=== PATIENT | male | born 1950 | race Caucasian/White ===

== ENCOUNTER 2023-12-21 06:01 | Emergency (ER) | payer MEDICARE, BC, SELFPAY ==
[2023-12-21 06:10] VITALS: BP 168/86; PULSE 87; RESP 18; TEMP 36.7; O2SAT 99; BMI 33.0
--- NOTE | 2023-12-21 07:16 | ED_ITS ---
HPI - General Adult General Chief complaint: Unspecified Complaint, Adult Stated complaint: Not able to sleep for 3 days Time Seen by Provider: 12/21/23 07:12 Source: patient Mode of arrival: ambulatory Limitations: no limitations History of Present Illness HPI narrative: 73-year-old male presents the emergency department for evaluation of insomnia for the past 3 nights. He has not tried contacting his primary care provider. He tells me that his current primary care provider is through [facility] but is retiring and has advised patient to set up a new primary care provider. Patient states that he has a new 1 set up through [facility] a here in [place] and will began seeing them soon. He states that he had previously been on Seroquel for insomnia and it was not effective for him. He also reports that he had previously been on a higher dose of trazodone and is not sure why he is currently taking 100 mg. I do not have access to those records. He says that he has been taking this for about the past 6 weeks and it was originally helping but now is not as helpful. I reviewed the records also shows that he is on several stimulating medications including bupropion and twice daily methylphenidate. He is currently taking the methylphenidate at 7:00 a.m. and 1:00 p.m., has not tried eliminating the afternoon dose of his methylphenidate. He denies a history of bipolar disorder, psychosis. He does have chronic pain but states that there have been no changes to his medication regimen. He notes no suicidal thoughts. He is under lots of increased stress due to his having cancer and from how he describes it, not doing very well. He is tearful at this. Past medical history notable for hypertension, coronary artery disease, chronic insomnia, chronic pain. Medications are reportedly accurate as listed. No known drug allergies. ROS notable for the insomnia as stated above, otherwise denies times 12 systems for acute changes. Chronic issues are stable per him. Related Data Home Medications ?Medication ?Instructions ?Recorded ?Confirmed amlodipine 10 mg-benazepril 40 mg 1 cap PO DAILY 12/21/23 12/21/23 capsule atorvastatin 40 mg tablet 40 mg PO DAILY 12/21/23 12/21/23 bupropion HCl 300 mg 24 hr tablet, 300 mg PO DAILY 12/21/23 12/21/23 extended release celecoxib 200 mg capsule 200 mg PO DAILY 12/21/23 12/21/23 methylphenidate HCl 20 mg tablet 20 mg PO BID 12/21/23 12/21/23 metoprolol succinate 200 mg 200 mg PO DAILY 12/21/23 12/21/23 tablet,extended release 24 hr metoprolol succinate 25 mg 25 mg PO DAILY 12/21/23 12/21/23 tablet,extended release 24 hr oxycodone 10 mg tablet 10 mg PO 3XD PRN 12/21/23 12/21/23 pantoprazole 40 mg tablet,delayed 40 mg PO DAILY 12/21/23 12/21/23 release pregabalin 100 mg capsule 100 mg PO BID 12/21/23 12/21/23 tamsulosin 0.4 mg capsule 0.4 mg PO DAILY 12/21/23 12/21/23 trazodone 100 mg tablet 100 mg PO QPM 12/21/23 12/21/23 valacyclovir 500 mg tablet 500 mg PO DAILY 12/21/23 12/21/23 Previous Rx's ?Medication ?Instructions ?Recorded trazodone 100 mg tablet 200 mg (2 x 100 mg) PO QHS #60 tabs 12/21/23 Allergies Allergy/AdvReac Type Severity Reaction Status Date / Time No Known Drug Allergies Allergy Verified 12/21/23 06:10 [facility] Social History Smoking Status: Never smoker Second hand tobacco smoke exposure: No How often do you have a drink containing alcohol: never AUDIT-C Alcohol total score: 0 Non-prescribed substance use: denies use Exam Const: Vital Signs, click to edit/add: Vital Signs - 24 hr 12/21/23 06:10 Temperature 98.0 F Pulse Rate [Right Pulse Oximeter] 87 Respiratory Rate 18 Blood Pressure [Le ft Forearm] 168/86 H Pulse Oximetry 99 Oxygen Delivery Me thod Room Air Documenting provider has reviewed patient's vital signs: yes Common normals: no apparent distress General appearance: cooperative and well kempt Other: Tearful but alert, good historian. HENMT: Common normals: normocephalic and oropharynx normal Head and scalp: normocephalic Eye: General eye: normal appearance of both eyes Resp: Common normals: normal respiratory effort, no use of accessory muscles and clear to auscultation bilaterally Effort & inspection: able to speak in complete sentences Auscultation: clear to auscultation bilaterally Cardio: Common normals: regular rate and regular rhythm Rate: regular rate Rhythm: regular rhythm Other: 2/6 systolic murmur. Psych: Common normals: thought process normal and speech normal Appearance: well kempt Attitude: engaged Speech: normal speech Mood and affect: sad and tearful Thought process: normal thought process Thought content: normal thought content Memory/cognition: memory grossly intact Insight: insight good Judgement: judgment good Skin: Common normals: no rashes or lesions noted General skin exam: no rashes or lesions noted Course Course ED Course: 73-year-old male with acute on chronic insomnia with situational depression due to his 's cancer. Counseled patient that in the ED, insomnia long-term management really is not in his best interest but I do think making a couple of small changes since he is between providers could be helpful for him. 1st, he will stop taking his afternoon dose of methylphenidate. He may continue the morning dose for now but may consider eliminating this also if he is still having insomnia. He will begin taking melatonin 10 mg at bedtime and he will also increase his trazodone from 100 mg at bedtime to 200 mg at bedtime and a new prescription for this has been sent to the pharmacy. He will make a follow- up appointment in 1 week for his primary care provider to see how this is going and discuss alternatives if this is not successful. Alarm symptoms reviewed that would warrant ED presentation and he verbalizes understanding and agreement. Vital Signs Vital signs: Initial Vital Signs Temperature 98.0 F 12/21/23 06:10 Temperature Source Temporal Artery Scan 12/21/23 06:10 Pulse Rate 87 12/21/23 06:10 Respiratory Rate 18 12/21/23 06:10 Blood Pressure 168/86 H 12/21/23 06:10 Blood Pressure Mean 113 H 12/21/23 06:10 Blood Pressure Position Sitting 12/21/23 06:10 Pulse Oximetry 99 12/21/23 06:10 Oxygen Delivery Method Room Air 12/21/23 06:10 Vital Signs Temperature 98.0 F 12/21/23 06:10 Pulse Rate 87 12/21/23 06:10 Respiratory Rate 18 12/21/23 06:10 Blood Pressure 168/86 H 12/21/23 06:10 Pulse Oximetry 99 12/21/23 06:10 Oxygen Delivery Method Room Air 12/21/23 06:10 Temperature 98.0 F 12/21/23 06:10 Pulse Rate 87 12/21/23 06:10 Respiratory Rate 18 12/21/23 06:10 Blood Pressure 168/86 H 12/21/23 06:10 Pulse Oximetry 99 12/21/23 06:10 Oxygen Delivery Method Room Air 12/21/23 06:10 Discharge Plan Discharge Clinical Impression: Chronic insomnia Patient Disposition: Home, Self-Care Condition: Stable Instructions: Insomnia (ED) Additional Instructions: As we discussed, I am truly sorry to hear about your . Please know that no amount of medications are going to fully mask that level of grief and worry over her. I do think that there is some room to at least temporarily adjust your medica tions. Please call your primary care doctor and make a follow-up for next week so we can make sure that this is working. First, you may continue taking your morning dose of methylphenidate, but I would like for you to stop taking the afternoon dose. Second, you will increase your trazodone to 200 mg at bedtime. I will send a new prescription to your pharmacy for this dose. Third, with your trazodone, you will also take 10 mg of melatonin to help you sleep. If these are not effective, there are many other options your primary doctor may consider but this is an excellent place to start. Activity Level: Activity as Tolerated Discharge Diet: Regular Prescriptions: New trazodone 100 mg tablet 200 mg PO QHS Qty: 60 0RF No Action celecoxib 200 mg capsule 200 mg PO DAILY atorvastatin 40 mg tablet 40 mg PO DAILY methylphenidate HCl 20 mg tablet 20 mg PO BID metoprolol succinate 200 mg tablet extended release 24 hr 200 mg PO DAILY tamsulosin 0.4 mg capsule 0.4 mg PO DAILY pantoprazole 40 mg tablet,delayed release (DR/EC) 40 mg PO DAILY metoprolol succinate 25 mg tablet extended release 24 hr 25 mg PO DAILY bupropion HCl 300 mg tablet extended release 24 hr 300 mg PO DAILY pregabalin 100 mg capsule 100 mg PO BID amlodipine-benazepril 10-40 mg capsule 1 cap PO DAILY oxycodone 10 mg tablet 10 mg PO 3XD PRN valacyclovir 500 mg tablet 500 mg PO DAILY trazodone 100 mg tablet 100 mg PO QPM Follow Up/Referrals: Provider,Not a Local [Primary Care Provider] - Stand Alone Forms: [employer] Info Instructions
--- OUTSIDE RECORDS SUMMARY | 2023-12-21 07:43 | XMS_ITS | Clinical Summary ---
Author Organization [facility] Address [address] [place] [id number] Care Team Providers Care Patient Support Partner Name Role Phone Unavailable Primary Care Provider Unavailabl e Source Comments Patient records contain information from all sites at [facility]. For routine questions regarding patient records, call [phone] during business hours, M-F 8:00 AM - 5:00 PM Central Time. Record requests for emergency care only can be directed to [phone] at any time.[facility] Allergies No known active allergies Medications Medication Sig Dispensed Refills Start Date End Date Status amLODIPine-benazepril (LOTREL 5-20) 5-20 mg per capsule Take 1 capsule by mouth daily. 11/05/[address] Active [address] tablet Take 1 tablet by mouth daily. 10/03/2020 Active atorvastatin (LIPITOR) 40 mg tablet Take 1 tablet by mouth at bedtime. 04/18/2021 Active buPROPion (WELLBUTRIN SR) 150 mg 12 hr tablet Take 1 tablet by mouth 2 (two) times a day. 11/05/2011 Active celecoxib (CeleBREX) 200 mg capsule Take 1 capsule by mouth daily. 04/19/2021 Active cholecalciferol, vitamin D3, 25 mcg (1,000 Unit) tablet Take 1 tablet by mouth daily. 07/10/2021 Active desvenlafaxine (PRISTIQ) 100 mg 24 hr tablet Take 1 tablet by mouth daily. 07/10/2021 Active ergocalciferol (DRISDOL) 50,000 Unit capsule Take 50,000 Units by mouth. Active gabapentin (NEURONTIN) 400 mg capsule Take 3 capsules by mouth at bedtime. 05/18/2013 Active metFORMIN (GLUCOPHAGE) 1,000 mg tablet Take 1,000 mg by mouth. Active methylphenidate HCl (METADATE ER) 20 mg ER tablet Take 1 tablet by mouth 2 (two) times a day. 06/18/2021 Active metoprolol succinate (TOPROL-XL) 200 mg 24 hr tablet Take 200 mg by mouth. 05/21/2021 Active oxyCODONE (ROXICODONE) 10 mg IR tablet Take 10 mg by mouth every 8 (eight) hours. 08/13/2021 Active pantoprazole (PROTONIX) 40 mg EC tablet TAKE 1 TABLET BY MOUTH DAILY, 30 TO 60 MINUTES BEFORE A MEAL. 05/21/2021 Active pregabalin (LYRICA) 100 mg capsule Take 100 mg by mouth. 06/26/2021 Active pregabalin (LYRICA) 150 mg capsule Take 150 mg by mouth. 06/26/2021 Active QUEtiapine (SEROquel) 25 mg tablet Take 25 mg by mouth. 05/21/2021 Active sennosides-docusate sodium (SENOKOT-S) 8.6-50 mg per tablet Take 1-4 tablets by mouth. 03/11/2013 Active simvastatin (ZOCOR) 40 mg tablet Take 1 tablet by mouth at bedtime. 04/11/2011 Active tamsulosin (FLOMAX) 0.4 mg 24 hr capsule Take 0.4 mg by mouth. 04/18/2021 Active valACYclovir (VALTREX) 500 mg tablet Take 500 mg by mouth. 10/29/2011 Active venlafaxine XR (EFFEXOR-XR) 75 mg 24 hr capsule Take 225 mg by mouth. Active Active Problems No known active problems Social History Tobacco Use Types Packs/Day Years Used Date Smoking Tobacco: Every Day Smokeless Tobacco: Never Alcohol Use Standard Drinks/Week Comments Not Currently 0 (1 standard drink = 0.6 oz pur e alcohol) Nutrition Answer Date Recorded Nutrition: EVOO Fat Source Unknown 07/02 Nutrition: Servings of Fruits/Vegetables per Day Not on file 07/02/2021 Dental Answer Date Recorded Dental: Regular Dentist Unknown 07/02/20 Sex and Gender Information Value Date Recorded Sex Assigned at Not on file Gender Identity Not on file Sexual Orientation Not on file Last Filed Vital Signs Vital Sign Reading Time Taken Comments Blood Pressure 102/72 01/05/2022 2:30 PM CDT Pulse 60 01/05/2022 2:45 PM CDT Temperature 36.8 ??C (98.2 ??F) 01/05/2022 2:45 PM CD T Respiratory Rate 18 01/05/2022 2:45 PM CDT Oxygen Saturation 90% 01/05/2022 2:45 PM CDT Inhaled Oxygen Concentration - - Weight 107 kg (235 lb 0.2 oz) 01/05/2022 1:39 PM CDT Height - - Body Mass Index - - Plan of Treatment Health Maintenance Due Date Last Done Comments Abdominal Aortic Aneurysm (A AA) Screen 1952 CT Colonography 1952 Cologuard 1950 Colonoscopy 1950 Colorectal Cancer Screening 1952 FIT 1952 Hepatitis C Screening 1952 Tobacco Cessation counseling 1952 Creatinine Level (Kidney Fun ction Test) 12/05/2022 12/05/2021, 04/19/2021, 11/27/2020, Additional history exists Potassium Level 12/05/2022 12/05/2021, 10/0 01/2021, 11/27/2020, Additional history exists Sodium Level 12/05/2022 12/05/2021, 10/0 01/2021, 11/27/2020, Additional history exists Depression Screening (Annual PHQ-2) 07/14/2023 Fall Risk Screen (Annual) 07/14/2023 COVID-19 Vaccine (2022-2 4 season) 2023 04/25/2023, 06/29/2022, 10/29/2021, Additional history exists Fasting Glucose for Diabetes Screening 12/05/2024 12/05/2021, 04/19/2021, 11/27/2020, Additional history exists DTaP,Tdap,and Td Vaccines (6 - Td or Tdap) 05/05/2028 05/05/2018, 05/05/2018, 05/24/2014, Additional history exists Zoster Vaccines Completed 07/24/2018, 04/14, 05/24/2014 Pneumococcal vaccine (65+ years) Completed 10/05/2019, 08/18/2015, 07/19/2014, Additional history exists Influenza Vaccine Completed 04/25/2023, , 04/19/2021, Additional history exists Procedures Procedure Name Priority Date/Time Associated Diagnosis Comments EXTI COMPREHENSIVE METABOLIC PANEL, S/P Routine 12/05/2021 11:54 AM CDT from Last 3 Months or Most Recently Relevant to Health Maintenance
--- OUTSIDE RECORDS SUMMARY | 2023-12-21 07:43 | XMS_ITS ---
Author Organization [facility] Address [address] [place] [address] Care Team Providers Care Arresting Gear Operator Name Role Phone Unavailable Unavailable Unavailable Surgery Details Not on file Complications Check Surgery Details section. Procedure Estimated Blood Loss Check Surgery Details section. Procedure Findings Check Surgery Details section. Procedure Specimens Taken Check Surgery Details section.
--- OUTSIDE RECORDS SUMMARY | 2023-12-21 07:43 | XMS_ITS | Clinical Summary ---
Author Organization [facility] Address [address] [place] [address] Care Team Providers Care Molded Goods Controls Operator Name Role Phone Vinny Covarrubias MD Primary Care Provider [phone] Vinny Covarrubias MD Unavailable [phone] Sancho Brown MD Unavailable Vinny Covarrubias MD Unavailable [phone] Alba Desai [employer] Unavailable [phone] Lizbet Guzmán MD Unavailable [phone] Soledad Mccabe MD Unavailable Unav ailable Vinny Covarrubias MD Unavailable [phone] Aida Hahn DPM, Podiatry /Foot and Ankle Surgery Unavailable Gisselle Doyle [facility] Unavailable Allergies Active Allergy Reactions Criticality Noted Date Comments Dilaudid Cough Visual Disturbance 11/07/2011 hulludinations Triptans Other (See Comments) 03/29/2014 Chest pain Medications Medication Sig Dispensed Refills Start Date End Date Status Multiple Vitamins-Minerals (MENS 50+ MULTI VITAMIN/MIN PO) Take 1 tablet by mouth daily Active order for DMEIndications:Diab etic polyneuropathy associated with type 2 diabetes mellitus (H) Equipment being ordered: custom shoes with inserts 2 each 03/12/2018 Active Carboxymethylcellul -Glycerin (CLEAR EYES FOR DRY EYES OP) Apply 1 drop to eye daily as needed Active diclofenac (VOLTAREN) 1 % topical gelIndications:Prim erinn osteoarthritis, unspecified site Place 4 g onto the skin 4 times daily 300 Tube 3 10/25/2019 Active medical cannabis (Patient's own supply) See Admin Instructions (The purpose of this order is to document that the patient reports taking medical cannabis. This is not a prescription, and is not used to certify that the patient has a qualifying medical condition.) Active D-1000 EXTRA STRENGTH 25 MCG (1000 UT) TABSIndications:Mariangel dhaliwal general medical examination at a health care facility TAKE ONE TABLET BY MOUTH ONCE DAILY 90 tablet 07/10/2021 Active aspirin (ASPIRIN LOW DOSE) 81 MG EC tabletIndications:H istory of diabetes mellitus, type II Take 1 tablet (81 mg) by mouth daily 100 tablet 2 01/15/2022 Active senna (SENOKOT) 8.6 MG tabletIndications:C hronic pain syndrome Take 2 tablets by mouth daily 100 tablet 11 10/22/2022 Active metoprolol succinate ER (TOPROL XL) 200 MG 24 hr tabletIndications:T remor TAKE ONE TABLET BY MOUTH ONCE DAILY (TAKE WITH A 25 MG ER TABLET TO EQUAL 225 MG DAILY DOSE) 90 tablet 3 02/03/2023 Active metoprolol succinate ER (TOPROL XL) 25 MG 24 hr tabletIndications:T remor,Coronary artery disease involving [place] coronary artery of [place] heart without angina pectoris TAKE ONE TABLET BY MOUTH DAILY AT BEDTIME (TAKE WITH A 200 MG ER TABLET TO EQUAL 225 MG DAILY DOSE) 90 tablet 3 02/03/2023 Active pantoprazole (PROTONIX) 40 MG EC tabletIndications:G astroesophageal reflux disease without esophagitis TAKE ONE TABLET BY MOUTH ONCE DAILY-TAKE 30 TO 60 MINUTES BEFORE A MEAL 90 tablet 3 02/03/2023 Active tamsulosin (FLOMAX) 0.4 MG capsuleIndications: Nocturia Take 1 capsule (0.4 mg) by mouth daily 90 capsule 3 06/04/2023 Active pregabalin (LYRICA) 100 MG capsuleIndications: Diabetic polyneuropathy associated with type 2 diabetes mellitus (H),Chronic pain syndrome,Lumbar radiculopathy,Cervi calgia Take 1 capsule (100 mg) by mouth 2 times daily 180 capsule 1 06/04/2023 Active buPROPion (WELLBUTRIN XL) 300 MG 24 hr tabletIndications:D iabetic polyneuropathy associated with type 2 diabetes mellitus (H) Take 1 tablet (300 mg) by mouth every morning 90 tablet 1 06/04/2023 Active amLODIPine-benazepr il (LOTREL) 10-40 MG capsuleIndications: Essential hypertension TAKE ONE CAPSULE BY MOUTH ONCE DAILY 90 capsule 1 06/04/2023 Active hydrocortisone (WESTCORT) 0.2 % external creamIndications:De rmatitis Apply topically 2 times daily 60 g 1 06/04/2023 Active clobetasol (TEMOVATE) 0.05 % external solutionIndications :Seborrheic dermatitis Apply topically 2 times daily as needed (itching) 50 mL 1 08/19/2023 Active ketoconazole (NIZORAL) 2 % external shampooIndications: Seborrheic dermatitis Apply topically once a week 120 mL 3 08/19/2023 Active celecoxib (CELEBREX) 200 MG capsuleIndications: Chronic pain syndrome Take 1 capsule (200 mg) by mouth daily 90 capsule 1 08/19/2023 Active valACYclovir (VALTREX) 500 MG tabletIndications:H SV (herpes simplex virus) infection Take 1 tablet (500 mg) by mouth daily 90 tablet 3 08/19/2023 Active traZODone (DESYREL) 100 MG tabletIndications:O SA (obstructive sleep apnea),Insomnia due to medical condition Take 1 tablet (100 mg) by mouth at bedtime 90 tablet 2 10/10/2023 Active methylphenidate (RITALIN) 20 MG tabletIndications:O SA (obstructive sleep apnea),Chronic fatigue Take 1 tablet (20 mg) by mouth 2 times daily 60 tablet 10/14/2023 Active atorvastatin (LIPITOR) 40 MG tabletIndications:H yperlipidemia LDL goal <100 TAKE ONE TABLET BY MOUTH EVERY DAY 90 tablet 11/11/2023 Active methylphenidate (RITALIN) 20 MG tabletIndications:O SA (obstructive sleep apnea),Chronic fatigue Take 1 tablet (20 mg) by mouth 2 times daily for 30 days 60 tablet 12/12/2023 Active methylphenidate (RITALIN) 20 MG tabletIndications:O SA (obstructive sleep apnea),Chronic fatigue Take 1 tablet (20 mg) by mouth 2 times daily for 30 days 60 tablet 01/12/2024 4 Active oxyCODONE IR (ROXICODONE) 10 MG tabletIndications:C hronic pain syndrome Take 1 tablet (10 mg) by mouth every 8 hours as needed for severe pain 90 tablet 11/18/2023 Active methylphenidate (RITALIN) 20 MG tabletIndications:C hronic fatigue,LISA (obstructive sleep apnea) TAKE ONE TABLET BY MOUTH TWICE A DAY . 60 tablet 12/09/2023 Active methylphenidate (RITALIN) 20 MG tabletIndications:O SA (obstructive sleep apnea),Chronic fatigue Take 1 tablet (20 mg) by mouth 2 times daily for 30 days 60 tablet 11/11/2023 4 Active Problems Problem Noted Date Diagnosed Date Financial difficulties 08/19/2023 Last Assessment & Plan: has at least 4 bank accounts, some are now overdrawn Stress due to spouse with dementia 08/19/2023 Last Assessment & Plan: Spouse may have Pick's disease, is falling frequently. No communication between spouses. Discussed. He is afraid to leave the house or her presence, fearing her lying on the floor for prolonged periods, which has happened. referral for his well being, Care coordination for resources. Recommend he get permission to access medical and financial records/accounts. He reports sister in law, 's dtr oppose this, see nothing wrong with spouse Need for vaccination against respiratory syncyti al virus 08/19/2023 Last Assessment & Plan: Recommended at pharmacy Pruritus, unspecified 08/19/2023 Right foot pain 08/15/2022 Nail dystrophy 08/09/2022 Last Assessment & Plan: He wonders if some of his toenails could be removed for ease of care. We shall refer to podiatry. He is higher risk. Lumbar radiculopathy 12/05/2021 Last Assessment & Plan: A component of his neuropathic symptoms Special screening for malignant neoplasm of pros cason 12/05/2021 Last Assessment & Plan: Medicare requires this dx Panlobular emphysema 02/13/2021 Last Assessment & Plan: Asymptomatic. Tobacco continues Nocturnal enuresis 11/14/2020 Last Assessment & Plan: Multiple urologic issues. He uses depends at night HSV (herpes simplex virus) infection 10/18/2020 Last Assessment & Plan: refill Diabetic polyneuropathy asso ciated with type 2 diabetes mellitus 07/18/2020 Last Assessment & Plan: Pain management has suggested switch to bupenorphine Seborrheic dermatitis 07/18/2020 Last Assessment & Plan: Head face eyebrows, pruritic. Typical with xerotic face. Poor response to low dose hydrocortisone. Broaden data base Antifungals, variable steroids for skin location, recommend cessation of vasoline, silicone based emollients to face Foreign body in right foot 07/18/2020 Last Assessment & Plan: He thinks this was a dog bone that he stepped on. has been unsuccessful. A piece of wire and a small dark triangular-shaped foreign body removed. Wound care discussed Alcohol dependence in remission 04/18/2020 Last Assessment & Plan: He remains sober Urinary incontinence, unspecified type 0 Last Assessment & Plan: Depends at night. Multiple urologic diagnoses contribute Weight gain 04/18/2020 Last Assessment & Plan: He reports 30 pound weight gain since the onset of the pandemic. Discussed diet. Broaden database Nocturia 10/25/2019 Last Assessment & Plan: 4-5 times a night. He sees urology in a few weeks Obesity (BMI 35.0-39.9) with comorbidity 019 Last Assessment & Plan: He never filled ozempic Primary osteoarthritis, unspecified site 019 Last Assessment & Plan: Diffuse. He was referred to pain management just before the pandemic. Hx of urethral stricture 03/16/2019 Last Assessment & Plan: He is seeing urology in the near future Bladder neck stricture 02/08/2019 Last Assessment & Plan: He is asymptomatic. 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 If persistent, CKD Low TSH level 10/01/2018 Last Assessment & Plan: Assess Prediabetes 04/09/2018 Overview: Diabetes remotely Last Assessment & Plan: Periodic A1c Personal history of tobacco use 03/12/2018 Last Assessment & Plan: He is not interested in cessation Borderline personality disorder 09/09/2017 Last Assessment & Plan: Psych dx, remote. Regular visits Presbycusis of both ears 02/17/2017 Tremor 01/10/2017 Last Assessment & Plan: Absent, continue beta-blockade Stasis dermatitis of both legs 01/10/2017 History of diabetes mellitus, type II 12/12/2016 Last Assessment & Plan: Periodic assessment Incomplete tear of left rotator cuff 07/03/2016 Tubular adenoma 06/21/2016 JOSE DE JESUS (generalized anxiety disorder) 04/03/2016 Last Assessment & Plan: Stable. He reports his spouse is deteriorating adding stress to his life Essential hypertension 12/07/2015 Last Assessment & Plan: Controlled. Continue. Check twice yearly Major depressive disorder, recurrent episode, mo derate 10/13/2015 Last Assessment & Plan: Major complaint is anxiety, insomnia, helplessness. He is not suicidal. Psychiatry refer to optimize meds with known genomic metabolism, counselor for support during difficult time Tinea cruris 07/21/2015 Last Assessment & Plan: Recurrent, genital itching, many years. Tends to be problematic every 2 weeks. Will prescribe Nizoral to use weekly recommend antifungal foot powders. Perineal care discussed. Polyneuropathy 04/28/2015 Last Assessment & Plan: Continue pregabalin Controlled substance agreement signed 03/02/2015 Overview: Patient is followed by Vinny Covarrubias MD for ongoing prescription of pain medication. All refills should only be approved by this provider, or covering partner. Medication(s): [place]. Maximum quantity per month: 180 Clinic visit frequency required: Q 3 months Controlled substance agreement: Encounter-Level CSA - 03/12/2018: Controlled Substance Agreement - Scan on 03/19/2018 1:56 PM: CONTROLLED SUBSTANCE AGREEMENT (below) Encounter-Level CSA - 06/21/2014: Controlled Substance Agreement - Scan on 06/23/2014 8:37 AM: [facility] Controlled Medication Agreement 06-21-14 (below) Patient-Level CSA: There are no patient-level csa. Pain Clinic evaluation in the past: DIRE Total Score(s): No flowsheet data found. Last [facility] website verification: [email or web address] Last Assessment & Plan: Anew today Onychomycosis 02/09/2015 Last Assessment & Plan: Status post 2 courses of antifungal, therefore failure. Nails are thick and hard. Cancer in his current residence may be difficult, but we shall attempt to refer him for chiropody Chronic pain 07/19/2014 Overview: Patient is followed by VINNY COVARRUBIAS for ongoing prescription of pain medication. All refills should be approved by this provider, or covering partner. Medication(s): [place] Maximum quantity per month: 180 Clinic visit frequency required: Q 3 months Controlled substance agreement on file: 03.12.18 Pain Clinic evaluation in the past: Yes Date/Location: 2013 DIRE Total Score(s): No flowsheet data found. Last [facility] website verification: 08/18/19 [email or web address] Last Assessment & Plan: He was scheduled for a spinal cord stimulator trial, but had to cancel due to 's condition Cervicalgia 07/19/2014 Last Assessment & Plan: Stable Insomnia 07/19/2014 Last Assessment & Plan: Patient reports decreased energy lately. Patient wakes at night to urinate. Otherwise sleeps through the night. Will increase desvenlafaxine and decrease quetiapine. Upcoming sleep consult. Headache 07/19/2014 Overview: Problem list name updated by automated process. Provider to review Intertrigo 05/24/2014 LISA (obstructive sleep apnea) 05/17/2014 Overview: Cannot tolerate CPAP Patient is followed by VINNY COVARRUBIAS for ongoing prescription of stimulants. All refills should be approved by this provider, or covering partner. Medication(s): Methylphenidate. Maximum quantity per month: 60 Clinic visit frequency required: Q 3 months Controlled substance agreement on file: Yes Date(s): 03/12/18 Neuropsych evaluation for ADD completed: No . Takes for LISA Last [facility] website verification: done on 04/30/18 [email or web address] Last Assessment & Plan: He complains of insomnia. No CPAP, Inspire candidate, although study is remote. Numerous sedating agent already. He declines sleep referral. Fatigue 03/29/2014 Last Assessment & Plan: Patient reports decreased energy lately. Will increase desvenlafaxine and decrease quetiapine. Upcoming sleep consult. PVD (peripheral vascular disease) (H24) 09/22/19 14 Last Assessment & Plan: asymptomatic Ataxia 08/13/2013 [facility] 05/14/2013 Overview: Status: unable to contact Rubbing Bed Operator: Mery Solorio RN [phone] (no active care coordination) See Letters for H Care Plan Hyperlipidemia LDL goal <100 05/13/2010 Last Assessment & Plan: Statin therapy. Continue GERD (gastroesophageal reflux disease) 0 Last Assessment & Plan: Asymptomatic with current regimen. Continue Cardiovascular disease 06/26/2005 Overview: Acute inferior wall infarction in 1997. Failed attempt for urgent angioplasty complicated by vessel dissection requiring urgent single vessel bypass surgery. AAA, repaired Last Assessment & Plan: Asymptomatic. Continue S/P AAA (abdominal aortic aneurysm) repair Prostate cancer Overview: Prostatectomy 2017 Last Assessment & Plan: He has not seen Urology recently. Yearly PSA indefinitely Resolved Problems Problem Noted Date Diagnosed Date Resolved Date Arthritis of left ankle 02/04/2023 02/0 12/2023 Last Assessment & Plan: Pain in left ankle. 1+ effusion without warmth. Stable ligamentous testing. Broaden database. Likely affected by his neuropathy Hypoxia 12/18/2020 04/19/2021 Last Assessment & Plan: He cannot use his home O2, tangling up in his hoses. He is not using it, and is not hypoxic at this time. Discontinue home O2 Gross hematuria 03/16/2019 04/18/2020 Last Assessment & Plan: Bladder stone At risk for delay of recovery after surgery 12/23/2018 08/19/2023 History of prostate cancer 07/24/2018 0 12/05/2021 Last Assessment & Plan: Enuresis monthly. Occasional daytime incontinence Elevated prostate specific antigen (PSA) 09/12/2017 05/05/2018 Skin ulcer, limited to breakdown of skin 02/17/2017 04/18/2020 Benign prostatic hyperplasia with urinary frequency 01/10/2017 05/05/2018 Benign prostatic hyperplasia with lower urinary tract symptoms, unspecified morphology 11/12/2016 05/05/2018 Type 2 diabetes mellitus wit h diabetic polyneuropathy, without long-term current use of insulin 09/17/2016 12/12/2016 Type 2 diabetes mellitus wit h diabetic polyneuropathy 03/26/2016 09/17/2016 DM type 2 causing complication 04/24/2015 03/26/2016 Pain in joint involving ankle and foot 10/13/2014 11/11/2014 Low back pain 10/11/2014 11/11/2014 Overview: Diagnosis updated by automated process. Provider to review and confirm. Neuropathy 05/24/2014 04/29/2019 Last Assessment & Plan: Persistent Obesity 03/29/2014 07/13/2019 Allergic rhinitis due to ani mal hair and dander 01/18/2014 10/09/2018 Overview: Problem list name updated by automated process. Provider to review Shoulder pain 12/20/2013 04/15/2014 HTN, goal below 140/90 09/21/201312/06 [facility] 12/23/2011 05/14/2013 Overview: EMERGENCY CARE PLAN Presenting Problem Signs and Symptoms Treatment Plan Questions or concerns during clinic hours I will call the clinic directly Questions or concerns outside clinic hours I will call the 24 hour nurse line at [phone] Patient needs to schedule an appointment I will call the 24 hour scheduling team at [phone] or clinic directly Same day treatment I will call the clinic first, nurse line if after hours, urgent care and express care if needed DX V65.8 REPLACED WITH [id number] HEALTH USP (10/19/2012) Moderate major depression 07/01/2011 Anemia 03/13/2011 03/16/2019 Advanced directives, counseling/discussion 12/17/2010 04/23/2018 Overview: Advance Directive Problem List Overview: Name Relationship Phone Primary Health Care Agent Alternative Health Care Agent Discussed advance care planning with patient; information given to patient to review. 12/17/2010 Insomnia 03/08/2005 04/30/2018 Overview: Problem list name updated by automated process. Provider to review Generalized osteoarthrosis, unspecified site 07/13/2019 Coronary artery disease 12/2023 Last Assessment & Plan: Asymptomatic. Continue current regimen Encounters Date Type Department Care Team Description 12/09/[address] [phone] Vinny Covarrubias MD Medication Refill 11/18/[address] [phone] Vinny Covarrubias MD Medication Refill 11/11/[address] [phone] Vinny Covarrubias MD Medication Refill 11/11/[address] [phone] Aj Chavez PA-C Medication Refill 10/23/2023 My[facility] Medical Advice [address] [phone] Dedra May CMA 10/23/[address] [phone] Vinny Covarrubias MD 10/17/2023 MyC Medical Advice [facility] [id number] [place] [phone] June Quintana RN 10/16/[address] [phone] Aj Chavez, SWAPNA Medication Refill 10/14/2023 MyC Medical Advice [address] [phone] Vinny Covarrubias MD 10/14/2023 Orders Only [address] [phone] Vinny Covarrubias MD Chronic fatigue (Primary Dx); LISA (obstructive sleep apnea) 10/10/[address] [phone] Vinny Covarrubias MD Medication Request (Trazodone & Methylphenidate ) from Last 3 Months Immunizations Name Administration Dates Next Due COVID-19 12+ () (MODERNA) 04/25/2023 COVID-19 Bivalent 12+ (Pfizer) 06/29/2022 COVID-19 MONOVALENT 12+ (Pfizer) 022,04/13/2021,10/12/2020,2020 DTAP-IPV, <7Y (QUADRACEL/KINRIX) 05/24/2014 DTaP, Unspecified 05/05/2018,06/22/2008 Flu, Unspecified 05/24/2014 Influenza (H1N1) 07/12/2009 Influenza (High Dose) 3 patricia nt vaccine 03/24/2019,04/07/2018 Influenza (IIV3) PF 07/25/2012, 1,03/16/2011,2009,07/12/2009,05/13/2008,05/16/2006,1 08/27/2004,05/27/2002,05/14/2001, 001 Influenza Vaccine 65+ (FLUAD) 04/25/2023, 022 Influenza Vaccine 65+ (Fluzone HD) 04/19/2021, Influenza Vaccine >6 months,quad, PF 04/11/2017, 03/26/2016,04/28/2015 Influenza Vaccine, 6+MO IM (QUADRIVALENT W/PRESERVATIVES) 05/24/2014 Influenza, seasonal, injectable, PF 03/16/2011,0 04/04/2010,07/12/2009 Pneumo Conj 13-V (2010&after) 08/18/2015 Pneumococcal 23 valent 10/05/2019,07/19/2014,09/2009 TD,PF 7+ (Tenivac) 03/22/2003 TDAP Vaccine (Adacel) 05/05/2018,06/22/2008 Zoster recombinant adjuvante d (SHINGRIX) 07/24/2018,05/05/2018 Zoster vaccine, live 05/24/2014 Family History Medical History Relation Comments Hypertension Brother 1 Neurologic Disorder Brother 1 Parkinsons Parkinsonism Brother 1 Hypertension Brother 2 Arthritis Brother 3 Coronary Artery Disease Father Diabetes Father Hypertension Father Musculoskeletal Disorder Father Muscula r Dystrophy Prostate Cancer Father C.A.D. Maternal Grandfather Coronary Artery Disease Maternal Grandfather Hypertension Maternal Grandfather Cerebrovascular Disease Mother Unknown/Adopted Mother Brain Aneurysm C.A.D. Paternal Grandfather Prostate Cancer Paternal Grandfather Coronary Artery Disease Sister 1 Hypertension Sister 1 Schizophrenia No family hx of Relation Status Comments Brother 1 Brother 2 Alive Brother 3 Daughter Alive Father Maternal Grandfather Mother (Age 35) Brain Aneurysm Paternal Grandfather Sister 1 Alive Sister 2 Alive Son 1 Alive Son 2 Alive Social History Tobacco Use Types Packs/Day Years Used Date Smoking Tobacco: Light Smoker Cigarettes 0.5 30 Smokeless Tobacco: Former Quit: 02/22/2013 Tobacco Cessation:Ready to Q uit: Yes; Counseling Given: Yes Comments:3 cigeretts a day Alcohol Use Standard Drinks/Week Comments No 0 (1 standard drink = 0.6 oz pure alcohol) 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 Social Connection and Isolation Panel [NHANES] A nswer Date Recorded In a typical week, how many times do you talk on the phone with family, friends, or neighbors? Once a week 12/03/2021 How often do you get together with friends or re latives? Once a week 12/03/2021 How often do you attend latter day or evangelical serv ices? Never 12/03/2021 Do you belong to any clubs o r organizations such as latter day groups, unions, fraternal or athletic groups, or school groups? No 12/03/2021 Attends Club or Organization Meetings Not on tomer e 12/03/2021 Are you , , di vorced, , never , or living with a partner? 12/03/2021 AUDIT-C Answer Date Recorded Q1: How often do you have a drink containing alcohol? Never 12/03/2021 Q2: How many drinks containi ng alcohol do you have on a typical day when you are drinking? Patient does not drink Q3: How often do you have si x or more drinks on one occasion? Never 12/03/2021 PHQ-2 Answer Date Recorded PHQ-2 Score 6 08/19/2023 [facility] - Occupational Stress Questionnaire Answer Date Recorded Do you feel stress - tense, restless, nervous, or anxious, or unable to sleep at night because your mind is troubled all the time - these days? Rather much 12/03/2021 Exercise Vital Sign Answer Date Recorde d On average, how many days pe r week do you engage in moderate to strenuous exercise (like a brisk walk)? 0 days 12/03/2021 On average, how many minutes do you engage in exercise at this level? 0 min 12/03/2021 Adolescent Education Answer Date Record ed Getting School Help Needed Not on file 04/08 Food Insecurity Answer Date Recorded Within the past 12 months, d id you worry that your food would run out before you got money to buy more? No 06/04/2023 Within the past 12 months, d id the food you bought just not last and you didn? t have money to get more? No 06/04/2023 Housing Stability Answer Date Recorded Do you have housing? Yes 06/04/2023 Are you worried about losing your housing? No 06/04/2023 Financial Resource Strain Answer Date R ecorded Within the past 12 months, h ave you or your family members you live with been unable to get utilities (heat, electricity) when it was really needed? No 06/04/2023 Transportation Needs Answer Date Record ed Within the past 12 months, h as lack of transportation kept you from medical appointments, getting your medicines, non-medical meetings or appointments, work, or from getting things that you need? No 06/04/2023 Interpersonal Safety Answer Date Record ed Do you feel physically and e motionally safe where you currently live? Yes 06/04/2023 Within the past 12 months, h ave you been hit, slapped, kicked or otherwise physically hurt by someone? No 06/04/2023 Within the past 12 months, h ave you been humiliated or emotionally abused in other ways by your partner or ex-partner? No 06/04/2023 Education Answer Date Recorded What is the highest level of school you have completed or the highest degree you have received? 12th grade 07/13/2019 Sex and Gender Information Value Date Recorded Sex Assigned at Male 11/12/2020 5:06 PM CDT Gender Identity Male 11/12/2020 5:06 PM CDT Sexual Orientation Not on file Last Filed Vital Signs Vital Sign Reading Time Taken Comments Blood Pressure 131/78 08/19/2023 8:25 AM SHOE REPAIR COBBLER Pulse 61 08/19/2023 8:25 AM SHOE REPAIR COBBLER Temperature 36.3 ??C (97.4 ??F) 08/19/2023 8:25 AM CS T Respiratory Rate 16 08/19/2023 8:25 AM SHOE REPAIR COBBLER Oxygen Saturation 93% 08/19/2023 8:25 AM SHOE REPAIR COBBLER Inhaled Oxygen Concentration - - Weight 110.2 kg (243 lb) 08/19/2023 8:25 AM SHOE REPAIR COBBLER Height 175.3 cm (5' 9) 08/19/2023 8:25 AM SHOE REPAIR COBBLER Body Mass Index 35.88 08/19/2023 8:25 AM SHOE REPAIR COBBLER Plan of Treatment Health Maintenance Due Date Last Done Comments CT COLONOGRAPHY 1950 FIT 1950 FLEX SIG 1950 sDNA (Cologuard) 1950 RSV VACCINE ( & 60+) (1 - 1-dose 60+ series) 2012 IPV IMMUNIZATION (2 of 3 - Adult catch-up series) 06/21/2014 05/24/2014 MEDICARE ANNUAL WELLNESS VISIT 12/05/2022 12/05/2021, 04/19/2021, 04/18/2020, Additional history exists EYE EXAM 05/14/2023 05/14/2022, 07/14, 07/31/2021, Additional history exists LIPID 08/08/2023 08/08/2022, 10/0 01/2021, 04/20/2020, Additional history exists COVID-19 Vaccine (2022- season) 2023 04/25/2023, 06/29/2022, 10/29/2021, Additional history exists A1C 12/03/2023 06/04/2023, 01/12, 08/08/2022, Additional history exists CMP 12/03/2023 06/04/2023, 01/12, 08/08/2022, Additional history exists DIABETIC FOOT EXAM 02/04/2024 02/03/2023, 0 10/18/2020, 04/18/2020, Additional history exists FALL RISK ASSESSMENT 02/04/2024 02/03/2023, 12/05/2021, 04/19/2021, Additional history exists MICROALBUMIN 02/04/2024 02/03/2023, 11/12, 07/18/2020, Additional history exists NICOTINE/TOBACCO CESSATION COUNSELING Q 1 YR 02/04/2024 02/03/2023, 03/07/2022, 07/13/2019, Additional history exists URINE DRUG SCREEN 02/04/2024 02/03/2023, , 11/27/2020, Additional history exists PHQ-9 02/17/2024 08/19/2023, 05/15, 02/04/2023, Additional history exists CBC 06/04/2024 06/04/2023, 01/12, 12/05/2021, Additional history exists ANNUAL REVIEW OF HM ORDERS 08/19/202408/19, 08/08/2022, 10/11/2021, Additional history exists PSA 08/19/2024 08/19/2023, 11/12, 10/11/2020, Additional history exists COLONOSCOPY 06/07/2025 06/07/2020, 05/15, 11/19/2016, Additional history exists COLORECTAL CANCER SCREENING 06/07/2025 ADVANCE CARE PLANNING 12/05/2026 12/05/2021 , 05/03/2021, 04/18/2020, Additional history exists DTAP/TDAP/TD IMMUNIZATION (6 - Td or Tdap) 05/05/2028 05/05/2018, 05/05/2018, 05/24/2014, Additional history exists HEPATITIS C SCREENING Completed 12/07/2015 SPIROMETRY Completed 07/29/2017 ZOSTER IMMUNIZATION Completed 07/24/2018, 05/05/2018, 05/24/2014 AORTIC ANEURYSM SCREENING (SYSTEM ASSIGNED) Completed 03/22/2019, 03/22/2019, 02/03/2018, Additional history exists Pneumococcal Vaccine: 65+ Years Completed 10/05/2019, 08/18/2015, 07/19/2014, Additional history exists COPD ACTION PLAN Completed 04/19/2021 INFLUENZA VACCINE Completed 04/25/2023, , 04/19/2021, Additional history exists ALT Discontinued 06/04/2023, 01/12, 08/08/2022, Additional history exists BMP Discontinued 06/04/2023, 01/12, 08/27/2022, Additional history exists HPV IMMUNIZATION Aged Out No longer e ligible based on patient's age to complete this topic LUNG CANCER SCREENING Discontinued MENINGITIS IMMUNIZATION Aged Out No l onger eligible based on patient's age to complete this topic RSV MONOCLONAL ANTIBODY Aged Out No l onger eligible based on patient's age to complete this topic Procedures Procedure Name Priority Date/Time Associated Diagnosis Comments PROSTATE SPECIFIC ANTIGEN SCREEN Add-On 08/19/2023 9:19 AM SHOE REPAIR COBBLER Prostate cancer (H) Special screening for malignant neoplasm of prostate CBC WITH PLATELETS Routine 06/04/2023 9: 55 AM SHOE REPAIR COBBLER Diabetic polyneuropathy associated with type 2 diabetes mellitus (H) Essential hypertension COMPREHENSIVE METABOLIC PANEL Routine 06/04/2023 9:55 AM SHOE REPAIR COBBLER Diabetic polyneuropathy associated with type 2 diabetes mellitus (H) Essential hypertension HEMOGLOBIN A1C Routine 06/04/2023 9:55 AM SHOE REPAIR COBBLER Diabetic polyneuropathy associated with type 2 diabetes mellitus (H) DRUG CONFIRMATION PANEL URINE WITH CREAT Routine 02/03/2023 4:00 PM CDT Chronic pain syndrome ALBUMIN RANDOM URINE QUANTITATIVE Routine 02/03/2023 4:00 PM CDT Diabetic polyneuropathy associated with type 2 diabetes mellitus (H) LIPID REFLEX TO DIRECT LDL PANEL Routine 08/08/2022 4:25 PM SHOE REPAIR COBBLER Coronary artery disease involving [place] heart without angina pectoris, unspecified vessel or lesion type EYE EXAM - HIM SCAN Routine 05/14/2022 COLONOSCOPY Routine 06/07/2020 10:38 [address] ABDOMEN PELVIS W/O CONTRAST Routine 03/22/2019 10:14 AM CDT Bladder stone HC SPIROMETRY, BREATH CAPACITY Routine 07/29/2017 Cough Tobacco abuse HEPATITIS C ANTIBODY Routine 12/07/2015 10:40 AM CDT Need for hepatitis C screening test C FOOT EXAM Routine 06/23/2015 10:41 AM SHOE REPAIR COBBLER Diabetic polyneuropathy associated with type 2 diabetes mellitus (H) from Last 3 Months or Most Recently Relevant to Health Maintenance Results * PSA, screen (08/19/2023 9:19 AM SHOE REPAIR COBBLER) Prostate Specific Antigen Screen 0.10 0.00 - 6.50 ng/mL 08/19/2023 11:16 PM SHOE REPAIR COBBLER [facility] Blood STRUCTURE OF LEFT UPPER LIMB / Unknown Venipuncture / Unknown 08/19/2023 9:19 AM SHOE REPAIR COBBLER 08/19/2023 9:22 AM SHOE REPAIR COBBLER Narrative [facility] - 08/19/2023 11:16 PM SHOE REPAIR COBBLER This result is obtained using the [employer] Ele[employer] total PSA method on the kassandra e801 immunoassay analyzer. Results obtained with different assay methods or kits cannot be used interchangeably. Vinny Covarrubias MD LAB - BLOOD ORDERABL ES [facility] [address] [facility], [address] [place] [address], [facility] [phone] * (ABNORMAL) Hemoglobin A1c (06/04/2023 9:55 AM SHOE REPAIR COBBLER) Hemoglobin A1C 6.3(H) 0.0 - 5.6 % 06/04/2023 10:08 AM SHOE REPAIR COBBLER [facility] Comment: Normal <5.7% Prediabetes 5.7-6.4% ?? Diabetes 6.5% or higher Note: Adopted from ADA consensus guidelines. Blood BLOOD SPECIMEN / Unknown Venipuncture / Unknown 06/04/2023 9:55 AM SHOE REPAIR COBBLER 06/04/2023 10:01 AM SHOE REPAIR COBBLER Aj Chavez PA-C LAB - BLOOD ORDERABL ES Performing Organization Address City/[facility]/ZIP Co de Phone Number [facility] [address] [place] [address] (no room number, 1st floor of clinic) [place] [address], [place] [phone] * (ABNORMAL) Comprehensive metabolic panel (BMP + Alb, Alk Phos, ALT, AST, Total. Bili, TP) (06/04/2023 9:55 AM SHOE REPAIR COBBLER) Sodium 141 135 - 145 mmol/L 06/04/2023 8:50 PM SHOE REPAIR COBBLER [facility] Comment:Reference intervals for this test were updated on 04/08/2023 to more accurately reflect our healthy population. There may be differences in the flagging of prior results with similar values performed with this method. Interpretation of those prior results can be made in the context of the updated reference intervals. Potassium 4.5 3.4 - 5.3 mmol/L 06/04/2023 8:50 PM SHOE REPAIR COBBLER [facility] Carbon Dioxide (CO2) 30(H) 22 - 29 mmol/L 06/04/2023 8:50 PM SHOE REPAIR COBBLER [facility] Anion Gap 8 7 - 15 mmol/L 06/04/2023 8:50 PM SHOE REPAIR COBBLER [facility] Urea Nitrogen 22.5 8.0 - 23.0 mg/dL 06/04/2023 8:50 PM SHOE REPAIR COBBLER [facility] Creatinine 0.94 0.67 - 1.17 mg/dL 06/04/2023 8:50 PM SHOE REPAIR COBBLER [facility] GFR Estimate 87 >60 mL/min/1. 73m2 06/04/2023 8:50 PM SHOE REPAIR COBBLER [facility] Calcium 9.2 8.8 - 10.2 mg/dL 06/04/2023 8:50 PM SHOE REPAIR COBBLER [facility] Chloride 103 98 - 107 mmol/L 06/04/2023 8:50 PM SHOE REPAIR COBBLER [facility] Glucose 129(H) 70 - 99 mg/dL 06/04/2023 8:50 PM SHOE REPAIR COBBLER [facility] Alkaline Phosphatase 90 40 - 150 U/L 06/04/2023 8:50 PM SHOE REPAIR COBBLER [facility] Comment:Reference intervals for this test were updated on 05/27/2023 to more accurately reflect our healthy population. There may be differences in the flagging of prior results with similar values performed with this method. Interpretation of those prior results can be made in the context of the updated reference intervals. AST 21 0 - 45 U/L 06/04/2023 8:50 PM SHOE REPAIR COBBLER [facility] Comment:Reference intervals for this test were updated on 12/23/2022 to more accurately reflect our healthy population. There may be differences in the flagging of prior results with similar values performed with this method. Interpretation of those prior results can be made in the context of the updated reference intervals. ALT 32 0 - 70 U/L 06/04/2023 8:50 PM SHOE REPAIR COBBLER [facility] Comment:Reference intervals for this test were updated on 12/23/2022 to more accurately reflect our healthy population. There may be differences in the flagging of prior results with similar values performed with this method. Interpretation of those prior results can be made in the context of the updated reference intervals. Protein Total 6.8 6.4 - 8.3 g/dL 06/04/2023 8:50 PM SHOE REPAIR COBBLER [facility] Albumin 4.3 3.5 - 5.2 g/dL 06/04/2023 8:50 PM SHOE REPAIR COBBLER [facility] Bilirubin Total 0.3 <=1.2 mg/dL 06/04/2023 8:50 PM SHOE REPAIR COBBLER [facility] Blood BLOOD SPECIMEN / Unknown Venipuncture / Unknown 06/04/2023 9:55 AM SHOE REPAIR COBBLER 06/04/2023 10:01 AM SHOE REPAIR COBBLER Aj Chavez PA-C LAB - BLOOD ORDERABL ES [facility] [address] [facility], [address] [place] [address], [facility] [phone] * (ABNORMAL) CBC with platelets (06/04/2023 9:55 AM SHOE REPAIR COBBLER) WBC Count 5.6 4.0 - 11.0 10e3/uL 06/04/2023 10:12 AM SHOE REPAIR COBBLER [facility] RBC Count 4.27(L) 4.40 - 5.90 10e6/uL 06/04/2023 10:12 AM SHOE REPAIR COBBLER [facility] Hemoglobin 14.0 13.3 - 17.7 g/dL 06/04/2023 10:12 AM SHOE REPAIR COBBLER [facility] Hematocrit 41.3 40.0 - 53.0 % 06/04/2023 10:12 AM SHOE REPAIR COBBLER [facility] MCV 97 78 - 100 fL 06/04/2023 10:12 AM SHOE REPAIR COBBLER [facility] MCH 32.8 26.5 - 33.0 pg 06/04/2023 10:12 AM SHOE REPAIR COBBLER [facility] MCHC 33.9 31.5 - 36.5 g/dL 06/04/2023 10:12 AM SHOE REPAIR COBBLER [facility] RDW 13.2 10.0 - 15.0 % 06/04/2023 10:12 AM SHOE REPAIR COBBLER [facility] Platelet Count 151 150 - 450 10e3/uL 06/04/2023 10:12 AM SHOE REPAIR COBBLER [facility] Blood BLOOD SPECIMEN / Unknown Venipuncture / Unknown 06/04/2023 9:55 AM SHOE REPAIR COBBLER 06/04/2023 10:01 AM SHOE REPAIR COBBLER Aj Chavez PA-C LAB - BLOOD ORDERABL ES [facility] [address] [facility] (no room number, 1st floor of clinic) [place] [address], [facility] [phone] * Albumin Random Urine Quantitative with Creat Ratio (02/03/2023 4:00 PM CDT) Creatinine Urine mg/dL 120.0 mg/dL 02/04/2023 6:03 PM CDT [facility] Comment:The reference ranges have not been established in urine creatinine. The results should be integrated into the clinical context for interpretation. Albumin Urine mg/L <12.0 mg/L 2022 6:03 PM CDT [facility] Comment:The reference ranges have not been established in urine albumin. The results should be integrated into the clinical context for interpretation. Albumin Urine mg/g Cr 02/04/2023 6:03 PM CDT [facility] Comment: Unable to calculate, urine albumin and/or urine creatinine is outside detectable limits. Microalbuminuria is defined as an albumin:creatinine ratio of 17 to 299 for males and 25 to 299 for females. A ratio of albumin:creatinine of 300 or higher is indicative of overt proteinuria. Due to biologic variability, positive results should be confirmed by a second, first-morning random or 24-hour timed urine specimen. If there is discrepancy, a third specimen is recommended. When 2 out of 3 results are in the microalbuminuria range, this is evidence for incipient nephropathy and warrants increased efforts at glucose control, blood pressure control, and institution of therapy with an [id number] (HOSSEIN) inhibitor (if the patient can tolerate it). ?? Urine URINE SPECIMEN / Unknown Non-blood Collection / Unknown 02/03/2023 4:00 PM CDT 02/03/2023 4:00 PM CDT Vinny Covarrubias MD LAB - URINE ORDERABL ES [facility] [address] [facility] [address] [facility], [address] [place] [address], [place] [phone] * (ABNORMAL) Lipid panel reflex to direct LDL Non-fasting (08/08/2022 4:25 PM SHOE REPAIR COBBLER) Cholesterol 165 <200 mg/dL 08/09/2022 3:50 PM SHOE REPAIR COBBLER [facility] Triglycerides 214(H) <150 mg/dL 08/09/2022 3:50 PM SHOE REPAIR COBBLER [facility] Direct Measure HDL 34(L) >=40 mg/dL 08/09/2022 3:50 PM SHOE REPAIR COBBLER [facility] LDL Cholesterol Calculated 88 <=100 mg/dL 08/09/2022 3:50 PM SHOE REPAIR COBBLER [facility] Non HDL Cholesterol 131(H) <130 mg/dL 08/09/2022 3:50 PM SHOE REPAIR COBBLER [facility] Blood BLOOD SPECIMEN / Unknown Venipuncture / Unknown 08/08/2022 4:25 PM SHOE REPAIR COBBLER 08/08/2022 4:25 PM SHOE REPAIR COBBLER Narrative [facility] - 08/09/2022 3:50 PM SHOE REPAIR COBBLER Cholesterol Desirable: ??<200 mg/dL Triglycerides Normal: ??Less than 150 mg/dL Borderline High: ??150-199 mg/dL High: ??200-499 mg/dL Very High: ??Greater than or equal to 500 mg/dL Direct Measure HDL Female: ??Greater than or equal to 50 mg/dL Male: ??Greater than or equal to 40 mg/dL LDL Cholesterol Desirable: ??<100mg/dL Above Desirable: ??100-129 mg/dL Borderline High: ??130-159 mg/dL High: ??160-189 mg/dL Very High: ??>= 190 mg/dL Non HDL Cholesterol Desirable: ??130 mg/dL Above Desirable: ??130-159 mg/dL Borderline High: ??160-189 mg/dL High: ??190-219 mg/dL Very High: ??Greater than or equal to 220 mg/dL Vinny Covarrubias MD LAB - BLOOD ORDERABL ES [facility] [address] [facility] [address] [facility], [address] [address], [facility] [phone] * Eye Exam - HIM Scan (05/14/2022) RETINOPATHY UNKNOWN Narrative Yojana Shields - 05/14/2022 See encounter dated 02/03/23 Patient Reported OTHER * COLONOSCOPY (06/07/2020 10:38 AM SHOE REPAIR COBBLER) COLONOSCOPY [facility] Patient Name: Nico Vazquez ? Procedure Date: 06/07/2020 10:38 AM ? Date of : 1950 ?Admit Type: Outpatient Age: 69 ? Gender: Male Attending MD: Chuck Noonan MD ?? Total Sedation Time: 15_minutes continuous bedside 1:1 Instrument Name: 215- Pediatric Colonoscope Procedure: ?Colonoscopy Indications: ?High risk colon cancer surveillance: Personal ?history of colonic polyps Providers: ?Chuck Noonan MD (Doctor) Referring MD: ? Vinny Covarrubias MD (Referring MD) Medicines: ?Midazolam 1 mg IV, Fentanyl 50 micrograms IV Complications: ?No immediate complications. Procedure: ?Pre-Anesthesia Assessment: ?- Prior to the procedure, a History and Physical ?was performed, and patient medications and ?allergies were reviewed. The patient is competent. ?The risks and benefits of the procedure and the ?sedation options and risks were discussed with the ?patient. All questions were answered and informed ?consent was obtained. Patient identification and ?proposed procedure were verified by the physician ?in the procedure room. Mental Status Examination: ?alert and oriented. Airway Examination: normal ?oropharyngeal airway and neck mobility. Respiratory ?Examination: clear to auscultation. CV Examination: ?normal. Prophylactic Antibiotics: The patient does ?not require prophylactic antibiotics. Prior ?Anticoagulants: The patient has taken no previous ?anticoagulant or antiplatelet agents. ASA Grade ?Assessment: II - A patient with mild systemic ?disease. After reviewing the risks and benefits, ?the patient was deemed in satisfactory condition to ?undergo the procedure. The anesthesia plan was to ?use moderate sedation / analgesia (conscious ?sedation). Immediately prior to administration of ?medications, the patient was re-assessed for ?adequacy to receive sedatives. The heart rate, ?respiratory rate, oxygen saturations, blood ?pressure, adequacy of pulmonary ventilation, and ?response to care were monitored throughout the ?procedure. The physical status of the patient was ?re-assessed after the procedure. ?After obtaining informed consent, the colonoscope ?was passed under direct vision. Throughout the ?procedure, the patient's blood pressure, pulse, and ?oxygen saturations were monitored continuously. The ?Olympus Pediatric Colonoscope, Model # [id number]-H190DL, ?[place] # 215, SN # [id number] was introduced through ?the anus and advanced to the cecum, identified by ?appendiceal orifice and ileocecal valve. The ?colonoscopy was performed without difficulty. The ?patient tolerated the procedure well. The quality ?of the bowel preparation was good. ? Findings: ? The perianal and digital rectal examinations were normal. ? A 3 mm polyp was found in the mid transverse colon. The polyp was ? hyperplastic. Biopsies were taken with a cold forceps for histology. ? Verification of patient identification for the specimen was done. ? Estimated blood loss was minimal. ? A few small-mouthed diverticula were found in the sigmoid colon and ? descending colon. ? The exam was otherwise without abnormality on direct and retroflexion ? views. ? Impression: ? - One 3 mm polyp in the mid transverse colon. ?Biopsied. ?- Diverticulosis in the sigmoid colon and in the ?descending colon. ?- The examination was otherwise normal on direct ?and retroflexion views. Recommendation: ? - Await pathology results. ?- Repeat colonoscopy in 5 years for surveillance. ? Procedure Code(s): ? --- Professional --- ? 24920, Colonoscopy, flexible; with biopsy, single or multiple Diagnosis Code(s): ? --- Professional --- ? K63.5, Polyp of colon CPT copyright 2019 [employer]. All rights reserved. The codes documented in this report are preliminary and upon diversified crops supervisor review may be revised to meet current compliance requirements. Electronically signed by Chuck Noonan MD __ Chuck Noonan MD 06/07/2020 11:34:11 AM I was physically present for the entire viewing portion of the exam. Chuck Noonan MD Number of Addenda: 0 Note Initiated On: 06/07/2020 10:38 AM MRN: [id number] Procedure Date: ? 06/07/2020 10:38:40 AM Scope Withdrawal Time: 0 hours 7 minutes 14 seconds Total Procedure Duration: 0 hours 14 minutes 41 seconds Estimated Blood Loss: ? Scope In: 11:13:12 AM Scope Out: 11:27:53 AM RADIOLOGY RESULTS 06/07/2020 10:3 8 AM SHOE REPAIR COBBLER Vinny Covarrubias MD PROCEDURES RADIOLOGY RESULTS * CT Abdomen Pelvis w/o Contrast (03/22/2019 10:14 AM CDT) Anatomical Region Laterality Modality Abdomen/Pelvis, SUBRAD CT [place] DY, UMP CT ABDOMEN PELVIS, RAD CT Computed Tomography Impressions 03/22/2019 11:08 AM CDT IMPRESSION: 1. No evidence of nephrolithiasis or hydronephrosis. 2. Postoperative changes of prostatectomy. 3. New well-circumscribed ovoid mass along the left pelvic sidewall which demonstrates fluid attenuation. Differential diagnosis includes postoperative lymphocele, seroma, abscess, or cystic lymph node. Infection cannot be excluded; however, no surrounding inflammatory change is present. Pelvic MRI could be performed if indicated. 4. No change of right adrenal mass, probably adrenal adenoma. 5. No change of aortobiiliac stent graft. DHRUV JAIMES MD Narrative 03/22/2019 11:[address] ABDOMEN AND PELVIS WITHOUT CONTRAST ?? 03/22/2019 10:14 AM HISTORY: Kidney stones. Bladder stone. TECHNIQUE: ?? No IV contrast material. Radiation dose for this scan was reduced using automated exposure control, adjustment of the mA and/or kV according to patient size, or iterative reconstruction technique. COMPARISON: CT abdomen and pelvis 01/28/2018, CT abdomen and pelvis 10/08/2016. FINDINGS: ??Multiple renal vascular calcifications are present. No evidence of hydronephrosis. Prostate gland is surgically absent. Bladder is decompressed with Finney catheter in place. Multiple hypoattenuating and hyperattenuating renal lesions are present which are incompletely evaluated, not definitely changed. Lung bases are clear. The unenhanced appearance of the liver, gallbladder, spleen, and left adrenal are unremarkable. Small right adrenal mass is unchanged, again measuring approximately 1.4 cm in oblique transverse dimension. Abdominal aorta is unchanged with aortobiiliac stent graft. The aortic sac measures approximately 2.8 x 3.0 cm (AP x TR), unchanged. A new 3.8 x 3.6 x 4.6 cm (AP x TR x SI) mass is present along the left pelvic sidewall. This demonstrates peripheral hyperattenuation and central hypoattenuation. Fat-containing left inguinal hernia is present. Bone windows demonstrate scoliosis and severe degenerative change and changes of lumbosacral decompression/fusion. No destructive or aggressive osseous lesions are identified. Procedure Note Dhruv Jaimes MD - 03/22/2019 CT ABDOMEN AND PELVIS WITHOUT CONTRAST 03/22/2019 10:14 AM HISTORY: Kidney stones. Bladder stone. TECHNIQUE: No IV contrast material. Radiation dose for this scan was reduced using automated exposure control, adjustment of the mA and/or kV according to patient size, or iterative reconstruction technique. COMPARISON: CT abdomen and pelvis 01/28/2018, CT abdomen and pelvis 10/08/2016. FINDINGS: Multiple renal vascular calcifications are present. No evidence of hydronephrosis. Prostate gland is surgically absent. Bladder is decompressed with Finney catheter in place. Multiple hypoattenuating and hyperattenuating renal lesions are present which are incompletely evaluated, not definitely changed. Lung bases are clear. The unenhanced appearance of the liver, gallbladder, spleen, and left adrenal are unremarkable. Small right adrenal mass is unchanged, again measuring approximately 1.4 cm in oblique transverse dimension. Abdominal aorta is unchanged with aortobiiliac stent graft. The aortic sac measures approximately 2.8 x 3.0 cm (AP x TR), unchanged. A new 3.8 x 3.6 x 4.6 cm (AP x TR x SI) mass is present along the left pelvic sidewall. This demonstrates peripheral hyperattenuation and central hypoattenuation. Fat-containing left inguinal hernia is present. Bone windows demonstrate scoliosis and severe degenerative change and changes of lumbosacral decompression/fusion. No destructive or aggressive osseous lesions are identified. IMPRESSION: 1. No evidence of nephrolithiasis or hydronephrosis. 2. Postoperative changes of prostatectomy. 3. New well-circumscribed ovoid mass along the left pelvic sidewall which demonstrates fluid attenuation. Differential diagnosis includes postoperative lymphocele, seroma, abscess, or cystic lymph node. Infection cannot be excluded; however, no surrounding inflammatory change is present. Pelvic MRI could be performed if indicated. 4. No change of right adrenal mass, probably adrenal adenoma. 5. No change of aortobiiliac stent graft. DHRUV JAIMES MD Sancho Brown MD IMG CT ORDERABL ES * Spirometry, Breathing Capacity: Normal Order, Clinic Performed (07/29/2017) Pathologist [facility] FEV-1 FVC FEV1/FVC FEF 25/75 Vinny Covarrubias MD PROCEDURES * Hepatitis C antibody (12/07/2015 10:40 AM CDT) Pathologist [facility] Hepatitis C Antibody Nonreactive Assay performance characteristics have not been established for newborns, infants, and children NR [facility] Blood specimen (specimen) 12/07/2015 10:40 AM CDT 12/07/2015 10:41 AM CDT Vinny Covarrubias MD LAB - BLOOD ORDERABL ES [facility] [address] [place] [address] from Last 3 Months or Most Recently Relevant to Health Maintenance Advance Directives For more information, please contact: [phone] * Full Code (Latest Code Status on File) Date Activated Date Inactivated Comments 12/23/2018 5:33 PM 12/24/2018 11:53 AM Question Answer Comments Code status determined by: Unable to dis cuss and no AD/POLST on file; continue PREVIOUSLY ORDERED code status * Full Code Date Activated Date Inactivated Comments 04/22/2018 7:46 PM 04/24/2018 6:50 PM Question Answer Comments Code status determined by: Unable to dis cuss and no AD/POLST on file; continue PREVIOUSLY ORDERED code status * Full Code Date Activated Date Inactivated Comments 12/20/2011 3:38 PM 04/22/2018 7:46 PM * Full Code Date Activated Date Inactivated Comments 12/17/2011 12:35 PM 12/20/2011 3:38 PM Care Teams Molded Goods Controls Operator Relationship Specialty Start [place] [address] [place] [address] PCP - General Family Practice 08/04/13 [place] [address] [place] [address] MD Family Practice 07/24/15 Sancho Brown MD [address] [facility] [address] [place] [address] Urology 02/26/18 [place] [address] [place], [place] [id number] Assigned PCP 08/08/13 Alba Desai NP [address] [address] Nurse Practitioner Nurse Practitioner Psych/Mental Health 11/12/18 Lizbet Guzmán MD [facility] [address] [place], [place] [id number] Referring Physician 06/23/19 Soledad Mccabe MD [facility] [address] [facility] [address] [place] [address] Otolaryngology 06/23/19 [place] [address] [place], [place] [id number] Assigned Pain Medication Provider 07/22/22 Aida Hahn DPM, Podiatry/Foot and Ankle Surgery [address] [place] [address] Assigned Musculoskeletal Provider 11/02/22 Gisselle Doyle, TINY, [facility] [address] [place] [address] Assigned Behavioral Health Provider 11/04/23
--- OUTSIDE RECORDS SUMMARY | 2023-12-21 07:43 | XMS_ITS | Referral Summary ---
Author Organization [facility] Address [address] [place] [address] Care Team Providers Care Electrician Deck Name Role Phone Unavailable Primary Care Provider Unavailabl e Source Comments Patient records contain information from all sites at [facility]. For routine questions regarding patient records, call [phone] during business hours, M-F 8:00 AM - 5:00 PM Central Time. Record requests for emergency care only can be directed to [phone] at any time.[facility] Allergies No known active allergies Medications Medication [...] Mass Index - - Plan of Treatment Not on file Procedures Procedure Name Priority Date/Time Associated Diagnosis Comments EXTI COMPREHENSIVE METABOLIC PANEL, S/P Routine 12/05/2021 11:54 AM CDT from Last 3 Months or Most Recently Relevant to Health Maintenance
--- OUTSIDE RECORDS SUMMARY | 2023-12-21 07:44 | XMS_ITS | Referral Summary ---
Author Organization [facility] Address [address] [facility] [address] Care Team Providers Care Cat Swamper Name Role Phone Vinny Covarrubias MD Primary Care Provider [phone] Vinny Covarrubias MD Unavailable [phone] Sancho Brown MD Unavailable [phone] Vinny Covarrubias MD Unavailable [phone] Alba Desai BRICKLAYER Unavailable Lizbet Guzmán MD Unavailable [phone] Soledad Mccabe MD Unavailable Unav ailable Vinny Covarrubias MD Unavailable Aida Hahn DPM, Podiatry /Foot and Ankle Surgery [facility] En[facility]ters Date Type Department Care Team Description 12/09/[address] [address] Vinny Covarrubias MD Medication Refill 11/18/[address] [address] Vinny Covarrubias MD Medication Refill 11/11/[address] [address] Vinny Covarrubias MD Medication Refill 11/11/[address] [address] Aj Chavez PA-C Medication Refill 10/23/2023 [facility] Medical Advice [address] [address] Dedra May CMA 10/23/[address] [address] Vinny Covarrubias MD 10/17/2023 [facility] Medical Advice [address] [address] June Quintana RN 10/16/[address] [address] Aj Chavez PA-C Medication Refill 10/14/2023 [facility] Medical Advice [address] [address] Vinny Covarrubias MD 10/14/2023 Orders Only [address] [address] Vinny Covarrubias MD Chronic fatigue (Primary Dx); LISA (obstructive sleep apnea) 10/10/[address] [address] Vinny Covarrubias MD Medication Request (Trazodone & Methylphenidate ) from Last 3 Months Allergies Active Allergy Reactions Criticality Noted Date [...] 24 hr tabletIndications:T remor,Coronary artery disease involving houlton coronary artery of houlton heart without angina pectoris TAKE ONE TABLET [...] daily for 30 days 60 tablet 12/12/2023 4 Active methylphenidate (RITALIN) 20 MG tabletIndications:O SA [...] few weeks Obesity (BMI 35.0-39.9) with comorbidity Last Assessment & Plan: He never filled ozempic Primary osteoarthritis, unspecified site Last Assessment & Plan: Diffuse. He was [...] by this provider, or covering partner. Medication(s): [place]. Maximum quantity per month: 180 Clinic visit frequency required: Q 3 months Controlled substance agreement: Encounter-Level CSA - 03/12/2018: Controlled Substance Agreement - Scan on 03/19/2018 1:56 PM: CONTROLLED SUBSTANCE AGREEMENT (below) Encounter-Level CSA - 06/21/2014: Controlled Substance Agreement - Scan on 06/23/2014 8:37 AM: [facility] Controlled Medication Agreement 14 (below) Patient-Level CSA: There are no patient-level csa. Pain Clinic evaluation in the past: DIRE Total Score(s): No flowsheet data found. Last [facility] website verification: [email or web address] Last Assessment & Plan: Anew today Onychomycosis [...] by this provider, or covering partner. Medication(s): [place] 10/325 Maximum quantity per month: 180 Clinic visit frequency required: Q 3 months Controlled substance agreement on file: 8.30.18 Pain Clinic evaluation in the past: Yes Date/Location: 2013 DIRE Total Score(s): No flowsheet data found. Last [facility] website verification: 08/18/19 [email or web address] Last Assessment & Plan: He was scheduled [...] completed: No . Takes for LISA Last [facility] website verification: done on 04/30/18 [email or web address] Last Assessment & Plan: He complains of insomnia. No CPAP, Inspire candidate, although study is remote. Numerous sedating agent already. He declines sleep referral. Fatigue 03/29/2014 Last Assessment & Plan: Patient reports decreased energy lately. Will increase desvenlafaxine and decrease quetiapine. Upcoming sleep consult. PVD (peripheral vascular disease) (H24) 09/22/19 14 Last Assessment & Plan: asymptomatic Ataxia 08/13/2013 [facility] 05/14/2013 Overview: Status: unable to contact Mud Plant Operator: Mery Solorio RN [phone] (no active care coordination) See Letters for [facility] Care Plan Hyperlipidemia LDL goal <100 05/13/2010 [...] 04/15/2014 HTN, goal below 140/90 09/21/201312/06 [facility] 12/23/2011 05/14/2013 Overview: EMERGENCY CARE PLAN Presenting Problem Signs and Symptoms Treatment Plan Questions or concerns during clinic hours I will call the clinic directly Questions or concerns outside clinic hours I will call the 24 hour nurse line at [phone] Patient needs to schedule an appointment I will call the 24 hour scheduling team at [phone] or clinic directly Same day treatment I will call the clinic first, nurse line if after hours, urgent care and express care if needed DX V65.8 [place]ACED WITH [phone] [facility] JAIL (10/19/2012) Moderate major depression 07/01/2011 Anemia 03/13/2011 03/16/2019 Advanced directives, counseling/discussion 12/17/2010 04/23/2018 Overview: Advance Directive Problem List Overview: Name Relationship Phone Primary Health Care Agent Alternative Health Care Agent Discussed advance care planning with patient; information given to patient to review. 12/17/2010 Insomnia 03/08/2005 04/30/2018 Overview: Problem list name updated by automated process. Provider to review Generalized osteoarthrosis, unspecified site 4 07/13/2019 Coronary artery disease 12/2023 Last Assessment & Plan: Asymptomatic. Continue current regimen Immunizations Name Administration Dates Next Due COVID-19 [...] d (SHINGRIX) 07/24/2018,05/05/2018 Zoster vaccine, live 05/24/2014 Social History Tobacco Use Types Packs/Day Years [...] week 12/03/2021 How often do you attend restoration or mosque serv ices? Never 12/03/2021 Do you belong to any clubs o r organizations such as restoration groups, unions, fraternal or athletic groups, or [...] Answer Date Recorded PHQ-2 Score 6 [facility] - Occupational Stress Questionnaire Answer Date Recorded [...] Comments Blood Pressure 131/78 08/19/2023 8:25 AM SENIOR INSIGHT MANAGER Pulse 61 08/19/2023 8:25 AM SENIOR INSIGHT MANAGER Temperature 36.3 ??C (97.4 ??F) 08/19/2023 8:25 AM CS T Respiratory Rate 16 08/19/2023 8:25 AM SENIOR INSIGHT MANAGER Oxygen Saturation 93% 08/19/2023 8:25 AM SENIOR INSIGHT MANAGER Inhaled Oxygen Concentration - - Weight 110.2 kg (243 lb) 08/19/2023 8:25 AM SENIOR INSIGHT MANAGER Height 175.3 cm (5' 9) 08/19/2023 8:25 AM SENIOR INSIGHT MANAGER Body Mass Index 35.88 08/19/2023 8:25 AM SENIOR INSIGHT MANAGER Plan of Treatment Not on file Procedures Procedure Name Priority Date/Time Associated Diagnosis Comments PROSTATE SPECIFIC ANTIGEN SCREEN Add-On 08/19/2023 9:19 AM SENIOR INSIGHT MANAGER Prostate cancer (H) Special screening for malignant neoplasm of prostate CBC WITH PLATELETS Routine 06/04/2023 9: 55 AM SENIOR INSIGHT MANAGER Diabetic polyneuropathy associated with type 2 diabetes mellitus (H) Essential hypertension COMPREHENSIVE METABOLIC PANEL Routine 06/04/2023 9:55 AM SENIOR INSIGHT MANAGER Diabetic polyneuropathy associated with type 2 diabetes mellitus (H) Essential hypertension HEMOGLOBIN A1C Routine 06/04/2023 9:55 AM SENIOR INSIGHT MANAGER Diabetic polyneuropathy associated with type 2 diabetes mellitus (H) DRUG CONFIRMATION PANEL URINE WITH CREAT Routine 02/03/2023 4:00 PM CDT Chronic pain syndrome ALBUMIN RANDOM URINE QUANTITATIVE Routine 02/03/2023 4:00 PM CDT Diabetic polyneuropathy associated with type 2 diabetes mellitus (H) LIPID REFLEX TO DIRECT LDL PANEL Routine 08/08/2022 4:25 PM SENIOR INSIGHT MANAGER Coronary artery disease involving houlton heart without angina pectoris, unspecified vessel or lesion type EYE EXAM - HIM SCAN Routine 05/14/2022 COLONOSCOPY Routine 06/07/2020 10:[address] ABDOMEN PELVIS W/O CONTRAST Routine 03/22/2019 10:14 AM CDT Bladder stone HC SPIROMETRY, BREATH CAPACITY Routine 07/29/2017 Cough Tobacco abuse HEPATITIS C ANTIBODY Routine 12/07/2015 10:40 AM CDT Need for hepatitis C screening test C FOOT EXAM Routine 06/23/2015 10:41 AM SENIOR INSIGHT MANAGER Diabetic polyneuropathy associated with type 2 diabetes mellitus (H) from Last 3 Months or Most Recently Relevant to Health Maintenance Results * PSA, screen (08/19/2023 9:19 AM SENIOR INSIGHT MANAGER) Prostate Specific Antigen Screen 0.10 0.00 - 6.50 ng/mL 08/19/2023 11:16 PM SENIOR INSIGHT MANAGER [facility] Blood STRUCTURE OF LEFT UPPER LIMB / Unknown Venipuncture / Unknown 08/19/2023 9:19 AM SENIOR INSIGHT MANAGER 08/19/2023 9:22 AM SENIOR INSIGHT MANAGER Narrative [facility] - 08/19/2023 11:16 PM SENIOR INSIGHT MANAGER This result is obtained using the Yung Elecsys total PSA method on the kassandra [id number] immunoassay analyzer. Results obtained with different assay methods or kits cannot be used interchangeably. Vinny Covarrubias MD LAB - BLOOD ORDERABL ES [facility] Core Lab [address] [facility], [address] [place] [address] [phone] * (ABNORMAL) Hemoglobin A1c (06/04/2023 9:55 AM SENIOR INSIGHT MANAGER) Hemoglobin A1C 6.3(H) 0.0 - 5.6 % 06/04/2023 10:08 AM SENIOR INSIGHT MANAGER [facility] Comment: Normal <5.7% Prediabetes 5.7-6.4% ?? Diabetes 6.5% or higher Note: Adopted from ADA consensus guidelines. Blood BLOOD SPECIMEN / Unknown Venipuncture / Unknown 06/04/2023 9:55 AM SENIOR INSIGHT MANAGER 06/04/2023 10:01 AM SENIOR INSIGHT MANAGER Aj Chavez PA-C LAB - BLOOD ORDERABL ES [facility] [address] [facility] (no room number, 1st floor of clinic) [place] [address], [facility] [phone] * (ABNORMAL) Comprehensive metabolic panel (BMP + Alb, Alk Phos, ALT, AST, Total. Bili, TP) (06/04/2023 9:55 AM SENIOR INSIGHT MANAGER) Sodium 141 135 - 145 mmol/L 06/04/2023 8:50 PM SENIOR INSIGHT MANAGER [facility] Comment:Reference intervals for this test were updated on 04/08/2023 to more accurately reflect our healthy population. There may be differences in the flagging of prior results with similar values performed with this method. Interpretation of those prior results can be made in the context of the updated reference intervals. Potassium 4.5 3.4 - 5.3 mmol/L 06/04/2023 8:50 PM SENIOR INSIGHT MANAGER [facility] Carbon Dioxide (CO2) 30(H) 22 - 29 mmol/L 06/04/2023 8:50 PM SENIOR INSIGHT MANAGER [facility] Anion Gap 8 7 - 15 mmol/L 06/04/2023 8:50 PM SENIOR INSIGHT MANAGER [facility] Urea Nitrogen 22.5 8.0 - 23.0 mg/dL 06/04/2023 8:50 PM SENIOR INSIGHT MANAGER [facility] Creatinine 0.94 0.67 - 1.17 mg/dL 06/04/2023 8:50 PM SENIOR INSIGHT MANAGER [facility] GFR Estimate 87 >60 mL/min/1. 73m2 06/04/2023 8:50 PM SENIOR INSIGHT MANAGER [facility] Calcium 9.2 8.8 - 10.2 mg/dL 06/04/2023 8:50 PM SENIOR INSIGHT MANAGER [facility] Chloride 103 98 - 107 mmol/L 06/04/2023 8:50 PM SENIOR INSIGHT MANAGER [facility] Glucose 129(H) 70 - 99 mg/dL 06/04/2023 8:50 PM SENIOR INSIGHT MANAGER [facility] Alkaline Phosphatase 90 40 - 150 U/L 06/04/2023 8:50 PM SENIOR INSIGHT MANAGER [facility] Comment:Reference intervals for this test were updated on 05/27/2023 to more accurately reflect our healthy population. There may be differences in the flagging of prior results with similar values performed with this method. Interpretation of those prior results can be made in the context of the updated reference intervals. AST 21 0 - 45 U/L 06/04/2023 8:50 PM SENIOR INSIGHT MANAGER [facility] Comment:Reference intervals for this test were updated on 12/23/2022 to more accurately reflect our healthy population. There may be differences in the flagging of prior results with similar values performed with this method. Interpretation of those prior results can be made in the context of the updated reference intervals. ALT 32 0 - 70 U/L 06/04/2023 8:50 PM SENIOR INSIGHT MANAGER [facility] Comment:Reference intervals for this test were updated on 12/23/2022 to more accurately reflect our healthy population. There may be differences in the flagging of prior results with similar values performed with this method. Interpretation of those prior results can be made in the context of the updated reference intervals. Protein Total 6.8 6.4 - 8.3 g/dL 06/04/2023 8:50 PM SENIOR INSIGHT MANAGER [facility] Albumin 4.3 3.5 - 5.2 g/dL 06/04/2023 8:50 PM SENIOR INSIGHT MANAGER [facility] Bilirubin Total 0.3 <=1.2 mg/dL 06/04/2023 8:50 PM SENIOR INSIGHT MANAGER [facility] Blood BLOOD SPECIMEN / Unknown Venipuncture / Unknown 06/04/2023 9:55 AM SENIOR INSIGHT MANAGER 06/04/2023 10:01 AM SENIOR INSIGHT MANAGER Aj Chavez PA-C LAB - BLOOD ORDERABL ES [facility] [place] [facility] [address] [facility], [address] [place] [address], [facility] [phone] * (ABNORMAL) CBC with platelets (06/04/2023 9:55 AM SENIOR INSIGHT MANAGER) WBC Count 5.6 4.0 - 11.0 10e3/uL 06/04/2023 10:12 AM SENIOR INSIGHT MANAGER [facility] RBC Count 4.27(L) 4.40 - 5.90 10e6/uL 06/04/2023 10:12 AM SENIOR INSIGHT MANAGER [facility] Hemoglobin 14.0 13.3 - 17.7 g/dL 06/04/2023 10:12 AM SENIOR INSIGHT MANAGER [facility] Hematocrit 41.3 40.0 - 53.0 % 06/04/2023 10:12 AM SENIOR INSIGHT MANAGER [facility] MCV 97 78 - 100 fL 06/04/2023 10:12 AM SENIOR INSIGHT MANAGER [facility] MCH 32.8 26.5 - 33.0 pg 06/04/2023 10:12 AM SENIOR INSIGHT MANAGER [facility] MCHC 33.9 31.5 - 36.5 g/dL 06/04/2023 10:12 AM SENIOR INSIGHT MANAGER [facility] RDW 13.2 10.0 - 15.0 % 06/04/2023 10:12 AM SENIOR INSIGHT MANAGER [facility] Platelet Count 151 150 - 450 10e3/uL 06/04/2023 10:12 AM SENIOR INSIGHT MANAGER [facility] Blood BLOOD SPECIMEN / Unknown Venipuncture / Unknown 06/04/2023 9:55 AM SENIOR INSIGHT MANAGER 06/04/2023 10:01 AM SENIOR INSIGHT MANAGER Aj Chavez PA-C LAB - BLOOD ORDERABL ES [facility] [address] [place] [address] (no room number, 1st floor of clinic) [place] [address], [place] [phone] * Albumin Random Urine Quantitative with Creat [...] control, and institution of therapy with an [id number]-dvqvlo (HOSSEIN) inhibitor (if the patient can tolerate it). ?? Urine URINE SPECIMEN / Unknown Non-blood Collection / Unknown 02/03/2023 4:00 PM CDT 02/03/2023 4:00 PM CDT Vinny Covarrubias MD LAB - URINE ORDERABL ES [facility] Core Lab [address] [facility], [address] [place] [address], [facility] [phone] * (ABNORMAL) Lipid panel reflex to direct LDL Non-fasting (08/08/2022 4:25 PM SENIOR INSIGHT MANAGER) Pathologist [facility] Cholesterol 165 <200 mg/dL 08/09/2022 3:50 PM SENIOR INSIGHT MANAGER [facility] Triglycerides 214(H) <150 mg/dL 08/09/2022 3:50 PM SENIOR INSIGHT MANAGER [facility] Direct Measure HDL 34(L) >=40 mg/dL 08/09/2022 3:50 PM SENIOR INSIGHT MANAGER [facility] LDL Cholesterol Calculated 88 <=100 mg/dL 08/09/2022 3:50 PM SENIOR INSIGHT MANAGER [facility] Non HDL Cholesterol 131(H) <130 mg/dL 08/09/2022 3:50 PM SENIOR INSIGHT MANAGER [facility] Blood BLOOD SPECIMEN / Unknown Venipuncture / Unknown 08/08/2022 4:25 PM SENIOR INSIGHT MANAGER 08/08/2022 4:25 PM SENIOR INSIGHT MANAGER Narrative [facility] - 08/09/2022 3:50 PM SENIOR INSIGHT MANAGER Cholesterol Desirable: ??<200 mg/dL Triglycerides Normal: ??Less [...] LAB - BLOOD ORDERABL ES [facility] Core Lab [address] [facility], [address] [address], [facility] [phone] * Eye Exam - HIM Scan (05/14/2022) RETINOPATHY UNKNOWN Narrative Yojana Shields - 05/14/2022 See encounter dated 02/03/23 Patient Reported OTHER * COLONOSCOPY (06/07/2020 10:38 AM SENIOR INSIGHT MANAGER) COLONOSCOPY [facility] Patient Name: Nico Vazquez ? Procedure Date: [...] # [id number], ?[place]ora # [id number], SN # [id number] was introduced through ?the anus and advanced [...] Procedure Code(s): ? --- Professional --- ? 14136, Colonoscopy, flexible; with biopsy, single or multiple Diagnosis Code(s): ? --- Professional --- ? K63.5, Polyp of colon CPT copyright 2019 [employer]. All rights reserved. The codes documented in this report are preliminary and upon forest aide review may be revised to meet current compliance requirements. Electronically signed by Chuck Noonan MD __ Chuck Noonan MD 06/07/2020 11:34:11 AM I was physically present for the entire viewing portion of the exam. Chuck Noonan MD Number of Addenda: 0 Note Initiated On: 06/07/2020 10:38 AM MRN: ?[id number] Procedure Date: ? 06/07/2020 10:38:40 AM Scope Withdrawal Time: 0 hours 7 minutes 14 seconds Total Procedure Duration: 0 hours 14 minutes 41 seconds Estimated Blood Loss: ? Scope In: 11:13:12 AM Scope Out: 11:27:53 AM RADIOLOGY RESULTS 06/07/2020 10:3 8 AM SENIOR INSIGHT MANAGER Vinny Covarrubias MD PROCEDURES RADIOLOGY RESULTS * [...] Breathing Capacity: Normal Order, Clinic Performed (07/29/2017) FEV-1 FVC FEV1/FVC FEF 25/75 Vinny Covarrubias MD PROCEDURES * Hepatitis C antibody (12/07/2015 10:40 AM CDT) Hepatitis C Antibody Nonreactive Assay performance characteristics have not been established for newborns, infants, and children [facility] Blood specimen (specimen) 12/07/2015 10:40 AM CDT 12/07/2015 10:41 AM CDT Vinny Covarrubias MD LAB - BLOOD ORDERABL ES [facility] [address] [place] [address] from Last 3 Months or Most Recently Relevant to Health Maintenance Advance Directives For more information, please contact: [phone] * Full Code (Latest Code Status on [...] 12:35 PM 12/20/2011 3:38 PM Care Teams Cat Swamper Relationship Specialty Start [place] [address] [place] [address] PCP - General Family Practice 08/04/13 [place] [address] [place] [address] MD Family Practice 07/24/15 Sancho Brown MD [address] [facility] [address] [place] [address] Urology 02/26/18 [place] [address] [place] [address] Assigned PCP 08/08/13 Alba Desai NP [address] [address] Nurse Practitioner Nurse Practitioner Psych/Mental Health 11/12/18 Lizbet Guzmán MD [facility] [address] [place], [place] [id number] Referring Physician 06/23/19 Soledad Mccabe MD [facility] [address] [place] [address] Otolaryngology 06/23/19 [place] [address] [place], [place] [id number] Assigned Pain Medication Provider 07/22/22 Aida Hahn DPM, Podiatry/Foot and Ankle Surgery [address] [address] Assigned Musculoskeletal Provider 11/02/22 Gisselle Doyle, TINY, [facility] [address] [place] [address] Assigned Behavioral Health Provider 11/04/23
--- OUTSIDE RECORDS SUMMARY | 2023-12-21 07:44 | XMS_ITS | Encounter Summary ---
Author Organization [place] Address [facility] [place] [address] Care Team Providers Care Lithographic Photographer Apprentice Name Role Phone Oscar Westbrook MD Primary Care Provider Oscar Westbrook MD Unavailable [phone] Sancho Brown MD Unavailable Oscar Westbrook MD Unavailable Alba Desai LOCOMOTIVE SWITCH OPERATOR Unavailable [phone] Lizbet Guzmán MD Unavailable [phone] Soledad Mccabe MD Unavailable Unav ailable Oscar Westbrook MD Unavailable [phone] Aida Hahn DPM, Podiatry /Foot and Ankle Surgery Unavailable June Quintana RN Unavailable Unavailable Reason for Visit * Reason Comments Medication Refill Encounter Details Date Type Department Care Team (Late st Contact Info) Description 10/16/2023 Refill [facility] [id number] [place] [address] Aj Chavez PA-C [id number] [place] [address] Medication Refill Social History Tobacco Use Types Packs/Day Years Used Date Smoking Tobacco: Light Smoker Cigarettes 0.5 30 Smokeless Tobacco: Former Quit: 02/22/2013 Comments:3 cigeretts a day Alcohol Use Standard [...] week 12/03/2021 How often do you attend zoroastrian or baptism serv ices? Never 12/03/2021 Do you belong to any clubs o r organizations such as zoroastrian groups, unions, fraternal or athletic groups, or [...] Answer Date Recorded PHQ-2 Score 6 08/19/2023 [facility] - Occupational Stress Questionnaire Answer Date [...] PM CDT Sexual Orientation Not on file documented as of this encounter Plan of Treatment Not on file documented as of this encounter Visit Diagnoses Diagnosis Chronic pain syndrome documented in this encounter Additional Health Concerns Assessment Noted Time PHQ-9 Depression Total Score: 21 024 8:07 AM 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 MACHINE 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 documented as of this encounter Care Teams Lithographic Photographer Apprentice Relationship Specialty [place] [address] [place] [address] PCP - General Family Practice 08/04/13 [place] [address] [place] [address] Family Practice 07/24/15 Sancho Brown MD [address] [facility] [address] [place] [address] Urology 02/26/18 [place] [address] [place] [address] Assigned PCP 08/08/13 Alba Desai NP [facility] [address] [place], [place] [address] Nurse Practitioner Nurse Practitioner Psych/Mental Health 11/12/18 Lizbet Guzmán MD [facility] [address] [facility] [address] [place] [address] Referring Physician 06/23/19 Soledad Mccabe MD [facility] [address] [facility] [address] [place] [address] Otolaryngology 06/23/19 [place] [address] [place] [address] Assigned Pain Medication Provider 07/22/22 Aida Hahn DPM, Podiatry/Foot and Ankle Surgery [address] [facility] [address] [place] [address] Assigned Musculoskeletal Provider 11/02/22 June Quintana, RN Personal Advocate & Liaison (PAL) Family Medicine 10/13/23 11/09/23 documented as of this encounter
--- OUTSIDE RECORDS SUMMARY | 2023-12-21 07:44 | XMS_ITS ---
Author Organization [place] Address [address] [facility] [place] [address] Care Team Providers Care Wardrobe Coordinator Name Role Phone Oscar Covarrubias MD Primary Care Provider [phone] Oscar Covarrubias MD Unavailable [phone] Sancho Brown MD Unavailable Oscar Covarrubias MD Unavailable [phone] Alba Desai ANODISER Unavailable [phone] Lizbet Guzmán MD Unavailable [phone] Soledad Mccabe MD Unavailable Unav ailable Oscar Covarrubias MD Unavailable [phone] Aida Hahn DPM, Podiatry /Foot and Ankle Surgery Unavailable Gisselle Doyle [facility] Unavailable [phone] Active Problems Problem Noted Date Diagnosed Date [...] the onset of the pandemic. Discussed diet. [employer] database Nocturia 10/25/2019 Last Assessment & Plan: [...] signed 03/02/2015 Overview: Patient is followed by Oscar Covarrubias MD for ongoing prescription of pain medication. All refills should only be approved by this provider, or covering partner. Medication(s): Babb. Maximum quantity per month: 180 Clinic visit frequency required: Q 3 months Controlled substance agreement: Encounter-Level CSA - 03/12/2018: Controlled Substance Agreement - Scan on 03/19/2018 1:56 PM: CONTROLLED SUBSTANCE AGREEMENT (below) Encounter-Level CSA - 06/21/2014: Controlled Substance Agreement - Scan on 06/23/2014 8:37 AM: Clinics Controlled Medication Agreement 06-21-14 (below) Patient-Level CSA: There are no patient-level csa. Pain Clinic evaluation in the past: DIRE Total Score(s): No flowsheet data found. Last [facility] website verification: [email or web address] Last Assessment & Plan: Anew today Onychomycosis 02/09/2015 Last Assessment & Plan: Status post 2 courses of antifungal, therefore failure. Nails are thick and hard. Cancer in his current residence may be difficult, but we shall attempt to refer him for chiropody Chronic pain 07/19/2014 Overview: Patient is followed by OSCAR COVARRUBIAS for ongoing prescription of pain medication. All refills should be approved by this provider, or covering partner. Medication(s): Babb 10/325 Maximum quantity per month: 180 Clinic visit frequency required: Q 3 months Controlled substance agreement on file: 8.30.18 Pain Clinic evaluation in the past: Yes Date/Location: 2013 DIRE Total Score(s): No flowsheet data found. Last [facility] website verification: 08/18/19 [email or web address] Last Assessment & Plan: He was scheduled [...] Cannot tolerate CPAP Patient is followed by OSCAR COVARRBUIAS for ongoing prescription of stimulants. All refills should be approved by this provider, or covering partner. Medication(s): Methylphenidate. Maximum quantity per month: 60 Clinic visit frequency required: Q 3 months Controlled substance agreement on file: Yes Date(s): 03/12/18 Neuropsych evaluation for ADD completed: No . Takes for LISA Last [facility] website verification: done on 04/30/18 [email or web address] Last Assessment & Plan: He complains of insomnia. No CPAP, Inspire candidate, although study is remote. Numerous sedating agent already. He declines sleep referral. Fatigue 03/29/2014 Last Assessment & Plan: Patient reports decreased energy lately. Will increase desvenlafaxine and decrease quetiapine. Upcoming sleep consult. PVD (peripheral vascular disease) (H24) 09/22/19 14 Last Assessment & Plan: asymptomatic Ataxia 08/13/2013 Health Group Home 05/14/2013 Overview: Status: unable to contact Director Information: Mery Solorio RN [phone] (no active care coordination) See Letters for [facility] Care Plan Hyperlipidemia LDL goal <100 05/13/2010 [...] aortic aneurysm) repair Prostate cancer Overview: Prostatectomy 2018 Last Assessment & Plan: He has not seen Urology recently. Yearly PSA indefinitely Current Oncology Plans No current plan information found. Past Plans No past plan information found. Radiation Treatments * No radiation treatments are documented for this patient in mokono. Treatments may have been administered in another system. Treatment Summaries Prostate cancer (H)* Cancer Treatment Plan and Summary - Prostate [facility] General Information Patient Name Nico Wilder Patient 1950 Patient phone [phone] (home) [phone] (work) Email [email or web address] Primary Care Provider Oscar Covarrubias Surgeon Sancho Brown Radiation Oncologist Medical Oncologist Other Providers Cancer Diagnosis Information Diagnosis Prostate cancer (H) Diagnosis Date 01/15/2018 Staging Information [id number] Familial Cancer Risk Assessment Genetic Counseling Not Indicated Treatment Summary Surgery prostatectomy: open and lymph node dissection Surgery Date: 04/22/2018 Pathology acinar adenocarcinoma and Deuce Score: 4 + 3 Radiation No Systemic No Ongoing Treatment No *The above summary reflects your cancer treatment as documented in our chart at the time you received this summary. If you had additional treatment at another care center we would advise you to obtain this information from that care center. Follow-up Care Plan Persistent symptoms or side effects at completion of treatment These symptoms may include, but not limited to: fatigue, numbness/tingling, psychosocial, pain, memory/concentration issues, urinary incontinence and erectile dysfunction. Additional provider notes, if applicable Your follow up care plan is designed to inform you and your primary care provider the recommended and suggested follow up, cancer screening and routine health maintenance that is needed to maintain optimal health. Possible late and/or termite helper effects that someone with this type of cancer and treatment may experience: bone effects heart effects fertility effects memory and concentration pain lymphedema nervous system changes If you would like to discuss specific late and/or care home effects related to your treatment, please use the following website to make an appointment in the Cancer Survivor Program: [email or web address] OR call These symptoms should be brought to the attention of your provider: 1. Anything that represents a brand new symptom; 2. Anything that represents a persistent symptom; 3. Anything that you are worried about that might be related to your cancer coming back. Coordinating Provider When/How Often Primary Care Provider Please continue to see your primary care provider for all general health carerecommended for a patient your age, including cancer screening tests. Any symptoms should be brought to the attention of your provider. Medical Oncologist and/or Surgeon Every 6 months for 5 years, then yearly Radiation Oncologist As directed Surgeon As directed Other See eye doctor and dentist routinely Cancer Surveillance or Other Recommended Related Tests Test What/When/How Often PSA Every 3 months for 1 year, then every 6 months for years 2-5, then yearly Cancer survivors may experience issues with the areas listed below. If you have any concerns in these or other areas, please speak with your providers or nurses to find out how you can get help with them. Anxiety or depression Emotional and mental health Fatigue Fertility Financial advice or assistance Insurance Lymphedema Memory or concentration loss Parenting Physical functioning School or work Sexual functioning Stopping smoking Weight changes Other A number of lifestyle/behaviors can affect your ongoing health, including the risk for the cancer coming back or developing another cancer. Discuss these recommendations with your provider or nurse: Alcohol use Diet Physical activity Sun screen use Tobacco use/cessation Weight management (loss/gain) Resources you may be interested in: [place] [employer] Society www.cancer.org [place] Society of Clinical Oncology www.asco.org/practice-guidelines/resources-patients National Cancer Blair www.cancer.gov Liv[employer] www.livestrong.org [facility] www.Parent Media Groupth.org/care/overarching-care/xnlksy-kpcr-vxpoc/support-services www.cancer.net [place] [employer] for Cancer Research www.aicr.org This Survivorship Care Plan is a cancer treatment summary and follow up plan and is provided to youto keep with your health care records and to share with your primary care provider or any of your other providers. Resolved Problems Problem Noted Date Diagnosed Date [...] 04/15/2014 HTN, goal below 140/90 09/21/201312/06 Health Group Home 12/23/2011 05/14/2013 Overview: EMERGENCY CARE PLAN Presenting Problem Signs and Symptoms Treatment Plan Questions or concerns during clinic hours I will call the clinic directly Questions or concerns outside clinic hours I will call the 24 hour nurse line at [phone] Patient needs to schedule an appointment I will call the 24 hour scheduling team at [phone] or clinic directly Same day treatment I will call the clinic first, nurse line if after hours, urgent care and express care if needed DX V65.8 REPL[address]ED [place] [id number] [facility] (10/19/2012) Moderate major depression 07/01/2011 Anemia 03/13/2011 [...]
--- OUTSIDE RECORDS SUMMARY | 2023-12-21 07:44 | XMS_ITS | Encounter Summary ---
Author Organization [place] Address [facility]0 [facility] [place] [address] Care Team Providers Care Beverage Distiller Name Role Phone Oscar Westbrook MD Primary Care Provider [phone] Oscar Westbrook MD Unavailable [phone] Sancho Brown MD Unavailable Oscar Westbrook MD Unavailable [phone] Alba Desai RETAIL SALES REPRESENTATIVE Unavailable [phone] Lizbet Guzmán MD Unavailable [phone] Soledad Mccabe MD Unavailable Unav ailable Oscar Westbrook MD Unavailable [phone] Aida Hahn DPM, Podiatry /Foot and Ankle Surgery Unavailable June Quintana RN Unavailable Unavailable Gisselle DoyleSW, [facility] Unavailable Encounter Details Date Type Department Care Team (Late st Contact Info) Description 10/17/2023 [facility] [address] [address] June Quintana, RN Social History Tobacco Use Types Packs/Day Years [...] week 12/03/2021 How often do you attend sabianism or nondenominational serv ices? Never 12/03/2021 Do you belong to any clubs o r organizations such as sabianism groups, unions, fraternal or athletic groups, or [...] Answer Date Recorded PHQ-2 Score 6 08/19/2023 [facility] - Occupational Stress Questionnaire Answer [...] documented as of this encounter Visit Diagnoses Not on filedocumented in this encounter Additional Health Concerns Assessment Noted Time PHQ-9 Depression Total Score: 21 024 8:07 AM UNIVERSITY TEACHER documented as of this encounter Care Teams Beverage Distiller Relationship Specialty [place] [address] [place] [address] PCP - General Family Practice 08/04/13 [place] [address] [place] [address] Family Practice 07/24/15 Sancho Brown MD [address] [facility] [address] [place] [address] Urology 02/26/18 [place] [address] [place], [place] [id number] Assigned PCP 08/08/13 Alba Desai NP [facility] [address] [place], [place] [address] Nurse Practitioner Nurse Practitioner Psych/Mental Health 11/12/18 Lizbet Guzmán MD [facility] [address] [facility] [address] [place], [place] [id number] Referring Physician 06/23/19 Soledad Mccabe MD [facility] [address] [facility] [address] [place] [address] Otolaryngology 06/23/19 [place] [address] [place] [address] Assigned Pain Medication Provider 07/22/22 Aida Hahn DPM, Podiatry/Foot and Ankle Surgery [address] [facility] [address] [place] [address] Assigned Musculoskeletal Provider 11/02/22 June Quintana, RN Personal Advocate & Liaison (PAL) Family Medicine 10/13/23 11/09/23 Gisselle Doyle, DIALYSIS EQUIPMENT TECHNICIAN, [facility] [address] [place] [address] Assigned Behavioral Health Provider 11/04/23 documented as of this encounter
--- OUTSIDE RECORDS SUMMARY | 2023-12-21 07:44 | XMS_ITS | Encounter Summary ---
Author Organization [place] Address [facility] [address] Care Team Providers Care Bench Worker Apprentice Name Role Phone Oscar Westbrook MD Primary Care Provider [phone] Oscar Westbrook MD Unavailable [phone] Sancho Brown MD Unavailable Oscar Westbrook MD Unavailable [phone] Alba Desai OPERATOR RECEPTIONIST Unavailable [phone] Lizbet Guzmán MD Unavailable [phone] Soledad Mccabe MD Unavailable Unav ailable Oscar Westbrook MD Unavailable [phone] Aida Hahn DPM, Podiatry /Foot and Ankle Surgery Unavailable June Quintana RN Unavailable Unavailable Gisselle DoyleSW, [facility] Unavailable Encounter Details Date Type Department Care Team (Late st Contact Info) Description 10/23/2023 [facility] Medical Advice [address] [address] Dedra May, MONITOR TECHNICIAN Social History Tobacco Use Types Packs/Day Years [...] week 12/03/2021 How often do you attend amish or caodaism serv ices? Never 12/03/2021 Do you belong to any clubs o r organizations such as amish groups, unions, fraternal or athletic groups, or [...] Answer Date Recorded PHQ-2 Score 6 08/19/2023 [facility] ional Health - [...] Depression Total Score: 21 024 8:07 AM SLATE PICKER documented as of this encounter Care Teams Bench Worker Apprentice Relationship Specialty [place] [address] [place] [address] PCP - General Family Practice 08/04/13 [place] [address] [place] [address] Family Practice 07/24/15 Sancho Brown MD [address] [facility] [address] [facility] [address] [place] [address] Urology 02/26/18 [place] [address] [place], [place] [id number] Assigned PCP 08/08/13 Alba Desai NP [facility] [address] [place], [place] [address] Nurse Practitioner Nurse Practitioner Psych/Mental Health 11/12/18 Lizbet Guzmán MD [facility] [address] [place], [place] [id number] Referring Physician 06/23/19 Soledad Mccabe MD [facility] [address] [place] [address] Otolaryngology 06/23/19 [place] [address] [place] [address] Assigned Pain Medication Provider 07/22/22 Aida Hahn DPM, Podiatry/Foot and Ankle Surgery [address] [facility] [address] [place] [address] Assigned Musculoskeletal Provider 11/02/22 June Quintana, RN Personal Advocate & Liaison (PAL) Family Medicine 10/13/23 11/09/23 Gisselle Doyle, GARMENT SORTER, [facility] [address] [place] [address] Assigned Behavioral Health Provider 11/04/23 documented as of this encounter
--- OUTSIDE RECORDS SUMMARY | 2023-12-21 07:44 | XMS_ITS | Encounter Summary ---
Author Organization [place] Address [facility] [place] [address] Care Team Providers Care Campus Administrative Assistant Name Role Phone Oscar Westbrook MD Primary Care Provider Oscar Westbrook MD Unavailable [phone] Sancho Brown MD Unavailable Oscar Westbrook MD Unavailable [phone] Alba Desai PALLIATIVE NURSE Unavailable [phone] Lizbet Guzmán MD Unavailable [phone] Soledad Mccabe MD Unavailable Unav ailable Oscar Westbrook MD Unavailable [phone] Aida Hahn DPM, Podiatry /Foot and Ankle Surgery Unavailable June Quintana RN Unavailable Unavailable Encounter Details Date Type Department Care Team (Late st Contact Info) Description 10/23/2023 Telephone [facility] [address] [place] [address] [place] [address] [place] [address] Social History Tobacco Use Types Packs/Day Years [...] week 12/03/2021 How often do you attend scientology or baptist serv ices? Never 12/03/2021 Do you belong to any clubs o r organizations such as scientology groups, unions, fraternal or athletic groups, or [...] Answer Date Recorded PHQ-2 Score 6 08/19/2023 [facility] - Occupational Stress Questionnaire Answer Date [...] on file documented as of this encounter Miscellaneous Notes * Telephone Encounter - Dedra May CMA - 10/23/2023 9:59 AM CDT Patient Quality Outreach Patient is due for the following: IVD - tobacco use Next Steps: Tobacco cessation Type of outreach: Sent Talent[employer] message. Questions for provider review: None Dedra May CMA documented in this encounter Plan of Treatment Not on file documented as of this encounter Visit Diagnoses Not on filedocumented in this encounter Additional Health Concerns Assessment Noted Time PHQ-9 Depression Total Score: 21 024 8:07 AM EXECUTIVE TEAM LEADER documented as of this encounter Care Teams Campus Administrative Assistant Relationship Specialty [place] [address] [place] [address] PCP - General Family Practice 08/04/13 [place] [address] [place] [address] Family Practice 07/24/15 Sancho Brown MD [address] [facility] [address] [place] [address] Urology 02/26/18 [place] [address] [place] [address] Assigned PCP 08/08/13 Alba Desai NP [facility] [address] [place] [address] Nurse Practitioner Nurse Practitioner Psych/Mental Health 11/12/18 Lizbet Guzmán MD [facility] [address] [place] [address] Referring Physician 06/23/19 Soledad Mccabe MD [facility] [address] [place] [address] Otolaryngology 06/23/19 [place] [address] [place] [address] Assigned Pain Medication Provider 07/22/22 Aida Hahn DPM, Podiatry/Foot and Ankle Surgery [address] [place] [address] Assigned Musculoskeletal Provider 11/02/22 LilianJune RN Personal Advocate & Liaison (PAL) Family Medicine 10/13/23 11/09/23 documented as of this encounter
--- OUTSIDE RECORDS SUMMARY | 2023-12-21 07:44 | XMS_ITS | Encounter Summary ---
Author Organization [place] Address [facility] [place] [address] Care Team Providers Care Director Of Instrumental Music Name Role Phone Oscar Westbrook MD Primary Care Provider Oscar Westbrook MD Unavailable [phone] Sancho Brown MD Unavailable Oscar Westbrook MD Unavailable [phone] Alba Desai CONTENT STRATEGIST Unavailable [phone] Lizbet Guzmán MD Unavailable [phone] Soledad Mccabe MD Unavailable Unav ailable Oscar Westbrook MD Unavailable [phone] Aida Hahn DPM, Podiatry /Foot and Ankle Surgery Unavailable Hellen Limon Unavailable Unavailable Reason for Visit * Reason Onset Date Comments Refill Request 09/15/2023 Encounter Details Date Type Department Care Team (Late st Contact Info) Description 09/15/2023 [facility] [id number] [place] [address] [phone] [place] [id number] [place] [address] Refill Request Social History Tobacco Use Types Packs/Day Years [...] week 12/03/2021 How often do you attend yazidi or congregational serv ices? Never 12/03/2021 Do you belong to any clubs o r organizations such as yazidi groups, unions, fraternal or athletic groups, or [...] Answer Date Recorded PHQ-2 Score 6 08/19/2023 [facility] - Occupational Stress Questionnaire Answer Date Recorded [...] encounter Miscellaneous Notes * Telephone Encounter - Aj Chavez PA-C - 09/15/2023 2:25 PM CST ENGINEERING DESIGN SUPERVISOR reviewed. Last refill not picked up. Reordered which should cancel that fill at pharmacy. Aj Chavez PA-C on 09/15/2023 at 2:25 PM (covering for Dr. Westbrook) CLABLE MATERIALS COLLECTOR * Telephone Encounter - Myesha Castro - 09/15/2023 1:30 PM CST Pt request refills be filled at [facility] for this and all future refills. CLABLE MATERIALS COLLECTOR documented in this encounter Plan of Treatment Not on file documented as of this encounter Visit Diagnoses Diagnosis LISA (obstructive sleep apnea) Obstructive sleep apnea (adult) (pediatric) documented in this encounter Additional Health Concerns Assessment Noted Time PHQ-9 Depression Total Score: 21 024 8:07 AM RECYCLABLE MATERIALS COLLECTOR documented as of this encounter Care Teams Director Of Instrumental Music Relationship Specialty [place] [address] [place] [address] PCP - General Family Practice 08/04/13 [place] [address] [place] [address] MD Family Practice 07/24/15 Sancho Brown MD [address] [facility] [address] [place], [place] [address] Urology 02/26/18 [place] [address] [place] [address] Assigned PCP 08/08/13 Alba Desai NP [facility] [address] [place] [address] Nurse Practitioner Nurse Practitioner Psych/Mental Health 11/12/18 Lizbet Guzmán MD [facility] [address] [place] [address] Referring Physician 06/23/19 Soledad Mccabe MD [facility] [address] [facility] [address] [place] [address] Otolaryngology 06/23/19 [place] [address] [place] [address] Assigned Pain Medication Provider 07/22/22 Aida Hahn DPM, Podiatry/Foot and Ankle Surgery [address] [place] [address] Assigned Musculoskeletal Provider 11/02/22 Hellen Limon Personal Advocate & Liaison (PAL) Family Medicine 08/20/23 10/12/23 documented as of this encounter
--- OUTSIDE RECORDS SUMMARY | 2023-12-21 07:44 | XMS_ITS | Encounter Summary ---
Author Organization [place] Address [facility] [place] [address] Care Team Providers Care Master Ship Name Role Phone Oscar Westbrook MD Primary Care Provider [phone] Oscar Westbrook MD Unavailable Sancho Brown MD Unavailable [phone] Oscar Westbrook MD Unavailable [phone] Alba Desai BMX RIDER Unavailable [phone] Lizbet Guzmán MD Unavailable [phone] Soledad Mccabe MD Unavailable Unav ailable Oscar Westbrook MD Unavailable [phone] Aida Hahn DPM, Podiatry /Foot and Ankle Surgery Unavailable Hellen Limon Unavailable Unavailable Reason for Visit * Reason Comments Medication Refill Encounter Details Date Type Department Care Team (Late st Contact Info) Description 09/16/2023 Refill [facility] [address] [place] [phone] [place] [address] [place] [address] Medication Refill Social History Tobacco Use [...] week 12/03/2021 How often do you attend gnosticist or islam serv ices? Never 12/03/2021 Do you belong to any clubs o r organizations such as gnosticist groups, unions, fraternal or athletic groups, or [...] Answer Date Recorded PHQ-2 Score 6 08/19/2023 [facility] - Occupational Stress Questionnaire Answer Date Recorded [...] Telephone Encounter - Aj Chavez PA-C - 09/16/2023 12:51 PM CAD OPERATOR COGNOS BI ADMINISTRATOR reviewed. Refilled. Aj Chavez PA-C on 09/16/2023 at 12:54 PM (covering for Dr. Westbrook) OPERATOR documented in this encounter Plan of Treatment Not on file documented as of this encounter Visit Diagnoses Diagnosis Chronic pain syndrome documented in this encounter Additional Health Concerns Assessment Noted Time PHQ-9 Depression Total Score: 21 024 8:07 AM CAD OPERATOR documented as of this encounter Care Teams Master Ship Relationship Specialty [place] [address] [place] [address] PCP - General Family Practice 08/04/13 [place] [address] [place] [address] Family Practice 07/24/15 Sancho Brown MD [address] [facility] [address] [place] [address] Urology 02/26/18 [place] [address] [place] [address] Assigned PCP 08/08/13 Alba Desai NP [address] [address] Nurse Practitioner Nurse Practitioner Psych/Mental Health 11/12/18 Lizbet Guzmán MD [facility] [address] [place] [address] Referring Physician 06/23/19 Soledad Mccabe MD [facility] [address] [place] [address] Otolaryngology 06/23/19 [place] [address] [place] [address] Assigned Pain Medication Provider 07/22/22 Aida Hahn, DPM, Podiatry/Foot and Ankle Surgery [address] [place] [address] Assigned Musculoskeletal Provider 11/02/22 Hellen Limon Personal Advocate & Liaison (PAL) Family Medicine 08/20/23 10/12/23 documented as of this encounter
--- OUTSIDE RECORDS SUMMARY | 2023-12-21 07:44 | XMS_ITS | Encounter Summary ---
Author Organization [place] Address [address] [facility] [place] [address] Care Team Providers Care Automatic Equipment Technician Name Role Phone Oscar Covarrubias MD Primary Care Provider [phone] Oscar Covarrubias MD Unavailable [phone] Sancho Brown MD Unavailable Oscar Covarrubias MD Unavailable Alba Desai NOTE SPECIALIST Unavailable Lizbet Guzmán MD Unavailable [phone] Soledad Mccabe MD Unavailable Unav ailable Oscar Covarrubias MD Unavailable [phone] Aida Hahn DPM, Podiatry /Foot and Ankle Surgery Unavailable Gisselle Doyle [facility] Unavailable [phone] Reason for Visit * Reason Comments Medication Refill Encounter Details Date Type Department Care Team (Late Contact Info) Description 11/18/2023 Refill [facility] [address] [place] [address] [phone] [place] Cov[place]ubias [place] [address] [place] [address] Medication Refill Social History Tobacco Use [...] week 12/03/2021 How often do you attend religious or sabianist serv ices? Never 12/03/2021 Do you belong to any clubs o r organizations such as religious groups, unions, fraternal or athletic groups, or [...] Answer Date Recorded PHQ-2 Score 6 08/19/2023 [facility] - Occupational Stress Questionnaire Answer Date [...] encounter Miscellaneous Notes * Telephone Encounter - Funmi Johns RN - 11/18/2023 11:22 AM CDT Received a call from pharmacy regarding oxycodone script that was sent in today. They are requesting the following: Cancel current request and resend a new request. Reason: The current refill in the system is linked to the old one and the e- signature is not working. Pended and routing to PCP for review. 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 documented as of this encounter Care Teams Automatic Equipment Technician Relationship Specialty Start [place] [address] [place] [address] PCP - General Family Practice 08/04/13 [place] [address] [place] [address] MD Family Practice 07/24/15 Sancho Brown MD [address] [address] Urology 02/26/18 [place] [address] [place], [place] [address] Assigned PCP 08/08/13 Alba Desai NP [address] [address] Nurse Practitioner Nurse Practitioner Psych/Mental Health 11/12/18 Lizbet Guzmán MD [facility] [address] [facility] [address] [place], [place] [id number] Referring Physician 06/23/19 Soledad Mccabe MD [facility] [address] [facility] [address] [place] [address] Otolaryngology 06/23/19 [place] [address] [place] [address] Assigned Pain Medication Provider 07/22/22 Aida Hahn DPM, Podiatry/Foot and Ankle Surgery [address] [facility] [address] [place] [address] Assigned Musculoskeletal Provider 11/02/22 Gisselle Doyle, TINY, [facility] [address] [place] [address] Assigned Behavioral Health Provider 11/04/23 documented as of this encounter
--- OUTSIDE RECORDS SUMMARY | 2023-12-21 07:44 | XMS_ITS | Encounter Summary ---
Author Organization [place] Address [address] [place] [address]. [place] [address] Care Team Providers Care Crusher Feeder Name Role Phone Vinny Covarrubias MD Primary Care Provider Vinny Covarrubias MD Unavailable [phone] Sancho Bronw MD Unavailable Vinny Covarrubias MD Unavailable [phone] Alba Desai BLOCK STACKER Unavailable [phone] Lizbet Guzmán MD Unavailable [phone] Soledad Mccabe MD Unavailable Unav ailable Vinny Covarrubias MD Unavailable [phone] Aida Hahn DPM, Podiatry /Foot and Ankle Surgery Unavailable Hellen Limon Unavailable Unavailable June Ascencio RN Unavailable Unavailable Reason for Visit * Reason Onset Date Comments Medication Request 10/10/2023 Trazodone & M ethylphenidate Encounter Details Date Type Department Care Team (Late st Contact Info) Description 10/10/2023 Telephone [facility] [address] [place] [address] [phone] Vinny Covarrubias MD [address] [place] [address] Medication Request (Trazodone & Methylphenidate ) Social History Tobacco Use Types Packs/Day Years [...] week 12/03/2021 How often do you attend orthodox or denominational serv ices? Never 12/03/2021 Do you belong to any clubs o r organizations such as orthodox groups, unions, fraternal or athletic groups, or [...] Date Recorded PHQ-2 Score 6 08/19/2023 [facility] - Occupational Stress Questionnaire Answer [...] encounter Miscellaneous Notes * Telephone Encounter - June Ascencio RN - 10/14/2023 4:46 PM CDT JONAH notes Dr. Covarrubias placed new order for methylphenidate, but sent to wrong pharmacy Pt would like med sent to the [facility] pharmacy in [place] Rx pended, routing to Dr. Covarrubias to review and sign June Snatiago RN Patient Advocate Liaison - JONAH GODOY [facility] * Telephone Encounter - Bao Le RN - 10/14/2023 10:23 AM CDT - Called patient concerning below, states that he has 5 tablets left of the methylphenidate from 09/15/2023. Patient is requesting a change to immediate release methylphenidate as the ER tablets cost significantly more. - Routing message to Dr. Covarrubias, please place order for the Methylphenidate IR and sign for [facility] in [place]. Alonso Le RN Patient Advocate Liaison (JONAH) [facility] 10/14/2023 at 10:27 AM * Telephone Encounter - June Ascencio RN - 10/13/2023 9:54 AM CDT PAL attempted (attempt #2) to contact pt -Left VM requesting call back [phone], awaiting call back at this time -SB/ PAL welcome letter sent PAL will attempt to contact again tomorrow 10/13 if no response June Shin RN Patient Advocate Liaison - JONAH GODOY [facility] * Telephone Encounter - Samreen Tristan RN - 10/10/2023 4:25 PM CDT Called pt and left a message to call back to and ask to speak to a triage nurse witha message from provider. Samreen Pantoja RN [facility] (Patient Advocate Liaison) [facility] * Telephone Encounter - Vinny Covarrubias MD - 10/10/2023 4:21 PM CDT Trazodone sent Metadate filled 09/14 W can change at next refill October Tell him to remind us Vinny Covarrubias MD * Telephone Encounter - Bushra Lockhart RN - 10/10/2023 12:41 PM CDT Patient is calling requesting to change back to trazodone (was recently switched to Seroquel). He states Seroquel not effective and he continues to have trouble sleeping. He is also asking if methylphenidate can be changed to immediate release as ER is hundreds of dollars more. I did recommend submitting an e-visit but patient requested I send message to PCP to inquire as his computer is broken right now and he cannot access MyChart. Bushra Lockhart RN on 10/10/2023 at 12:43 PM * Addendum Note - Vinny Covarrubias MD - 10/10/2023 12:41 PM CDTAddended by: VINNY COVARRUBIAS on: 10/14/2023 02:21 PM Modules accepted: Orders * Addendum Note - June Ascencio RN - 10/10/2023 12:41 PM CDTAddended by: JUNE ASCENCIO on: 10/14/2023 04:48 PM Modules accepted: Orders * Addendum Note - Vinny Covarrubias MD - 10/10/2023 12:41 PM CDTAddended by: VINNY COVARRUBIAS on: 10/14/2023 09:20 PM Modules accepted: Orders documented in this encounter Plan of Treatment Not on file documented as of this encounter Visit Diagnoses Diagnosis LISA (obstructive sleep apnea)- Primary Obstructive sleep apnea (adult) (pediatric) 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 Chronic fatigue Other malaise and fatigue documented in this encounter Additional Health Concerns Assessment Noted Time PHQ-9 Depression Total Score: 21 024 8:07 AM MANAGER QUALITY COMPLIANCE documented as of this encounter Care Teams Crusher Feeder Relationship Specialty Start [place] [address] [place] [address] PCP - General Family Practice 08/04/13 [place] [address] [place], [place] [id number] MD Family Practice 07/24/15 Sancho Brown MD [address] [facility] [address] [place], [place] [address] Urology 02/26/18 [place] [address] [place], [place] [address] Assigned PCP 08/08/13 Alba Desai NP [place] [address] [place], [place] [address] Nurse Practitioner Nurse Practitioner Psych/Mental Health 11/12/18 Lizbet Guzmán MD [facility] [address] [place], [place] [id number] Referring Physician 06/23/19 Soledad Mccabe MD [facility] [address] [place] [address] Otolaryngology 06/23/19 [place] [address] [place] [address] Assigned Pain Medication Provider 07/22/22 Aida Hahn, DIANAM, Podiatry/Foot and Ankle Surgery [address] [place] [address] Assigned Musculoskeletal Provider 11/02/22 Hellen Limon Personal Advocate & Liaison ([facility]) Family Medicine 08/20/23 10/12/23 LilianJune RN Personal Advocate & Liaison ([facility]) Family Medicine 10/13/23 11/09/23 documented as of this encounter
--- OUTSIDE RECORDS SUMMARY | 2023-12-21 07:44 | XMS_ITS | Encounter Summary ---
Author Organization [place] Address [address] [place] [address] Care Team Providers Care Ecology Teacher Name Role Phone Oscar Westbrook MD Primary Care Provider [phone] Oscar Westbrook MD Unavailable Sancho Brown MD Unavailable Oscar Westbrook MD Unavailable [phone] Alba Desai LEGAL ADVISER Unavailable [phone] Lizbet Guzmán MD Unavailable [phone] Soledad Mccabe MD Unavailable Unav ailable Oscar Westbrook MD Unavailable [phone] Aida Hahn DPM, Podiatry /Foot and Ankle Surgery Unavailable Gisselle Doyle [facility] Unavailable Reason for Visit * Reason Comments Medication Refill Encounter Details Date Type Department Care Team (Late Contact Info) Description 12/09/2023 Refill [facility] [address] [place] [address] [phone] Oscar Westbrook [place] [id number] [place] [address] Medication Refill Social History Tobacco Use [...] How often do you attend scientology or sikhism serv ices? Never 12/03/2021 Do you belong [...] Answer Date Recorded PHQ-2 Score 6 08/19/2023 [facility] - Occupational Stress Questionnaire Answer [...] of this encounter Visit Diagnoses Diagnosis Chronic fatigue Other malaise and fatigue LISA (obstructive sleep apnea) Obstructive sleep apnea (adult) (pediatric) documented in this encounter Additional Health Concerns Assessment Noted Time PHQ-9 Depression Total Score: 21 024 8:07 AM DRILLER HAND documented as of this encounter Care Teams Ecology Teacher Relationship Specialty [place] [address] [place] [address] PCP - General Family Practice 08/04/13 [place] [address] [place] [address] Family Practice 07/24/15 Sancho Brown MD [address] [facility] 500 [place] [address] Urology 02/26/18 [place] [address] [place] [address] Assigned PCP 08/08/13 Alba Desai NP [address] [address] Nurse Practitioner Nurse Practitioner Psych/Mental Health 11/12/18 Lizbet Guzmán MD [facility] [address] [facility] 200 [place], [place] [id number] Referring Physician 06/23/19 Soledad Mccabe MD [facility] [address] [facility] [address] [place] [address] Otolaryngology 06/23/19 [place] [address] [place] [address] Assigned Pain Medication Provider 07/22/22 Aida Hahn, DPM, Podiatry/Foot and Ankle Surgery [address] [facility] [address] [place] [address] Assigned Musculoskeletal Provider 11/02/22 Gisselle Doyle, COUNTER INSTALLER, LADC [address] [place] [address] Assigned Behavioral Health Provider 11/04/23 documented as of this encounter
--- OUTSIDE RECORDS SUMMARY | 2023-12-21 07:44 | XMS_ITS | Encounter Summary ---
Author Organization [place] Address [facility]0 [facility] [place] [address] Care Team Providers Care Sprinkler Worker Name Role Phone Oscar Westbrook MD Primary Care Provider [phone] Oscar Westbrook MD Unavailable [phone] Sancho Brown MD Unavailable Oscar Westbrook MD Unavailable [phone] Alba Desai EXERCISE SCIENCE INSTRUCTOR Unavailable [phone] Lizbet Guzmán MD Unavailable [phone] Soledad Mccabe MD Unavailable Unav ailable Oscar Westbrook MD Unavailable [phone] Aida Hahn DPM, Podiatry /Foot and Ankle Surgery Unavailable June Quintana RN Unavailable Unavailable Gisselle DoyleSW, [facility] Unavailable Encounter Details Date Type Department Care Team (Late st Contact Info) Description 10/14/2023 [facility] Medical Advice [address] [phone] Oscar Westbrook MD [address] [place] [address] Social History Tobacco Use Types Packs/Day [...] week 12/03/2021 How often do you attend hinduism or lutheran serv ices? Never 12/03/2021 Do you belong to any clubs o r organizations such as hinduism groups, unions, fraternal or athletic groups, or [...] Answer Date Recorded PHQ-2 Score 6 08/19/2023 [facility] - Occupational Stress Questionnaire Answer [...] Depression Total Score: 21 024 8:07 AM MORTAR MAN documented as of this encounter Care Teams Sprinkler Worker Relationship Specialty [place] [address] [address] [address] PCP - General Family Practice 08/04/13 [place] [address] [address] [address] Family Practice 07/24/15 Sancho Brown MD [address] [facility] 500 [place] [address] Urology 02/26/18 [place] [address] [place] [address] Assigned PCP 08/08/13 Alba Desai NP [place] [address] [place], [place] [address] Nurse Practitioner Nurse Practitioner Psych/Mental Health 11/12/18 Lizbet Guzmán MD [facility] [address] [facility] 200 [place] [address] Referring Physician 06/23/19 Soledad Mccabe MD [facility] [address] [facility] 200 [place] [address] Otolaryngology 06/23/19 [place] [address] [place] [address] Assigned Pain Medication Provider 07/22/22 Aida Hahn, DPM, Podiatry/Foot and Ankle Surgery [address] [facility] [address] [place], [place] [address] Assigned Musculoskeletal Provider 11/02/22 June Quintana RN Personal Advocate & Liaison (PAL) Family Medicine 10/13/23 11/09/23 Gisselle Doyle, SUPERINTENDENT POLICE, [facility] [address] [place] [address] Assigned Behavioral Health Provider 11/04/23 documented as of this encounter
--- OUTSIDE RECORDS SUMMARY | 2023-12-21 07:44 | XMS_ITS | Encounter Summary ---
Author Organization [place] Address [facility] [place] [address] Care Team Providers Care Fur Pointer Name Role Phone Oscar Westbrook MD Primary Care Provider Oscar Westbrook MD Unavailable [phone] Sancho Brown MD Unavailable [phone] Oscar Westbrook MD Unavailable Alba Desai BEAR KEEPER Unavailable [phone] Lizbet Guzmán MD Unavailable [phone] Soledad Mccabe MD Unavailable Unav ailable Oscar Westbrook MD Unavailable [phone] Aida Hahn DPM, Podiatry /Foot and Ankle Surgery Unavailable June Quintana RN Unavailable Unavailable Encounter Details Date Type Department Care Team (Late st Contact Info) Description 10/14/2023 Orders Only [facility] [address] [place] [phone] [place] [address] [place] [address] Chronic fatigue (Primary Dx); LISA (obstructive sleep apnea) Social History Tobacco Use Types Packs/Day Years [...] week 12/03/2021 How often do you attend anabaptism or buddhist serv ices? Never 12/03/2021 Do you belong to any clubs o r organizations such as anabaptism groups, unions, fraternal or athletic groups, or [...] Answer Date Recorded PHQ-2 Score 6 08/19/2023 [facility] - Occupational Stress Questionnaire Answer Date [...] of this encounter Visit Diagnoses Diagnosis Chronic fatigue- Primary Other malaise and fatigue LISA (obstructive sleep apnea) Obstructive sleep apnea (adult) (pediatric) documented in this encounter Additional Health Concerns Assessment Noted Time PHQ-9 Depression Total Score: 21 024 8:07 AM 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 200 [place] [address] Referring Physician 06/23/19 Soledad Mccabe MD [facility] [address] [facility] 200 [place] [address] Otolaryngology 06/23/19 [place] [address] [place] [address] Assigned Pain Medication Provider 07/22/22 Aida Hahn DPM, Podiatry/Foot and Ankle Surgery [address] [facility] 300 [place] [address] Assigned Musculoskeletal Provider 11/02/22 June Quintana, RN Personal Advocate & Liaison (PAL) Family Medicine 10/13/23 11/09/23 documented as of this encounter
--- OUTSIDE RECORDS SUMMARY | 2023-12-21 07:44 | XMS_ITS | Encounter Summary ---
Author Organization [place] Address [address] [facility] [place] [address] Care Team Providers Care Dental Laboratory Worker Name Role Phone Oscar Westbrook MD Primary Care Provider Oscar Westbrook MD Unavailable [phone] Sancho Brown MD Unavailable Oscar Westbrook MD Unavailable [phone] Alba Desai FURNISHINGS CONSERVATOR Unavailable [phone] Lizbet Guzmán MD Unavailable [phone] Soledad Mccabe MD Unavailable Unav ailable Oscar Westbrook MD Unavailable [phone] Aida Hahn DPM, Podiatry /Foot and Ankle Surgery Unavailable Gisselle Doyle [facility] Unavailable Reason for Visit * Reason Comments Medication Refill Encounter Details Date Type Department Care Team (Late Contact Info) Description 11/11/2023 Refill [facility] [address] [place] [phone] Aj Chavez, PABrayanC [address] [place], [place] [id number] Medication Refill Social History Tobacco Use Types [...] week 12/03/2021 How often do you attend jehovah's witness or rastafarian serv ices? Never 12/03/2021 Do you belong to any clubs o r organizations such as jehovah's witness groups, unions, fraternal or athletic groups, or [...] Answer Date Recorded PHQ-2 Score 6 08/19/2023 [facility] - Occupational Stress Questionnaire Answer [...] as of this encounter Visit Diagnoses Diagnosis Hyperlipidemia LDL goal <100 Other and unspecified hyperlipidemia documented in this encounter Additional Health Concerns Assessment Noted Time PHQ-9 Depression Total Score: 21 024 8:07 AM 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 500 [place] [address] Urology 02/26/18 [place] [address] [place] [address] Assigned PCP 08/08/13 Alba Desai NP [address] [address] Nurse Practitioner Nurse Practitioner Psych/Mental Health 11/12/18 Lizbet Guzmán MD [facility] [address] [facility] 200 [place] [address] Referring Physician 06/23/19 Soledad Mccabe MD [facility] [address] [facility] 200 [place] [address] Otolaryngology 06/23/19 [place] [address] [place] [address] Assigned Pain Medication Provider 07/22/22 Aida Hahn, DPM, Podiatry/Foot and Ankle Surgery [address] [facility] 300 [place], [place] [address] Assigned Musculoskeletal Provider 11/02/22 Gisselle Doyle, TINY, LADC [address] [place] [id number] Assigned Behavioral Health Provider 11/04/23 documented as of this encounter
--- OUTSIDE RECORDS SUMMARY | 2023-12-21 07:45 | XMS_ITS | Encounter Summary ---
Author Organization [place] Address [facility] [place] [address] Care Team Providers Care Radar Tester Name Role Phone Oscar Westbrook MD Primary Care Provider [phone] Oscar Westbrook MD Unavailable [phone] Sancho rBown MD Unavailable Oscar Westbrook MD Unavailable [phone] Alba Desai MANUFACTURING ENGINEER ASSEMBLY Unavailable [phone] Lizbet Guzmán MD Unavailable [phone] Soledad Mccabe MD Unavailable Unav ailable Sancho Brown MD Unavailable [phone] Oscar Westbrook MD Unavailable [phone] Aida Hahn DPM, Podiatry /Foot and Ankle Surgery Unavailable Rosario Tapia CHW Unavailable [phone] Hellen Limon Unavailable Unavailable June Quintana RN Unavailable Unavailable Gisselle Doyle, [facility] Unavailable [phone] Encounter Details Date Type Department Care Team (Late st Contact Info) Description 05/06/2022 [facility] [address] [address] Jocelin Valle Social History Tobacco Use Types Packs/Day Years Used Date Smoking Tobacco: Light Smoker Cigarettes 0.5 30 Smokeless Tobacco: Former Quit: 02/22/2013 Comments:1 week ago Alcohol Use Standard Drinks/Week Comments No 0 [...] week 12/03/2021 How often do you attend muslim or presybeterian serv ices? Never 12/03/2021 Do you belong to any clubs o r organizations such as muslim groups, unions, fraternal or athletic groups, or [...] more drinks on one occasion? Never 12/03/2021 Overall Financial Resource Strain (CARDIA) Answe r Date Recorded How hard is it for you to pa y for the very basics like food, housing, medical care, and heating? Somewhat hard 12/03/2021 PHQ-2 Answer Date Recorded PHQ-2 Score 2 03/07/2022 [facility]at ional [facility] - Occupational Stress [...] exercise at this level? 0 min 12/03/2021 Hunger Vital Sign Answer Date Recorded Within the past 12 months, y ou worried that your food would run out before you got the money to buy more. Never true 12/04/19 22 Within the past 12 months, t he food you bought just didn't last and you didn't have money to get more. Never true 12/03/2021 PRAPARE - Transportation Answer Date Re corded In the past 12 months, has l ack of transportation kept you from medical appointments or from getting medications? No 11/12 In the past 12 months, has l ack of transportation kept you from meetings, work, or from getting things needed for daily living? No 12/03/2021 Housing Stability Vital Sign Answer Kvng e Recorded In the last 12 months, was t here a time when you were not able to pay the mortgage or rent on time? No 12/03/2021 In the last 12 months, how many places have you lived? 1 12/03/2021 In the last 12 months, was t here a time when you did not have a steady place to sleep or slept in a longterm (including now)? No 12/03/2021 Education Answer Date Recorded What is the [...] Assessment Noted Time PHQ-9 Depression Total Score: 9 03/07/20 22 10:25 AM CDT documented as of this encounter Care Teams Radar Tester Relationship Specialty [place] [address] [place] [address] PCP - General Family Practice 08/04/13 [place] [address] [place] [address] Family Practice 07/24/15 Sancho Brown MD [address] [facility] [address] [place], [place] [address] Urology 02/26/18 [place] [address] [place], [place] [id number] Assigned PCP 08/08/13 Alba Desai NP [facility] [address] [place], [place] [phone] Nurse Practitioner Nurse Practitioner Psych/Mental Health 11/12/18 Lizbet Guzmán MD [facility] [address] [facility] [address] [place], [place] [id number] Referring Physician 06/23/19 Soledad Mccabe MD [facility] [address] [facility] [address] [place] [address] Otolaryngology 06/23/19 Sancho Brown MD [address] [facility] [address] [place] [address] Assigned Surgical Provider 11/12/20 05/10/22 [place] [address] [place] [address] Assigned Pain Medication Provider 07/22/22 Aida Hahn, DPM, Podiatry/Foot and Ankle Surgery [address] [facility] 300 [place], [place] [address] Assigned Musculoskeletal Provider 11/02/22 Rosario Tapia, W Community Health Worker Primary Care - CC 08/19/23 08/21/23 Hellen Limon Personal Advocate & Liaison (PAL) Family Medicine 08/20/23 10/12/23 June Quintana, RN Personal Advocate & Liaison (PAL) Family Medicine 10/13/23 11/09/23 Gisselle Doyle, [facility], [facility] [address] [place] [address] Assigned Behavioral Health Provider 11/04/23 Soumya Saavedra Personal Advocate & Liaison (PAL) Family Medicine 03/07/22 09/14/23 documented as of this encounter
--- OUTSIDE RECORDS SUMMARY | 2023-12-21 07:45 | XMS_ITS | Encounter Summary ---
Author Organization [place] Address [facility] [place] [address] Care Team Providers Care Special Diet Cook Name Role Phone Oscar Westbrook MD Primary Care Provider [phone] Oscar Westbrook MD Unavailable [phone] Sancho Brown MD Unavailable Oscar Westbrook MD Unavailable [phone] Alba Desai DIESEL SERVICE APPRENTICE Unavailable [phone] Lizbet Guzmán MD Unavailable [phone] Soledad Mccabe MD Unavailable Unav ailable Maritza Cope Unavailable Unavailable Sancho Brown MD Unavailable Oscar Westbrook MD Unavailable [phone] Aida Hahn DPM, Podiatry /Foot and Ankle Surgery Unavailable Rosario Tapia CHW Unavailable [phone] Hellen Limon Unavailable Unavailable June Quintana RN Unavailable Unavailable Gisselle DoyleSW, [facility] Unavailable Reason for Visit * Reason Comments Medication Refill Encounter Details Date Type Department Care Team (Late st Contact Info) Description 02/20/[address] [place] [phone] [place] [address] [place] [address] Medication Refill Social History Tobacco Use Types [...] week 12/03/2021 How often do you attend faith or baptist serv ices? Never 12/03/2021 Do you belong to any clubs o r organizations such as faith groups, unions, fraternal or athletic groups, or [...] PHQ-2 Answer Date Recorded PHQ-2 Score 2 12/05/2021 [facility] Occupat ional Health - Occupational Stress [...] place to sleep or slept in a long term (including now)? No 12/03/2021 Education Answer Date Recorded What is the highest level of school you have completed or the highest degree you have received? 12th grade 07/13/2019 Sex and Gender Information Value Date Recorded Sex Assigned at Male 11/12/2020 5:06 PM CDT Gender Identity Male 11/12/2020 5:06 PM CDT Sexual Orientation Not on file COVID-19 Exposure Response Date Recorded In the last 10 days, have yo u been in contact with someone who was confirmed or suspected to have Coronavirus/COVID-19? No / Unsure 02/14/2022 9:44 AM CDT documented as of this encounter Miscellaneous Notes * Telephone Encounter - Oscar Westbrook MD - 02/20/2022 9:26 AM CDT Rx sent Virtual visit due Hernan Westbrook MD documented in this encounter Plan of Treatment Not on file documented as of this encounter Visit Diagnoses Diagnosis Chronic pain syndrome documented in this encounter Additional Health Concerns Assessment Noted Time PHQ-9 Depression Total Score: 13 022 10:33 AM CDT documented as of this encounter Care Teams Special Diet Cook Relationship Specialty [place] [address] [place] [address] PCP - General Family Practice 08/04/13 [place] [address] [place] [address] MD Family Practice 07/24/15 Sancho Brown MD [address] [facility] [address] [place] [address] Urology 02/26/18 [place] [address] [place] [address] Assigned PCP 08/08/13 Alba Desai NP [place] [address] [place] [address] Nurse Practitioner Nurse Practitioner Psych/Mental Health 11/12/18 Lizbet Guzmán MD [facility] [address] [facility] [place], [place] [id number] Referring Physician 06/23/19 Soledad Mccabe MD [facility] [address] [facility] [address] [place] [address] Otolaryngology 06/23/19 Maritza Cope Personal Advocate & Liaison (PAL) 11/14/20 03/06/22 Sancho Brown MD [address] [place] [address] Assigned Surgical Provider 11/12/20 05/10/22 [place] [address] [place] [address] Assigned Pain Medication Provider 07/22/22 Aida Hahn DPM, Podiatry/Foot and Ankle Surgery [address] [place], [place] [address] Assigned Musculoskeletal Provider 11/02/22 Rosario Tapia, [facility] Community Health Worker Primary Care - CC 08/19/23 08/21/23 Hellen Limon Personal Advocate & Liaison (PAL) Family Medicine 08/20/23 10/12/23 June Quintana, RN Personal Advocate & Liaison (PAL) Family Medicine 10/13/23 11/09/23 Gisselle Doyle, [facility], [facility] [address] [place] [address] Assigned Behavioral Health Provider 11/04/23 Soumya Saavedra Personal Advocate & Liaison (PAL) Family Medicine 03/07/22 09/14/23 documented as of this encounter
--- OUTSIDE RECORDS SUMMARY | 2023-12-21 07:45 | XMS_ITS | Encounter Summary ---
Author Organization [place] Address [facility] [place] [address] Care Team Providers Care Executive Director Contract Shop Name Role Phone Oscar Westbrook MD Primary Care Provider [phone] Oscar Westbrook MD Unavailable [phone] Sancho Brown MD Unavailable Oscar Westbrook MD Unavailable [phone] Alba Desai SODA MAKER Unavailable [phone] Lizbet Guzmán MD Unavailable [phone] Soledad Mccabe MD Unavailable Unav ailable Maritza Cope Unavailable Unavailable Sancho Brown MD Unavailable [phone] Oscar Westbrook MD Unavailable [phone] Aida Hahn DPM, Podiatry /Foot and Ankle Surgery Unavailable Rosario Tapia CHW Unavailable [phone] Hellen Limon Unavailable Unavailable June Quintana RN Unavailable Unavailable Gisselle Doyle, [facility] 2] Unavailable Reason for Visit * Reason Onset Date Comments Panel Management 10/02/2021 eye Encounter Details Date Type Department Care Team (Late st Contact Info) Description 10/02/2021 MyC Medical Advice [address] [phone] Natasha Zhao MA Panel Management (eye ) Social History Tobacco Use Types Packs/Day Years Used Date Smoking Tobacco: Former Cigarettes 0.5 30 Smokeless Tobacco: Former Quit: 02/22/2013 Comments:1 week ago Alcohol Use Standard Drinks/Week Comments No 0 (1 standard drink = 0.6 oz pure alcohol) 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 Never 07/13/2019 Q2: How many drinks containi ng alcohol do you have on a typical day when you are drinking? Patient declined 07/13/2019 Q3: How often do you have si x or more drinks on one occasion? Patient declined 07/13/2019 Overall Financial Resource Strain (CARDIA) Answe r Date Recorded How hard is it for you to pa y for the very basics like food, housing, medical care, and heating? Not hard at all 07/13/2019 PHQ-2 Answer Date Recorded PHQ-2 Score 2 04/19/2021 [facility]at ional Health - Occupational Stress Questionnaire Answer Date Recorded Feeling of Stress Rather much 07/13/2019 Exercise Vital Sign Answer Date Recorde d Days of Exercise per Week 0 days 2018 Minutes of Exercise per Session 0 min 07/13/2019 Hunger Vital Sign Answer Date Recorded Within the past 12 months, y ou worried that your food would run out before you got the money to buy more. Never true 07/13/20 19 Within the past 12 months, t he food you bought just didn't last and you didn't have money to get more. Never true 07/13/2019 PRAPARE - Transportation Answer Date Re corded In the past 12 months, has l ack of transportation kept you from medical appointments or from getting medications? No 06/15 In the past 12 months, has l ack of transportation kept you from meetings, work, or from getting things needed for daily living? No 07/13/2019 Education Answer Date Recorded What is the highest level of school you have completed or the highest degree you have received? 12th grade 07/13/2019 Sex and Gender Information Value Date Recorded Sex Assigned at Male 11/12/2020 5:06 PM CDT Gender Identity Male 11/12/2020 5:06 PM CDT Sexual Orientation Not on file COVID-19 Exposure Response Date Recorded In the last month, have you been in contact with someone who was confirmed or suspected to have Coronavirus / COVID-19? No / Unsure 09/11/2021 9:59 AM CHEESE PACKER documented as of this encounter Miscellaneous Notes * Telephone Encounter - Natasha Zhao MA - 10/03/2021 1:51 PM CDT Patient Quality Outreach Patient is due for the following: Diabetes - Eye Exam NEXT STEPS: Chart routed to [facility] on 07/31/21 Type of outreach: Chart review performed, no outreach needed. Questions for provider review: None Natasha Zhao MA documented in this encounter Plan of Treatment Not on file documented as of this encounter Visit Diagnoses Not on filedocumented in this encounter Additional Health Concerns Assessment Noted Time PHQ-9 Depression Total Score: 9 04/20/20 21 7:02 AM CDT documented as of this encounter Care Teams Executive Director Contract Shop Relationship Specialty [place] [address] [place] [address] PCP - General Family Practice 08/04/13 [place] [address] [place] [address] Family Practice 07/24/15 Sancho Brown MD [address] [facility] [address] [place] [address] Urology 02/26/18 [place] [address] [place] [address] Assigned PCP 08/08/13 Alba Desai NP [facility] [address] [place], [place] [address] Nurse Practitioner Nurse Practitioner Psych/Mental Health 11/12/18 Lizbet Guzmán MD [facility] [address] [place] [address] Referring Physician 06/23/19 Soledad Mccabe MD [facility] [address] [facility] [place] [address] Otolaryngology 06/23/19 Maritza Cope Personal Advocate & Liaison (PAL) 11/14/20 03/06/22 Sancho Brown MD [address] [place] [address] Assigned Surgical Provider 11/12/20 05/10/22 [place] [address] [place] [address] Assigned Pain Medication Provider 07/22/22 Aida Hahn, DPM, Podiatry/Foot and Ankle Surgery [address] [place] [address] [place] [address] Assigned Musculoskeletal Provider 11/02/22 Rosario Tapia W Community Health Worker Primary Care - CC 08/19/23 08/21/23 Hellen Limon Personal Advocate & Liaison (PAL) Family Medicine 08/20/23 10/12/23 June Quintana, RN Personal Advocate & Liaison (PAL) Family Medicine 10/13/23 11/09/23 Gisselle Doyle, [facility], [facility] 2[facility] [address] [place] [address] Assigned Behavioral Health Provider 11/04/23 Soumya MCKENZIE 4 Personal Advocate & Liaison (PAL) Family Medicine 03/07/22 09/14/23 documented as of this encounter
--- OUTSIDE RECORDS SUMMARY | 2023-12-21 07:45 | XMS_ITS | Encounter Summary ---
Author Organization [place] Address [address] [place] [address] Care Team Providers Care Industrial Organizational Psychologist Name Role Phone Oscar Westbrook MD Primary Care Provider [phone] Oscar Westbrook MD Unavailable [phone] Sancho Brown MD Unavailable Oscar Westbrook MD Unavailable [phone] Alba Desai REVENUE COLLECTOR Unavailable [phone] Lizbet Guzmán MD Unavailable Soledad Mccabe MD Unavailable Unav ailable Sancho Brown MD Unavailable [phone] Oscar Westbrook MD Unavailable Aida Hahn DPM, Podiatry /Foot and Ankle Surgery Unavailable Rosario Tapia CHW Unavailable [phone] Hellen Limon Unavailable Unavailable June Quintana RN Unavailable Unavailable Gisselle Doyle, [facility] Unavailable [phone] Reason for Visit * Reason Onset Date Comments Procedure 04/09/2022 bilateral SI mickie nt injections Encounter Details Date Type Department Care Team (Late st Contact Info) Description 04/09/[address] [facility] [address] [place] [address] Jessica Norton, [facility] [address] [place] [address] Procedure ( bilateral SI joint injections ) Social History Tobacco Use Types Packs/Day [...] week 12/03/2021 How often do you attend tenriism or scientologist serv ices? Never 12/03/2021 Do you belong to any clubs o r organizations such as tenriism groups, unions, fraternal or athletic groups, or [...] Answer Date Recorded PHQ-2 Score 2 03/07/2022 [facility] of Occupat ional Health - Occupational Stress [...] place to sleep or slept in a usp (including now)? No 12/03/2021 Education Answer Date [...] encounter Miscellaneous Notes * Telephone Encounter - Simona Crow - 04/09/2022 3:23 PM CDT LVM to schedule bilateral SI joint injections Simona Crow Human Resources Training Manager [facility] * Telephone Encounter - Karen Morris - 04/09/2022 2:53 PM CDT No PA required, okay to schedule Availity message: Services for members with Medicare products are reviewed using Medicare NCDs, LCDs or other Medicare guidance when available. If no CMS guidance is available, other decision support tools and published criteria will be used to determine medical necessity and appropriateness. Karen Bender Human Resources Training Manager [facility] * Telephone Encounter - Odette Ghosh - 04/09/2022 12:52 PM CDT Screening Questions for Radiology Injections: Injection to be done at which interventional clinic site? [facility] Procedure ordered by Cierra Procedure ordered? bilateral SI joint injections ??? Transforaminal Cervical LOKESH - Send to [facility] - No Community Site providers perform this procedure What insurance would patient like us to bill for this procedure? BC ?? Worker's comp or MVA (motor vehicle accident) -Any injection DO NOT SCHEDULE and route to Odette Gohsh. ?? [facility] insurance - For SI joint injections, DO NOT SCHEDULE and route to Karen Morris. ?? ALL BCBS, Humana and [employer] CIGNA - DO NOT SCHEDULE and route to Karen Morris ?? MEDICA- facet joint injections, route to Karen Morris Is an pleater hand needed? No Patient has a goat driver home? (Review Grid) YES: ok Any chance of ? NO If YES, do NOT schedule and route to pool attendant - Dr. Weber route to Ritika Hinson and PM&R Nurse [[id number]] Is patient actively being treated for cancer or immunocompromised? No If YES, do NOT schedule and route to pool attendant/ Dr. Weber's Team Does the patient have a bleeding or clotting disorder? No ?? If YES, okay to schedule AND route to RN nurse srinivasan/ Dr. Weber's Team ?? (For any patients with platelet count <100, RN must forward to provider) Is patient taking any Blood Thinners OR Antiplatelet medication? No If hold needed, do NOT schedule, route to WALT srinivasan/ Dr. Weber's Team ??? Examples: o Blood Thinners: (Coumadin, Warfarin, Jantoven, Pradaxa, Xarelto, Eliquis, Edoxaban, Enoxaparin, Lovenox, Heparin, Arixtra, Fondaparinux or Fragmin) o Antiplatelet Medications: (Plavix, Brilinta or Effient) Is patient taking any aspirin products (includes Excedrin and Fiorinal)? No ?? If more than 325mg/day, OK to schedule; Instruct Pt to decrease to less than 325 mg for 7 days AND route to WALT srinivasan/ Dr. Weber's Team ?? For CERVICAL procedures, hold all aspirin products for 6 days. ?? Tell Pt that if aspirin product is not held for 6 days, the procedure WILL BE cancelled. Any allergies to contrast dye, iodine, shellfish, or numbing and steroid medications? No ??? If YES, schedule and add allergy information to appointment notes AND route to the WALT srinivasan/ 's Team ??? If LOKESH and Contrast Dye / Iodine Allergy? DO NOT SCHEDULE, route to WALT srinivasan/ Dr. Weber's Team ??? Allergies: Dilaudid cough and Triptans [sumatriptan] Does patient have an active infection or treated for one within the past week? No ??? Is patient currently taking any antibiotics or steroid medications? No ?? For patients on chronic, preventative, or prophylactic antibiotics, procedures may be scheduled. ?? For patients on antibiotics for active or recent infection, schedule 4 days after completed. ?? For patients on steroid medications, schedule 4 days after completed. Has the patient had a flu shot or any other vaccinations within the past 7 days? No If yes, explain that for the vaccine to work best they need to: ??? wait 1 week before and 1 week after getting any Vaccine ??? wait 1 week before and 2 weeks after getting Covid Vaccine #2 or BOOSTER ??? If patient has concerns about the timing, send to WALT srinivasan/ Dr. Weber's Team Does patient have an MRI/CT? Not Applicable Include Date and Check Procedure Scheduling Grid to seeif required. ?? Was the MRI/CT done within the last 3 years? NA ?? If no route to WALT Srinivasan/ Dr. Gardners Team ?? If yes, where was the MRI/CT done? ?? Refer to PACS Transmissions list for approved external locations and route to WALT Srinivasan High Priority/ Dr. Gardners Team ?? If MRI was not done at approved external location do NOT schedule and route to WALT srinivasan/ Dr. Weber's Team ?? If patient has an imaging disc, the injection MAY be scheduled but patient must bring disc to appt or appt will be cancelled. Procedure Specific Instructions: ??? If celiac plexus block, informed patient NPO for 6 hours and that it is okay to take medications with sips of water, especially blood pressure medications Not Applicable ??? If this is for a cervical procedure, informed patient that aspirin needs to be held for 6 days.Not Applicable ??? Sedation, If Sedation is ordered for any procedure, patient must be NPO for 6 hours prior to procedure Not Applicable ??? If IV needed: ?? Do not schedule procedures requiring IV placement in the first appointment of the day or first appointment after lunch. Do NOT schedule at 0745, 0815 or 1245. ok ?? Instructed patient to arrive 30 minutes early for IV start if required. (Check Procedure Scheduling Grid) NO Reminders: ??? If you are started on any steroids or antibiotics between now and your appointment, you must contact us because the procedure may need to be cancelled. Yes ??? As a reminder, receiving steroids can decrease your body's ability to fight infection. Would you still like to move forward with scheduling the injection? Yes ??? IV Sedation is not provided for procedures. If oral anti-anxiety medication is needed, the patient should request this from their referring provider. ??? Instruct patient to arrive as directed prior to the scheduled appointment time: If IV needed 30 minutes before appointment time ?? For patients 85 or older we recommend having an adult stay w/ them for the remainder of the day. ?? If the patient is Diabetic, remind them to bring their glucometer. Does the patient have any questions? NO Odette Ghosh [facility] documented in this encounter Plan of Treatment Not on file documented as of this encounter Visit Diagnoses Not on filedocumented in this encounter Additional Health Concerns Assessment Noted Time PHQ-9 Depression Total Score: 9 03/07/20 22 10:25 AM CDT documented as of this encounter Care Teams Industrial Organizational Psychologist Relationship Specialty [place] [address] [place] [address] PCP - General Family Practice 08/04/13 [place] [address] [place] [address] MD Family Practice 07/24/15 Sancho Brown MD [address] [place] [address] Urology 02/26/18 [place] [address] [place] [address] Assigned PCP 08/08/13 Alba Desai NP [address] [address] Nurse Practitioner Nurse Practitioner Psych/Mental Health 11/12/18 Lizbet Guzmán MD [facility] [address] [place] [address] Referring Physician 06/23/19 Soledad Mccabe MD [facility] [address] [place] [address] Otolaryngology 06/23/19 Sancho Brown MD [address] [place] [address] Assigned Surgical Provider 11/12/20 05/10/22 [place] [address] [place] [address] Assigned Pain Medication Provider 07/22/22 Aida Hahn, DPM, Podiatry/Foot and Ankle Surgery [address] [place] [address] Assigned Musculoskeletal Provider 11/02/22 Rosario Tapia, [facility] Community Health Worker Primary Care - CC 08/19/23 08/21/23 Hellen Limon Personal Advocate & Liaison (PAL) Family Medicine 08/20/23 10/12/23 LilianJune nobles, RN Personal Advocate & Liaison (PAL) Family Medicine 10/13/23 11/09/23 Gisselle Doyle, [facility], [facility] [address] [place] [address] Assigned Behavioral Health Provider 11/04/23 Soumya Saavedra Personal Advocate & Liaison (PAL) Family Medicine 03/07/22 09/14/23 documented as of this encounter
--- OUTSIDE RECORDS SUMMARY | 2023-12-21 07:45 | XMS_ITS | Encounter Summary ---
Author Organization [place] Address [facility] [place] [address] Care Team Providers Care Taximeter Repairer Name Role Phone Oscar Westbrook MD Primary Care Provider [phone] Oscar Westbrook MD Unavailable [phone] Sancho Brown MD Unavailable Oscar Westbrook MD Unavailable [phone] Alba Desai RIB CHOPPER Unavailable [phone] Lizbet Guzmán MD Unavailable [phone] Soledad Mccabe MD Unavailable Unav ailable Oscar Westbrook MD Unavailable [phone] Aida Hahn DPM, Podiatry /Foot and Ankle Surgery Unavailable Rosario Tapia CHW Unavailable [phone] Hellen Limon Unavailable Unavailable June Quintana RN Unavailable [facility]available [facility] Un[facility] Reason for Visit * Reason Comments Medication Refill Encounter Details Date Type Department Care Team (Late st Contact Info) Description 10/14/[address] [facility] [address] [place] [id number] [place] [address] [place] [address] Medication Refill Social History Tobacco Use Types Packs/Day Years Used Date Smoking Tobacco: Light Smoker Cigarettes 1 30 Smokeless Tobacco: Former Quit: 02/22/2013 Alcohol Use Standard Drinks/Week Comments No 0 [...] How often do you attend amish or protestant serv ices? Never 12/03/2021 Do you belong [...] hard 12/03/2021 PHQ-2 Answer Date Recorded PHQ-2 Total Score (Adult) - Positive if 3 or more points; Administer PHQ-9 if positive 2 08/08/2022 [facility] [place] of Occupat ional Health - Occupational Stress [...] place to sleep or slept in a mcfp (including now)? No 12/03/2021 Education Answer Date [...] encounter Miscellaneous Notes * Telephone Encounter - Jocelin Valle - 10/14/2022 1:52 PM CDT Letter Sent Jocelin Valle/Powder Expert * Telephone Encounter - Oscar Westbrook MD - 10/14/2022 11:56 AM CDT Rx sent Virtual visit due October Aj Westbrook MD documented in this encounter Plan of Treatment Not on file documented as of this encounter Visit Diagnoses Diagnosis LISA (obstructive sleep apnea) Obstructive sleep apnea (adult) (pediatric) Chronic pain syndrome documented in this encounter Additional Health Concerns Assessment Noted Time PHQ-9 Depression Total Score: 10 023 3:57 PM CRM MARKETING SPECIALIST documented as of this encounter Care Teams Taximeter Repairer Relationship Specialty [place] [address] [place] [address] PCP - General Family Practice 08/04/13 [place] [address] [place] [address] MD Family Practice 07/24/15 Sancho Brown MD [address] [place] [address] Urology 02/26/18 [place] [address] [place] [address] Assigned PCP 08/08/13 Alba Desai NP [address] [address] Nurse Practitioner Nurse Practitioner Psych/Mental Health 11/12/18 Lizbet Guzmán MD [facility] [address] [place], [place] [id number] Referring Physician 06/23/19 Soledad Mccabe MD [facility] [address] [place] [address] Otolaryngology 06/23/19 [place] [address] [place] [address] Assigned Pain Medication Provider 07/22/22 Aida Hahn, DPM, Podiatry/Foot and Ankle Surgery [address] [place] [address] Assigned Musculoskeletal Provider 11/02/22 Rosario Tapia, [facility] Community Health Worker Primary Care - CC 08/19/23 08/21/23 Hellen Limon Personal Advocate & Liaison (PAL) Family Medicine 08/20/23 10/12/23 June Quintana RN Personal Advocate & Liaison (PAL) Family Medicine 10/13/23 11/09/23 Gisselle Doyle, [facility], [facility] [address] [place] [address] Assigned Behavioral Health Provider 11/04/23 Soumya Saavedra Personal Advocate & Liaison (PAL) Family Medicine 03/07/22 09/14/23 documented as of this encounter
--- OUTSIDE RECORDS SUMMARY | 2023-12-21 07:45 | XMS_ITS | Encounter Summary ---
Author Organization [place] Address [facility] [place] [address] Care Team Providers Care Spaghetti Machine Operator Name Role Phone Oscar Westbrook MD Primary Care Provider [phone] Oscar Westbrook MD Unavailable [phone] Sancho Brown MD Unavailable Oscar Westbrook MD Unavailable [phone] Alba Desai BILLING AUDITOR Unavailable [phone] Lizbet Guzmán MD Unavailable [phone] Soledad Mccabe MD Unavailable Unav ailable Sancho Brown MD Unavailable [phone] Oscar Westbrook MD Unavailable [phone] Aida Hahn DPM, Podiatry /Foot and Ankle Surgery Unavailable Rosario Tapia CHW Unavailable Hellen Limon Unavailable Unavailable June Quintana RN Unavailable Unavailable Gisselle Doyle, [facility] Unavailable [phone] Encounter Details Date Type Department Care Team (Late st Contact Info) Description 05/07/2022 [facility] [place] [facility] [address] [address] Dedra May, [facility] Social History Tobacco Use Types Packs/Day Years [...] week 12/03/2021 How often do you attend mosque or confucianist serv ices? Never 12/03/2021 Do you belong to any clubs o r organizations such as mosque groups, unions, fraternal or athletic groups, or [...] Answer Date Recorded PHQ-2 Score 2 03/07/2022 [facility] of Occupat ional Health - Occupational Stress [...] place to sleep or slept in a penitentiary (including now)? No 12/03/2021 Education Answer Date [...] documented as of this encounter Care Teams Spaghetti Machine Operator Relationship Specialty [place] [address] [place] [address] PCP - General Family Practice 08/04/13 [place] [address] [place] [address] Family Practice 07/24/15 Sancho Brown MD [address] [place] [address] Urology 02/26/18 [place] [address] [place], [place] [address] Assigned PCP 08/08/13 Alba Desai NP [facility] [address] [place], [place] [id number] Nurse Practitioner Nurse Practitioner Psych/Mental Health 11/12/18 Lizbet Guzmán MD [facility] [address] [place] [address] Referring Physician 06/23/19 Soledad Mccabe MD [facility] [address] [place] [address] Otolaryngology 06/23/19 Sancho Brown MD [address] [place] [address] Assigned Surgical Provider 11/12/20 05/10/22 [place] [address] [place] [address] Assigned Pain Medication Provider 07/22/22 Aida Hahn DPM, Podiatry/Foot and Ankle Surgery [address] [facility] [address] [place], [place] [address] Assigned Musculoskeletal Provider 11/02/22 Rosario Tapia, [facility] Community Health Worker Primary Care - CC 08/19/23 08/21/23 Hellen Limon Personal Advocate & Liaison (PAL) Family Medicine 08/20/23 10/12/23 June Quintana, RN Personal Advocate & Liaison (PAL) Family Medicine 10/13/23 11/09/23 Gisselle Doyle, [facility], [facility] [address] [place] [address] Assigned Behavioral Health Provider 11/04/23 Soumya MCKENZIE 4 Personal Advocate & Liaison (PAL) Family Medicine 03/07/22 09/14/23 documented as of this encounter
--- OUTSIDE RECORDS SUMMARY | 2023-12-21 07:45 | XMS_ITS | Encounter Summary ---
Author Organization [place] Address [facility] [place] [address] Care Team Providers Care Cleaner Housekeeping Name Role Phone Oscar Westbrook MD Primary Care Provider [phone] Oscar Westbrook MD Unavailable [phone] Sancho Brown MD Unavailable Oscar Westbrook MD Unavailable [phone] Alba Desai TRAVEL REGISTERED NURSE ICU Unavailable [phone] Lizbet Guzmán MD Unavailable [phone] Soledad Mccabe MD Unavailable Unav ailable Oscar Westbrook MD Unavailable [phone] Aida Hahn DPM, Podiatry /Foot and Ankle Surgery Unavailable Rosario Tapia CHW Unavailable [phone] Hellen Limon Unavailable Unavailable June Quintana RN Unavailable Unavailable Gisselle oDyle, [facility] Unavailable [phone] Encounter Details Date Type Department Care Team (Late st Contact Info) Description 02/20/2023 [facility] Medical Advice [address] [address] Yani Barrett MA Social History Tobacco Use Types Packs/Day Years [...] week 12/03/2021 How often do you attend hindu or mandaeism serv ices? Never 12/03/2021 Do you belong to any clubs o r organizations such as hindu groups, unions, fraternal or athletic groups, or [...] 12/03/2021 PHQ-2 Answer Date Recorded PHQ-2 Score 3 02/04/2023 [facility] of Occupat ional Health - Occupational [...] place to sleep or slept in a care home (including now)? No 12/03/2021 Education Answer Date [...] suspected to have Coronavirus/COVID-19? No / Unsure 02/04/2023 1:16 PM CDT documented as of this encounter Plan of Treatment Not on file documented as of this encounter Visit Diagnoses Not on filedocumented in this encounter Additional Health Concerns Assessment Noted Time PHQ-9 Depression Total Score: 12 023 2:35 PM CDT documented as of this encounter Care Teams Cleaner Housekeeping Relationship Specialty [place] [address] [place] [address] PCP - General Family Practice 08/04/13 [place] [address] [place] [address] Family Practice 07/24/15 Sancho Brown MD [address] [facility] 500 [place] [address] Urology 02/26/18 [place] [address] [place] [address] Assigned PCP 08/08/13 Alba Desai NP [address] [address] Nurse Practitioner Nurse Practitioner Psych/Mental Health 11/12/18 Lizbet Guzmán MD [facility] [address] [facility] [address] [place], [place] [id number] Referring Physician 06/23/19 Soledad Mccabe MD [facility] [address] [facility] [address] [place] [address] Otolaryngology 06/23/19 [place] [address] [place] [address] Assigned Pain Medication Provider 07/22/22 Aida Hahn DPM, Podiatry/Foot and Ankle Surgery [address] [facility] [address] [place], [place] [address] Assigned Musculoskeletal Provider 11/02/22 Rosario Tapia, [facility] Community Health Worker Primary Care - CC 08/19/23 08/21/23 Hellen Limon Personal Advocate & Liaison (PAL) Family Medicine 08/20/23 10/12/23 June Quintana RN Personal Advocate & Liaison (PAL) Family Medicine 10/13/23 11/09/23 Gisselle Doyle, [facility], [facility] [address] [place] [address] Assigned Behavioral Health Provider 11/04/23 Soumya Saavedra Personal Advocate & Liaison (PAL) Family Medicine 03/07/22 09/14/23 documented as of this encounter
--- OUTSIDE RECORDS SUMMARY | 2023-12-21 07:45 | XMS_ITS | Encounter Summary ---
Author Organization [place] Address [facility] [place] [address] Care Team Providers Care Account Review Specialist Name Role Phone Oscar Westbrook MD Primary Care Provider [phone] Oscar Westbrook MD Unavailable [phone] Sancho Brown MD Unavailable Oscar Westbrook MD Unavailable Alba Desai FLAG FOOTBALL COACH Unavailable [phone] Lizbet Guzmán MD Unavailable [phone] Soledad Mccabe MD Unavailable Unav ailable Oscar Westbrook MD Unavailable [phone] Aida Hahn DPM, Podiatry /Foot and Ankle Surgery Unavailable Rosario Tapia CHW Unavailable [phone] Hellen Limon Unavailable Unavailable June Quintana RN Unavailable Unavailable Gisselle Doyle, [facility] Unavailable [phone] Encounter Details Date Type Department Care Team (Late st Contact Info) Description 03/27/2023 [facility] [address] [facility] [address] [place] [address] Kellie Galvin, RN Social History Tobacco Use Types Packs/Day [...] often do you attend latter day or presybeterian serv ices? Never 12/03/2021 Do [...] Answer Date Recorded PHQ-2 Score 3 02/04/2023 [facility] of Occupat ional Health - Occupational [...] money to buy more. Never true 12/04/19 Within the past 12 months, t he [...] suspected to have Coronavirus/COVID-19? No / Unsure 03/13/2023 10:49 AM CDT documented as of this encounter Plan of Treatment Not on file documented as of this encounter Visit Diagnoses Not on filedocumented in this encounter Additional Health Concerns Assessment Noted Time PHQ-9 Depression Total Score: 12 023 2:35 PM CDT documented as of this encounter Care Teams Account Review Specialist Relationship Specialty [place] [address] [place] [address] PCP - General Family Practice 08/04/13 [place] [address] [place] [address] MD Family Practice 07/24/15 Sancho Brown MD [address] [facility] 500 [place] [address] Urology 02/26/18 [place] [address] [place] [address] Assigned PCP 08/08/13 Alba Desai NP [facility] [address] [place], [place] [address] Nurse Practitioner Nurse Practitioner Psych/Mental Health 11/12/18 Lizbet Guzmán MD [facility] [address] [facility] [address] [place], [place] [address] Referring Physician 06/23/19 Soledad Mccabe MD [facility] [address] [facility] [address] [place] [address] Otolaryngology 06/23/19 [place] [address] [place] [address] Assigned Pain Medication Provider 07/22/22 Aida Hahn DPM, Podiatry/Foot and Ankle Surgery [address] [facility] [address] [place] [address] Assigned Musculoskeletal Provider 11/02/22 Rosario Tapia, [facility] Community Health Worker Primary Care - CC 08/19/23 08/21/23 Hellen Limon Personal Advocate & Liaison (PAL) Family Medicine 08/20/23 10/12/23 LilianJune nobles RN Personal Advocate & Liaison (PAL) Family Medicine 10/13/23 11/09/23 Gisselle Doyle, [facility], [facility] [address] [place] [address] Assigned Behavioral Health Provider 11/04/23 Soumya Saavedra Personal Advocate & Liaison (PAL) Family Medicine 03/07/22 09/14/23 documented as of this encounter
--- OUTSIDE RECORDS SUMMARY | 2023-12-21 07:45 | XMS_ITS | Encounter Summary ---
Author Organization [place] Address [facility]0 [place] [address] Care Team Providers Care Hangersmith Name Role Phone Oscar Westbrook MD Primary Care Provider [phone] Oscar Westbrook MD Unavailable Sancho Brown MD Unavailable Oscar Westbrook MD Unavailable [phone] Alba Desai FERRYBOAT OPERATOR HELPER Unavailable [phone] Libzet Guzmán MD Unavailable [phone] Soledad Mccabe MD Unavailable Unav ailable Oscar Westbrook MD Unavailable [phone] Aida Hahn DPM, Podiatry /Foot and Ankle Surgery Unavailable Rosario Tapia CHW Unavailable [phone] Hellne Limon Unavailable Unavailable June Quintana RN Unavailable Unavailable Gisselle Doyle, [facility] Unavailable [phone] Encounter Details Date Type Department Care Team (Late st Contact Info) Description 05/16/2023 MyC Medical Advice [address] [address] Yani Barrett MA Social History Tobacco Use [...] week 12/03/2021 How often do you attend holiness or adventism serv ices? Never 12/03/2021 Do you belong to any clubs o r organizations such as holiness groups, unions, fraternal or athletic groups, or [...] Answer Date Recorded PHQ-2 Score 3 02/04/2023 [facility] of Occupat ional Health - Occupational Stress [...] place to sleep or slept in a long-term (including now)? No 12/03/2021 Adolescent Education Answer Date Record ed Getting School Help Needed Not on file 04/08 Education Answer Date Recorded What is the [...] documented as of this encounter Care Teams Hangersmith Relationship Specialty [place] [address] [place] [address] PCP - General Family Practice 08/04/13 [place] [address] [place] [address] Family Practice 07/24/15 Sancho Brown MD 6363 [facility] 500 [place] [address] Urology 02/26/18 [place] [address] [place] [address] Assigned PCP 08/08/13 Alba Desai NP [facility] [address] [place], [place] [id number] Nurse Practitioner Nurse Practitioner Psych/Mental Health 11/12/18 Lizbet Guzmán MD [facility] [address] [place] [address] Referring Physician 06/23/19 Soledad Mccabe MD [facility] [address] [place] [address] Otolaryngology 06/23/19 [place] [address] [place] [address] Assigned Pain Medication Provider 07/22/22 Aida Hahn, DPM, Podiatry/Foot and Ankle Surgery [address] [facility] 300 [place], [place] [address] Assigned Musculoskeletal Provider 11/02/22 Rosario Tapia, W Community Health Worker Primary Care - CC 08/19/23 08/21/23 Hellen Limon Personal Advocate & Liaison (PAL) Family Medicine 08/20/23 10/12/23 Lilian, June Shin RN Personal Advocate & Liaison (PAL) Family Medicine 10/13/23 11/09/23 Gisselle Doyle, [facility], [facility] [address] [place] [address] Assigned Behavioral Health Provider 11/04/23 Soumya Saavedra Personal Advocate & Liaison (PAL) Family Medicine 03/07/22 09/14/23 documented as of this encounter
--- OUTSIDE RECORDS SUMMARY | 2023-12-21 07:45 | XMS_ITS | Encounter Summary ---
Author Organization [place] Address [facility]0 [place] [address] Care Team Providers Care Hospital Monitor Name Role Phone Oscar Westbrook MD Primary Care Provider [phone] Oscar Westbrook MD Unavailable [phone] Sancho Brown MD Unavailable [phone] Oscar Westbrook MD Unavailable [phone] Alba Desai E MAIL SYSTEM ADMINISTRATOR Unavailable [phone] Lizbet Guzmán MD Unavailable Soledad Mccabe MD Unavailable Unav ailable Oscar Westbrook MD Unavailable [phone] Aida Hahn DPM, Podiatry /Foot and Ankle Surgery Unavailable Rosario Tapia CHW Unavailable [phone] Hellen Limon Unavailable Unavailable June Quintana RN Unavailable Unavailable Gisselle Doyle, [facility] Unavailable Encounter Details Date Type Department Care Team (Late st Contact Info) Description 06/06/2023 MyC Medical Advice [address] [address] Hellen Limon Social History Tobacco Use Types Packs/Day Years [...] week 12/03/2021 How often do you attend lutheran or sabianism serv ices? Never 12/03/2021 Do you belong to any clubs o r organizations such as lutheran groups, unions, fraternal or athletic groups, or [...] 12/03/2021 PHQ-2 Answer Date Recorded PHQ-2 Score 5 06/04/2023 [facility] - Occupational Stress Questionnaire Answer [...] Noted Time PHQ-9 Depression Total Score: 21 023 9:00 AM SENIOR SALES ASSOCIATE documented as of this encounter Care Teams Hospital Monitor Relationship Specialty [place] [address] [place] [address] PCP - General Family Practice 08/04/13 [place] [address] [address] [address] Family Practice 07/24/15 Sancho Brown MD 6363 [facility] 500 [place] [address] Urology 02/26/18 [place] [address] [place] [address] Assigned PCP 08/08/13 Alba Desai NP [facility] [address] [place] [address] Nurse Practitioner Nurse Practitioner Psych/Mental Health 11/12/18 Lizbet Guzmán MD [facility] [address] [facility] 200 [place] [address] Referring Physician 06/23/19 Soledad Mccabe MD [facility] [address] [facility] 200 [place] [address] Otolaryngology 06/23/19 [place] [address] [place] [address] Assigned Pain Medication Provider 07/22/22 Aida Hahn, DPM, Podiatry/Foot and Ankle Surgery [address] [facility] 300 [place] [address] Assigned Musculoskeletal Provider 11/02/22 Rosario Tapia, W Community Health Worker Primary Care - CC 08/19/23 08/21/23 Hellen Limon Personal Advocate & Liaison (PAL) Family Medicine 2/7/24 3/31/24 LilianJune RN Personal Advocate & Liaison (PAL) Family Medicine 10/13/23 11/09/23 Gisselle Doyle, [facility], [facility] [address] [place] [address] Assigned Behavioral Health Provider 11/04/23 Soumya MCKENZIE 4 Personal Advocate & Liaison (PAL) Family Medicine 03/07/22 09/14/23 documented as of this encounter
--- OUTSIDE RECORDS SUMMARY | 2023-12-21 07:45 | XMS_ITS | Encounter Summary ---
Author Organization [place] Address [facility] [place] [address] Care Team Providers Care Silk Folder Name Role Phone Oscar Westbrook MD Primary Care Provider [phone] Oscar Westbrook MD Unavailable [phone] Sancho Brown MD Unavailable [phone] Oscar Westbrook MD Unavailable [phone] Abla Desai HARDBOARD PANEL PRINTER Unavailable [phone] Lizbet Guzmán MD Unavailable [phone] Soledad Mccabe MD Unavailable Unav ailable Oscar Westbrook MD Unavailable [phone] Aida Hahn DPM, Podiatry /Foot and Ankle Surgery Unavailable Rosario Tapia CHW Unavailable [phone] Hellen Limon Unavailable Unavailable June Quintana RN Unavailable Unavailable Gisselle Doyle, [facility] Unavailable [phone] Encounter Details Date Type Department Care Team (Late st Contact Info) Description 08/20/2023 MyC Medical Advice [address] [address] Hellen Limon Social History Tobacco Use Types [...] week 12/03/2021 How often do you attend sabianist or worship serv ices? Never 12/03/2021 Do you belong to any clubs o r organizations such as sabianist groups, unions, fraternal or athletic groups, or [...] Answer Date Recorded PHQ-2 Score 6 08/19/2023 [facility] - Occupational Stress Questionnaire Answer Date [...] Depression Total Score: 21 024 8:07 AM REPRODUCTION MACHINE LOADER documented as of this encounter Care Teams Silk Folder Relationship Specialty [place] [address] [address] [address] PCP - General Family Practice 08/04/13 [place] [address] [address] [address] Family Practice 07/24/15 Sancho Brown MD [address] [facility] 500 [place] [address] Urology 02/26/18 [place] [address] [place] [address] Assigned PCP 08/08/13 Alba Desai NP [facility] [address] [place] [address] Nurse Practitioner Nurse Practitioner Psych/Mental Health 11/12/18 Lizbet Guzmán MD [facility] 2828 [facility] 200 [place] [address] Referring Physician 06/23/19 Soledad Mccabe MD [facility] 2828 [facility] 200 [place] [address] Otolaryngology 06/23/19 [place] [address] [place] [address] Assigned Pain Medication Provider 07/22/22 Aida Hahn, DPM, Podiatry/Foot and Ankle Surgery [address] [facility] 300 [place] [address] Assigned Musculoskeletal Provider 11/02/22 Rosario Tapia, W Community Health Worker Primary Care - CC 08/19/23 08/21/23 Hellen Limon Personal Advocate & Liaison (PAL) Family Medicine 2/7/24 3/31/24 LilianJune RN Personal Advocate & Liaison (PAL) Family Medicine 10/13/23 11/09/23 Gisselle Doyle, [facility], [facility] [address] [place] [address] Assigned Behavioral Health Provider 11/04/23 Soumya MCKENZIE 4 Personal Advocate & Liaison (PAL) Family Medicine 03/07/22 09/14/23 documented as of this encounter
--- OUTSIDE RECORDS SUMMARY | 2023-12-21 07:45 | XMS_ITS | Encounter Summary ---
Author Organization [place] Address [facility] [place] [address] Care Team Providers Care Rn Acls Name Role Phone Oscar Westbrook MD Primary Care Provider [phone] Oscar Westbrook MD Unavailable [phone] Sancho Brown MD Unavailable [phone] Oscar Westbrook MD Unavailable [phone] Alba Desai LOSS PREVENTION LEADER Unavailable [phone] Lizbet Guzmán MD Unavailable [phone] Soledad Mccabe MD Unavailable Unav ailable Oscar Westbrook MD Unavailable [phone] Aida Hahn DPM, Podiatry /Foot and Ankle Surgery Unavailable Rosario Tapia CHW Unavailable [phone] Hellen Limon Unavailable Unavailable June Quintana RN Unavailable Unavailable [facility] Reason for Visit * Reason Comments Medication Refill Encounter Details Date Type Department Care Team (Late st Contact Info) Description 10/20/2022 Refill [facility] [id number] [place] [phone] [place] [address] [place] [address] Medication Refill Social History Tobacco Use Types [...] How often do you attend anabaptism or pentecostal serv ices? Never 12/03/2021 Do you belong [...] 12/03/2021 PHQ-2 Answer Date Recorded PHQ-2 Score 4 10/22/2022 [facility] of Occupat ional Health - Occupational Stress [...] place to sleep or slept in a [place] health care facility (including now)? No 12/03/2021 Education Answer Date [...] suspected to have Coronavirus/COVID-19? No / Unsure 10/22/2022 8:39 AM CDT documented as of this encounter Miscellaneous Notes * Telephone Encounter - Giana Werner RN - 10/22/2022 9:28 AM CDT Patient is no longer taking this medication. Patient tapered off of rx in July 2022. Routing to PCP to discontinue desvenlafaxine from pt's active med list. Giana Debbi, RN documented in this encounter Plan of Treatment Not on file documented as of this encounter Visit Diagnoses Diagnosis Major depressive disorder, recurrent episode, moderate (H) Major depressive disorder, recurrent episode, moderate documented in this encounter Additional Health Concerns Assessment Noted Time PHQ-9 Depression Total Score: 10 023 3:57 PM RISK INVESTIGATOR documented as of this encounter Care Teams Rn Acls Relationship Specialty [place] [address] [place] [address] PCP - General Family Practice 08/04/13 [place] [address] [place] [address] [place] Family Practice 07/24/15 Sancho Brown MD [address] [facility] [facility] [address] [place] [address] Urology 02/26/18 [place] [address] [place] [address] Assigned PCP 08/08/13 Alba Desai NP [facility] [address] [place] [address] Nurse Practitioner Nurse Practitioner Psych/Mental Health 11/12/18 Lizbet Guzmán MD [facility] [address] [place], [place] [address] Referring Physician 06/23/19 Soledad Mccabe MD [facility] [address] [facility] [place] [address] Otolaryngology 06/23/19 [place] [address] [place] [address] Assigned Pain Medication Provider 07/22/22 Aida Hahn, DPM, Podiatry/Foot and Ankle Surgery [address] [facility] [address] [place] [address] Assigned Musculoskeletal Provider 11/02/22 Rosario Tapia, [facility] Community Health Worker Primary Care - CC 08/19/23 08/21/23 Hellen Limon Personal Advocate & Liaison (PAL) Family Medicine 08/20/23 10/12/23 June Quintana RN Personal Advocate & Liaison (PAL) Family Medicine 10/13/23 11/09/23 Gisselle Doyle, [facility] [address] [place] [address] Assigned Behavioral Health Provider 11/04/23 Soumya Saavedra Personal Advocate & Liaison (PAL) Family Medicine 03/07/22 09/14/23 documented as of this encounter
--- OUTSIDE RECORDS SUMMARY | 2023-12-21 07:45 | XMS_ITS | Encounter Summary ---
Author Organization [place] Address [facility] [place] [address] Care Team Providers Care Chief Mechanical Officer Name Role Phone Oscar Westbrook MD Primary Care Provider [phone] Oscar Westbrook MD Unavailable [phone] Sancho Brown MD Unavailable Oscar Westbrook MD Unavailable [phone] Alba Desai DRAFTER CASTINGS Unavailable [phone] Lizbet Guzmán MD Unavailable [phone] Soledad Mccabe MD Unavailable Unav ailable Oscar Westbrook MD Unavailable [phone] Aida Hahn DPM, Podiatry /Foot and Ankle Surgery Unavailable Rosario Tapia CHW Unavailable [phone] Hellen Limon Unavailable Unavailable LilianJune RN Unavailable Unavailable [facility] Unavailable [phone] Reason for Visit * Reason Onset Date Comments Procedure 10/18/2022 : caudal epidura l Encounter Details Date Type Department Care Team (Late st Contact Info) Description 10/18/2022 Telephone [facility] Pain Management [address] [place] [address] Pain Management Program, [facility] Procedure (: caudal epidural ) Social History Tobacco Use Types Packs/Day [...] week 12/03/2021 How often do you attend taoist or denominational serv ices? Never 12/03/2021 Do you belong to any clubs o r organizations such as taoist groups, unions, fraternal or athletic groups, or [...] Answer Date Recorded PHQ-2 Score 4 10/22/2022 [facility] of Occupat ional Health - Occupational Stress [...] place to sleep or slept in a fci (including now)? No 12/03/2021 Education Answer Date [...] encounter Miscellaneous Notes * Telephone Encounter - Karen Morris - 10/18/2022 1:11 PM CDT No PA required, okay to schedule Karen Bender Software Installer [facility] * Telephone Encounter - Simona Crow - 10/18/2022 9:48 AM CDT Screening Questions for Radiology Injections: Injection to be done at which interventional clinic site? [facility] Procedure ordered by Procedure ordered? : caudal epidural ??? Transforaminal Cervical LOKESH - Send to [facility] ([facility]) - No Community Site providers perform this procedure What insurance would patient like us to bill for this procedure? BC ?? IF SCHEDULING IN WILDWOOD PAIN OR SPINE PLEASE SCHEDULE AT LEAST 7-10 BUSINESS DAYS OUT SO A PACAN BE OBTAINED ?? Worker's comp or MVA (motor vehicle accident) -Any injection DO NOT SCHEDULE and route to Shelley Ghosh. ?? [facility] insurance - For SI joint injections, DO NOT SCHEDULE and route to Karen Morris. ?? ALL BCBS, Humana and HP CIGNA - DO NOT SCHEDULE and route to Karen Morris ?? MEDICA- facet joint injections, route to Karen Morirs Is patient scheduled at [facility]? If YES, route every encounter to [facility] CARE NAVIGATION POOL [[phone]] Is an head of digital advertising & integration needed? 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 (Review Grid) YES: Informed Any chance of ? Not Applicable If YES, do NOT schedule and route to senior security architect - Dr. Weber route to Ritika Hinson and PM&R Nurse [[id number]] Is patient actively being treated for cancer or immunocompromised? No If YES, do NOT schedule and route to senior security architect/ Dr. Weber's Team Does the patient have a bleeding or clotting disorder? No ?? If YES, okay to schedule AND route to RN nurse pool/ Dr. Weber's Team ?? (For any patients with platelet count <100, RN must forward to provider) Is patient taking any Blood Thinners OR Antiplatelet medication? No If hold needed, do NOT schedule, route to senior security architect/ Dr. Weber's Team ??? Examples: o Blood Thinners: (Coumadin, Warfarin, Jantoven, Pradaxa, Xarelto, Eliquis, Edoxaban, Enoxaparin, Lovenox, Heparin, Arixtra, Fondaparinux or Fragmin) o Antiplatelet Medications: (Plavix, Brilinta or Effient) Is patient taking any aspirin products (includes Excedrin and Fiorinal)? No ?? If more than 325mg/day, OK to schedule; Instruct Pt to decrease to less than 325 mg for 7 days AND route to senior security architect/ Dr. Weber's Team ?? For CERVICAL procedures, [...] Weber's Team Does patient have an MRI/CT? YES: 2020 Include Date and Check Procedure Scheduling Grid to see if required. ?? Was the MRI/CT done within the last 3 years? Yes ?? If no route to WALT Srinivasan/ Dr. Weber's Team ?? If yes, where was the MRI/CT done? [facility] ?? Refer to PACS Transmissions list for approved external locations and route to WALT Srinivasan High Priority/ Dr. Weber's Team ?? If MRI was not done at approved external location do NOT schedule and route to WALT srinivasan/ Dr. Weber's Team ?? If patient has an imaging disc, the injection MAY be scheduled but patient must bring disc to appt or appt will be cancelled. Is patient able to transfer to a procedure table with minimal or no assistance? Yes ??? If no, do NOT schedule and route to WALT Srinivasan/ Dr. Weber's Team Procedure Specific Instructions: ??? If celiac plexus [...] NOT schedule at 0745, 0815 or 1245. ?? Instructed patient to arrive 30 minutes early for IV start if required. (Check Procedure Scheduling Grid) Not Applicable Reminders: ??? If you are started on [...] Does the patient have any questions? NO Simona Crow [facility] documented in this encounter Plan of Treatment Not on file documented as of this encounter Visit Diagnoses Not on filedocumented in this encounter Additional Health Concerns Assessment Noted Time PHQ-9 Depression Total Score: 10 023 3:57 PM INVESTIGATOR FRAUD documented as of this encounter Care Teams Chief Mechanical Officer Relationship Specialty [place] [address] [place] [address] PCP - General Family Practice 08/04/13 [place] [address] [place] [address] Family Practice 07/24/15 Sancho Brown MD 6363 [facility] 500 [place] [address] Urology 02/26/18 [place] [address] [place], [place] [address] Assigned PCP 08/08/13 Alba Desai NP [facility] [address] [place], [place] [address] Nurse Practitioner Nurse Practitioner Psych/Mental Health 11/12/18 Lizbet Guzmán MD [facility] 2828 [facility] 200 [place], [place] [address] Referring Physician 06/23/19 Soledad Mccabe MD [facility] [facility] [address] [place] [address] Otolaryngology 06/23/19 [place] [address] [place] [address] Assigned Pain Medication Provider 07/22/22 Aida Hahn DPM, Podiatry/Foot and Ankle Surgery [address] [facility] 300 [place] [address] Assigned Musculoskeletal Provider 11/02/22 Rosario Tapia, W Community Health Worker Primary Care - CC 08/19/23 08/21/23 Hellen Limon Personal Advocate & Liaison (PAL) Family Medicine 08/20/23 10/12/23 June Quintana, RN Personal Advocate & Liaison (PAL) Family Medicine 10/13/23 11/09/23 Gisselle Doyle, [facility], [facility] [address] [place] [address] Assigned Behavioral Health Provider 11/04/23 Soumya MCKENZIE 4 Personal Advocate & Liaison (PAL) Family Medicine 03/07/22 09/14/23 documented as of this encounter
--- OUTSIDE RECORDS SUMMARY | 2023-12-21 07:45 | XMS_ITS | Encounter Summary ---
Author Organization [place] Address [address] [place] [address] Care Team Providers Care Retail Commission Sales Associate Name Role Phone Oscar Westbrook MD Primary Care Provider [phone] Oscar Westbrook MD Unavailable Sancho Brown MD Unavailable [phone] Oscar Westbrook MD Unavailable [phone] Alba Desai WIRELESS NETWORK ENGINEER Unavailable [phone] Lizbet Guzmán MD Unavailable [phone] Soledad Mccabe MD Unavailable Unav ailable Oscar Westbrook MD Unavailable [phone] Aida Hahn DPM, Podiatry /Foot and Ankle Surgery Unavailable Rosario Tapia CHW Unavailable [phone] Hellen Limon Unavailable Unavailable June Quintana RN Unavailable Unavailable [facility] Reason for Visit * Reason Comments Medication Refill Encounter Details Date Type Department Care Team (Late st Contact Info) Description 10/14/2022 Refill [facility] [address] [place] [phone] Aj Chavez, PA-C [address] [place] [address] Medication Refill Social History Tobacco Use Types [...] week 12/03/2021 How often do you attend confucianism or alevism serv ices? Never 12/03/2021 Do you belong to any clubs o r organizations such as confucianism groups, unions, fraternal or athletic groups, or [...] points; Administer PHQ-9 if positive 2 08/08/2022 [facility] [place] of Occupat ional Health - Occupational Stress [...] place to sleep or slept in a alf (including now)? No 12/03/2021 Education Answer Date [...] Depression Total Score: 10 023 3:57 PM HEALTHCARE SCIENCE SPECIALIST documented as of this encounter Care Teams Retail Commission Sales Associate Relationship Specialty [place] [address] [place] [address] PCP - General Family Practice 08/04/13 [place] [address] [place] [address] Family Practice 07/24/15 Sancho Brown MD 6363 [facility] 500 [place] [address] Urology 02/26/18 [place] [address] [place] [address] Assigned PCP 08/08/13 Alba Desai NP [place] [facility] [address] [place], [place] [address] Nurse Practitioner Nurse Practitioner Psych/Mental Health 11/12/18 Lizbet Guzmán MD [facility] 28[address] [facility] 200 [place], [place] [address] Referring Physician 06/23/19 Soledad Mccabe MD [facility] 28[address] [facility] 200 [place] [address] Otolaryngology 06/23/19 [place] [address] [place] [address] Assigned Pain Medication Provider 07/22/22 Aida Hahn, DPM, Podiatry/Foot and Ankle Surgery [address] [facility] 300 [place], [place] [address] Assigned Musculoskeletal Provider 11/02/22 Rosario Tapia, W Community Health Worker Primary Care - CC 08/19/23 08/21/23 Hellen Limon Personal Advocate & Liaison (PAL) Family Medicine 08/20/23 10/12/23 June Quintana RN Personal Advocate & Liaison (PAL) Family Medicine 10/13/23 11/09/23 Gisselle Doyle, [facility], [facility] [address] [place] [address] Assigned Behavioral Health Provider 11/04/23 Soumya Saavedra Personal Advocate & Liaison (PAL) Family Medicine 03/07/22 09/14/23 documented as of this encounter
--- OUTSIDE RECORDS SUMMARY | 2023-12-21 07:45 | XMS_ITS | Encounter Summary ---
Author Organization [place] Address [facility] [place] [address] Care Team Providers Care Speed Operator Name Role Phone Oscar Westbrook MD Primary Care Provider [phone] Oscar Westbrook MD Unavailable [phone] Sancho Brown MD Unavailable Oscar Westbrook MD Unavailable [phone] Alba Desai POWER BRAKE OPERATOR Unavailable [phone] Lizbet Guzmán MD Unavailable [phone] Soledad cMcabe MD Unavailable Unav ailable Sancho Brown MD Unavailable Oscar Westbrook MD Unavailable [phone] Aida Hahn DPM, Podiatry /Foot and Ankle Surgery Unavailable Rosario Tapia CHW Unavailable Hellen Limon Unavailable Unavailable June Quintana RN Unavailable Unavailable Gisselle Doyle, [facility] Unavailable [phone] Reason for Visit * Reason Comments Medication Refill Encounter Details Date Type Department Care Team (Late st Contact Info) Description 05/05/[address] [id number] [place] [address] [place] [address] Medication Refill Social History Tobacco Use Types [...] week 12/03/2021 How often do you attend gnosticism or mormonism serv ices? Never 12/03/2021 Do you belong to any clubs o r organizations such as gnosticism groups, unions, fraternal or athletic groups, or [...] Answer Date Recorded PHQ-2 Score 2 03/07/2022 [facility] [place] of Occupat ional Health - Occupational Stress [...] place to sleep or slept in a correction (including now)? No 12/03/2021 Education Answer Date [...] apnea)- Primary Obstructive sleep apnea (adult) (pediatric) documented in this encounter Additional Health Concerns Assessment Noted Time PHQ-9 Depression Total Score: 9 03/07/20 22 10:25 AM CDT documented as of this encounter Care Teams Speed Operator Relationship Specialty [place] [address] [place] [address] PCP - General [facility] Practice 08/04/13 [place] [address] [place] [address] MD Family Practice 07/24/15 Sancho Brown MD [address] [place], [place] [address] Urology 02/26/18 [place] [address] [place], [place] [id number] Assigned PCP 08/08/13 Alba Desai NP [address] [id number] Nurse Practitioner Nurse Practitioner Psych/Mental Health 11/12/18 Lizbet Guzmán MD [facility] [address] [place] [address] Referring Physician 06/23/19 Soledad Mccabe MD [facility] [address] [place] [address] Otolaryngology 06/23/19 Sancho Brown MD [address] [place], [place] [address] Assigned Surgical Provider 11/12/20 05/10/22 [place] [address] [place] [address] Assigned Pain Medication Provider 07/22/22 Aida Hahn DPM, Podiatry/Foot and Ankle Surgery [address] [place] [address] Assigned Musculoskeletal Provider 11/02/22 Rosario Tapia, [facility] Community Health Worker Primary Care - CC 08/19/23 08/21/23 Hellen Limon Personal Advocate & Liaison (PAL) Family Medicine 08/20/23 10/12/23 June Quintana RN Personal Advocate & Liaison (PAL) Family Medicine 10/13/23 11/09/23 Gisselle Doyle, [facility], [facility] [address] [place] [address] Assigned Behavioral Health Provider 11/04/23 Soumya Saavedra Personal Advocate & Liaison (PAL) Family Medicine 03/07/22 09/14/23 documented as of this encounter
--- OUTSIDE RECORDS SUMMARY | 2023-12-21 07:45 | XMS_ITS | Encounter Summary ---
Author Organization [place] Address [facility] [place] [address] Care Team Providers Care Echo Technician Name Role Phone Oscar Westbrook MD Primary Care Provider [phone] Oscar Westbrook MD Unavailable [phone] Sancho Brown MD Unavailable [phone] Oscar Westbrook MD Unavailable [phone] Alba Desai WAREHOUSE HANDLER Unavailable [phone] Lizbet Guzmán MD Unavailable [phone] Soledad Mccabe MD Unavailable Unav ailable Oscar Westbrook MD Unavailable [phone] Aida Hahn DPM, Podiatry /Foot and Ankle Surgery Unavailable Rosario Tapia CHW Unavailable [phone] Hellen Limon Unavailable Unavailable June Quintana RN Unavailable Unavailable Gisselle Doyle, [facility] Unavailable [phone] Encounter Details Date Type Department Care Team (Late st Contact Info) Description 06/05/2022 [facility] Medical Advice [address] [address] Jocelin Valle Social History Tobacco Use Types [...] week 12/03/2021 How often do you attend methodist or church serv ices? Never 12/03/2021 Do you belong to any clubs o r organizations such as methodist groups, unions, fraternal or athletic groups, or [...] Answer Date Recorded PHQ-2 Score 2 03/07/2022 [facility] of Occupat ional Health - Occupational Stress [...] documented as of this encounter Care Teams Echo Technician Relationship Specialty [place] [address] [place] [address] PCP - General Family Practice 08/04/13 [place] [address] [place] [address] Family Practice 07/24/15 Sancho Brown MD [address] [facility] 500 [place] [address] Urology 02/26/18 [place] [address] [place], [place] [id number] Assigned PCP 08/08/13 Alba Desai NP [facility] [address] [place], [place] [address] Nurse Practitioner Nurse Practitioner Psych/Mental Health 11/12/18 Lizbet Guzmán MD [facility] [address] [facility] 200 [place], [place] [id number] Referring Physician 06/23/19 Soledad Mccabe MD [facility] [address] [facility] [place] [address] Otolaryngology 06/23/19 [place] [address] [place] [address] Assigned Pain Medication Provider 07/22/22 Aida Hahn DPM, Podiatry/Foot and Ankle Surgery [address] [facility] [address] [place] [address] Assigned Musculoskeletal Provider 11/02/22 Rosario Tapia, W Community Health Worker Primary Care - CC 08/19/23 08/21/23 Hellen Limon Personal Advocate & Liaison (PAL) Family Medicine 08/20/23 10/12/23 June Quintana, RN Personal Advocate & Liaison (PAL) Family Medicine 10/13/23 11/09/23 Gisselle Doyle, [facility], [facility] [address] [place] [address] Assigned Behavioral Health Provider 11/04/23 Soumya Saavedra Personal Advocate & Liaison (PAL) Family Medicine 03/07/22 09/14/23 documented as of this encounter
--- OUTSIDE RECORDS SUMMARY | 2023-12-21 07:45 | XMS_ITS | Encounter Summary ---
Author Organization [place] Address [facility]0 [place] [address] Care Team Providers Care Metal Coater Operator Name Role Phone Oscar Westbrook MD Primary Care Provider [phone] Oscar Westbrook MD Unavailable [phone] Sancho Brown MD Unavailable Oscar Westbrook MD Unavailable [phone] Alba Desai TECHNICAL SERVICES REP Unavailable [phone] Lizbet Guzmán MD Unavailable [phone] Soledad Mccabe MD Unavailable Unav ailable Sancho Brown MD Unavailable Oscar Westbrook MD Unavailable [phone] Aida Hahn DPM, Podiatry /Foot and Ankle Surgery Unavailable Rosario Tapia CHW Unavailable [phone] Hellen Limon Unavailable Unavailable June Quintana RN Unavailable Unavailable Gisselle Doyle, [facility] Unavailable [phone] Encounter Details Date Type Department Care Team (Late st Contact Info) Description 04/11/2022 [facility] Medical Advice [address] [place] [phone] Raiza Dobbs Social History Tobacco Use Types Packs/Day Years [...] week 12/03/2021 How often do you attend cheondoism or jehovah's witness serv ices? Never 12/03/2021 Do you belong to any clubs o r organizations such as cheondoism groups, unions, fraternal or athletic groups, or [...] Answer Date Recorded PHQ-2 Score 2 03/07/2022 [facility] [place] of Occupat ional Health - Occupational Stress [...] place to sleep or slept in a nursing home (including now)? No 12/03/2021 Education Answer [...] documented as of this encounter Care Teams Metal Coater Operator Relationship Specialty [place] [address] [place] [address] PCP - General Family Practice 08/04/13 [place] [address] [place] [address] Family Practice 07/24/15 Sancho Brown MD [address] [place], [place] [address] Urology 02/26/18 [place] [address] [place], [place] [address] Assigned PCP 08/08/13 Alba Desai NP [facility] [address] [place], [place] [id number] Nurse Practitioner Nurse Practitioner Psych/Mental Health 11/12/18 Lizbet Guzmán MD [facility] [address] [place], [place] [id number] Referring Physician 06/23/19 Soledad Mccabe MD [facility] [address] [place] [address] Otolaryngology 06/23/19 Sancho Brown MD [address] [place] [address] Assigned Surgical Provider 11/12/20 05/10/22 [place] [address] [place] [address] Assigned Pain Medication Provider 07/22/22 Aida Hahn, DPM, Podiatry/Foot and Ankle Surgery [address] [facility] [address] [place], [place] [address] Assigned Musculoskeletal Provider 11/02/22 Rosario Tapia, W Community Health Worker Primary Care - CC 08/19/23 08/21/23 Hellen Limon Personal Advocate & Liaison (PAL) Family Medicine 08/20/23 10/12/23 June Quintana, RN Personal Advocate & Liaison (PAL) Family Medicine 10/13/23 11/09/23 Gisselle Doyle, [facility], [facility] [address] [place] [address] Assigned Behavioral Health Provider 11/04/23 Soumya Saavedra Personal Advocate & Liaison (PAL) Family Medicine 03/07/22 09/14/23 documented as of this encounter
--- OUTSIDE RECORDS SUMMARY | 2023-12-21 07:45 | XMS_ITS | Encounter Summary ---
Author Organization [place] Address [address] [place] [address] Care Team Providers Care Principle Software Engineer Name Role Phone Oscar Westbrook MD Primary Care Provider [phone] Oscar Westbrook MD Unavailable [phone] Sancho Brown MD Unavailable Oscar Westbrook MD Unavailable [phone] Alba Desai MAJOR ASSEMBLY LINEMAN Unavailable [phone] Lizbet Guzmán MD Unavailable [phone] Soledad Mccabe MD Unavailable Unav ailable Oscar Westbrook MD Unavailable [phone] Aida Hahn DPM, Podiatry /Foot and Ankle Surgery Unavailable Rosario Tapia CHW Unavailable [phone] Hellen Limon Unavailable Unavailable June Quintana RN Unavailable Unavailable [facility] Unavailable [phone] Reason for Visit * Reason Onset Date Comments Call Back 08/26/2022 appointment Encounter Details Date Type Department Care Team (Late st Contact Info) Description 08/26/2022 Telephone [facility] Pain Management [address] [place] [address] Cielo Gerardo, [place] [address] [place] [address] Call Back (appointment) Social History Tobacco Use Types Packs/Day Years [...] week 12/03/2021 How often do you attend episcopalian or gnosticist serv ices? Never 12/03/2021 Do you belong to any clubs o r organizations such as episcopalian groups, unions, fraternal or athletic groups, or [...] points; Administer PHQ-9 if positive 2 08/08/2022 [facility] [place] of Occupat ional Health - Occupational Stress [...] place to sleep or slept in a halfway (including now)? No 12/03/2021 Education Answer Date [...] suspected to have Coronavirus/COVID-19? No / Unsure 08/27/2022 1:27 PM DENTURE TECHNICIAN documented as of this encounter Miscellaneous Notes * Telephone Encounter - Karen Morris - 10/16/2022 7:51 AM CDT No PA required, okay to schedule Karen Bender Book [facility] * Telephone Encounter - Odette Ghosh - 10/15/2022 2:43 PM CDT Pt calling to check the status of TONY Ghosh Book Salesman [facility] * Telephone Encounter - Odette Ghosh - 10/14/2022 11:32 AM CDT please call [phone] Screening Questions for Radiology Injections: Injection to be done at which interventional clinic site? [facility] Procedure ordered by Deyvi Procedure ordered? Caudal LOKESH ??? Transforaminal Cervical LOKESH - [place] [facility] - No Critical access hospital Site providers perform this procedure What insurance would patient like us to bill for this procedure? BC ?? IF SCHEDULING IN [facility] PLEASE SCHEDULE AT LEAST 7-10 BUSINESS DAYS OUT SO A PACAN BE OBTAINED ?? Worker's comp or MVA (motor vehicle accident) -Any injection DO NOT SCHEDULE and route to Odette Ghosh. ?? [facility] insurance - For SI joint injections, DO NOT SCHEDULE and route to Karen Morris. ?? ALL BCBS, Hum[employer] and [employer] CIGNA - DO NOT SCHEDULE and route to Karen Arturo ?? MEDICA- facet joint injections, route to Karen Morris Is patient scheduled at [facility]? If YES, route every encounter to [facility] CARE NAVIGATION POOL [[phone]] Is an park interpreter needed? 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 (Review Grid) YES: ok Any chance of ? NO If YES, do NOT schedule and route to spooler operator - Dr. Weber route to Ritika Hinson and PM&R Nurse [[id number]] Is patient actively being treated for cancer or immunocompromised? No If YES, do NOT schedule and route to spooler operator/ Dr. Weber's Team Does the patient have [...] Team Does patient have an MRI/CT? YES: MRI Include Date and Check Procedure Scheduling Grid to see if required. ?? Was the MRI/CT done within the last 3 years? Yes ?? If no route to lead ios developer/ Dr. Weber's Team ?? If yes, where was the MRI[facility]CT done? [facility] ?? Refer to PACS Transmissions list for approved external locations and route to [facility] High Priority/ Dr. Gardners Team ?? If MRI was not done at approved external location do NOT schedule and route to [facility]/ Dr. Gardners Team ?? If patient has an imaging disc, the injection MAY be scheduled but patient must bring disc to appt or appt will be cancelled. Is patient able to transfer to a procedure table with minimal or no assistance? Yes ??? If no, do NOT schedule and route to [facility]/ Dr. Clay Team Procedure Specific Instructions: ??? If celiac [...] patient have any questions? NO Odette Ghosh [facility] * Telephone Encounter - Simona Crow - 08/27/2022 10:51 AM CST LVM to schedule caudal epidural Simona Crow Book Salesman [facility] URE TECHNICIAN * Telephone Encounter - Christina Romero RN - 08/27/2022 9:34 AM CST Please call pt to prescreen for caudal injection Christina MCGOVERN, RN Executive Director Of Marketing [facility] Pain Management URE TECHNICIAN * Telephone Encounter - Christina Fish - 08/26/2022 4:15 PM CST [facility] Call Center Phone Message May a detailed message be left on voicemail: yes Reason for Call: Other: Patient was returning a call about pre registration. Please call back to discuss. Action Taken: Other: Pain Travel Screening: Not Applicable URE TECHNICIAN documented in this encounter Plan of Treatment Not on file documented as of this encounter Visit Diagnoses Not on filedocumented in this encounter Additional Health Concerns Assessment Noted Time PHQ-9 Depression Total Score: 10 023 3:57 PM DENTURE TECHNICIAN documented as of this encounter Care Teams Principle Software Engineer Relationship Specialty [place] [address] [place] [address] PCP - General Family Practice 08/04/13 [place] [address] [place] [address] Family Practice 07/24/15 Sancho Brown MD [address] [facility] [address] [place] [address] [address] Urology 02/26/18 [place] [address] [place], [place] [address] Assigned PCP 08/08/13 Alba Desai NP [address] [address] Nurse Practitioner Nurse Practitioner Psych/Mental Health 11/12/18 Lizbet Guzmán MD [facility] [address] [facility] 200 [place] [address] Referring Physician 06/23/19 Soledad Mccabe MD [facility] [address] [facility] 200 [place] [address] Otolaryngology 06/23/19 [place] [address] [place] [address] Assigned Pain Medication Provider 07/22/22 Aida Hahn, DPM, Podiatry/Foot and Ankle Surgery [address] [facility] 300 [place] [address] Assigned Musculoskeletal Provider 11/02/22 Rosario Tapia, [facility] Community Health Worker Primary Care - CC 08/19/23 08/21/23 Hellen Limon Personal Advocate & Liaison (PAL) Family Medicine 08/20/23 10/12/23 June Quintana, RN Personal Advocate & Liaison (PAL) Family Medicine 10/13/23 11/09/23 Gisselle Doyle, FUNERAL DIRECTOR AND EMBALMER, [facility] [address] [place] [address] Assigned Behavioral Health Provider 11/04/23 Soumya MCKENZIE 4 Personal Advocate & Liaison (PAL) Family Medicine 03/07/22 09/14/23 documented as of this encounter
--- OUTSIDE RECORDS SUMMARY | 2023-12-21 07:46 | XMS_ITS | Encounter Summary ---
Author Organization [place] Address [facility] [place] [address] Care Team Providers Care Equine Dentist Name Role Phone Oscar Westbrook MD Primary Care Provider [phone] Oscar Westbrook MD Unavailable [phone] Sancho Brown MD Unavailable Oscar Westbrook MD Unavailable [phone] Alba Desai ROLLER DIE CUTTING MACHINE OPERATOR Unavailable [phone] Lizbet Guzmán MD Unavailable [phone] Soledad Mccabe MD Unavailable Unav soniaable Maritza Cope Unavailable Unavailable Sancho Brown MD Unavailable [phone] Oscar Westbrook MD Unavailable [phone] Aida Hahn DPM, Podiatry /Foot and Ankle Surgery Unavailable Rosario Tapia CHW Unavailable Hellen Limon Unavailable Unavailable June Quintana RN Unavailable Unavailable Gisselle DoyleSW, [facility] Unavailable Reason for Visit * Reason Onset Date Comments Procedure 08/28/2021 bilateral SI mickie nt injections Encounter Details Date Type Department Care Team (Late st Contact Info) Description 08/28/2021 Telephone [facility] [place] [address] [place] [address] Jessica Norton, [facility] [address] [address] [place] [address] Procedure (bilateral SI joint injections) Social History Tobacco Use Types Packs/Day Years [...] Friends and Family Patient declined 07/13/2019 Attends [employer] Services 1 to 4 times per year [...] Answer Date Recorded PHQ-2 Score 2 04/19/2021 [facility] [place] of Occupat ional Health - Occupational Stress [...] encounter Miscellaneous Notes * Telephone Encounter - Samreen Duncan - 08/29/2021 1:18 PM CST LVM to schedule bilateral SI joint injections. Samreen Rubio Supply Aide [facility] Pain Management LE LINING STITCHER * Telephone Encounter - Karen Morris - 08/29/2021 11:55 AM CST No PA required, okay to schedule Karen Bender Supply Aide [facility] LE LINING STITCHER * Telephone Encounter - Simona Crow - 08/28/2021 2:37 PM CST Screening Questions for Radiology Injections: Injection to be done at which interventional clinic site? [facility] Remind [place] Pt's that Covid test is no longer required except for sedation procedure Pt's. Instruct patient to arrive as directed prior to the scheduled appointment time: ?? [place]: 30 minutes before ?? [place]: 30 minutes before; if IV needed 1 hour before Procedure ordered by Cierra Procedure ordered? bilateral SI joint injections ??? Transforaminal Cervical LOKESH - [place] does NOT have providers that do these- [facility] and [facility] do have providers that do As a reminder, receiving steroids can decrease your body's ability to fight infection. Would you still like to move forward with scheduling the injection? Yes What insurance would patient like us to bill for this procedure? BC ?? Worker's comp or MVA (motor vehicle accident) -Any injection DO NOT SCHEDULE and route to Shelley Ghosh. ?? [facility] insurance - For SI joint injections, DO NOT SCHEDULE and route Karen Morris. ?? ALL BCBS, Hum[employer] and [employer] CIGNA-Route to Karen for review DO NOT SCHEDULE ?? IF SCHEDULING IN [place] AND NEEDS A PA, IT IS OKAY TO SCHEDULE. [place] HANDLES THEIR OWN PA'S AFTER THE PATIENT IS SCHEDULED. PLEASE SCHEDULE AT LEAST 1 WEEK OUT SO A PA CAN BE OBTAINED. Any chance of ? Not Applicable If YES, do NOT schedule and route to pooling operator Is an room cleaner needed? No Patient has a drive home? (mandatory) YES: Informed Is patient taking any blood thinners (That is: Coumadin, Warfarin, Jantoven, Pradaxa Xarelto, Eliquis, Edoxaban, Enoxaparin, Lovenox, Heparin, Arixtra, Fondaparinux, or Fragmin? OR Antiplatelet medication such as Plavix, Brilinta, or Effient? )? No If hold needed, do NOT schedule, route to pooling operator Is patient taking any aspirin products (includes Excedrin and Fiorinal)? Yes - Pt takes 81mg daily;instructed to hold 0 day(s) prior to procedure. ?? If more than 325mg/day, OK to schedule; Instruct pt to decrease to less than 325 mg for 7 days AND route to pooling operator ?? For CERVICAL procedures, hold all aspirin products for 6 days. ?? Tell pt that if aspirin product is not held for 6 days, the procedure WILL BE cancelled. Does the patient have a bleeding or clotting disorder? No ?? If YES, okay to schedule AND route to RN nurse pool ?? For any patients with platelet count <100, must be forwarded to provider Any allergies to contrast dye, iodine, shellfish, or numbing and steroid medications? No ??? If YES, add allergy information to appointment notes AND route to the pooling operator ??? If LOKESH and Contrast Dye / Iodine Allergy? DO NOT SCHEDULE, route to pooling operator ??? Allergies: Dilaudid cough and Triptans [sumatriptan] Is patient diabetic? Yes If YES, instruct them to bring their glucometer. Does patient have an active infection or treated for one within the past week? No Is patient currently taking any antibiotics? No ?? For patients on chronic, preventative, or prophylactic antibiotics, procedures may be scheduled. ?? For patients on antibiotics for active or recent infection:antibiotic course must have been completed for 4 days Is patient currently taking any steroid medications? (i.e. Prednisone, Medrol) No ?? For patients on steroid medications, course must have been completed for 4 days Is patient actively being treated for cancer or immunocompromised? No If YES, do NOT schedule and route to pooling operator Are you able to get on and off an exam table with minimal or no assistance? Yes If NO, do NOT schedule and route to pooling operator Are you able to roll over and lay on your stomach with minimal or no assistance? Yes If NO, do NOT schedule and route to pooling operator Has the patient had a flu shot or any other vaccinations within 7 days before or after the procedure. No Have you recently had a COVID vaccine or have plans to get it in the near future? No If yes, explain that for the vaccine to work best they need to: ??? wait 1 week before and 1 week after getting Vaccine #1 ??? wait 1 week before and 2 weeks after getting Vaccine #2 ??? wait 1 week before and 2 weeks after getting Vaccine BOOSTER ??? If patient has concerns about the timing, send to pooling operator Does patient have an MRI/CT? Not Applicable Check Procedure Scheduling Grid to see if required. ?? Was the MRI done within the last 3 years? NA ?? If yes, where was the MRI done i.e.[facility], [facility], [facility] [place], [facility] etc? ?? If no, do not schedule and route to pooling operator ?? If MRI was not done at [facility], [facility] or [facility] do NOT schedule and route to pooling operator. ?? If pt has an imaging disc, the injection MAY be scheduled but pt has to bring disc to appt. ?? If they show up without the disc the injection cannot be done Procedure Specific Instructions: ??? If celiac plexus block, informed patient NPO for 6 hours and that it is okay to take medications with sips of water, especially blood pressure medications Not Applicable ??? If this is for a cervical procedure, informed patient that aspirin needs to be held for 6 days.Not Applicable ??? If IV needed: ?? Do not schedule procedures requiring IV placement in the first appointment of the day or first appointment after lunch. Do NOT schedule at 0745, 0815 or 1245. ?? Instructed pt to arrive 30 minutes early for IV start if required. (Check Procedure Scheduling Grid) Not Applicable Reminders: ??? If you are started on any steroids or antibiotics between now and your appointment, you must contact us because the procedure may need to be cancelled. No ?? For all procedures except radiofrequency ablations (RFAs) and spinal cord stimulator (SCS) trials, informed patient: IV sedation is not provided for this procedure. If you feel that an oral anti- anxiety medication isneeded, you can discuss this further with your referring provider or primary care provider. The Pain Clinic provider will discuss specifics of what the procedure includes at your appointment. Most procedures last 10-20 minutes. We use numbing medications to help with any discomfort during the procedure. Not Applicable ?? For patients 85 or older we recommend having an adult stay w/ them for the remainder of the day. Does the patient have any questions? NO Simona Crow [facility] LE LINING STITCHER documented in this encounter Plan of Treatment Not on file documented as of this encounter Visit Diagnoses Not on filedocumented in this encounter Additional Health Concerns Assessment Noted Time PHQ-9 Depression Total Score: 9 04/20/20 21 7:02 AM CDT documented as of this encounter Care Teams Equine Dentist Relationship Specialty [place] [address] [place] [address] PCP - General Family Practice 08/04/13 [place] [address] [place] [address] Family Practice 07/24/15 Sancho Brown MD [address] [facility] [address] [facility] [address] [place] [address] Urology 02/26/18 [place] [address] [place] [address] Assigned PCP 08/08/13 Alba Desai NP [facility] [address] [place], [place] [address] Nurse Practitioner Nurse Practitioner Psych/Mental Health 11/12/18 Lizbet Guzmán MD [facility] [address] [place], [place] [id number] Referring Physician 06/23/19 Soledad Mccabe MD [facility] [address] [place] [address] Otolaryngology 06/23/19 Maritza Cope Personal Advocate & Liaison (PAL) 11/14/20 03/06/22 Sancho Brown MD [address] [facility] [address] [place], [place] [address] Assigned Surgical Provider 11/12/20 05/10/22 [place] [address] [place] [address] Assigned Pain Medication Provider 07/22/22 Aida Hahn, DPM, Podiatry/Foot and Ankle Surgery [address] [facility] [address] [place], [place] [id number] Assigned Musculoskeletal Provider 11/02/22 Rosario Tapia, W Community Health Worker Primary Care - CC 08/19/23 08/21/23 Hellen Limon Personal Advocate & Liaison (PAL) Family Medicine 08/20/23 10/12/23 LilianJune RN Personal Advocate & Liaison (PAL) Family Medicine 10/13/23 11/09/23 Gisselle Doyle, [facility], [facility] [address] [place] [address] Assigned Behavioral Health Provider 11/04/23 Soumya MCKENZIE 4 Personal Advocate & Liaison (PAL) Family Medicine 03/07/22 09/14/23 documented as of this encounter
--- OUTSIDE RECORDS SUMMARY | 2023-12-21 07:46 | XMS_ITS | Encounter Summary ---
Author Organization [place] Address [facility] [place] [address] Care Team Providers Care Machine Etcher Name Role Phone Oscar Westbrook MD Primary Care Provider [phone] Oscar Westbrook MD Unavailable [phone] Sancho Brown MD Unavailable [phone] Oscra Westbrook MD Unavailable [phone] [facility] STICK WELDER Unavailable [phone] Lizbet Guzmán MD Unavailable [phone] iaSoledad MD Unavailable Unav ailable Kayleigh Pearce RN Unavailable Unavailable LloydAlba coto NP Unavailable [phone] Sancho Brown MD Unavailable [phone] Soledad sargent MD Unavailable Unav ailable Maritza Cope Unavailable Unavailable Sancho Brown MD Unavailable [phone] Oscar Westbrook MD Unavailable [phone] Aida Hahn DPM, Podiatry /Foot and Ankle Surgery Unavailable Rosario Tapia Unavailable [phone] Hellen Limon Unavailable Unavailable June Quintana RN Unavailable Unavailable Gisselle Doyle [facility], [facility] Unavailable [phone] Encounter Details Date Type Department Care Team (Late st Contact Info) Description 07/10/2020 MyC Medical Advice [facility] [address] [place] [phone] [place] [address] [place] [address] Social History Tobacco Use Types Packs/Day Years Used Date Smoking Tobacco: Every Day Cigarettes 0.5 30 Smokeless Tobacco: Former Quit: 02/22/2013 Comments:3 cigs per day Alcohol Use Standard Drinks/Week Comments No 0 (1 standard drink = 0.6 oz pure alcohol) 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 documented as of this encounter Plan of Treatment Not on file documented as of this encounter Visit Diagnoses Not on filedocumented in this encounter Additional Health Concerns Assessment Noted Time PHQ-9 Depression Total Score: 15 020 3:43 PM CDT documented as of this encounter Care Teams Machine Etcher Relationship Specialty [place] [address] [place] [address] PCP - General Family Practice 08/04/13 [place] [address] [place] [address] Family Practice 07/24/15 Sancho Brown MD [address] [facility] [address] [address] Urology 02/26/18 [place] [address] [place] [address] Assigned PCP 08/08/13 Alba Desai NP [facility] [address] [place] [address] Nurse Practitioner Nurse Practitioner Psych/Mental Health 11/12/18 Lizbet Guzmán MD [facility] [address] [place] [address] Referring Physician 06/23/19 Soledad Mccabe MD [facility] [address] [place] [address] Otolaryngology 06/23/19 Kayleigh Pearce RN Personal Advocate & Liaison (PAL) Family Practice 04/10/20 10/11/20 Alba Desai, STICK WEL[employer] [address] [place] [address] Assigned Behavioral Health Provider 05/05/20 09/09/20 Sancho Brown MD [address] [place] [address] Assigned Surgical Provider 05/05/20 09/16/20 Soledad Mccabe MD Assigned Surgical Provider 09/17/20 11/11/20 Maritza Cope Personal Advocate & Liaison (PAL) 11/14/20 03/06/22 Sancho Brown MD [address] [place] [address] Assigned Surgical Provider 11/12/20 05/10/22 [place] [address] [place] [address] Assigned Pain Medication Provider 07/22/22 Aida Hahn DPM, Podiatry/Foot and Ankle Surgery [address] [place] [address] Assigned Musculoskeletal Provider 11/02/22 Rosario Tapia, [facility] Community Health Worker Primary Care - CC 08/19/2308/21/23 Hellen Limon Personal Advocate & Liaison (PAL) Family Medicine 08/20/23 10/12/23 June Quintana RN Personal Advocate & Liaison (PAL) Family Medicine 10/13/23 11/09/23 Gisselle Doyle, [facility], [facility] [address] [place] [address] Assigned Behavioral Health Provider 11/04/23 Soumya Saavedra Personal Advocate & Liaison (PAL) Family Medicine 03/07/22 09/14/23 documented as of this encounter
--- OUTSIDE RECORDS SUMMARY | 2023-12-21 07:46 | XMS_ITS | Encounter Summary ---
Author Organization [place] Address [facility] [place] [address] Care Team Providers Care Set Up Mechanic Automatic Line Name Role Phone Oscar Westbrook MD Primary Care Provider [phone] Oscar Westbrook MD Unavailable [phone] Sancho Brown MD Unavailable [phone] Oscar Westbrook MD Unavailable [phone] Alba Desai RESERVE OFFICER Unavailable [phone] Lizbet Guzmán MD Unavailable [phone] Soledad Mccabe MD Unavailable Unav ailable Maritza Cope Unavailable Unavailable Sancho Brown MD Unavailable Oscar Westbrook MD Unavailable [phone] Aida Hahn DPM, Podiatry /Foot and Ankle Surgery Unavailable Rosario Tapia CHW Unavailable Hellen Limon Unavailable Unavailable June Quintana RN Unavailable Unavailable Gisselle DoyleSW, [facility] Unavailable Reason for Visit * Reason Comments Medication Refill Encounter Details Date Type Department Care Team (Late st Contact Info) Description 01/15/[address] [place] [address] [place] [address] [place] [address] Medication Refill Social History Tobacco Use Types Packs/Day Years Used Date Smoking Tobacco: Some Days Cigarettes 0.5 30 Smokeless Tobacco: Former Quit: 02/22/2013 Comments:occasionally Alcohol Use Standard Drinks/Week Comments No 0 (1 standard drink = 0.6 oz pure alcohol) 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 No / Unsure 01/17/2021 8:49 AM CDT documented as of this encounter Miscellaneous Notes * Telephone Encounter - Nallely Hennessy RN - 01/15/2021 3:06 PM CDT Routing refill request to provider for review/approval because: Drug not on the [facility] ref[facility] protocol SHANIQUA Elliott, RN [facility] documented in this encounter Plan of Treatment Not on file documented as of this encounter Visit Diagnoses Diagnosis Chronic pain syndrome documented in this encounter Additional Health Concerns Assessment Noted Time PHQ-9 Depression Total Score: 9 12/20/19 21 7:03 AM CDT documented as of this encounter Care Teams Set Up Mechanic Automatic Line Relationship Specialty [place] [address] [place] [address] PCP - General Family Practice 08/04/13 [place] [address] [place] [address] Family Practice 07/24/15 Sancho Brown MD [address] [place] [address] Urology 02/26/18 [place] [address] [place] [address] Assigned PCP 08/08/13 Alba Desai NP [facility] [address] [place], [place] [id number] Nurse Practitioner Nurse Practitioner Psych/Mental Health 11/12/18 Lizbet Guzmán MD [facility] [address] [place] [address] Referring Physician 06/23/19 Soledad Mccabe MD [facility] [address] [place] [address] Otolaryngology 06/23/19 Maritza Cope Personal Advocate & Liaison (PAL) 11/14/20 03/06/22 Sancho Brown MD [address] [place] [address] Assigned Surgical Provider 11/12/20 05/10/22 [place] [address] [place] [address] Assigned Pain Medication Provider 07/22/22 Aida Hahn, DPM, Podiatry/Foot and Ankle Surgery [address] [place], [place] [address] Assigned Musculoskeletal Provider 11/02/22 Rosario Tapia, W Community Health Worker Primary Care - CC 08/19/23 08/21/23 Hellen Limon Personal Advocate & Liaison (PAL) Family Medicine 08/20/23 10/12/23 June Quintana RN Personal Advocate & Liaison (PAL) Family Medicine 10/13/23 11/09/23 Gisselle Doyle, [facility], [facility] [address] [place] [address] Assigned Behavioral Health Provider 11/04/23 Soumya Saavedra Personal Advocate & Liaison (PAL) Family Medicine 03/07/22 09/14/23 documented as of this encounter
--- OUTSIDE RECORDS SUMMARY | 2023-12-21 07:46 | XMS_ITS | Encounter Summary ---
Author Organization [place] Address [facility] [place] [address] Care Team Providers Care Sheriff'S Officer Name Role Phone Oscar Westbrook MD Primary Care Provider [phone] Oscar Westbrook MD Unavailable [phone] Sancho Brown MD Unavailable Oscar Westbrook MD Unavailable [phone] LloydAlba coto PAINT TRIMMER PIPE BOWLS Unavailable [phone] Lizbet Guzmán MD Unavailable [phone] HsiaSoledad MD Unavailable Unav ailable Kayleigh Pearce RN Unavailable Unavailable Hsarie, Soledad Barahona MD Unavailable Unav ailable Maritza Cope Unavailable Unavailable Sancho Brown MD Unavailable [phone] Oscra Westbrook MD Unavailable [phone] Aida Hahn DPM, Podiatry /Foot and Ankle Surgery Unavailable Rosario Tapia CHW Unavailable Hellen Limon Unavailable Unavailable June Quintana RN Unavailable Unavailable Gisselle Doyle [facility] Unavailable [phone] Encounter Details Date Type Department Care Team (Late st Contact Info) Description 09/18/2020 MyC Medical Advice [facility] [address] [place] [phone] [place] [id number] [place] [address] Social History Tobacco Use Types Packs/Day Years [...] Friends and Family Patient declined 07/13/2019 Attends Anabaptism Services 1 to 4 times per year [...] 07/13/2019 PHQ-2 Answer Date Recorded PHQ-2 Score 3 07/18/2020 [facility] [place] of Occupat ional Health - Occupational Stress [...] have Coronavirus / COVID-19? No / Unsure 09/14/2020 8:49 AM HARNESS RACING HANDICAPPER documented as of this encounter Plan of Treatment Not on file documented as of this encounter Visit Diagnoses Not on filedocumented in this encounter Additional Health Concerns Assessment Noted Time PHQ-9 Depression Total Score: 13 021 1:22 PM HARNESS RACING HANDICAPPER documented as of this encounter Care Teams Sheriff'S Officer Relationship Specialty [place] [address] [place] [address] PCP - General Family Practice 08/04/13 [place] [address] [place] [address] Family Practice 07/24/15 Sancho Brown MD [address] [place] [address] [place] [address] Urology 02/26/18 [place] [address] [place] [address] Assigned PCP 08/08/13 Alba Desai NP [facility] [address] [place], [place] [address] Nurse Practitioner Nurse Practitioner Psych/Mental Health 11/12/18 Lizbet Guzmán MD [facility] [address] [place], [place] [address] Referring Physician 06/23/19 Soledad Mccabe MD [facility] [address] [place] [address] Otolaryngology 06/23/19 Kayleigh Pearce, [place] Personal Advocate & Liaison (PAL) Family Practice 04/10/20 10/11/20 Soledad Mccabe MD Assigned Surgical Provider 09/17/20 11/11/20 Maritza Cope Personal Advocate & Liaison (PAL) 11/14/20 03/06/22 Sancho Brown MD [address] [facility] [address] [place] [address] Assigned Surgical Provider 11/12/20 05/10/22 [place] [address] [place] [address] Assigned Pain Medication Provider 07/22/22 Aida Hahn DPM, Podiatry/Foot and Ankle Surgery [address] [facility] [address] [place] [address] Assigned Musculoskeletal Provider 11/02/22 Rosario Tapia, W Community Health Worker Primary Care - CC 08/19/2308/21/23 Hellen Limon Personal Advocate & Liaison (PAL) Family Medicine 08/20/23 10/12/23 LilianJune RN Personal Advocate & Liaison (PAL) Family Medicine 10/13/23 11/09/23 Gisselle Doyle, [facility], [facility] [address] [place] [address] Assigned Behavioral Health Provider 11/04/23 Soumya MCKENZIE 4 Personal Advocate & Liaison (PAL) Family Medicine 03/07/22 09/14/23 documented as of this encounter
--- OUTSIDE RECORDS SUMMARY | 2023-12-21 07:46 | XMS_ITS | Encounter Summary ---
Author Organization [place] Address [address] [facility] [place] [address] Care Team Providers Care Christmas Tree Grower Name Role Phone Oscar Westbrook MD Primary Care Provider [phone] Oscar Westbrook MD Unavailable [phone] Sancho Brown MD Unavailable Oscar Westbrook MD Unavailable [phone] Alba Desai EXPERIMENTAL OUTBOARD MOTORS MECHANIC Unavailable [phone] Lizbet Guzmán MD Unavailable [phone] Soledad Mccabe MD Unavailable Unav ailable Maritza Cope Unavailable Unavailable Sancho Brown MD Unavailable Oscar Westbrook MD Unavailable [phone] Aida Hahn DPM, Podiatry /Foot and Ankle Surgery Unavailable Rosario Tapia CHW Unavailable [phone] Hellen Limon Unavailable Unavailable June Quintana RN Unavailable Unavailable Gisselle Doyle, [facility] Unavailable Encounter Details Date Type Department Care Team (Late st Contact Info) Description 12/06/[address] [facility] [address] [place] [address] 600 [place] [address] Simona Crow Social History Tobacco Use Types Packs/Day Years [...] Friends and Family Patient declined 07/13/2019 Attends Temple Services 1 to 4 times per year [...] PHQ-2 Answer Date Recorded PHQ-2 Score 2 10/16/2020 [employer] of Occupat ional Health - Occupational Stress [...] have Coronavirus / COVID-19? No / Unsure 12/05/2020 8:47 AM CDT documented as of this encounter Plan of Treatment Not on file documented as of this encounter Visit Diagnoses Not on filedocumented in this encounter Additional Health Concerns Assessment Noted Time PHQ-9 Depression Total Score: 9 10/18/19 21 7:02 AM CDT documented as of this encounter Care Teams Christmas Tree Grower Relationship Specialty [place] [address] [place] [address] PCP - General Family Practice 08/04/13 [place] [address] [place] [address] MD Family Practice 07/24/15 Sancho Brown MD [address] [facility] [address] [address] Urology 02/26/18 [place] [address] [place] [address] Assigned PCP 08/08/13 Alba Desai NP [address] [address] Nurse Practitioner Nurse Practitioner Psych/Mental Health 11/12/18 Lizbet Guzmán MD [facility] [address] [facility] [address] [place] [address] Referring Physician 06/23/19 Soledad Mccabe MD [facility] [address] [facility] [address] [place] [address] Otolaryngology 06/23/19 Maritza Cope Personal Advocate & Liaison (PAL) 11/14/20 03/06/22 Sancho Brown MD [address] [facility] [address] [place] [address] Assigned Surgical Provider 11/12/20 05/10/22 [place] [address] [place] [address] Assigned Pain Medication Provider 07/22/22 Aida Hahn DPM, Podiatry/Foot and Ankle Surgery [address] [facility] [address] [place] [address] Assigned Musculoskeletal Provider 11/02/22 Rosario Tapia, [facility] Community Health Worker Primary Care - CC 08/19/23 08/21/23 Hellen Limon Personal Advocate & Liaison (PAL) Family Medicine 08/20/23 10/12/23 June Quintana, RN Personal Advocate & Liaison (PAL) Family Medicine 10/13/23 11/09/23 Gisselle Doyle, CHIEF QUALITY OFFICER, [facility] [address] [place] [address] Assigned Behavioral Health Provider 11/04/23 Bronze PAL 4 Personal Advocate & Liaison (PAL) Family Medicine 03/07/22 09/14/23 documented as of this encounter
--- OUTSIDE RECORDS SUMMARY | 2023-12-21 07:46 | XMS_ITS | Encounter Summary ---
Author Organization [place] Address [address] [facility] [place] [address] Care Team Providers Care Ropeman Name Role Phone Oscar Westbrook MD Primary Care Provider [phone] Oscar Westbrook MD Unavailable [phone] Sancho Brown MD Unavailable Oscar Westbrook MD Unavailable [phone] Alba Desai HEADER DOCK Unavailable [phone] Lizbet Guzmán MD Unavailable [phone] Soledad Mccabe MD Unavailable Unav ailable Maritza Cope Unavailable Unavailable Sancho Brown MD Unavailable [phone] Osacr Westbrook MD Unavailable [phone] Aida Hahn DPM, Podiatry /Foot and Ankle Surgery Unavailable Rosario Tapia CHW Unavailable Hellen Limon Unavailable Unavailable June Quintana RN Unavailable Unavailable Gisselle Doyle, [facility] Unavailable [phone] Encounter Details Date Type Department Care Team (Late st Contact Info) Description 01/01/2021 MyC Medical Advice [facility] [address] [place] [address] 600 [place] [address] Samreen Duncan Social History Tobacco Use Types Packs/Day Years [...] Friends and Family Patient declined 07/13/2019 Attends Muslim Services 1 to 4 times per year [...] Answer Date Recorded PHQ-2 Score 2 10/16/2020 [facility] of Occupat ional Health - Occupational Stress [...] have Coronavirus / COVID-19? No / Unsure 12/18/2020 12:49 PM CDT documented as of this encounter Plan of Treatment Not on file documented as of this encounter Visit Diagnoses Not on filedocumented in this encounter Additional Health Concerns Assessment Noted Time PHQ-9 Depression Total Score: 9 12/20/19 21 7:03 AM CDT documented as of this encounter Care Teams Ropeman Relationship Specialty [place] [address] [place] [address] PCP - General Family Practice 08/04/13 [place] [address] [place] [address] MD Family Practice 07/24/15 Sancho Brown MD [address] [address] Urology 02/26/18 [place] [address] [place] [address] Assigned PCP 08/08/13 Alba Desai NP [address] [address] Nurse Practitioner Nurse Practitioner Psych/Mental Health 11/12/18 Lizbet Guzmán MD [facility] [address] [facility] S NG[address] [place] [address] Referring Physician 06/23/19 Soledad Mccabe MD [facility] [address] [facility] [address] [place] [address] Otolaryngology 06/23/19 Maritza Cope Personal Advocate & Liaison (PAL) 11/14/20 03/06/22 Sancho Brown MD [address] [facility] NG[address] [place] [address] Assigned Surgical Provider 11/12/20 05/10/22 [place] [address] [place] [address] Assigned Pain Medication Provider 07/22/22 Aida Hahn, DPM, Podiatry/Foot and Ankle Surgery [address] [facility] [address] [place] [address] Assigned Musculoskeletal Provider 11/02/22 Rosario Tapia, [facility] Community Health Worker Primary Care - CC 08/19/23 08/21/23 Hellen Limon Personal Advocate & Liaison (PAL) Family Medicine 08/20/23 10/12/23 June Quintana, RN Personal Advocate & Liaison (PAL) Family Medicine 10/13/23 11/09/23 Gisselle Doyle, TRANSFER PUMPER, [facility] [address] [place] [address] Assigned Behavioral Health Provider 11/04/23 Soumya Saavedra Personal Advocate & Liaison (PAL) Family Medicine 03/07/22 09/14/23 documented as of this encounter
--- OUTSIDE RECORDS SUMMARY | 2023-12-21 07:46 | XMS_ITS | Encounter Summary ---
Author Organization [place] Address [facility] [place] [address] Care Team Providers Care Trial Management Associate Name Role Phone Oscar Westbrook MD Primary Care Provider [phone] Oscar Westbrook MD Unavailable Sancho Brown MD Unavailable Oscar Westbrook MD Unavailable [phone] LloydAlba coto PULMONOLOGIST/INTENSIVIST Unavailable [phone] Lizbet Guzmán MD Unavailable [phone] HsiaSoledad MD Unavailable Unav ailable Kayleigh Pearce RN Unavailable Unavailable Hsarie, Soledad Barahona MD Unavailable Unav ailable Maritza Cope Unavailable Unavailable Sancho Brown MD Unavailable Oscar Westbrook MD Unavailable [phone] Aida Hahn DPM, Podiatry /Foot and Ankle Surgery Unavailable Rosario Tapia CHW Unavailable Hellen Limon Unavailable Unavailable June Quintana RN Unavailable Unavailable Gisselle Doyle [facility] Unavailable [phone] Encounter Details Date Type Department Care Team (Late st Contact Info) Description 09/18/2020 MyC Medical Advice [facility] [address] [place] [phone] [place] [address] [place] [address] Social History Tobacco Use Types Packs/Day Years [...] Friends and Family Patient declined 07/13/2019 Attends Baptism Services 1 to 4 times per year [...] Answer Date Recorded PHQ-2 Score 3 07/18/2020 [facility] [place] of Occupat ional Health - Occupational Stress [...] COVID-19? No / Unsure 09/14/2020 8:49 AM RISK MANAGER documented as of this encounter Plan of Treatment Not on file documented as of this encounter Visit Diagnoses Not on filedocumented in this encounter Additional Health Concerns Assessment Noted Time PHQ-9 Depression Total Score: 13 021 1:22 PM RISK MANAGER documented as of this encounter Care Teams Trial Management Associate Relationship Specialty [place] [address] [place] [address] PCP - General Family Practice 08/04/13 [place] [address] [place] [address] Family Practice 07/24/15 Sancho Brown MD [address] [place] [address] [place] [address] Urology 02/26/18 [place] [address] [place] [address] Assigned PCP 08/08/13 Alba Desai NP [facility] [address] [place], [place] [address] Nurse Practitioner Nurse Practitioner Psych/Mental Health 11/12/18 Lizbet Guzmán MD [facility] [address] [place], [place] [address] Referring Physician 06/23/19 Soledad Mccabe MD [facility] [address] [place] [address] Otolaryngology 06/23/19 Kayleigh Pearce, [place] Personal Advocate & Liaison (PAL) Family Practice 04/10/20 10/11/20 Soledad Mccabe MD Assigned Surgical Provider 09/17/20 11/11/20 Maritza Cope Personal Advocate & Liaison (PAL) 11/14/20 03/06/22 Sancho Brown MD [address] [facility] [place] [address] Assigned Surgical Provider 11/12/20 05/10/22 [place] [address] [place] [address] Assigned Pain Medication Provider 07/22/22 Aida Hahn DPM, Podiatry/Foot and Ankle Surgery [address] [facility] [address] [place] [address] Assigned Musculoskeletal Provider 11/02/22 Rosario Tapia, W Community Health Worker Primary Care - CC 08/19/2308/21/23 Hellen Limon Personal Advocate & Liaison (PAL) Family Medicine 08/20/23 10/12/23 LilianJune RN Personal Advocate & Liaison (PAL) Family Medicine 10/13/23 11/09/23 Gisselle Doyle, [facility], [facility] [address] [place] [address] Assigned Behavioral Health Provider 11/04/23 Soumya MCKENZIE 4 Personal Advocate & Liaison (PAL) Family Medicine 03/07/22 09/14/23 documented as of this encounter
--- OUTSIDE RECORDS SUMMARY | 2023-12-21 07:46 | XMS_ITS | Encounter Summary ---
Author Organization [place] Address [facility] [place] [address] Care Team Providers Care Assistant Project Engineer Name Role Phone Oscar Westbrook MD Primary Care Provider [phone] Oscar Westbrook MD Unavailable [phone] Sancho Brown MD Unavailable [phone] Oscar Westbrook MD Unavailable [facility] ROOFING PLANT SUPERVISOR Unavailable [phone] Lizbet Guzmán MD Unavailable [phone] iaSoledad MD Unavailable Unav ailable Kayleigh Pearce RN Unavailable Unavailable LloydAlba coto NP Unavailable [phone] Sancho Brown MD Unavailable [phone] Soledad sargent MD Unavailable Unav ailable Maritza Cope Unavailable Unavailable Sancho Brown MD Unavailable [phone] Oscar Westbrook MD Unavailable [phone] Aida Hahn DPM, Podiatry /Foot and Ankle Surgery Unavailable Rosario Tapia Unavailable [phone] Hellen Limon Unavailable Unavailable June Quintana RN Unavailable Unavailable Gisselle Doyle [facility] Unavailable Reason for Visit * Reason Comments Medication Refill Encounter Details Date Type Department Care Team (Late st Contact Info) Description 04/18/2020 Refill [facility] [address] [place] [address] [place] [address] [place] [address] Medication Refill Social History Tobacco Use [...] Friends and Family Patient declined 07/13/2019 Attends Taoist Services 1 to 4 times per year [...] Answer Date Recorded PHQ-2 Score 5 04/18/2020 [facility] [place] of Occupat ional Health - Occupational Stress [...] have Coronavirus / COVID-19? No / Unsure 04/20/2020 10:42 AM CDT documented as of this encounter Miscellaneous Notes * Telephone Encounter - Ivet Souza RN - 04/19/2020 12:56 PM CDT Prescription approved per [facility] Refill Protocol. Ivet Souza RN [facility] -- Triage Nurse documented in this encounter Plan of Treatment Not on file documented as of this encounter Visit Diagnoses Diagnosis Essential hypertension Unspecified essential hypertension documented in this encounter Additional Health Concerns Assessment Noted Time PHQ-9 Depression Total Score: 15 020 3:43 PM CDT documented as of this encounter Care Teams Assistant Project Engineer Relationship Specialty [place] [address] [place] [address] PCP - General Family Practice 08/04/13 [place] [address] [place] [address] Family Practice 07/24/15 Sancho Brown MD [address] [facility] [place] [address] Urology 02/26/18 [place] [address] [place] [address] Assigned PCP 08/08/13 Alba Desai NP [address] [address] Nurse Practitioner Nurse Practitioner Psych/Mental Health 11/12/18 Lizbet Guzmán MD [facility] [address] [place] [address] Referring Physician 06/23/19 Soledad Mccabe MD [facility] [address] [place] [address] Otolaryngology 06/23/19 Kayleigh Pearce, RN Personal Advocate & Liaison (PAL) Family Practice 04/10/20 10/11/20 Alba Desai ROOFING PLANT SUPERVISOR [address] [place] [address] Assigned Behavioral Health Provider 05/05/20 09/09/20 Sancho Brown MD [address] [place] [address] Assigned Surgical Provider 05/05/20 09/16/20 Soledad Mccabe MD Assigned Surgical Provider 09/17/20 11/11/20 Maritza Cope Personal Advocate & Liaison (PAL) 11/14/20 03/06/22 Sancho Brown MD [address] [facility] [address] [place] [address] Assigned Surgical Provider 11/12/20 05/10/22 [place] [address] [place] [address] Assigned Pain Medication Provider 07/22/22 Aida Hahn, DPM, Podiatry/Foot and Ankle Surgery [address] [facility] 300 [place], [place] [address] Assigned Musculoskeletal Provider 11/02/22 Rosario Tapia, [facility] Community Health Worker Primary Care - CC 08/19/2308/21/23 Hellen Limon Personal Advocate & Liaison (PAL) Family Medicine 08/20/23 10/12/23 June Quintana, RN Personal Advocate & Liaison (PAL) Family Medicine 10/13/23 11/09/23 Gisselle Doyle, [facility] [address] [place] [address] Assigned Behavioral Health Provider 11/04/23 Soumya Saavedra Personal Advocate & Liaison (PAL) Family Medicine 03/07/22 09/14/23 documented as of this encounter
--- OUTSIDE RECORDS SUMMARY | 2023-12-21 07:46 | XMS_ITS | Encounter Summary ---
Author Organization [place] Address [facility] [place] [address] Care Team Providers Care Appointment Scheduler Name Role Phone Oscar Westbrook MD Primary Care Provider [phone] Oscar Westbrook MD Unavailable [phone] Sancho Brown MD Unavailable [phone] Oscar Westbrook MD Unavailable [phone] [facility] G[facility] Unavailable [phone] Lizbet Guzmán MD Unavailable [phone] iaSoledad MD Unavailable Unav ailable Kayleigh Pearce RN Unavailable Unavailable LloydAlba coto NP Unavailable [phone] Sancho Brown MD Unavailable [phone] Soledad sargent MD Unavailable Unav ailable Maritza Cope Unavailable Unavailable Sancho Brown MD Unavailable [phone] Oscar Westbrook MD Unavailable [phone] Aida Hahn DPM, Podiatry /Foot and Ankle Surgery Unavailable Rosario Tapia Unavailable [phone] Hellen Limon Unavailable Unavailable June Quintana RN Unavailable Unavailable Gisselle Doyle [facility] Unavailable Reason for Visit * Reason Onset Date Comments Appointment 06/23/2020 Encounter Details Date Type Department Care Team (Late st Contact Info) Description 06/23/2020 Telephone [facility] Management [place] [address] [facility] [address] [place] [address] Jessica Norton, [facility] [address] [place] [address] Appointment Social History Tobacco Use Types Packs/Day Years [...] Friends and Family Patient declined 07/13/2019 Attends Anabaptist Services 1 to 4 times per year [...] Answer Date Recorded PHQ-2 Score 5 04/18/2020 [facility] [place] of Occupat ional Health - Occupational Stress [...] COVID-19? No / Unsure 06/19/2020 7:50 AM PET TRAINER documented as of this encounter Miscellaneous Notes * Telephone Encounter - Odette Ghosh - 06/23/2020 11:30 AM CST LVM to Please schedule follow up video visit with Dr. Cabello in 4-6 weeks. Thanks. Odette Shin Marketing Project Lead [facility] TRAINER * Telephone Encounter - Odette Ghosh - 06/23/2020 11:30 AM CST ----- Message from Jessica Norton APRN CNP sent at 06/22/2020 3:18 PM PET TRAINER ----- Please schedule follow up video visit with Dr. Cabello in 4-6 weeks. Thanks. Brittny Norton APRN CNP [facility] TRAINER documented in this encounter Plan of Treatment Not on file documented as of this encounter Visit Diagnoses Not on filedocumented in this encounter Additional Health Concerns Assessment Noted Time PHQ-9 Depression Total Score: 15 020 3:43 PM CDT documented as of this encounter Care Teams Appointment Scheduler Relationship Specialty [place] [address] [place] [address] PCP - General Family Practice 08/04/13 [place] [address] [place] [address] Family Practice 07/24/15 Sancho Brown MD 6363 [facility] 500 [place] [address] Urology 02/26/18 [place] [address] [place] [address] Assigned PCP 08/08/13 Alba Desai NP [address] [address] Nurse Practitioner Nurse Practitioner Psych/Mental Health 11/12/18 Lizbet Guzmán MD [facility] [address] [place] [address] Referring Physician 06/23/19 Soledad Mccabe MD [facility] [address] [place] [address] Otolaryngology 06/23/19 Kayleigh Pearce, RN Personal Advocate & Liaison (PAL) Family Practice 04/10/20 10/11/20 Alba Desai [facility] [place] [address] [place] [address] Assigned Behavioral Health Provider 05/05/20 09/09/20 Sancho Brown MD [address] [facility] 500 [place] [address] Assigned Surgical Provider 05/05/20 09/16/20 Soledad Mccabe MD Assigned Surgical Provider 09/17/20 11/11/20 Maritza Cope Personal Advocate & Liaison (PAL) 11/14/20 03/06/22 Sancho Brown MD [address] [facility] [address] [place] [address] Assigned Surgical Provider 11/12/20 05/10/22 [place] [address] [place] [address] Assigned Pain Medication Provider 07/22/22 Aida Hahn, DPM, Podiatry/Foot and Ankle Surgery [address] [facility] 300 [place], [place] [address] Assigned Musculoskeletal Provider 11/02/22 Rosario Tapia, [facility] Community Health Worker Primary Care - CC 08/19/2308/21/23 Hellen Limon Personal Advocate & Liaison (PAL) Family Medicine 08/20/23 10/12/23 June Quintana, RN Personal Advocate & Liaison (PAL) Family Medicine 10/13/23 11/09/23 Gisselle Doyle, TOBACCO EDUCATOR, [facility] [address] [place] [address] Assigned Behavioral Health Provider 11/04/23 Soumya MCKENZIE 4 Personal Advocate & Liaison (PAL) Family Medicine 03/07/22 09/14/23 documented as of this encounter
--- OUTSIDE RECORDS SUMMARY | 2023-12-21 07:46 | XMS_ITS | Encounter Summary ---
Author Organization [place] Address [facility] [place] [address] Care Team Providers Care Pipe Washer Name Role Phone Oscar Westbrook MD Primary Care Provider [phone] Oscar Westbrook MD Unavailable [phone] Sancho Brown MD Unavailable Oscar Westbrook MD Unavailable [phone] Alba Desai INSTRUMENT REPAIRER HELPER Unavailable [phone] Lizbet Guzmán MD Unavailable [phone] Soledad Mccabe MD Unavailable Unav soniaable Maritza Cope Unavailable Unavailable Sancho Brown MD Unavailable Oscar Westbrook MD Unavailable [phone] Aida Hahn DPM, Podiatry /Foot and Ankle Surgery Unavailable Rosario Tapia CHW Unavailable [phone] Hellen Limon Unavailable Unavailable June Quintana RN Unavailable Unavailable Gisselle DoyleSW, [facility] Unavailable [phone] Reason for Visit * Reason Onset Date Comments Procedure 03/21/2021 bilateral SI mickie nt injections Encounter Details Date Type Department Care Team (Late st Contact Info) Description 03/21/[address] [facility] [place] [address] [place] [address] Jessica Norton, [facility] [address] [place] [address] Procedure (bilateral SI joint injections) Social History [...] Friends and Family Patient declined 07/13/2019 Attends Mosque Services 1 to 4 times per year [...] PHQ-2 Answer Date Recorded PHQ-2 Score 2 02/13/2021 [facility] [place] of Occupat ional Health - Occupational Stress [...] have Coronavirus / COVID-19? No / Unsure 03/23/2021 1:56 PM CDT documented as of this encounter Miscellaneous Notes * Telephone Encounter - Simona Crow - 03/21/2021 10:05 AM CDT Screening Questions for Radiology Injections: Injection to be done at which interventional clinic site? [facility] If [facility] location, tell patient that this procedure requires a COVID-19 lab test be done within 4 days of the procedure. Would you still like to move forward with scheduling the procedure? Not Applicable If YES, let patient know that someone will call them to schedule the COVID-19 test and that they will only receive a call back if the result is positive. Route to nursing to enter order. Instruct patient to arrive as directed prior to the scheduled appointment time: ?? [place]: 30 minutes before ?? [place]: 30 minutes before; if IV needed 1 hour before Procedure ordered by Cierra Procedure ordered? bilateral SI joint injections ??? Transforaminal Cervical LOKESH - [facility] does NOT have providers that do these- [facility] do have providers that do As a reminder, receiving steroids can decrease your body's ability to fight infection. Would you still like to move forward with scheduling the injection? Yes What insurance would patient like us to bill for this procedure? Medicare & Medica ?? Worker's comp or MVA (motor vehicle accident) -Any injection DO NOT SCHEDULE and route to Karen Morris. ?? [employer] insurance - For SI joint injections, DO NOT SCHEDULE and route Karen Morris. ?? ALL BCBS, Humana and [employer] CIGNA-Route to Karen for review DO NOT SCHEDULE ?? IF SCHEDULING IN [place] AND NEEDS A PA, IT IS OKAY TO SCHEDULE. [place] HANDLES THEIR OWN PA'S AFTER THE PATIENT IS SCHEDULED. PLEASE SCHEDULE AT LEAST 1 WEEK OUT SO A PA CAN BE OBTAINED. Any chance of ? Not Applicable If YES, do NOT schedule and route to switchboard receptionist Is an community music therapist needed? No Patient has a drive home? (mandatory) YES: informed Is patient taking any blood thinners (i.e. plavix, coumadin, jantoven, warfarin, heparin, pradaxa or dabigatran, etc)? No If hold needed, do NOT schedule, route to switchboard receptionist Is patient taking any aspirin products (includes Excedrin and Fiorinal)? Yes - Pt takes 81mg daily;instructed to hold 0 day(s) prior to procedure. ?? If more than 325mg/day, OK to schedule; Instruct pt to decrease to less than 325 mg for 7 days AND route to switchboard receptionist ?? For CERVICAL procedures, hold all aspirin [...] to appointment notes AND route to the switchboard receptionist ??? If LOKESH and Contrast Dye / Iodine Allergy? DO NOT SCHEDULE, route to switchboard receptionist ??? Allergies: Dilaudid cough and Triptans [sumatriptan] Is patient diabetic? No If YES, instruct them to bring their [...] YES, do NOT schedule and route to switchboard receptionist Are you able to get on and off an exam table with minimal or no assistance? Yes If NO, do NOT schedule and route to switchboard receptionist Are you able to roll over and lay on your stomach with minimal or no assistance? Yes If NO, do NOT schedule and route to switchboard receptionist Has the patient had a flu shot [...] 2 weeks after getting Vaccine #2 ??? If patient has concerns about the timing, send to switchboard receptionist Does patient have an MRI/CT? Not Applicable Check Procedure Scheduling Grid to see if required. ?? Was the MRI done within the last 3 years? NA ?? If yes, where was the MRI done i.e.[facility], [facility], [facility], [facility] etc? ?? If no, do not schedule and route to switchboard receptionist ?? If MRI was not done at [facility], [facility] or [facility] do NOT schedule and route to switchboard receptionist. ?? If pt has an imaging disc, [...] patient have any questions? NO Simona Crow [facility] documented in this encounter Plan of Treatment Not on file documented as of this encounter Visit Diagnoses Not on filedocumented in this encounter Additional Health Concerns Assessment Noted Time PHQ-9 Depression Total Score: 10 021 7:03 AM CDT documented as of this encounter Care Teams Pipe Washer Relationship Specialty [place] [address] [place] [address] PCP - General Family Practice 08/04/13 [place] [address] [place] [address] Family Practice 07/24/15 Sancho Brown MD [address] [facility] 500 [place] [address] Urology 02/26/18 [place] [address] [place] [address] Assigned PCP 08/08/13 Alba Desai NP [facility] [place] [address] [place], [place] [address] Nurse Practitioner Nurse Practitioner Psych/Mental Health 11/12/18 Lizbet Guzmán MD [facility] [address] [place] [address] Referring Physician 06/23/19 Soledad Mccabe MD [facility] [address] [place] [address] Otolaryngology 06/23/19 Maritza Cope Personal Advocate & Liaison (PAL) 11/14/20 03/06/22 Sancho Brown MD [address] [facility] [address] [place] [address] Assigned Surgical Provider 11/12/20 05/10/22 [place] [address] [place] [address] Assigned Pain Medication Provider 07/22/22 Aida Hahn, DPM, Podiatry/Foot and Ankle Surgery [address] [facility] [address] [place], [place] [address] Assigned Musculoskeletal Provider 11/02/22 Rosario Tapia, [facility] Community Health Worker Primary Care - CC 08/19/23 08/21/23 Hellen Limon Personal Advocate & Liaison (PAL) Family Medicine 08/20/23 10/12/23 June Quintana, RN Personal Advocate & Liaison (PAL) Family Medicine 10/13/23 11/09/23 Gisselle Doyle, INFERTILITY NURSE, [facility] [address] [place] [address] Assigned Behavioral Health Provider 11/04/23 Soumya MCKENZIE 4 Personal Advocate & Liaison (PAL) Family Medicine 03/07/22 09/14/23 documented as of this encounter
--- OUTSIDE RECORDS SUMMARY | 2023-12-21 07:46 | XMS_ITS | Encounter Summary ---
Author Organization [place] Address [facility] [place] [address] Care Team Providers Care Technical Project Lead Name Role Phone Oscar Westbrook MD Primary Care Provider [phone] Oscar Westbrook MD Unavailable [phone] Sancho Brown MD Unavailable Oscar Westbrook MD Unavailable [phone] Alba Desai LANG INTERPRETER Unavailable [phone] Lizbet Guzmán MD Unavailable [phone] HsiaSoledad MD Unavailable Unav ailable Hsia, Soledad Barahona MD Unavailable Unav ailable Maritza Cope Unavailable Unavailable Sancho Brown MD Unavailable [phone] Oscar Westbrook MD Unavailable [phone] Aida Hahn DPM, Podiatry /Foot and Ankle Surgery Unavailable Rosario Tapia CHW Unavailable [phone] Hellen Limon Unavailable Unavailable June Quintana RN Unavailable Unavailable Gisselle Doyle, [facility] Unavailable [phone] Encounter Details Date Type Department Care Team (Late st Contact Info) Description 10/13/2020 Documentation Only INTERFACED REPORT Unknown, Provider Social History Tobacco Use Types Packs/Day Years [...] Friends and Family Patient declined 07/13/2019 Attends Zoroastrianism Services 1 to 4 times per year [...] Answer Date Recorded PHQ-2 Score 2 10/16/2020 [facility] of Occupat ional Health - Occupational Stress [...] have Coronavirus / COVID-19? No / Unsure 10/11/2020 7:47 AM CDT documented as of this encounter Plan of Treatment Not on file documented as of this encounter Visit Diagnoses Not on filedocumented in this encounter Additional Health Concerns Assessment Noted Time PHQ-9 Depression Total Score: 13 021 1:22 PM SPRAYER HAND documented as of this encounter Care Teams Technical Project Lead Relationship Specialty [place] [address] [place] [address] PCP - General Family Practice 08/04/13 [place] [address] [place], [place] [address] MD Family Practice 07/24/15 Sancho Brown MD [address] [address] Urology 02/26/18 [place] [address] [place] [address] Assigned PCP 08/08/13 Alba Desai NP [address] [address] Nurse Practitioner Nurse Practitioner Psych/Mental Health 11/12/18 Lizbet Guzmán MD [facility] [address] [place] [address] Referring Physician 06/23/19 Soledad Mccabe MD [facility] [address] [place] [address] Otolaryngology 06/23/19 Soledad Mccabe MD Assigned Surgical Provider 09/17/20 11/11/20 Maritza Cope Personal Advocate & Liaison (PAL) 11/14/20 03/06/22 Sancho Brown MD [address] [facility] [address] [place] [address] Assigned Surgical Provider 11/12/20 05/10/22 [place] [address] [place] [address] Assigned Pain Medication Provider 07/22/22 Aida Hahn, DPM, Podiatry/Foot and Ankle Surgery [address] [facility] 300 [place] [address] Assigned Musculoskeletal Provider 11/02/22 Rosario Tapia, [facility] Community Health Worker Primary Care - CC 08/19/2308/21/23 Hellen Limon Personal Advocate & Liaison (PAL) Family Medicine 08/20/23 10/12/23 June Quintana, RN Personal Advocate & Liaison (PAL) Family Medicine 10/13/23 11/09/23 Gisselle Doyle, [employer] [facility] [address] [place] [address] Assigned Behavioral Health Provider 11/04/23 Soumya MCKENZIE 4 Personal Advocate & Liaison (PAL) Family Medicine 03/07/22 09/14/23 documented as of this encounter
--- OUTSIDE RECORDS SUMMARY | 2023-12-21 07:46 | XMS_ITS | Encounter Summary ---
Author Organization [place] Address [address] [place] [address] Care Team Providers Care Scrap Yard Worker Name Role Phone Oscar Westbrook MD Primary Care Provider [phone] Oscar Westbrook MD Unavailable [phone] Sancho Brown MD Unavailable Oscar Westbrook MD Unavailable [phone] Alba Desai VARSITY BASEBALL COACH Unavailable [phone] Lizbet Guzmán MD Unavailable [phone] Soledad Mccabe MD Unavailable Unav ailable Maritza Cope Unavailable Unavailable Sancho Brown MD Unavailable Oscar Westbrook MD Unavailable [phone] Aida Hahn DPM, Podiatry /Foot and Ankle Surgery Unavailable Rosario Tapia CHW Unavailable Hellen Limon Unavailable Unavailable June Quintana RN Unavailable Unavailable Gisselle Doyle, [facility] Unavailable [phone] Encounter Details Date Type Department Care Team (Late st Contact Info) Description 04/17/2021 MyC Medical Advice [address] [address] Arlene Liz MA Social History Tobacco Use Types Packs/Day [...] Friends and Family Patient declined 07/13/2019 Attends Adventist Services 1 to 4 times per year [...] Answer Date Recorded PHQ-2 Score 2 04/19/2021 [facility] of Occupat ional Health - Occupational [...] have Coronavirus / COVID-19? No / Unsure 04/19/2021 9:38 AM CDT documented as of this encounter Plan of Treatment Not on file documented as of this encounter Visit Diagnoses Not on filedocumented in this encounter Additional Health Concerns Assessment Noted Time PHQ-9 Depression Total Score: 10 021 7:03 AM CDT documented as of this encounter Care Teams Scrap Yard Worker Relationship Specialty [place] [address] [place] [address] PCP - General Family Practice 08/04/13 [place] [address] [place] [address] MD Family Practice 07/24/15 Sancho Brown MD [address] [address] Urology 02/26/18 [place] [address] [place] [address] Assigned PCP 08/08/13 Alba Desai NP [address] [address] Nurse Practitioner Nurse Practitioner Psych/Mental Health 11/12/18 Lizbet Guzmán MD [facility] [address] [facility] [address] [place] [address] Referring Physician 06/23/19 Soledad Mccabe MD [facility] [address] [facility] [address] [place] [address] Otolaryngology 06/23/19 Maritza Cope Personal Advocate & Liaison (PAL) 11/14/20 03/06/22 Sancho Brown MD [address] [facility] [address] [place] [address] Assigned Surgical Provider 11/12/20 05/10/22 [place] [address] [place] [address] Assigned Pain Medication Provider 07/22/22 Aida Hahn, DPM, Podiatry/Foot and Ankle Surgery [address] [facility] 300 [place] [address] Assigned Musculoskeletal Provider 11/02/22 Rosario Tapia, [facility] Community Health Worker Primary Care - CC 08/19/23 08/21/23 Hellen Limon Personal Advocate & Liaison (PAL) Family Medicine 08/20/23 10/12/23 June Quintana, RN Personal Advocate & Liaison (PAL) Family Medicine 10/13/23 11/09/23 Gisselle Doyle, ADULT SPECIALIST, [facility] [address] [place] [address] Assigned Behavioral Health Provider 11/04/23 Soumya Saavedra Personal Advocate & Liaison (PAL) Family Medicine 03/07/22 09/14/23 documented as of this encounter
--- OUTSIDE RECORDS SUMMARY | 2023-12-21 07:46 | XMS_ITS | Encounter Summary ---
Author Organization [place] Address [facility] [place] [address] Care Team Providers Care Photovoltaic Fabrication Technician Name Role Phone Oscar Westbrook MD Primary Care Provider [phone] Oscar Westbrook MD Unavailable [phone] Sancho Brown MD Unavailable Oscar Westbrook MD Unavailable [phone] Alba Desai ENERGY SYSTEMS LABORATORY DIRECTOR Unavailable [phone] Lizbet Guzmán MD Unavailable [phone] Soledad Mccabe MD Unavailable Unav ailable Maritza Cope Unavailable Unavailable Sancho Brown MD Unavailable [phone] Oscar Westbrook MD Unavailable [phone] Aida Hahn DPM, Podiatry /Foot and Ankle Surgery Unavailable Rosario Tapia CHW Unavailable [phone] Hellen Limon Unavailable Unavailable June Quintana RN Unavailable Unavailable Gisselle Doyle, [facility] Unavailable Reason for Visit * Reason Onset Date Comments Refill Request 05/18/2021 pharmacy Encounter Details Date Type Department Care Team (Late st Contact Info) Description 05/18/2021 MyC Medical Advice [facility] [address] [place] [address] Oscar Westbrook [place] [address] [place] [address] Refill Request (pharmacy) Social History Tobacco Use Types Packs/Day Years [...] Friends and Family Patient declined 07/13/2019 Attends Hindu Services 1 to 4 times per year [...] Answer Date Recorded PHQ-2 Score 2 04/19/2021 [facility] [place] of Occupat ional Health - Occupational Stress [...] encounter Miscellaneous Notes * Telephone Encounter - Fany Valencia RN - 05/21/2021 3:02 PM CST Routing refill request to provider for review/approval because: Drug not on the G refill protocol Fany Valencia RN, BSN Message handled by CLINIC NURSE. MAKER * Telephone Encounter - Fany Valencia RN - 05/21/2021 3:02 PM CST Prescription approved per [facility] Refill Protocol. Fany Valencia RN, BSN Message handled by CLINIC NURSE. MAKER * Telephone Encounter - Fany Valencia RN - 05/21/2021 9:40 AM CST See earlier message, BW sent refills to [facility] at last appointment, now wants [facility], confirming with pt what he needs now, sent Mychart response Fany Valencia RN, BSN Message handled by CLINIC NURSE. MAKER documented in this encounter Plan of Treatment Not on file documented as of this encounter Visit Diagnoses Diagnosis Tremor Abnormal involuntary movements Coronary artery disease involving apache coronary artery of apache heart without angina pectoris JOSE DE JESUS (generalized anxiety disorder) Generalized anxiety disorder Hypnopompic hallucination Hallucinations Hypnagogic hallucinations Hallucinations Lumbar radiculopathy Thoracic or lumbosacral neuritis or radiculitis, unspecified Cervicalgia Diabetic polyneuropathy associated with type 2 diabetes mellitus (H) Chronic pain syndrome Gastroesophageal reflux disease without esophagitis Esophageal reflux documented in this encounter Additional Health Concerns Assessment Noted Time PHQ-9 Depression Total Score: 9 04/20/20 21 7:02 AM CDT documented as of this encounter Care Teams Photovoltaic Fabrication Technician Relationship Specialty [place] [address] [place] [address] PCP - General Family Practice 08/04/13 [place] [address] [place] [address] MD Family Practice 07/24/15 Sancho Brown MD [address] [facility] 500 [place] [address] Urology 02/26/18 [place] [address] [place] [address] Assigned PCP 08/08/13 Alba Desai NP [address] [address] Nurse Practitioner Nurse Practitioner Psych/Mental Health 11/12/18 Lizbet Guzmán MD [facility] [address] [facility] 200 [place], [place] [phone] Referring Physician 06/23/19 Soledad Mccabe MD [facility] [address] [place] [address] Otolaryngology 06/23/19 Maritza Cope Personal Advocate & Liaison (PAL) 11/14/20 03/06/22 Sancho Brown MD [address] [facility] [address] [place] [address] Assigned Surgical Provider 11/12/20 05/10/22 [place] [address] [place] [address] Assigned Pain Medication Provider 07/22/22 Aida Hahn DPAleida, Podiatry/Foot and Ankle Surgery [address] [place] [address] Assigned Musculoskeletal Provider 11/02/22 Rosario Tapia, [facility] Community Health Worker Primary Care - CC 08/19/23 08/21/23 Hellen Limon Personal Advocate & Liaison (PAL) Family Medicine 08/20/23 10/12/23 June Quintana RN Personal Advocate & Liaison (PAL) Family Medicine 10/13/23 11/09/23 Gisselle Doyle, [facility], [facility] [address] [place] [address] Assigned Behavioral Health Provider 11/04/23 Soumya Saavedra Personal Advocate & Liaison (PAL) Family Medicine 03/07/22 09/14/23 documented as of this encounter
--- OUTSIDE RECORDS SUMMARY | 2023-12-21 07:46 | XMS_ITS | Encounter Summary ---
Author Organization [place] Address [facility] [place] [address] Care Team Providers Care Formation Fracturing Operator Name Role Phone Oscar Westbrook MD Primary Care Provider [phone] Oscar Westbrook MD Unavailable [phone] Sancho Brown MD Unavailable [phone] Oscar Westbrook MD Unavailable [phone] [facility] LEADERSHIP DEVELOPMENT CONSULTANT Unavailable [phone] Lizbet Guzmán MD Unavailable [phone] iaSoledad MD Unavailable Unav ailable Kayleigh Pearce RN Unavailable Unavailable LloydAlba coto NP Unavailable [phone] Sancho Brown MD Unavailable [phone] Soledad sargent MD Unavailable Unav ailable Maritza Cope Unavailable Unavailable Sancho Brown MD Unavailable [phone] Oscar Westbrook MD Unavailable [phone] Aida Hahn DPM, Podiatry /Foot and Ankle Surgery Unavailable Rosario Tapia Unavailable [phone] Hellen Limon Unavailable Unavailable June Quintana RN Unavailable Unavailable Gisselle Doyle [facility], [facility] Unavailable Reason for Visit * Reason Comments Medication Refill Encounter Details Date Type Department Care Team (Late st Contact Info) Description 04/19/2020 Refill [facility] [address] [place] [address] Oscar [place] [id number] [place] [address] Medication Refill Social History Tobacco Use [...] Friends and Family Patient declined 07/13/2019 Attends Amish Services 1 to 4 times per year [...] Answer Date Recorded PHQ-2 Score 5 04/18/2020 [facility] [place] of Occupat ional Health - Occupational Stress [...] Encounter - Ivet Souza RN - 04/19/2020 12:18 PM CDT Routing refill request to provider for review/approval because: Drug not on the [facility] refill protocol Ivet Souza RN [facility] -- Triage Nurse documented in this encounter Plan of Treatment Not on file documented as of this encounter Visit Diagnoses Diagnosis Chronic pain syndrome documented in this encounter Additional Health Concerns Assessment Noted Time PHQ-9 Depression Total Score: 15 020 3:43 PM CDT documented as of this encounter Care Teams Formation Fracturing Operator Relationship Specialty [place] [address] [place] [address] PCP - General Family Practice 08/04/13 [place] [address] [place] [address] Family Practice 07/24/15 Sancho Brown MD [address] [place] [address] Urology 02/26/18 [place] [address] [place] [address] Assigned PCP 08/08/13 Alba Desai NP [address] [address] Nurse Practitioner Nurse Practitioner Psych/Mental Health 11/12/18 Lizbet Guzmán MD [facility] [address] [place] [address] Referring Physician 06/23/19 Soledad Mccabe MD [facility] [address] [place] [address] Otolaryngology 06/23/19 Kayleigh Pearce, RN Personal Advocate & Liaison (PAL) Family Practice 04/10/20 10/11/20 Alba Desai LEADERSHIP DEVELOPMENT CONSULTANT [address] [place] [address] Assigned Behavioral Health Provider 05/05/20 09/09/20 Sancho Brown MD [address] [place] [address] Assigned Surgical Provider 05/05/20 09/16/20 Soledad Mccabe MD Assigned Surgical Provider 09/17/20 11/11/20 Maritza Cope Personal Advocate & Liaison (PAL) 11/14/20 03/06/22 Sancho Brown MD [address] [place] [address] Assigned Surgical Provider 11/12/20 05/10/22 [place] [address] [place] [address] Assigned Pain Medication Provider 07/22/22 Aida Hahn DPM, Podiatry/Foot and Ankle Surgery [address] [place], [place] [address] Assigned Musculoskeletal Provider 11/02/22 Rosario Tapia, [facility] Community Health Worker Primary Care - CC 08/19/2308/21/23 Hellen Limon Personal Advocate & Liaison (PAL) Family Medicine 08/20/23 10/12/23 June Quintana, RN Personal Advocate & Liaison (PAL) Family Medicine 10/13/23 11/09/23 Gisselle Doyle, [facility], [facility] [address] [place] [address] Assigned Behavioral Health Provider 11/04/23 Soumya Saavedra Personal Advocate & Liaison (PAL) Family Medicine 03/07/22 09/14/23 documented as of this encounter
--- OUTSIDE RECORDS SUMMARY | 2023-12-21 07:46 | XMS_ITS | Encounter Summary ---
Author Organization [place] Address [address] [place] [address] Care Team Providers Care Senior Process Control Tech Name Role Phone Oscar Westbrook MD Primary Care Provider [phone] Oscar Westbrook MD Unavailable [phone] Sancho Brown MD Unavailable Oscar Westbrook MD Unavailable [phone] Alba Desai CHIEF HUMAN RESOURCES OFFICER Unavailable [phone] Lizbet Guzmán MD Unavailable [phone] Soledad Mccabe MD Unavailable Unav ailable Maritza Cope Unavailable Unavailable Sancho Brown MD Unavailable [phone] Oscar Westbrook MD Unavailable [phone] Aida Hahn DPM, Podiatry /Foot and Ankle Surgery Unavailable Rosario Tapia CHW Unavailable Hellen Limon Unavailable Unavailable June Quintana RN Unavailable Unavailable Gisselle Doyle, [facility] Unavailable [phone] Encounter Details Date Type Department Care Team (Late st Contact Info) Description 04/26/2021 MyC Medical Advice [address] [address] Arlene Liz MA Social History [...] Answer Date Recorded PHQ-2 Score 2 04/19/2021 [facility] - Occupational [...] documented as of this encounter Care Teams Senior Process Control Tech Relationship Specialty [place] [address] [place] [address] PCP - General Family Practice 08/04/13 [place] [address] [place] [address] MD Family Practice 07/24/15 Sancho Brown MD [address] [address] Urology 02/26/18 [place] [address] [place] [address] Assigned PCP 08/08/13 Alba Desai NP [address] [address] Nurse Practitioner Nurse Practitioner Psych/Mental Health 11/12/18 Lizbet Guzmán MD [facility] [address] [facility] [address] [place] [address] Referring Physician 06/23/19 Soledad Mccabe MD [facility] [address] [facility] [address] [place] [address] Otolaryngology 06/23/19 Maritza Cope Personal Advocate & Liaison (PAL) 11/14/20 03/06/22 Sancho Brown MD 6363 [facility] [address] [place] [address] Assigned Surgical Provider 11/12/20 05/10/22 [place] [address] [place] [address] Assigned Pain Medication Provider 07/22/22 Aida Hahn, DPM, Podiatry/Foot and Ankle Surgery [address] [facility] [address] [place] [address] Assigned Musculoskeletal Provider 11/02/22 Rosario Tapia, [facility] Community Health Worker Primary Care - CC 08/19/23 08/21/23 Hellen Limon Personal Advocate & Liaison (PAL) Family Medicine 08/20/23 10/12/23 June Quintana, RN Personal Advocate & Liaison (PAL) Family Medicine 10/13/23 11/09/23 Gisselle Doyle, MOTOR SCOOTER REPAIRER, [facility] [address] [place] [address] Assigned Behavioral Health Provider 11/04/23 Soumya Saavedra Personal Advocate & Liaison (PAL) Family Medicine 03/07/22 09/14/23 documented as of this encounter
--- OUTSIDE RECORDS SUMMARY | 2023-12-21 07:46 | XMS_ITS | Encounter Summary ---
Author Organization [place] Address [facility] [place] [address] Care Team Providers Care Bag Worker Name Role Phone Oscar Westbrook MD Primary Care Provider [phone] Oscar Westbrook MD Unavailable [phone] Sancho Brown MD Unavailable [phone] Oscar Westbrook MD Unavailable [phone] Alba Desai PIPELINE OPERATOR Unavailable [phone] Lizbet Guzmán MD Unavailable [phone] HsiaSoledad MD Unavailable Unav ailable Hsia, Soledad Barahona MD Unavailable Unav ailable Maritza Cope Unavailable Unavailable Sancho Brown MD Unavailable Oscar Westbrook MD Unavailable [phone] Aida Hahn DPM, Podiatry /Foot and Ankle Surgery Unavailable Rosario Tapia CHW Unavailable [phone] Hellen Limon Unavailable Unavailable June Quintana RN Unavailable Unavailable Gisselle Doyle, [facility] Unavailable [phone] Reason for Visit * Reason Onset Date Comments Derm Problem 11/07/2020 Encounter Details Date Type Department Care Team (Late st Contact Info) Description 11/07/2020 MyC Medical Advice [facility] [address] [place] [phone] [place] [address] [place] [address] Derm Problem Social History Tobacco Use Types Packs/Day Years [...] Friends and Family Patient declined 07/13/2019 Attends Mormon Services 1 to 4 times per year [...] Answer Date Recorded PHQ-2 Score 2 10/16/2020 [facility] of Occupat ional Health - Occupational Stress [...] have Coronavirus / COVID-19? No / Unsure 11/06/2020 8:12 AM CDT documented as of this encounter Miscellaneous Notes * Telephone Encounter - Oscar Westbrook MD - 11/07/2020 8:52 PM CDT Is this the toenails? 2014? Oscar Westbrook MD * Telephone Encounter - Sonali Prince RN - 11/07/2020 3:[address] Westbrook- see [employer] message below. I am not finding past visit. Please advise. Sonali Prince RN documented in this encounter Plan of Treatment Not on file documented as of this encounter Visit Diagnoses Not on filedocumented in this encounter Additional Health Concerns Assessment Noted Time PHQ-9 Depression Total Score: 9 10/18/19 21 7:02 AM CDT documented as of this encounter Care Teams Bag Worker Relationship Specialty [place] [address] [place] [address] PCP - General Family Practice 08/04/13 [place] [address] [place] [address] MD Family Practice 07/24/15 Sancho Brown MD [address] [place], [place] [address] Urology 02/26/18 [place] [address] [place] [address] Assigned PCP 08/08/13 Alba Desai NP [address] [address] Nurse Practitioner Nurse Practitioner Psych/Mental Health 11/12/18 Lizbet Guzmán MD [facility] [address] [place], [place] [address] Referring Physician 06/23/19 Soledad Mccabe MD [facility] [address] [place] [address] Otolaryngology 06/23/19 Soledad Mccabe MD Assigned Surgical Provider 09/17/20 11/11/20 Maritza Cope Personal Advocate & Liaison (PAL) 11/14/20 03/06/22 Sancho Brown MD [address] [place] [address] Assigned Surgical Provider 11/12/20 05/10/22 [place] [address] [place] [address] Assigned Pain Medication Provider 07/22/22 Aida Hahn DPM, Podiatry/Foot and Ankle Surgery [address] [place] [address] Assigned Musculoskeletal Provider 11/02/22 Rosario Tapia, [facility] Community Health Worker Primary Care - CC 08/19/2308/21/23 Hellen Limon Personal Advocate & Liaison (PAL) Family Medicine 08/20/23 10/12/23 June Quintana RN Personal Advocate & Liaison (PAL) Family Medicine 10/13/23 11/09/23 Gisselle Doyle, [facility], [facility] [address] [place] [address] Assigned Behavioral Health Provider 11/04/23 Soumya Saavedra Personal Advocate & Liaison (PAL) Family Medicine 03/07/22 09/14/23 documented as of this encounter
--- OUTSIDE RECORDS SUMMARY | 2023-12-21 07:46 | XMS_ITS | Encounter Summary ---
Author Organization [place] Address [address] [place] [address] Care Team Providers Care Maintenance Truck Driver Name Role Phone Oscar Westbrook MD Primary Care Provider [phone] Oscar Westbrook MD Unavailable [phone] Sancho Brown MD Unavailable Oscar Westbrook MD Unavailable [phone] Alba Desai FREIGHT RATE SPECIALIST Unavailable [phone] Lizbet Guzmán MD Unavailable [phone] Soledad Mccabe MD Unavailable Unav ailable Maritza Cope Unavailable Unavailable Sancho Brown MD Unavailable Oscar Westbrook MD Unavailable Aida Hahn DPM, Podiatry /Foot and Ankle Surgery Unavailable Rosario Tapia CHW Unavailable [phone] Hellen Limon Unavailable Unavailable June Quintana RN Unavailable Unavailable Gisselle Doyle, [facility] Unavailable Encounter Details Date Type Department Care Team (Late st Contact Info) Description 06/11/2021 [facility] Medical Advice [address] [phone] [place] [address] [place], [place] [id number] Social History Tobacco Use Types Packs/Day Years [...] Friends and Family Patient declined 07/13/2019 Attends [employer]ats[employer] Services 1 to 4 times per year [...] Answer Date Recorded PHQ-2 Score 2 04/19/2021 [facility] of Occupat ional Health - Occupational [...] Telephone Encounter - Fany Valencia RN - 06/11/2021 5:37 PM CST Confirming [employer] message, will monitor response Fany Valencia RN, BSN Message handled by CLINIC NURSE. T OF WAY WORKER documented in this encounter Plan of Treatment Not on file documented as of this encounter Visit Diagnoses Not on filedocumented in this encounter Additional Health Concerns Assessment Noted Time PHQ-9 Depression Total Score: 9 04/20/20 21 7:02 AM CDT documented as of this encounter Care Teams Maintenance Truck Driver Relationship Specialty [place] [address] [place] [address] PCP - General Family Practice 08/04/13 [place] [address] [place] [address] Family Practice 07/24/15 Sancho Brown MD [address] [address] Urology 02/26/18 [place] [address] [place] [address] Assigned PCP 08/08/13 Alba Desai NP [facility] [address] [place] [address] Nurse Practitioner Nurse Practitioner Psych/Mental Health 11/12/18 Lizbet Guzmán MD [facility] [address] [facility] [address] [place] [address] Referring Physician 06/23/19 Soledad Mccabe MD [facility] [address] [facility] 200 [place] [address] Otolaryngology 06/23/19 Maritza Cope Personal Advocate & Liaison (PAL) 11/14/20 03/06/22 Sancho Brown MD 6363 [facility] 500 [place] [address] Assigned Surgical Provider 11/12/20 05/10/22 [place] [address] [place] [address] Assigned Pain Medication Provider 07/22/22 Aida Hahn DPM, Podiatry/Foot and Ankle Surgery [address] [facility] [address] [place] [address] Assigned Musculoskeletal Provider 11/02/22 Rosario Tapia, CH[facility] Community Health Worker Primary Care - CC 08/19/23 08/21/23 Hellen Limon Personal Advocate & Liaison (PAL) Family Medicine 08/20/23 10/12/23 June Quintana, RN Personal Advocate & Liaison (PAL) Family Medicine 10/13/23 11/09/23 Gisselle Doyle, [facility], [facility] [address] [place] [address] Assigned Behavioral Health Provider 11/04/23 Soumya Saavedra Personal Advocate & Liaison (PAL) Family Medicine 03/07/22 09/14/23 documented as of this encounter
--- OUTSIDE RECORDS SUMMARY | 2023-12-21 07:47 | XMS_ITS | Encounter Summary ---
Author Organization [place] Address [facility] [place] [address] Care Team Providers Care Shape Brick Molder Name Role Phone Oscar Westbrook MD Primary Care Provider [phone] Oscar Westbrook MD Unavailable [phone] Sancho Brown MD Unavailable [phone] Oscar Westbrook MD Unavailable [phone] [facility] SPOUT POSITIONER Unavailable [phone] Lizbet Guzmán MD Unavailable [phone] iaSoledad MD Unavailable Unav ailable Kayleigh Pearce RN Unavailable Unavailable LloydAlba coto NP Unavailable [phone] Sancho Brown MD Unavailable [phone] Soledad sargent MD Unavailable Unav ailable Maritza Cope Unavailable Unavailable Sancho Brown MD Unavailable [phone] Oscar Westbrook MD Unavailable [phone] Aida Hahn DPM, Podiatry /Foot and Ankle Surgery Unavailable Rosario Tapia Unavailable [phone] Hellen Limon Unavailable Unavailable June Quintana RN Unavailable Unavailable Gisselle Doyle [facility] Unavailable Reason for Visit * Reason Onset Date Comments Refill Request 09/24/2019 Encounter Details Date Type Department Care Team (Late st Contact Info) Description 09/24/2019 Svitlana Shin [facility] [address] [place] [phone] [place] [address] [place] [address] Refill Request Social History Tobacco Use [...] Friends and Family Patient declined 07/13/2019 Attends Orthodoxy Services 1 to 4 times per year [...] PHQ-2 Answer Date Recorded PHQ-2 Score 2 07/21/2018 [facility] [place] of Occupat ional Health - Occupational Stress [...] Noted Time PHQ-9 Depression Total Score: 10 020 7:03 AM RETAIL PROJECT MERCHANDISER documented as of this encounter Care Teams Shape Brick Molder Relationship Specialty [place] [address] [place] [address] PCP - General Family Practice 08/04/13 [place] [address] [place] [address] Family Practice 07/24/15 Sancho Brown MD [address] [address] Urology 02/26/18 [place] [address] [place] [address] Assigned PCP 08/08/13 Alba Desai NP [facility] [address] [place] [address] Nurse Practitioner Nurse Practitioner Psych/Mental Health 11/12/18 Lizbet Guzmán MD [facility] [address] [place] [address] Referring Physician 06/23/19 Soledad Mccabe MD [facility] [address] [place] [address] Otolaryngology 06/23/19 Kayleigh Pearce, [facility] Personal Advocate & Liaison (PAL) Family Practice 04/10/20 10/11/20 [place] [address] [place] [address] Assigned Behavioral Health Provider 05/05/20 09/09/20 Sancho Brown MD [address] [facility] [address] [place] [address] Assigned Surgical Provider 05/05/20 09/16/20 Soledad Mccabe MD Assigned Surgical Provider 09/17/20 11/11/20 Maritza Cope Personal Advocate & Liaison (PAL) 11/14/20 03/06/22 Sancho Brown MD [address] [facility] [address] [place] [address] Assigned Surgical Provider 11/12/20 05/10/22 [place] [address] [place] [address] Assigned Pain Medication Provider 07/22/22 Aida Hahn DPM, Podiatry/Foot and Ankle Surgery [address] [place] [address] Assigned Musculoskeletal Provider 11/02/22 Rosario Tapia, [facility] Community Health Worker Primary Care - CC 08/19/2308/21/23 Hellen Limon Personal Advocate & Liaison (PAL) Family Medicine 08/20/23 10/12/23 June Quintana RN Personal Advocate & Liaison (PAL) Family Medicine 10/13/23 11/09/23 Gisselle Doyle, [facility] [address] [place] [address] Assigned Behavioral Health Provider 11/04/23 Soumya Saavedra Personal Advocate & Liaison (PAL) Family Medicine 03/07/22 09/14/23 documented as of this encounter
--- OUTSIDE RECORDS SUMMARY | 2023-12-21 07:47 | XMS_ITS | Encounter Summary ---
Author Organization [place] Address [facility] [place] [address] Care Team Providers Care Edge Bonder Name Role Phone Oscar Westbrook MD Primary Care Provider [phone] Oscar Westbrook MD Unavailable Sancho Brown MD Unavailable [phone] Oscar Westbrook MD Unavailable [phone] [facility] MACHINE BUNCH MAKER Unavailable [phone] Lizbet Guzmán MD Unavailable [phone] iaSoledad MD Unavailable Unav ailable Kayleigh Pearce RN Unavailable Unavailable LloydAlba coto NP Unavailable [phone] Sancho Brown MD Unavailable [phone] Soledad sargent MD Unavailable Unav ailable Maritza Cope Unavailable Unavailable Sancho Brown MD Unavailable [phone] Oscar Westbrook MD Unavailable [phone] Aida Hahn DPM, Podiatry /Foot and Ankle Surgery Unavailable Rosario Tapia Unavailable [phone] Hellen Limon Unavailable Unavailable June Quintana RN Unavailable Unavailable Gisselle Doyle [facility] Unavailable Reason for Visit * Reason Onset Date Comments Refill Request 12/10/2019 Encounter Details Date Type Department Care Team (Late st Contact Info) Description 12/10/2019 Svitlana Shin [facility] [address] [place] [address] Oscar [place]brook [place] [address] [place] [address] Refill Request Social History Tobacco Use [...] Friends and Family Patient declined 07/13/2019 Attends Yazidism Services 1 to 4 times per year [...] 07/13/2019 PHQ-2 Answer Date Recorded PHQ-2 Score 0 10/25/2019 [facility] [place] of Occupat ional Health - Occupational Stress [...] encounter Miscellaneous Notes * Telephone Encounter - Lupe Lara RN - 12/10/2019 4:23 PM CDT Patient given a year supply of medication on 09/10/19. Refusing refill request and closing encounter. Lupe Lara RN on 12/10/2019 at 4:22 PM documented in this encounter Plan of Treatment Not on file documented as of this encounter Visit Diagnoses Diagnosis HSV (herpes simplex virus) infection Herpes simplex without mention of complication documented in this encounter Additional Health Concerns Assessment Noted Time PHQ-9 Depression Total Score: 10 020 7:03 AM SENIOR INFORMATION SYSTEMS ARCHITECT documented as of this encounter Care Teams Edge Bonder Relationship Specialty [place] [address] [place] [address] PCP - General Family Practice 08/04/13 [place] [address] [place] [address] Family Practice 07/24/15 Sancho Brown MD [address] [place], [place] [address] Urology 02/26/18 [place] [address] [place] [address] Assigned PCP 08/08/13 Alba Desai NP [facility] [address] [address] [place], [place] [address] Nurse Practitioner Nurse Practitioner Psych/Mental Health 11/12/18 Lizbet Guzmán MD [facility] [address] [place], [place] [address] Referring Physician 06/23/19 Soledad Mccabe MD [facility] [address] [place] [address] Otolaryngology 06/23/19 Kayleigh Pearce, RN Personal Advocate & Liaison (PAL) Family Practice 04/10/20 10/11/20 [place] [address] [place] [address] Assigned Behavioral Health Provider 05/05/20 09/09/20 Sancho Brown MD [address] [place] [address] Assigned Surgical Provider 05/05/20 09/16/20 Soledad Mccabe MD Assigned Surgical Provider 09/17/20 11/11/20 Maritza Cope Personal Advocate & Liaison (PAL) 11/14/20 03/06/22 Sancho Brown MD [address] [place] [address] Assigned Surgical Provider 11/12/20 05/10/22 [place] [address] [place] [address] Assigned Pain Medication Provider 07/22/22 Aida Hahn DPM, Podiatry/Foot and Ankle Surgery [address] [place] [address] [place], [place] [address] Assigned Musculoskeletal Provider 11/02/22 Rosario Tapia, [facility] Community Health Worker Primary Care - CC 08/19/2308/21/23 Hellen Limon Personal Advocate & Liaison (PAL) Family Medicine 08/20/23 10/12/23 June Quintana, RN Personal Advocate & Liaison (PAL) Family Medicine 10/13/23 11/09/23 Gisselle Doyle, [facility], [facility] [address] [place] [address] Assigned Behavioral Health Provider 11/04/23 Soumya Saavedra Personal Advocate & Liaison (PAL) Family Medicine 03/07/22 09/14/23 documented as of this encounter
--- OUTSIDE RECORDS SUMMARY | 2023-12-21 07:47 | XMS_ITS | Encounter Summary ---
Author Organization [place] Address [address] [place] [address] Care Team Providers Care Farm Planner Name Role Phone Oscar Westbrook MD Primary Care Provider [phone] Oscar Westbrook MD Unavailable [phone] Soledad Mccabe MD Unavailable Unav ailable Sancho Brown MD Unavailable [phone] Oscar Westbrook MD Unavailable [phone] [facility] PLAIN GOODS HEMMER Unavailable [phone] Jailene Pettit RN Unavailable Unavailabl Jessica Gomez OCEAN EXPORT COORDINATOR Unavailable Itzel Pandey Unavailable Unavailable Lizbet Guzmán MD Unavailable [phone] Soledad Mccabe MD Unavailable Unav ailable Kayleigh Pearce RN Unavailable Unavailable Lloyd, Alba Robert PLAIN GOODS HEMMER Unavailable [phone] Sancho Brown MD Unavailable [phone] Soledad Mccabe MD Unavailable Unav ailable Maritza Cope Unavailable Unavailable Sancho Brown MD Unavailable [phone] Oscar Westbrook MD Unavailable Aida Hahn DPM, Podiatry /Foot and Ankle Surgery Unavailable Rosario Tapia CHW Unavailable Hellen Limon Unavailable Unavailable LilianJune RN Unavailable Unavailable Gisselle DoyleSW, [facility] Unavailable [phone] Reason for Visit * Reason Onset Date Comments Refill Request 04/02/2019 chantix Encounter Details Date Type Department Care Team (Late st Contact Info) Description 04/02/2019 MyC Refill [facility] Mental Health & Addiction [facility] [address] [place] [address] Alba Desai, PLAIN GOODS HEMMER [address] [place] [address] Refill Request (chantix) Social History Tobacco Use Types Packs/Day Years Used Date Smoking Tobacco: Every Day Cigarettes 0.5 30 Smokeless Tobacco: Former Quit: 02/22/2013 Comments:3 cigs per day Alcohol Use Standard Drinks/Week Comments No 0 (1 standard drink = 0.6 oz pure alcohol) 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 PHQ-2 Answer Date Recorded PHQ-2 Score 2 07/21/2018 Sex and Gender Information Value Date Recorded Sex Assigned at Male 11/12/2020 5:06 PM CDT Gender Identity Male 11/12/2020 5:06 PM CDT Sexual Orientation Not on file documented as of this encounter Miscellaneous Notes * Telephone Encounter - Irma Henry RN - 04/06/2019 8:18 AM CDT Refill for: varenicline (CHANTIX) 1 MG tablet Last Appointment: 03/12/19 Last Refill in [facility] (date and amount/how many days): Disp Refills Start End ANAYA varenicline (CHANTIX) 1 MG tablet 60 tablet 0 03/05/2019 -- Sig - Route: Take 1 tablet (1 mg) by mouth 2 times daily - Oral Last office visit note reviewed and summarized below: Treatment Plan: ?? Continue Nuvigil (armodafinil) 250 mg by mouth daily in AM for energy and focus. ? Continue Pristiq (desvenlafaxine) 50 mg by mouth daily for mood and anxiety. ?? Continue??Seroquel (quetiapine) 50 mg by mouth daily at bedtime for mood, anxiety, anger, sleep. ?? Continue Chantix (varenicline) 1 mg daily in AM and PM for smoking cessation. ?? Continue all other medications as reviewed per electronic medical record today. ?? Thank you for our work together in the Psychiatry Collaborative Care Model at [facility]. This is our last visit and I am returning your care back to your Primary Care Provider Oscar Westbrook MD . If you are not doing well, please contact your Primary Care Provider office Routing this refill request to -- patient was returned to PCP at last [facility] visit. Irma Henry RN 04/06/19 8:18 AM documented in this encounter Plan of Treatment Not on file documented as of this encounter Visit Diagnoses Diagnosis Tobacco abuse Tobacco use disorder documented in this encounter Additional Health Concerns Assessment Noted Time PHQ-9 Depression Total Score: 8 03/13/20 19 7:03 AM CDT documented as of this encounter Care Teams Farm Planner Relationship Specialty [place] [address] [place] [address] PCP - General Family Practice 08/04/13 [place] [address] [place] [address] Family Practice 07/24/15 [place] [address] [place] [address] Otolaryngology 07/24/15 07/14/19 Sancho Brown MD [address] [facility] [address] [address] [place] [address] Urology 02/26/18 [place] [address] [place] [address] Assigned PCP 08/08/13 Alba Desai NP [address] [place] [address] Nurse Practitioner Nurse Practitioner Psych/Mental Health 11/12/18 Jailene Pettit, WALT Personal Advocate & Liaison (PAL) Family Practice 02/03/19 05/02/19 Jessica Bowling, OCEAN EXPORT COORDINATOR Personal Advocate & Liaison (PAL) Primary Care - CC 04/30/19 06/07/19 Itzel Pandey Personal Advocate & Liaison (PAL) 06/08/19 07/14/19 Lizbet Guzmán MD [facility] [address] [place], [place] [id number] Referring Physician 06/23/19 [place] [address] [place] [address] Otolaryngology 06/23/19 Kayleigh Pearce RN Personal Advocate & Liaison (PAL) Family Practice 04/10/20 10/11/20 Alba Desai, PLAIN GOODS HEMMER [address] [place] [address] Assigned Behavioral Health Provider 05/05/20 09/09/20 Sancho Brown MD [address] [facility] [address] [address] [place] [address] Assigned Surgical Provider 05/05/20 09/16/20 Soledad Mccabe MD Assigned Surgical Provider 09/17/20 11/11/20 aMritza Cope Personal Advocate & Liaison (PAL) 11/14/20 03/06/22 Sancho Brown MD [address] [place] [address] Assigned Surgical Provider 11/12/20 05/10/22 [place] [address] [place] [address] Assigned Pain Medication Provider 07/22/22 Aida Hahn DPM, Podiatry/Foot and Ankle Surgery [address] [place], [place] [address] Assigned Musculoskeletal Provider 11/02/22 Rosario Tapia, [facility] Community Health Worker Primary Care - CC 08/19/2308/21/23 Hellen Limon Personal Advocate & Liaison (PAL) Family Medicine 08/20/23 10/12/23 June Quintana, RN Personal Advocate & Liaison (PAL) Family Medicine 10/13/23 11/09/23 Gisselle Doyle, [facility] [address] [place] [address] Assigned Behavioral Health Provider 11/04/23 Soumya Saavedra Personal Advocate & Liaison (PAL) Family Medicine 03/07/22 09/14/23 documented as of this encounter
--- OUTSIDE RECORDS SUMMARY | 2023-12-21 07:47 | XMS_ITS | Encounter Summary ---
Author Organization [place] Address [facility] [place] [address] Care Team Providers Care Pharmacy Grad Intern Name Role Phone Oscar Westbrook MD Primary Care Provider [phone] Oscar Westbrook MD Unavailable [phone] Soledad Mccabe MD Unavailable Unav ailable Sancho Brown MD Unavailable [phone] Oscar Westbrook MD Unavailable [phone] LloydAlba coto WAREHOUSE DISTRIBUTION ASSOCIATE Unavailable [phone] Satishlandon Jessica M IMMIGRATION INSPECTOR Unavailable Itzel Pandey Unavailable Unavailable Lizbet Guzmán MD Unavailable [phone] Soledad Mccabe MD Unavailable Unav ailable Kayleigh Pearce RN Unavailable Unavailable LloydAlba coto WAREHOUSE DISTRIBUTION ASSOCIATE Unavailable [phone] Sancho Brown MD Unavailable Soledad Mccaeb MD Unavailable Unav ailable Maritza Cope Unavailable Unavailable Sancho Brown MD Unavailable [phone] Oscar Westbrook MD Unavailable [phone] Aida Hahn DPM, Podiatry /Foot and Ankle Surgery Unavailable Rosario Tapia CHW Unavailable [phone] Hellen Limon Unavailable Unavailable LilianJune RN Unavailable Unavailable Gisselle Doyle, [facility] Unavailable [phone] Reason for Visit * Reason Onset Date Comments Nutrition Counseling 05/07/2019 Encounter Details Date Type Department Care Team (Late st Contact Info) Description 05/07/2019 Telephone [facility] [id number] [place] [phone] [place] [address] [place] [address] Nutrition Counseling Social History Tobacco Use Types Packs/Day Years [...] encounter Miscellaneous Notes * Telephone Encounter - Mae Araujo - 05/07/2019 9:23 AM CDT Nutrition Education Scheduling Outreach #1: Call to patient to schedule. Left message with phone number to call to schedule. Plan for 2nd outreach attempt within 1 week. Mae Araujo [place] [facility] Scheduling documented in this encounter Plan of Treatment Not on file documented as of this encounter Visit Diagnoses Not on filedocumented in this encounter Additional Health Concerns Assessment Noted Time PHQ-9 Depression Total Score: 8 03/13/20 19 7:03 AM CDT documented as of this encounter Care Teams Pharmacy Grad Intern Relationship Specialty Start Date End Date [place] [id number] [place] [address] PCP - General Family Practice 08/04/13 [place] [address] [place] [address] MD Family Practice 07/24/15 [place] [address] [place] [address] Otolaryngology 07/24/15 07/14/19 Sancho Brown MD [address] [facility] [address] [place] [address] Urology 02/26/18 [place] [address] [place] [address] Assigned PCP 08/08/13 Alba Desai NP [address] [address] [place] [address] Nurse Practitioner Nurse Practitioner Psych/Mental Health 11/12/18 Jessica Bowling, IMMIGRATION INSPECTOR Personal Advocate & Liaison (PAL) Primary Care - CC 04/30/19 06/07/19 Itzel Pandey Personal Advocate & Liaison (PAL) 06/08/19 07/14/19 Lizbet Guzmán MD [id number] [facility] [address] [place] [address] Referring Physician 06/23/19 [place] [address] [place], [place] [address]Mylene GIORDANO Otolaryngology 06/23/19 Kayleigh Pearce RN Personal Advocate & Liaison (PAL) Family Practice 04/10/20 10/11/20 [place] [address] [place] [address] Assigned Behavioral Health Provider 05/05/20 09/09/20 Sancho Brown MD [address] [facility] [address] [place] [address] Assigned Surgical Provider 05/05/20 09/16/20 Soledad Mccabe MD Assigned Surgical Provider 09/17/20 11/11/20 Maritza Cope Personal Advocate & Liaison (PAL) 11/14/20 03/06/22 Sancho Brown MD [address] [facility] [address] [place] [address] Assigned Surgical Provider 11/12/20 05/10/22 [place] [address] [place] [address] Assigned Pain Medication Provider 07/22/22 Aida Hahn DPM, Podiatry/Foot and Ankle Surgery [address] [facility] [address] [place] [address] Assigned Musculoskeletal Provider 11/02/22 Rosario Tapia, W Community Health Worker Primary Care - CC 08/19/2308/21/23 Hellen Limon Personal Advocate & Liaison (PAL) Family Medicine 08/20/23 10/12/23 June Quintana RN Personal Advocate & Liaison (PAL) Family Medicine 10/13/23 11/09/23 Gisselle Doyle, [facility], [facility] [address] [place] [address] Assigned Behavioral Health Provider 11/04/23 Soumya Saavedra Personal Advocate & Liaison (PAL) Family Medicine 03/07/22 09/14/23 documented as of this encounter
--- OUTSIDE RECORDS SUMMARY | 2023-12-21 07:47 | XMS_ITS | Encounter Summary ---
Author Organization [place] Address [facility] [place] [address] Care Team Providers Care Mumps Developer Name Role Phone Oscar Westbrook MD Primary Care Provider [phone] Oscar Westbrook MD Unavailable [phone] Soledad Mccabe MD Unavailable Unav ailable Sancho Brown MD Unavailable [phone] Oscar Westbrook MD Unavailable [phone] Alba Desai NP Unavailable [phone] Itzel Pandey Unavailable Unavailable Lizbet Guzmán MD Unavailable [phone] Soledad Mccabe MD Unavailable Unav ailable Kayleigh Pearce RN Unavailable Unavailable LloydAlba coto NP Unavailable [phone] Sancho Brown MD Unavailable Soledad Mccabe MD Unavailable Unav ailable Maritza Cope Unavailable Unavailable Sancho Brown MD Unavailable [phone] Oscar Westbrook MD Unavailable [phone] Aida Hahn DPM, Podiatry /Foot and Ankle Surgery Unavailable Rosario Tapia CHW Unavailable Hellen Limon Unavailable Unavailable LilianJune RN Unavailable Unavailable Gisselle Doyle [facility] Unavailable Reason for Visit * Reason Comments Medication Refill [place] Encounter Details Date Type Department Care Team (Late st Contact Info) Description 06/14/2019 Refill [facility] [id number] [place] [phone] Oscar [place]brook [place] [id number] [place] [address] Medication Refill ([place]) Social History Tobacco Use Types Packs/Day Years [...] encounter Miscellaneous Notes * Telephone Encounter - Sonali Prince RN - 06/14/2019 2:36 PM CST Refill due 06/16/19. T'd up. Last OV 04/27/19. OV due 07/28/19. Not PSO med. Sent to provider. Pleaseadvise. Sonali Prince RN GEMENT ARCHITECT documented in this encounter Plan of Treatment Not on file documented as of this encounter Visit Diagnoses Diagnosis Chronic pain syndrome documented in this encounter Additional Health Concerns Assessment Noted Time PHQ-9 Depression Total Score: 8 03/13/20 19 7:03 AM CDT documented as of this encounter Care Teams Mumps Developer Relationship Specialty Start Date End Date Oscar Westbrook [place] [id number] [place] [id number] PCP - General Family Practice 08/04/13 [place] [address] [place] [address] MD Family Practice 07/24/15 [place] [address] [place] [address] Otolaryngology 07/24/15 07/14/19 Sancho Brown MD [address] [facility] [address] [place] [address] Urology 02/26/18 [place] [address] [place] [address] Assigned PCP 08/08/13 Alba Desai NP [facility] [address] [place] [address] Nurse Practitioner Nurse Practitioner Psych/Mental Health 11/12/18 Itzel Pandey Personal Advocate & Liaison (PAL) 06/08/19 07/14/19 Lizbet Guzmán MD [facility] [address] [place] [address] Referring Physician 06/23/19 [place] [address] [place] [address] Otolaryngology 06/23/19 Kayleigh Pearce, RN Personal Advocate & Liaison (PAL) Family Practice 04/10/20 10/11/20 [place] [address] [place] [address] Assigned Behavioral Health Provider 05/05/20 09/09/20 Sancho Brown MD [address] [facility] [address] [place] [address] Assigned Surgical Provider 05/05/20 09/16/20 Soledad Mccabe MD Assigned Surgical Provider 09/17/20 11/11/20 Maritza Cope Personal Advocate & Liaison (PAL) 11/14/20 03/06/22 Sancho Brown MD [address] [facility] [address] [place] [address] Assigned Surgical Provider 11/12/20 05/10/22 [place] [address] [place] [address] Assigned Pain Medication Provider 07/22/22 Aida Hahn DPAleida, Podiatry/Foot and Ankle Surgery [address] [place] [address] Assigned Musculoskeletal Provider 11/02/22 Rosario Tapia, [facility] Community Health Worker Primary Care - CC 08/19/2308/21/23 Hellen Limon Personal Advocate & Liaison (PAL) Family Medicine 08/20/23 10/12/23 June Quintana, RN Personal Advocate & Liaison (PAL) Family Medicine 10/13/23 11/09/23 Gisselle Doyle, COMMUNITY HEALTH REPRESENTATIVE, [facility] [address] [place] [address] Assigned Behavioral Health Provider 11/04/23 Soumya MCKENZIE 4 Personal Advocate & Liaison (PAL) Family Medicine 03/07/22 09/14/23 documented as of this encounter
--- OUTSIDE RECORDS SUMMARY | 2023-12-21 07:47 | XMS_ITS | Encounter Summary ---
Author Organization [place] Address [facility] [place] [address] Care Team Providers Care Junior Automation Engineer Name Role Phone Oscar Westbrook MD Primary Care Provider [phone] Oscar Westbrook MD Unavailable [phone] Sancho Brown MD Unavailable [phone] Oscar Westbrook MD Unavailable [phone] [facility] PUBLIC RELATIONS ACCOUNT SUPERVISOR Unavailable [phone] Lizbet Guzmán MD Unavailable [phone] iaSoledad MD Unavailable Unav ailable Kayleigh Pearce RN Unavailable Unavailable LloydAlba coto NP Unavailable [phone] Sancho Brown MD Unavailable [phone] Soledad sargetn MD Unavailable Unav ailable Maritza Cope Unavailable Unavailable Sancho Brown MD Unavailable [phone] Oscar Westbrook MD Unavailable [phone] Aida Hahn DPM, Podiatry /Foot and Ankle Surgery Unavailable Rosario Tapia Unavailable [phone] Hellen Limon Unavailable Unavailable June Quintana RN Unavailable Unavailable Gisselle Doyle [facility] Unavailable Encounter Details Date Type Department Care Team (Latest Contact Info) Description 01/28/2020 Historic Results Social History Tobacco Use Types Packs/Day Years [...] Answer Date Recorded PHQ-2 Score 0 10/25/2019 [facility] [place] of Occupat ional Health - Occupational Stress [...] have Coronavirus / COVID-19? No / Unsure 01/28/2020 10:24 AM CDT documented as of this encounter Plan of Treatment Not on file documented as of this encounter Visit Diagnoses Not on filedocumented in this encounter Additional Health Concerns Assessment Noted Time PHQ-9 Depression Total Score: 14 020 7:08 AM CDT documented as of this encounter Care Teams Junior Automation Engineer Relationship Specialty [place] [address] [place] [address] PCP - General Family Practice 08/04/13 [place] [address] [place] [address] MD Family Practice 07/24/15 Sancho Brown MD [address] [facility] 500 [place] [address] Urology 02/26/18 [place] [address] [place] [address] Assigned PCP 08/08/13 Alba Desai NP [address] [place] [address] Nurse Practitioner Nurse Practitioner Psych/Mental Health 11/12/18 Lizbet Guzmán MD [facility] [address] [place] [address] Referring Physician 06/23/19 Soledad Mccabe MD [facility] [address] [place] [address] Otolaryngology 06/23/19 Kayleigh Pearce, RN Personal Advocate & Liaison (PAL) Family Practice 04/10/20 10/11/20 [place] [address] [place] [address] Assigned Behavioral Health Provider 05/05/20 09/09/20 Sancho Brown MD [address] [facility] [address] [place] [address] Assigned Surgical Provider 05/05/20 09/16/20 Soledad Mccabe MD Assigned Surgical Provider 09/17/20 11/11/20 Maritza Cope Personal Advocate & Liaison (PAL) 11/14/20 03/06/22 Sancho Brown MD [address] [facility] [address] [place] [address] Assigned Surgical Provider 11/12/20 05/10/22 [place] [address] [place] [address] Assigned Pain Medication Provider 07/22/22 Ojvani, Aida J, DPM, Podiatry/Foot and Ankle Surgery [address] [place] [address] Assigned Musculoskeletal Provider 11/02/22 Rosario Tapia, W Community Health Worker Primary Care - CC 08/19/2308/21/23 Hellen Limon Personal Advocate & Liaison (PAL) Family Medicine 08/20/23 10/12/23 June Quintana RN Personal Advocate & Liaison (PAL) Family Medicine 10/13/23 11/09/23 Gisselle Doyle, [facility] [address] [place] [address] Assigned Behavioral Health Provider 11/04/23 Soumya Saavedra Personal Advocate & Liaison (PAL) Family Medicine 03/07/22 09/14/23 documented as of this encounter
--- OUTSIDE RECORDS SUMMARY | 2023-12-21 07:47 | XMS_ITS | Encounter Summary ---
Author Organization [place] Address [address] [place] [address] Care Team Providers Care Train Station Server Name Role Phone Oscar Westbrook MD Primary Care Provider [phone] Oscar Westbrook MD Unavailable [phone] Soledad Mccabe MD Unavailable Unav ailable Sancho Brown MD Unavailable [phone] Oscar Westbrook MD Unavailable [phone] [facility] THREAD WINDER AUTOMATIC Unavailable [phone] Jailene Pettit RN Unavailable Unavailabl Jessica Gomez AUTOMOTIVE MECHANIC Unavailable Itzel Pandey Unavailable Unavailable Lizbet Guzmán MD Unavailable [phone] Soledad Mccabe MD Unavailable Unav ailable Kayleigh Pearce RN Unavailable Unavailable Lloyd, Alba Robert THREAD WINDER AUTOMATIC Unavailable [phone] Sancho Brown MD Unavailable [phone] Soledad Mccabe MD Unavailable Unav ailable Maritza Cope Unavailable Unavailable Sancho Brown MD Unavailable [phone] Oscar Westbrook MD Unavailable [phone] Aida Hahn DPM, Podiatry /Foot and Ankle Surgery Unavailable Willie Rosario C CHW Unavailable [phone] Hellen Limon Unavailable Unavailable LilianJune RN Unavailable Unavailable Vivek Gisselle DEVELOPMENTAL EDUCATION INSTRUCTOR, [facility] Unavailable [phone] Reason for Visit * Reason Onset Date Comments MyChart Communication 03/06/2019 Medication Question 03/06/2019 Refill Request 03/06/2019 Encounter Details Date Type Department Care Team (Late st Contact Info) Description 03/06/2019 MyC Medical Advice [facility] [address] [place] [address] [place] [address] [place], [place] [id number] MyChart Communication; Medication Question... Social History Tobacco Use Types Packs/Day Years [...] encounter Miscellaneous Notes * Telephone Encounter - Alba Desai NP - 03/09/2019 11:44 AM CDT Not sure where he has been getting the medication then if I have not been prescribing it since November? He needs to bring in all of the medications he is taking. He is often confused what he is actually taking for medications and this is likely a reason why he continues to make poor progress and not tolerate medications. If taking Trintellix (vortioxetine) 10 mg daily- then cut in half to take 5 mg for one week then stop. * Telephone Encounter - Irma Henry RN - 03/08/2019 4:27 PM CDT Routing to provider. Alba: Patient has apparently been taking his Trintellix despite you stopping it in November. He stateshe will stop it now-- does he need to taper off? Irma Henry RN 03/08/19 4:28 PM * Telephone Encounter - Irma Henry RN - 03/08/2019 8:34 AM CDT Last office visit: 02/05/19 Next office visit: 03/12/19 Last office visit note reviewed and summarized below: Treatment Plan: ?? Reduce Wellbutrin (buproprion) SR to 200 mg daily for 5 days, then stop. ?? Restart Chantix (varenicline). ?? Start Pristiq (desvenlafaxine) 50 mg by mouth daily for mood and anxiety. ?? Continue Seroquel (quetiapine) 50 mg by mouth daily at bedtime for mood, anxiety, anger, sleep. ?? Continue Nuvigil (armodafinil) 150 mg by mouth daily in AM. ?? Continue Inderal (propranolol) 20 mg by mouth up to 3 times per day as needed for anxiety and tremor. May consider dose increase if needed.??Ask your how you take this. ?? Continue all other medications as reviewed per electronic medical record today. ?? Continue individual therapy as planned with Radhames. ?? Schedule an appointment with me in 4 weeks or sooner as needed Patient Status: Patient will continue to be seen for ongoing consultation and stabilization Previous medication trials include but not limited to: Metadate ER (methylphenidate)??currently and helps some Lamictal (lamotrigine)??500 mg not helpful Sinequan (doxepin)??10 mg not helpful Trintellix (vortioxetine??20 mg not helpful Per office visit on 12/04/18: Treatment Plan: ?? Reduce Lamictal (lamotrigine) to 100 mg daily in AM and PM for one week, then reduce to 100 mg daily in AM for one week then stop. ?? Reduce Trintellix (vortioxetine) to 10 mg by mouth daily for two weeks, then stop. ?? Stop Chantix (varenicline). ?? Start Wellbutrin (buproprion) SR 150 mg daily in AM and Noon for depression and smoking cessation. ?? Continue??Metadate ER (methylphenidate)??20 mg??by mouth daily in AM??per primary care provider.Plan to change and stop this medication. Irma Henry RN 03/08/19 8:38 AM documented in this encounter Plan of Treatment Not on file documented as of this encounter Visit Diagnoses Not on filedocumented in this encounter Additional Health Concerns Assessment Noted Time PHQ-9 Depression Total Score: 16 019 7:02 AM CDT documented as of this encounter Care Teams Train Station Server Relationship Specialty [place] [address] [place] [address] PCP - General Family Practice 08/04/13 [place] [address] [place] [address] Family Practice 07/24/15 [place] [address] [place] [address] Otolaryngology 07/24/15 07/14/19 Sancho Brown MD [address] [address] Urology 02/26/18 [place] [address] [place] [address] Assigned PCP 08/08/13 Alba Desai NP [place] [address] [place] [address] Nurse Practitioner Nurse Practitioner Psych/Mental Health 11/12/18 Jailene Pettit, AWLT Personal Advocate & Liaison (PAL) Family Practice 02/03/19 05/02/19 Jsesica Bowling, AUTOMOTIVE MECHANIC Personal Advocate & Liaison (PAL) Primary Care - CC 04/30/19 06/07/19 Itzel Pandey Personal Advocate & Liaison (PAL) 06/08/19 07/14/19 Lizbet Guzmán MD [facility] [address] [place] [address] Referring Physician 06/23/19 [place] [address] [place] [address] Otolaryngology 06/23/19 Kayleigh Pearce RN Personal Advocate & Liaison (PAL) Family Practice 04/10/20 10/11/20 [place] [address] [place] [address] Assigned Behavioral Health Provider 05/05/20 09/09/20 Sancho Brown MD [address] [place] [address] Assigned Surgical Provider 05/05/20 09/16/20 Soledad Mccabe MD Assigned Surgical Provider 09/17/20 11/11/20 Maritza Cope Personal Advocate & Liaison (PAL) 11/14/20 03/06/22 Sancho Brown MD [address] [place] [address] Assigned Surgical Provider 11/12/20 05/10/22 [place] [address] [place], [place] [id number] Assigned Pain Medication Provider 07/22/22 Aida Hahn DPM, Podiatry/Foot and Ankle Surgery [address] [place], [place] [address] Assigned Musculoskeletal Provider 11/02/22 Rosario Tapia, [facility] Community Health Worker Primary Care - CC 08/19/2308/21/23 Hellen Limon Personal Advocate & Liaison (PAL) Family Medicine 08/20/23 10/12/23 June Quintana, RN Personal Advocate & Liaison (PAL) Family Medicine 10/13/23 11/09/23 Gisselle Doyle, [facility], [facility] [address] [place] [address] Assigned Behavioral Health Provider 11/04/23 Soumya Saavedra Personal Advocate & Liaison (PAL) Family Medicine 03/07/22 09/14/23 documented as of this encounter
--- OUTSIDE RECORDS SUMMARY | 2023-12-21 07:47 | XMS_ITS | Encounter Summary ---
Author Organization [place] Address [facility] [place] [address] Care Team Providers Care Event Planning Manager Name Role Phone Oscar Westbrook MD Primary Care Provider [phone] Oscar Westbrook MD Unavailable [phone] Sancho Brown MD Unavailable [phone] Oscar Westbrook MD Unavailable [phone] [facility] NETWORK CABLE INSTALLER Unavailable [phone] Lizbet Guzmán MD Unavailable [phone] iaSoledad MD Unavailable Unav ailable Kayleigh Pearce RN Unavailable Unavailable LloydAlba coto NP Unavailable [phone] Sancho Brown MD Unavailable [phone] Soledad sargent MD Unavailable Unav ailable Maritza Cope Unavailable Unavailable Sancho Brown MD Unavailable [phone] Oscar Westbrook MD Unavailable [phone] Aida Hahn DPM, Podiatry /Foot and Ankle Surgery Unavailable Rosario Tapia Unavailable [phone] Hellen Limon Unavailable Unavailable June Quintana RN Unavailable Unavailable Gisselle Doyle [facility] Unavailable Reason for Visit * Reason Comments Medication Refill Encounter Details Date Type Department Care Team (Late st Contact Info) Description 09/13/2019 Refill [facility] [address] [place] [address] Oscar [place] [id number] [place] [address] Medication Refill Social History Tobacco Use [...] Friends and Family Patient declined 07/13/2019 Attends Scientologist Services 1 to 4 times per year [...] Answer Date Recorded PHQ-2 Score 2 07/21/2018 [facility] [place] of Occupat ional Health - Occupational Stress [...] encounter Miscellaneous Notes * Telephone Encounter - Teagan Romero RN - 09/13/2019 10:13 AM CST Routing refill request to provider to review approval because: Drug not on the [facility], P or Health refill protocol or controlled substance RX monitoring program ([place]) reviewed: PROOF COIN COLLECTOR reviewed- no concerns [place] profile: [email or web address] Controlled Substance Refill Request for hydrocodone Problem List Complete: Yes PROOF COIN COLLECTOR checked in past 3 months? Yes 08/18/2019 Name from pharmacy: HYDROCODONE-ACETAMINOPH 10-325 TABS Will file in chart as: HYDROcodone-acetaminophen (NORCO) 10-325 MG per tablet Sig: TAKE ONE TABLET BY MOUTH 6 TIMES DAILY Disp: 180 tablet ? Refills: 0 Start: 09/13/2019 Earliest Fill Date: 09/13/2019 Class: E-Prescribe Non-formulary For: Chronic pain syndrome Last ordered: 3 weeks ago by Oscar Westbrook MD Last refill: 08/19/2019 Rx #: [id number] Last Written Prescription Date: 08/19/2019 Last Fill Quantity: 180, # refills: 0 Last office visit: 07/13/2019 with prescribing provider: Future Office Visit: None Teagan [place], RN, BSN Message handled by Nurse Triage. RBOAT MASTER documented in this encounter Plan of Treatment Not on file documented as of this encounter Visit Diagnoses Diagnosis Chronic pain syndrome documented in this encounter Additional Health Concerns Assessment Noted Time PHQ-9 Depression Total Score: 10 020 7:03 AM RIVERBOAT MASTER documented as of this encounter Care Teams Event Planning Manager Relationship Specialty [place] [address] [place] [address] PCP - General [facility] Practice 08/04/13 [place] [address] [place] [address] PA Family Practice 07/24/15 Sancho Brown MD [address] [place] [address] Urology 02/26/18 [place] [address] [place] [address] Assigned PCP 08/08/13 Alba Desai NP [place] [address] [place], [place] [address] Nurse Practitioner Nurse Practitioner Psych/Mental Health 11/12/18 Lizbet Guzmán MD [facility] [address] [place], [place] [address] Referring Physician 06/23/19 Soledad Mccabe MD [facility] [address] [place] [address] Otolaryngology 06/23/19 Kayleigh Pearce RN Personal Advocate & Liaison (PAL) Family Practice 04/10/20 10/11/20 [place] [address] [place] [address] Assigned Behavioral Health Provider 05/05/20 09/09/20 Sancho Brown MD [address] [facility] [address] [place] [address] Assigned Surgical Provider 05/05/20 09/16/20 Soledad Mccabe MD Assigned Surgical Provider 09/17/20 11/11/20 Maritza Cope Personal Advocate & Liaison (PAL) 11/14/20 03/06/22 Sancho Brown MD [address] [facility] [address] [place] [address] Assigned Surgical Provider 11/12/20 05/10/22 [place] [address] [place] [address] Assigned Pain Medication Provider 07/22/22 Aida Hahn, DPM, Podiatry/Foot and Ankle Surgery [address] [facility] [address] [place] [address] Assigned Musculoskeletal Provider 11/02/22 Rosario Tapia, [facility] Community Health Worker Primary Care - CC 08/19/2308/21/23 Hellen Liomn Personal Advocate & Liaison (PAL) Family Medicine 08/20/23 10/12/23 June Quintana RN Personal Advocate & Liaison (PAL) Family Medicine 10/13/23 11/09/23 Gisselle Doyle, [facility] [address] [place] [address] Assigned Behavioral Health Provider 11/04/23 Soumya MCKENZIE 4 Personal Advocate & Liaison (PAL) Family Medicine 03/07/22 09/14/23 documented as of this encounter
--- OUTSIDE RECORDS SUMMARY | 2023-12-21 07:47 | XMS_ITS | Encounter Summary ---
Author Organization [place] Address [address] [place] [address] Care Team Providers Care Mechanical Handyman Name Role Phone Oscar Westbrook MD Primary Care Provider [phone] Oscar Westbrook MD Unavailable [phone] Soledad Mccabe MD Unavailable Unav ailable Sancho Brown MD Unavailable [phone] Oscar Westbrook MD Unavailable [phone] [facility] TUBE FILLER Unavailable [phone] Jailene Pettit RN Unavailable Unavailabl Jessica Gomez MEDICAL DOCTOR MD Unavailable Itzel Pandey Unavailable Unavailable Lizbet Guzmán MD Unavailable [phone] Soledad Mccabe MD Unavailable Unav ailable Kayleigh Pearce RN Unavailable Unavailable Lloyd, Alba Robert TUBE FILLER Unavailable [phone] Sancho Brown MD Unavailable [phone] Soledad Mccabe MD Unavailable Unav ailable Maritza Cope Unavailable Unavailable Sancho Brown MD Unavailable [phone] Oscar Westbrook MD Unavailable [phone] Aida Hahn DPM, Podiatry /Foot and Ankle Surgery Unavailable Rosario aTpia CHW Unavailable Hellen Limon Unavailable Unavailable LilianJune RN Unavailable Unavailable Vivek Gisselle MEN'S LOCKER ROOM ATTENDANT, [facility] Unavailable [phone] Reason for Visit * Reason Onset Date Comments Refill Request 04/02/2019 Encounter Details Date Type Department Care Team (Late st Contact Info) Description 04/02/[address] [facility] Urology Clinic [address] [place] [address] Sancho Brown MD [address] [facility] [address] [place], [place] [address] Refill Request Social History Tobacco Use Types [...] as of this encounter Visit Diagnoses Diagnosis Nocturia documented in this encounter Additional Health Concerns Assessment Noted Time PHQ-9 Depression Total Score: 8 03/13/20 19 7:03 AM CDT documented as of this encounter Care Teams Mechanical Handyman Relationship Specialty [place] [address] [place] [address] PCP - General Family Practice 08/04/13 [place] [address] [place] [address] Family Practice 07/24/15 [place] [address] [place] [address] Otolaryngology 07/24/15 07/14/19 Sancho Brown MD [address] [facility] [address] [place] [address] Urology 02/26/18 [place] [address] [place], [place] [address] Assigned PCP 08/08/13 Alba Desai NP [place] [place], [place] [address] Nurse Practitioner Nurse Practitioner Psych/Mental Health 11/12/18 Jailene Pettit, WALT Personal Advocate & Liaison (PAL) Family Practice 02/03/19 05/02/19 Jessica Bowling, MEDICAL DOCTOR MD Personal Advocate & Liaison (PAL) Primary Care - 04/30/19 06/07/19 Itzel Pandey Personal Advocate & Liaison (PAL) 06/08/19 07/14/19 Lizbet Guzmán MD [address] [address] [facility] [address] [place] [address] Referring Physician 06/23/19 [place] [address] [place] [address] Otolaryngology 06/23/19 Kayleigh Pearce RN Personal Advocate & Liaison (PAL) Family Practice 04/10/20 10/11/20 Alba Desai TUBE [address]ILL[address] [address] [place] [address] Assigned Behavioral Health Provider 05/05/20 09/09/20 Sancho Brown MD [address] [facility] [address] [facility] [address] [place] [address] Assigned Surgical Provider 05/05/20 09/16/20 Soledad Mccabe MD Assigned Surgical Provider 09/17/20 11/11/20 Maritza Cope Personal Advocate & Liaison (PAL) 11/14/20 03/06/22 Sancho Brown MD [address] [facility] [address] [place] [address] Assigned Surgical Provider 11/12/20 05/10/22 [place] [address] [place] [address] Assigned Pain Medication Provider 07/22/22 Aida Hahn, DPM, Podiatry/Foot and Ankle Surgery [address] [facility] [address] [place] [address] Assigned Musculoskeletal Provider 11/02/22 Rosario Tapia, [facility] Community Health Worker Primary Care - CC 08/19/2308/21/23 Hellen Limon Personal Advocate & Liaison (PAL) Family Medicine 08/20/23 10/12/23 June Quintana, RN Personal Advocate & Liaison (PAL) Family Medicine 10/13/23 11/09/23 Gisselle Doyle, MEN'S LOCKER ROOM ATTENDANT, [facility] [address] [place] [address] Assigned Behavioral Health Provider 11/04/23 Soumya MCKENZIE 4 Personal Advocate & Liaison (PAL) Family Medicine 03/07/22 09/14/23 documented as of this encounter
--- OUTSIDE RECORDS SUMMARY | 2023-12-21 07:47 | XMS_ITS | Encounter Summary ---
Author Organization [place] Address [facility] [place] [address] Care Team Providers Care Traffic Circuit Engineer Name Role Phone Oscar Westbrook MD Primary Care Provider [phone] Oscar Westbrook MD Unavailable [phone] Sancho Brown MD Unavailable [phone] Oscar Westbrook MD Unavailable [phone] [facility] INDUSTRIAL SEWER Unavailable [phone] Lizbet Guzmán MD Unavailable [phone] iaSoledad MD Unavailable Unav ailable Kayleigh Pearce RN Unavailable Unavailable LloydAlba coto NP Unavailable [phone] Sancho Brown MD Unavailable [phone] Soledad sargent MD Unavailable Unav ailable Maritza Cope Unavailable Unavailable Sancho Brown MD Unavailable [phone] Oscar Westbrook MD Unavailable [phone] Aida Hahn DPM, Podiatry /Foot and Ankle Surgery Unavailable Rosario Tapia Unavailable [phone] Hellen Limon Unavailable Unavailable June Quintana RN Unavailable Unavailable Gisselle Doyle [facility] Unavailable Reason for Visit * Reason Onset Date Comments Referral 01/28/2020 Evaluation for c omprehensive services Encounter Details Date Type Department Care Team (Late st Contact Info) Description 01/28/2020 Telephone [facility] [address] [facility] [place] [place] [phone] Pain Management Program, [facility] Referral (Evaluation for comprehensive services) Social History Tobacco Use Types Packs/Day Years [...] Friends and Family Patient declined 07/13/2019 Attends Sabianism Services 1 to 4 times per year [...] Answer Date Recorded PHQ-2 Score 0 10/25/2019 [facility] [place] of Occupat ional Health - Occupational Stress [...] * Telephone Encounter - Odette Ghosh - 01/28/2020 3:09 PM CDT MONA to schedule New Eval. Odette Shin Fresh Meat Grader [facility] documented in this encounter Plan of Treatment Not on file documented as of this encounter Visit Diagnoses Not on filedocumented in this encounter Additional Health Concerns Assessment Noted Time PHQ-9 Depression Total Score: 14 020 7:08 AM CDT documented as of this encounter Care Teams Traffic Circuit Engineer Relationship Specialty [place] [address] [place] [address] PCP - General Family Practice 08/04/13 [place] [address] [place] [address] Family Practice 07/24/15 Sancho Brown MD [address] [place] [address] Urology 02/26/18 [place] [address] [place] [address] Assigned PCP 08/08/13 Alba Desai INDUSTRIAL SEWER [facility] [address] [place], [place] [address] Nurse Practitioner Nurse Practitioner Psych/Mental Health 11/12/18 Lizbet Guzmán MD [facility] [address] [place] [address] Referring Physician 06/23/19 Soledad Mccabe MD [facility] [address] [place] [address] Otolaryngology 06/23/19 Kayleigh Pearce, RN Personal Advocate & Liaison (PAL) Family Practice 04/10/20 10/11/20 Alba Desai INDUSTRIAL SEWER [address] [place] [address] Assigned Behavioral Health Provider 05/05/20 09/09/20 Sancho Brown MD [address] [place] [address] Assigned Surgical Provider 05/05/20 09/16/20 Soledad Mccabe MD Assigned Surgical Provider 09/17/20 11/11/20 Maritza Cope Personal Advocate & Liaison (PAL) 11/14/20 03/06/22 Sancho Brown MD [address] [place] [address] Assigned Surgical Provider 11/12/20 05/10/22 [place] [address] [place] [address] Assigned Pain Medication Provider 07/22/22 Aida Hahn, DPM, Podiatry/Foot and Ankle Surgery [address] [place], [place] [address] Assigned Musculoskeletal Provider 11/02/22 Rosario Tapia, [facility] Community Health Worker Primary Care - CC 08/19/2308/21/23 Hellen Limon Personal Advocate & Liaison (PAL) Family Medicine 08/20/23 10/12/23 June Quintana, RN Personal Advocate & Liaison (PAL) Family Medicine 10/13/23 11/09/23 Gisselle Doyle, [facility] [address] [place] [address] Assigned Behavioral Health Provider 11/04/23 Soumya Saavedra Personal Advocate & Liaison (PAL) Family Medicine 03/07/22 09/14/23 documented as of this encounter
--- OUTSIDE RECORDS SUMMARY | 2023-12-21 07:47 | XMS_ITS | Encounter Summary ---
Author Organization [place] Address [facility] [place] [address] Care Team Providers Care Rn Peritoneal Dialysis Name Role Phone Oscar Westbrook MD Primary Care Provider [phone] Oscar Westbrook MD Unavailable [phone] Sancho Brown MD Unavailable [phone] Oscar Westbrook MD Unavailable [phone] [facility] COMBUSTION ENGINEER Unavailable [phone] Lizbet Guzmán MD Unavailable [phone] iaSoledad MD Unavailable Unav ailable Kayleigh Pearce RN Unavailable Unavailable LloydAlba coto NP Unavailable [phone] Sancho Brown MD Unavailable [phone] Soledad sargent MD Unavailable Unav ailable Maritza Cope Unavailable Unavailable Sancho Brown MD Unavailable [phone] Oscar Westbrook MD Unavailable [phone] Aida Hahn DPM, Podiatry /Foot and Ankle Surgery Unavailable Rosario Tapia Unavailable [phone] Hellen Limon Unavailable Unavailable June Quintana RN Unavailable Unavailable Gisselle Doyle [facility] Unavailable Encounter Details Date Type Department Care Team (Late st Contact Info) Description 08/12/2019 MyC Medical Advice Aleida [facility] [address] [place] [phone] [place] [address] [place] [address] Social History Tobacco Use Types [...] Friends and Family Patient declined 07/13/2019 Attends [employer] 1 to 4 times per year [...] Answer Date Recorded PHQ-2 Score 2 07/21/2018 [facility] [place] of Occupat ional Health - Occupational Stress [...] Depression Total Score: 10 020 7:03 AM SAFETY AND SECURITY OFFICER documented as of this encounter Care Teams Rn Peritoneal Dialysis Relationship Specialty [place] [address] [place] [address] PCP - General Family Practice 08/04/13 [place] [address] [place] [address] Family Practice 07/24/15 Sancho Brown MD [address] [place] [address] Urology 02/26/18 [place] [address] [place] [address] Assigned PCP 08/08/13 Alba Desai, COMBUSTION ENGINEER [facility] [address] [facility] [address] Nurse Practitioner Nurse Practitioner Psych/Mental Health 11/12/18 Lizbet Guzmán MD [facility] [address] [place], [place] [id number] Referring Physician 06/23/19 Soledad Mccabe MD [facility] [address] [place] [address] Otolaryngology 06/23/19 Kayleigh Pearce, WALT Personal Advocate & Liaison (PAL) Family Practice 04/10/20 10/11/20 Alba Desai COMBUSTION ENGINEER [address] [place] [address] Assigned Behavioral Health Provider 05/05/20 09/09/20 Sancho Brown MD [address] [place] [address] Assigned Surgical Provider 05/05/20 09/16/20 Soledad Mccabe MD Assigned Surgical Provider 09/17/20 11/11/20 Maritza Cope Personal Advocate & Liaison (PAL) 11/14/20 03/06/22 Sancho Brown MD [address] [place] [address] Assigned Surgical Provider 11/12/20 05/10/22 [place] [address] [place] [address] Assigned Pain Medication Provider 07/22/22 Aida Hahn, DPM, Podiatry/Foot and Ankle Surgery [address] [place] [address] Assigned Musculoskeletal Provider 11/02/22 Rosario Tapia, [facility] Community Health Worker Primary Care - CC 08/19/2308/21/23 Hellen Limon Personal Advocate & Liaison (PAL) Family Medicine 08/20/23 10/12/23 LilianJune nobles, RN Personal Advocate & Liaison (PAL) Family Medicine 10/13/23 11/09/23 Gisselle Doyle, [facility] [address] [place] [address] Assigned Behavioral Health Provider 11/04/23 Soumya Saavedra Personal Advocate & Liaison (PAL) Family Medicine 03/07/22 09/14/23 documented as of this encounter
--- OUTSIDE RECORDS SUMMARY | 2023-12-21 07:47 | XMS_ITS | Encounter Summary ---
Author Organization [place] Address [address] [place] [address] Care Team Providers Care Enterprise Infrastructure Architect Name Role Phone Oscar Westbrook MD Primary Care Provider [phone] Oscar Westbrook MD Unavailable [phone] Soledad Mccabe MD Unavailable Unav ailable Sancho Brown MD Unavailable [phone] Oscar Westbrook MD Unavailable [phone] [facility] REGISTRAR ASSISTANT Unavailable [phone] Jailene Pettit RN Unavailable Unavailabl Jessica Gomez IT BUSINESS PROCESS ARCHITECT Unavailable Itzel Pandey Unavailable Unavailable Lizbet Guzmán MD Unavailable [phone] Soledad Mccabe MD Unavailable Unav ailable Kayleigh Pearce RN Unavailable Unavailable Lloyd, Alba Robert REGISTRAR ASSISTANT Unavailable [phone] Sancho Brown MD Unavailable [phone] Soledad Mccabe MD Unavailable Unav ailable Maritza Cope Unavailable Unavailable Sancho Brown MD Unavailable [phone] Oscar Westbrook MD Unavailable [phone] Aida Hahn DPM, Podiatry /Foot and Ankle Surgery Unavailable Rosario Tapia CHW Unavailable [phone] Hellen Limon Unavailable Unavailable LilianJune RN Unavailable Unavailable Vivek Gisselle PHYSICIAN PEDIATRICIAN, [facility] Unavailable [phone] Reason for Visit * Reason Onset Date Comments Refill Request 03/26/2019 Encounter Details Date Type Department Care Team (Late st Contact Info) Description 03/26/2019 MyC Refill [facility] [address] [place] [address] Sancho Brown MD [address] [facility] [address] [place], [place] [address] Refill Request Social History Tobacco Use Types [...] documented as of this encounter Care Teams Enterprise Infrastructure Architect Relationship Specialty [place] [address] [place] [address] PCP - General Family Practice 08/04/13 [place] [address] [place] [address] Family Practice 07/24/15 [place] [address] [place] [address] Otolaryngology 07/24/15 07/14/19 Sancho Brown MD [address] [facility] [address] [place] [address] Urology 02/26/18 [place] [address] [place], [place] [id number] Assigned PCP 08/08/13 Alba Desai NP [place] [address] [place], [place] [address] Nurse Practitioner Nurse Practitioner Psych/Mental Health 11/12/18 Jailene Pettit, WALT Personal Advocate & Liaison (PAL) Family Practice 02/03/19 05/02/19 Jessica Bowling, IT BUSINESS PROCESS ARCHITECT Personal Advocate & Liaison (PAL) Primary Care - 04/30/19 06/07/19 Itzel Pandey Personal Advocate & Liaison (PAL) 06/08/19 07/14/19 Lizbet Guzmán MD [place] [address] [facility] [address] [place] [address] Referring Physician 06/23/19 [place] [address] [place] [address] Otolaryngology 06/23/19 Kayleigh Pearce RN Personal Advocate & Liaison (PAL) Family Practice 04/10/20 10/11/20 Alba Desai REGISTRAR ASSISTANT [address] [place] [address] Assigned Behavioral Health Provider 05/05/20 09/09/20 Sancho Brown MD [address] [facility] [address] [facility] [address] [place] [address] Assigned Surgical Provider 05/05/20 09/16/20 Soledad Mccabe MD Assigned Surgical Provider 09/17/20 11/11/20 Maritza Cope Personal Advocate & Liaison (PAL) 11/14/20 03/06/22 Sancho Brown MD [address] [facility] [address] [place] [address] Assigned Surgical Provider 11/12/20 05/10/22 [place] [address] [place] [address] Assigned Pain Medication Provider 07/22/22 Aida Hahn, DPM, Podiatry/Foot and Ankle Surgery [address] [facility] [address] [place] [address] Assigned Musculoskeletal Provider 11/02/22 Rosario Tapia, [facility] Community Health Worker Primary Care - CC 08/19/2308/21/23 Hellen Limon Personal Advocate & Liaison (PAL) Family Medicine 08/20/23 10/12/23 June Quintana, RN Personal Advocate & Liaison (PAL) Family Medicine 10/13/23 11/09/23 Gisselle Doyle, PHYSICIAN PEDIATRICIAN, [facility] [address] [place] [address] Assigned Behavioral Health Provider 11/04/23 Soumya MCKENZIE 4 Personal Advocate & Liaison (PAL) Family Medicine 03/07/22 09/14/23 documented as of this encounter
--- OUTSIDE RECORDS SUMMARY | 2023-12-21 07:47 | XMS_ITS | Encounter Summary ---
Author Organization [place] Address [address] [place] [address] Care Team Providers Care Immigration Manager Name Role Phone Oscar Westbrook MD Primary Care Provider [phone] Oscar Westbrook MD Unavailable [phone] Soledad Mccabe MD Unavailable Unav ailable Sancho Brown MD Unavailable [phone] Ocsar Westbrook MD Unavailable [phone] [facility] VETERINARY MEDICINE TEACHER Unavailable [phone] Jailene Pettit RN Unavailable Unavailabl Jessica Gomez MANAGER ANDROID Unavailable Itzel Pandey Unavailable Unavailable Lizbet Guzmán MD Unavailable [phone] Soledad Mccabe MD Unavailable Unav ailable Kayleigh Pearce RN Unavailable Unavailable Lloyd, Alba Robert VETERINARY MEDICINE TEACHER Unavailable [phone] Sancho Brown MD Unavailable [phone] Soledad Mccabe MD Unavailable Unav ailable Maritza Cope Unavailable Unavailable Sancho Brown MD Unavailable [phone] Oscar Westbrook MD Unavailable [phone] Aida Hahn DPM, Podiatry /Foot and Ankle Surgery Unavailable Rosario Tapia CHW Unavailable [phone] Hellen Limon Unavailable Unavailable LilianJune RN Unavailable Unavailable Vivek Gisselle COVERED BUCKLE ASSEMBLER, [facility] Unavailable Reason for Visit * Reason Onset Date Comments Refill Request 03/05/2019 Encounter Details Date Type Department Care Team (Late st Contact Info) Description 03/05/2019 MyC Refill [facility] [address] [place] [phone] Oscar [place]brook [place] [id number] [place] [address] Refill Request Social History Tobacco Use [...] encounter Miscellaneous Notes * Telephone Encounter - Shaun Bermudezin - 03/05/2019 10:55 AM CDT Last Written Prescription Date: 08/25/18 Last Fill Quantity: 90, # refills: 3 Last office visit: 02/08/2019 with prescribing provider: Dr Westbrook Future Office Visit: Next 5 appointments (look out 90 days) Mar 12, 2019 8:45 AM CDT Return Visit with Alba Desai NP [facility] ([facility]) [address] [place] [address] [address] [facility] [phone] Mar 16, 2019 10:00 AM CDT Office Visit with Oscar Westbrook MD, EXAM ROOM 03 [facility] ([facility]) [address] [place] [phone] Last Written Prescription Date: 11/27/18 Last Fill Quantity: 90, # refills: 2 Last office visit: 02/08/2019 with prescribing provider: Dr Pietro Glasgow Office Visit: Next 5 appointments (look out 90 days) Mar 12, 2019 8:45 AM CDT Return Visit with Alba Desai NP [facility] ([facility]) [address] [facility] 200 [facility] [address] Mar 16, 2019 10:00 AM CDT Office Visit with Oscar Westbrook MD, CR EXAM ROOM 03 [facility] ([facility]) [address] [place] [phone] Last Written Prescription Date: 02/08/19 Last Fill Quantity: 90, # refills: 1 Last office visit: 02/08/2019 with prescribing provider: Dr Westbrook Future Office Visit: Next 5 appointments (look out 90 days) Mar 12, 2019 8:45 AM CDT Return Visit with Alba Desai NP [facility] ([facility]) [address] [place] [phone] Mar 16, 2019 10:00 AM CDT Office Visit with Oscar Westbrook MD, CR EXAM ROOM 03 [facility] ([facility]) [address] [place] [phone] Last Written Prescription Date: 02/08/19 Last Fill Quantity: 90, # refills: 1 Last office visit: 02/08/2019 with prescribing provider: DR Pietro Glasgow Office Visit: Next 5 appointments (look out 90 days) Mar 12, 2019 8:45 AM CDT Return Visit with Alba Desai NP [facility] ([facility]) [address] [facility] [address] [facility] [address] Mar 16, 2019 10:00 AM CDT Office Visit with Oscar Westbrook MD, CR EXAM ROOM 03 [facility] ([facility]) [address] [facility] [phone] Last Written Prescription Date: 03/05/19 Last Fill Quantity: 60, # refills:0 Last office visit: 02/08/2019 with prescribing provider: Dr Westbrook Future Office Visit: Next 5 appointments (look out 90 days) Mar 12, 2019 8:45 AM CDT Return Visit with Alba Desai NP [facility] ([facility]) [address] [facility] [address] [facility] [address] Mar 16, 2019 10:00 AM CDT Office Visit with Oscar Westbrook MD, P[place] EXAM ROOM 03 [facility] ([facility]) [address] [place] [phone] Requested Prescriptions Pending Prescriptions Disp Refills ??? valACYclovir (VALTREX) 500 MG tablet 90 tablet 3 Sig: Take 1 tablet (500 mg) by mouth daily Antivirals for Herpes Protocol Passed - 03/05/2019 9:27 AM Passed - Patient is age 12 or older Passed - Recent (12 mo) or future (30 days) visit within the authorizing provider's specialty Patient had office visit in the last 12 months or has a visit in the next 30 days with authorizing provider or within the authorizing provider's specialty. See Patient Info tab in inbasket, or Choose Columns in Meds & Orders section of the refill encounter. Passed - Medication is active on med list Passed - Normal serum creatinine on file in past 12 months Recent Labs Lab Test 11/27/18 1041 09/29/12 1008 CR 0.78 < > -- CREAT -- -- 1.0 < > = values in this interval not displayed. ??? nabumetone (RELAFEN) 750 MG tablet 90 tablet 2 Sig: Take 1 tablet (750 mg) by mouth daily NSAID Medications Failed - 03/05/2019 9:27 AM Failed - Patient is age 6-64 years Failed - Normal CBC on file in past 12 months Recent Labs Lab Test 11/27/18 1041 WBC 5.7 RBC 4.28* HGB 13.6 HCT 40.5 PLT 181 Passed - Blood pressure under 140/90 in past 12 months BP Readings from Last 3 Encounters: 02/08/19 107/66 02/05/19 128/70 01/01/19 137/85 Passed - Normal ALT on file in past 12 months Recent Labs Lab Test 09/29/18 1044 ALT 36 Passed - Normal AST on file in past 12 months Recent Labs Lab Test 09/29/18 1044 AST 20 Passed - Recent (12 mo) or future (30 days) visit within the authorizing provider's specialty Patient had office visit in the last 12 months or has a visit in the next 30 days with authorizing provider or within the authorizing provider's specialty. See Patient Info tab in inbasket, or Choose Columns in Meds & Orders section of the refill encounter. Passed - Medication is active on med list Passed - Normal serum creatinine on file in past 12 months Recent Labs Lab Test 11/27/18 1041 09/29/12 1008 CR 0.78 < > -- CREAT -- -- 1.0 < > = values in this interval not displayed. ??? pantoprazole (PROTONIX) 40 MG EC tablet 90 tablet 1 Sig: TAKE 1 TABLET BY MOUTH DAILY, 30 TO 60 MINUTES BEFORE A MEAL. PPI Protocol Passed - 03/05/2019 9:27 AM Passed - Not on Clopidogrel (unless Pantoprazole ordered) Passed - No diagnosis of osteoporosis on record Passed - Recent (12 mo) or future (30 days) visit within the authorizing provider's specialty Patient had office visit in the last 12 months or has a visit in the next 30 days with authorizing provider or within the authorizing provider's specialty. See Patient Info tab in inbasket, or Choose Columns in Meds & Orders section of the refill encounter. Passed - Medication is active on med list Passed - Patient is age 18 or older ??? QUEtiapine (SEROQUEL) 50 MG tablet 90 tablet 1 Sig: Take 1 tablet (50 mg) by mouth At Bedtime Antipsychotic Medications Passed - 03/05/2019 9:27 AM Passed - Blood pressure under 140/90 in past 12 months BP Readings from Last 3 Encounters: 02/08/19 107/66 02/05/19 128/70 01/01/19 137/85 Passed - Patient is 12 years of age or older Passed - Lipid panel on file within the past 12 months Recent Labs Lab Test 04/07/18 1113 03/02/15 1328 CHOL 122 < > 122 TRIG 126 < > 322* HDL 32* < > 22* LDL 65 < > 36 NHDL 90 < > -- VLDL -- -- 64* CHOLHDLRATIO -- -- 5.5* < > = values in this interval not displayed. Passed - CBC on file in past 12 months Recent Labs Lab Test 11/27/18 1041 WBC 5.7 RBC 4.28* HGB 13.6 HCT 40.5 PLT 181 Passed - Heart Rate on file within past 12 months Pulse Readings from Last 3 Encounters: 02/08/19 55 02/05/19 53 01/01/19 52 Passed - A1c or Glucose on file in past 12 months Recent Labs Lab Test 11/27/18 1041 09/29/18 1044 GLC 112* 106* A1C -- 6.2* Please review patients last 3 weights. If a weight gain of >10 lbs exists, you may refill the prescription once after instructing the patient to schedule an appointment within the next 30 days. Wt Readings from Last 3 Encounters: 02/08/19 102.5 kg (226 lb) 02/05/19 102.5 kg (226 lb) 01/01/19 99.3 kg (219 lb) Passed - Medication is active on med list Passed - Recent (6 mo) or future (30 days) visit within the authorizing provider's specialty Patient had office visit in the last 6 months or has a visit in the next 30 days with authorizing provider or within the authorizing provider's specialty. See Patient Info tab in inbasket, or Choose Columns in Meds & Orders section of the refill encounter. documented in this encounter Plan of Treatment Not on file documented as of this encounter Visit Diagnoses Diagnosis HSV (herpes simplex virus) infection Herpes simplex without mention of complication Cervicalgia Gastroesophageal reflux disease without esophagitis Esophageal reflux JOSE DE JESUS (generalized anxiety disorder) Generalized anxiety disorder Hypnopompic hallucination Hallucinations Hypnagogic hallucinations Hallucinations documented in this encounter Additional Health Concerns Assessment Noted Time PHQ-9 Depression Total Score: 16 02/06/ 019 7:02 AM CDT documented as of this encounter Care Teams Immigration Manager Relationship Specialty [place] [address] [place], [place] [phone] PCP - General Family Practice 08/04/13 [place] [address] [place] [address] Family Practice 07/24/15 [place] [address] [place] [address] Otolaryngology 07/24/15 07/14/19 Sancho Brown MD [address] [facility] [address] [facility] [address] [place] [address] Urology 02/26/18 [place] [address] [place] [address] Assigned PCP 08/08/13 Alba Desai NP [place] [address] [place] [address] Nurse Practitioner Nurse Practitioner Psych/Mental Health 11/12/18 Jailene Pettit, WALT Personal Advocate & Liaison (PAL) Family Practice 02/03/19 05/02/19 Jessica Bowling, MANAGER ANDROID Personal Advocate & Liaison (PAL) Primary Care - CC 04/30/19 06/07/19 Itzel Pandey Personal Advocate & Liaison (PAL) 06/08/19 07/14/19 Lizbet Guzmán MD [facility] [address] [place], [place] [id number] Referring Physician 06/23/19 [place] [address] [place] [address] Otolaryngology 06/23/19 Kayleigh Pearce, RN Personal Advocate & Liaison (PAL) Family Practice 04/10/20 10/11/20 Alba Desai VETERINARY MEDICINE TEACHER [address] [place] [address] Assigned Behavioral Health Provider 05/05/20 09/09/20 Sancho Brown MD [address] [facility] [address] [place] [address] Assigned Surgical Provider 05/05/20 09/16/20 Soledad Mccabe MD Assigned Surgical Provider 09/17/20 11/11/20 Maritza Cope Personal Advocate & Liaison (PAL) 11/14/20 03/06/22 Sancho Brown MD [address] [facility] [address] [place] [address] Assigned Surgical Provider 11/12/20 05/10/22 [place] [address] [place] [address] Assigned Pain Medication Provider 07/22/22 Aida Hahn, DPM, Podiatry/Foot and Ankle Surgery [address] [place] [address] [place] [address] Assigned Musculoskeletal Provider 11/02/22 Rosario Tapia, W Community Health Worker Primary Care - CC 08/19/2308/21/23 Hellen Limon Personal Advocate & Liaison (PAL) Family Medicine 08/20/23 10/12/23 June Quintana RN Personal Advocate & Liaison (PAL) Family Medicine 10/13/23 11/09/23 Gisselle Doyle, [facility], [facility] [address] [place] [address] Assigned Behavioral Health Provider 11/04/23 Soumya MCKENZIE 4 Personal Advocate & Liaison (PAL) Family Medicine 03/07/22 09/14/23 documented as of this encounter
--- OUTSIDE RECORDS SUMMARY | 2023-12-21 07:47 | XMS_ITS | Encounter Summary ---
Author Organization [place] Address [facility] [place] [address] Care Team Providers Care Micro Lab Analyst Name Role Phone Oscar Westbrook MD Primary Care Provider [phone] Oscar Westbrook MD Unavailable [phone] Sancho Brown MD Unavailable [phone] Oscar Westbrook MD Unavailable [facility] INSURANCE WRITER Unavailable [phone] Lizbet Guzmán MD Unavailable [phone] iaSoledad MD Unavailable Unav ailable Kayleigh Pearce RN Unavailable Unavailable LloydAlba coto NP Unavailable [phone] Sancho Brown MD Unavailable [phone] Soledad sargent MD Unavailable Unav ailable Maritza Cope Unavailable Unavailable Sancho Brown MD Unavailable [phone] Oscar Westbrook MD Unavailable [phone] Aida Hahn DPM, Podiatry /Foot and Ankle Surgery Unavailable Rosario Tapia Unavailable [phone] Hellen Limon Unavailable Unavailable June Quintana RN Unavailable Unavailable Gisselle Doyle [facility] Unavailable [phone] Encounter Details Date Type Department Care Team (Late st Contact Info) Description 03/21/2020 MyC Medical Advice M [address] [phone] Em Bermudez Social History Tobacco Use Types Packs/Day Years [...] Friends and Family Patient declined 07/13/2019 Attends [employer] 1 to 4 times per year [...] Answer Date Recorded PHQ-2 Score 0 10/25/2019 [facility] [place] of Occupat ional Health - Occupational Stress [...] Noted Time PHQ-9 Depression Total Score: 14 01/28/ 020 7:08 AM CDT documented as of this encounter Care Teams Micro Lab Analyst Relationship Specialty [place] [address] [place] [address] PCP - General Family Practice 08/04/13 [place] [address] [place] [address] MD Family Practice 07/24/15 Sancho Brown MD [address] [address] Urology 02/26/18 [place] [address] [place], [place] [id number] Assigned PCP 08/08/13 Alba Desai NP [address] [id number] Nurse Practitioner Nurse Practitioner Psych/Mental Health 11/12/18 Lizbet Guzmán MD [facility] [address] [place] [address] Referring Physician 06/23/19 Soledad Mccabe MD [facility] [address] [facility] [address] [place] [address] Otolaryngology 06/23/19 Kayleigh Pearce, RN Personal Advocate & Liaison (PAL) Family Practice 04/10/20 10/11/20 [place] [address] [place] [address] Assigned Behavioral Health Provider 05/05/20 09/09/20 Sancho Brown MD 6363 [facility] [address] [place] [address] Assigned Surgical Provider 05/05/20 09/16/20 Soledad Mccabe MD Assigned Surgical Provider 09/17/20 11/11/20 Maritza Cope Personal Advocate & Liaison (PAL) 11/14/20 03/06/22 Sancho Brown MD 6363 [facility] [address] [place] [address] Assigned Surgical Provider 11/12/20 05/10/22 [place] [address] [place] [address] Assigned Pain Medication Provider 07/22/22 Aida Hahn, DPM, Podiatry/Foot and Ankle Surgery [address] [place] [address] Assigned Musculoskeletal Provider 11/02/22 Rosario Tapia, W Community Health Worker Primary Care - CC 08/19/2308/21/23 Hellen Limon Personal Advocate & Liaison (PAL) Family Medicine 08/20/23 10/12/23 LilianJune nobles RN Personal Advocate & Liaison (PAL) Family Medicine 10/13/23 11/09/23 Gisselle Doyle, [facility] [address] [place] [address] Assigned Behavioral Health Provider 11/04/23 Soumya Saavedra Personal Advocate & Liaison (PAL) Family Medicine 03/07/22 09/14/23 documented as of this encounter
--- OUTSIDE RECORDS SUMMARY | 2023-12-21 07:47 | XMS_ITS | Encounter Summary ---
Author Organization [place] Address [facility] [place] [address] Care Team Providers Care Biomedical Specialist Name Role Phone Oscar Westbrook MD Primary Care Provider [phone] Oscar Westbrook MD Unavailable [phone] Sancho Brown MD Unavailable [phone] Oscar Westbrook MD Unavailable [phone] [facility] ANTIQUE AUTOMOBILES REPAIRER Unavailable [phone] Lizbet Guzmán MD Unavailable [phone] iaSoledad MD Unavailable Unav ailable Kayleigh Pearce RN Unavailable Unavailable LloydAlba coto NP Unavailable [phone] Sancho Brown MD Unavailable [phone] Soledad sargent MD Unavailable Unav ailable Maritza Cope Unavailable Unavailable Sancho Brown MD Unavailable [phone] Oscar Westbrook MD Unavailable [phone] Aida Hahn DPM, Podiatry /Foot and Ankle Surgery Unavailable Rosario Tapia Unavailable [phone] Hellen Limon Unavailable Unavailable June Quintana RN Unavailable Unavailable Gisselle Doyle [facility] Unavailable Encounter Details Date Type Department Care Team (Late st Contact Info) Description 09/20/2019 MyC Medical Advice [facility] [address] [place] [phone] [place] [address] [place] [address] Social History Tobacco Use Types [...] Friends and Family Patient declined 07/13/2019 Attends [employer] 1 to 4 times per year [...] Answer Date Recorded PHQ-2 Score 2 07/21/2018 [facility] [place] of Occupat ional Health - Occupational Stress [...] Depression Total Score: 10 020 7:03 AM STATISTICAL TECHNICIAN documented as of this encounter Care Teams Biomedical Specialist Relationship Specialty [place] [address] [place] [address] PCP - General Family Practice 08/04/13 [place] [address] [place] [address] Family Practice 07/24/15 Sancho Brown MD [address] [place] [address] Urology 02/26/18 [place] [address] [place] [address] Assigned PCP 08/08/13 Alba Desai, ANTIQUE AUTOMOBILES REPAIRER [facility] [address] [facility] [place] [address] Nurse Practitioner Nurse Practitioner Psych/Mental Health 11/12/18 Lizbet Guzmán MD [facility] [address] [place], [place] [id number] Referring Physician 06/23/19 Soledad Mccabe MD [facility] [address] [place] [address] Otolaryngology 06/23/19 Kayleigh Pearce, WALT Personal Advocate & Liaison (PAL) Family Practice 04/10/20 10/11/20 Alba Desai ANTIQUE AUTOMOBILES REPAIRER [address] [place] [address] Assigned Behavioral Health Provider 05/05/20 09/09/20 Sancho Brown MD [address] [place] [address] Assigned Surgical Provider 05/05/20 09/16/20 Soledad Mccabe MD Assigned Surgical Provider 09/17/20 11/11/20 Maritza Cope Personal Advocate & Liaison (PAL) 11/14/20 03/06/22 Sancho Brown MD [address] [facility] [address] [place] [address] Assigned Surgical Provider 11/12/20 05/10/22 [place] [address] [place] [address] Assigned Pain Medication Provider 07/22/22 Aida Hahn, DPM, Podiatry/Foot and Ankle Surgery [address] [place] [address] Assigned Musculoskeletal Provider 11/02/22 Rosario Tapia, [facility] Community Health Worker Primary Care - CC 08/19/2308/21/23 Hellen Limon Personal Advocate & Liaison (PAL) Family Medicine 08/20/23 10/12/23 LilianJune nobles, RN Personal Advocate & Liaison (PAL) Family Medicine 10/13/23 11/09/23 Gisselle Doyle, [facility] [address] [place] [address] Assigned Behavioral Health Provider 11/04/23 Soumya Saavedra Personal Advocate & Liaison (PAL) Family Medicine 03/07/22 09/14/23 documented as of this encounter
--- OUTSIDE RECORDS SUMMARY | 2023-12-21 07:47 | XMS_ITS | Encounter Summary ---
Author Organization [place] Address [address] [place] [address] Care Team Providers Care Target Man Name Role Phone Oscar Westbrook MD Primary Care Provider [phone] Oscar Westbrook MD Unavailable [phone] Soledad Mccabe MD Unavailable Unav ailable Sancho Brown MD Unavailable [phone] Oscar Westbrook MD Unavailable [phone] [facility] ASSISTANT CROSS COUNTRY COACH Unavailable [phone] Jailene Pettit RN Unavailable Unavailabl Jessica Gomez VENEER JOINTER Unavailable Itzel Pandey Unavailable Unavailable Lizbet Guzmán MD Unavailable [phone] Soledad Mccabe MD Unavailable Unav ailable Kayleigh Pearce RN Unavailable Unavailable Lloyd, Alba Robert ASSISTANT CROSS COUNTRY COACH Unavailable Sancho Brown MD Unavailable [phone] Soledad Mccabe MD Unavailable Unav ailable Maritza Cope Unavailable Unavailable Sancho Brown MD Unavailable [phone] Oscar Westbrook MD Unavailable [phone] Aida Hahn DPM, Podiatry /Foot and Ankle Surgery Unavailable Rosario Tapia CHW Unavailable [phone] Hellen Limon Unavailable Unavailable LilianJune RN Unavailable Unavailable Vivek Gisselle CNA [facility], [facility] Unavailable [phone] Reason for Visit * Reason Onset Date Comments Refill Request 04/02/2019 amLODIPine-benaz epril and vitamin D3 Encounter Details Date Type Department Care Team (Late st Contact Info) Description 04/02/2019 MyC Refill [facility] [address] [place] [phone] Oscar [place] [id number] [place] [id number] Refill Request (amLODIPine-benazepril and ... Social History Tobacco Use Types Packs/Day Years [...] Telephone Encounter - Ivet Souza RN - 04/05/2019 11:50 AM CDT Routing refill request to provider for review/approval because: Labs out of range: See below. Ivet Souza RN -- [facility] * Telephone Encounter - Vandana Joe - 04/03/2019 8:18 AM CDT Requested Prescriptions Pending Prescriptions Disp Refills ??? amLODIPine-benazepril (LOTREL) 10-20 MG capsule 90 capsule 1 Sig: Take 1 capsule by mouth daily Last Written Prescription Date: 12/31/18 Last Fill Quantity: 90, # refills: 1 Last Office Visit: 03/24/2019 Future Office Visit: Next 5 appointments (look out 90 days) Apr 27, 2019 10:00 AM CDT Office Visit with Oscar Westbrook MD, CR EXAM ROOM [address] [address] Calcium Channel Blockers Protocol Failed - 04/02/2019 11:05 AM Failed - Normal serum creatinine on file in past 12 months Recent Labs Lab Test 03/16/19 1112 09/29/12 1008 CR 0.61* < > -- CREAT -- -- 1.0 < > = values in this interval not displayed. Passed - Blood pressure under 140/90 in past 12 months BP Readings from Last 3 Encounters: 03/26/19 118/72 03/24/19 134/82 03/22/19 132/70 Passed - Recent (12 mo) or future [...] Patient is age 18 or older ??? vitamin D3 (CHOLECALCIFEROL) 1000 units (25 mcg) tablet 100 tablet 0 Sig: Take 1 tablet (1,000 Units) by mouth daily Last Written Prescription Date: 03/26/19 Last Fill Quantity: 100, # refills: 0 Last Office Visit: 03/24/2019 Future Office Visit: Next 5 appointments (look out 90 days) Apr 27, 2019 10:00 AM CDT Office Visit with Oscar Westbrook MD, CR EXAM ROOM [address] [facility] [address] [facility] [id number] Vitamin Supplements (Adult) Protocol Passed - 04/02/2019 11:05 AM Passed - High dose Vitamin D not ordered Passed - Recent (12 mo) or future [...] - Medication is active on med list documented in this encounter Plan of Treatment Not on file documented as of this encounter Visit Diagnoses Diagnosis Essential hypertension with goal blood pressure less than 140/90 Vitamin D deficiency disease Unspecified vitamin D deficiency documented in this encounter Additional Health Concerns Assessment Noted Time PHQ-9 Depression Total Score: 8 03/13/20 19 7:03 AM CDT documented as of this encounter Care Teams Target Man Relationship Specialty [place] [address] [place] [address] PCP - General Family Practice 08/04/13 [place] [address] [place] [address] Family Practice 07/24/15 [place] [address] [place] [address] Otolaryngology 07/24/15 07/14/19 Sancho Brown MD [address] [address] Urology 02/26/18 [place] [address] [place] [address] Assigned PCP 08/08/13 Alba Desai NP [facility] [address] [place] [address] Nurse Practitioner Nurse Practitioner Psych/Mental Health 11/12/18 Jailene Pettit, WALT Personal Advocate & Liaison (PAL) Family Practice 02/03/19 05/02/19 Jessica Bowling, VENEER JOINTER Personal Advocate & Liaison (PAL) Primary Care - CC 04/30/19 06/07/19 Itzel Pandey Personal Advocate & Liaison (PAL) 06/08/19 07/14/19 Lizbet Guzmán MD [facility] [address] [facility] [address] [facility] [address] [place] [address] Referring Physician 06/23/19 [place] [address] [place] [address] Otolaryngology 06/23/19 Kayleigh Pearce RN Personal Advocate & Liaison (PAL) Family Practice 04/10/20 10/11/20 Alba Desai ASSISTANT CROSS COUNTRY COACH [address] [place] [address] Assigned Behavioral Health Provider 05/05/20 09/09/20 Sancho Brown MD 6363 [facility] [address] [place] [address] Assigned Surgical Provider 05/05/20 09/16/20 Soledad Mccabe MD Assigned Surgical Provider 09/17/20 11/11/20 Maritza Cope Personal Advocate & Liaison (PAL) 11/14/20 03/06/22 Sancho Brown MD [address] [place] [address] Assigned Surgical Provider 11/12/20 05/10/22 [place] [address] [place] [address] Assigned Pain Medication Provider 07/22/22 Aida Hahn, DPM, Podiatry/Foot and Ankle Surgery [address] [place] [address] [place], [place] [address] Assigned Musculoskeletal Provider 11/02/22 Rosario Tapia, [facility] Community Health Worker Primary Care - CC 08/19/2308/21/23 Hellen Limon Personal Advocate & Liaison (PAL) Family Medicine 08/20/23 10/12/23 June Quintana, RN Personal Advocate & Liaison (PAL) Family Medicine 10/13/23 11/09/23 Gisselle Doyle, [facility] [address] [place] [address] Assigned Behavioral Health Provider 11/04/23 Soumya Saavedra Personal Advocate & Liaison (PAL) Family Medicine 03/07/22 09/14/23 documented as of this encounter
--- OUTSIDE RECORDS SUMMARY | 2023-12-21 07:47 | XMS_ITS | Encounter Summary ---
Author Organization [place] Address [facility] [place] [address] Care Team Providers Care Gas Tester Name Role Phone Oscar Westbrook MD Primary Care Provider [phone] Oscar Westbrook MD Unavailable [phone] Soledad Mccabe MD Unavailable Unav ailable Sancho Brown MD Unavailable [phone] Oscar Westbrook MD Unavailable Alba Desai NP Unavailable [phone] Itzel Pandey Unavailable Unavailable Lizbet Guzmán MD Unavailable [phone] Soledad Mccabe MD Unavailable Unav ailable Kayleigh Pearce RN Unavailable Unavailable LloydAlba coto NP Unavailable [phone] Sancho Brown MD Unavailable Soledad Mccabe MD Unavailable Unav ailable Maritza Cope Unavailable Unavailable Sancho Brown MD Unavailable [phone] Oscar Westbrook MD Unavailable [phone] Aida Hahn DPM, Podiatry /Foot and Ankle Surgery Unavailable Rosario Tapai CHW Unavailable Hellen Limon Unavailable Unavailable LilianJune RN Unavailable Unavailable Vivek Gisselle [facility] Unavailable [phone] Reason for Visit * Reason Onset Date Comments Refill Request 07/09/2019 celebrex, vit d3 , amlodipine, sporanox Encounter Details Date Type Department Care Team (Late st Contact Info) Description 07/09/2019 MyC Refill [facility] [address] [place] [phone] [place] [id number] [place] [address] Refill Request (celebrex, vit d3, amlodipi... Social History Tobacco Use Types Packs/Day Years [...] Friends and Family Patient declined 07/13/2019 Attends [employer] 1 to 4 times per year [...] Answer Date Recorded PHQ-2 Score 2 07/21/2018 [facility] [place] of Occupat ional Health - Occupational Stress [...] things needed for daily living? No 07/13/2019 Sex and Gender Information Value Date Recorded Sex Assigned at Male 11/12/2020 5:06 PM CDT Gender Identity Male 11/12/2020 5:06 PM CDT Sexual Orientation Not on file documented as of this encounter Miscellaneous Notes * Telephone Encounter - Ashley Gómez RN - 07/13/2019 9:56 AM CST Routing refill request to provider for review/approval because: Drug not active on patient's medication list- sporanox Labs out of range: Cr, cbc Vit d3 states it needs a new order Ashley Gómez RN on 07/13/2019 at 9:57 AM ENT DRIVING INSTRUCTOR * Telephone Encounter - Ashley Gómez RN - 07/13/2019 9:50 AM CST Requested Prescriptions Pending Prescriptions Disp Refills ??? itraconazole (SPORANOX) 100 MG capsule 180 capsule 0 Sig: Take 2 capsules (200 mg) by mouth daily Last Written Prescription Date: 03/16/19 Last Fill Quantity: 180, # refills: 0 Last office visit: 04/27/2019 with prescribing provider: Pietro Future Office Visit: There is no refill protocol information for this order ??? amLODIPine-benazepril (LOTREL) 10-20 MG capsule 90 capsule 1 Sig: Take 1 capsule by mouth daily Last Written Prescription Date: 04/05/19 Last Fill Quantity: 90, # refills: 1 Last office visit: 04/27/2019 with prescribing provider: Pietro Future Office Visit: Calcium Channel Blockers Protocol Failed - 07/09/2019 12:25 PM Failed - Blood pressure under 140/90 in past 12 months BP Readings from Last 3 Encounters: 07/13/19 136/83 05/24/19 (!) 145/73 04/27/19 (!) 128/94 Failed - Normal serum creatinine on file in past 12 months Recent Labs Lab Test 04/27/19 1100 09/29/12 1008 CR 0.56* < > -- CREAT -- -- 1.0 < > = values in this interval not displayed. Passed - Recent (12 mo) or future (30 days) visit within the authorizing provider's specialty Patient has had an office visit with the authorizing provider or a provider within the authorizing providers department within the previous 12 mos or has a future within next 30 days. See Patient Info tab in inbasket, or Choose Columns in Meds & Orders section of the refill encounter. Passed - Medication is active on med list Passed - Patient is age 18 or older ??? vitamin D3 (CHOLECALCIFEROL) 1000 units (25 mcg) tablet 100 tablet 3 Sig: Take 1 tablet (1,000 Units) by mouth daily Last Written Prescription Date: 04/05/19 Last Fill Quantity: 100, # refills: 3 Last office visit: 04/27/2019 with prescribing provider: Pietro Future Office Visit: Vitamin Supplements (Adult) Protocol Passed - 07/09/2019 12:25 PM Passed - High dose Vitamin D not ordered Passed - Recent (12 mo) or future (30 days) visit within the authorizing provider's specialty Patient has had an office visit with the authorizing provider or a provider within the authorizing providers department within the previous 12 mos or has a future within next 30 days. See Patient Info tab in inbasket, or Choose Columns in Meds & Orders section of the refill encounter. Passed - Medication is active on med list ??? celecoxib (CELEBREX) 200 MG capsule 90 capsule 1 Sig: Take 1 capsule (200 mg) by mouth daily Last Written Prescription Date: 04/27/19 Last Fill Quantity: 90, # refills: 1 Last office visit: 04/27/2019 with prescribing provider: Pietro Future Office Visit: NSAID Medications Failed - 07/09/2019 12:25 PM Failed - Blood pressure under 140/90 in past 12 months BP Readings from Last 3 Encounters: 07/13/19 136/83 05/24/19 (!) 145/73 04/27/19 (!) 128/94 Failed - Patient is age 6-64 years Failed - Normal CBC on file in past 12 months Recent Labs Lab Test 11/27/18 1041 WBC 5.7 RBC 4.28* HGB 13.6 HCT 40.5 PLT 181 Failed - Normal serum creatinine on file in past 12 months Recent Labs Lab Test 04/27/19 1100 09/29/12 1008 CR 0.56* < > -- CREAT -- -- 1.0 < > = values in this interval not displayed. Passed - Normal ALT on file in past 12 months Recent Labs Lab Test 04/27/19 1100 ALT 57 Passed - Normal AST on file in past 12 months Recent Labs Lab Test 04/27/19 1100 AST 28 Passed - Recent (12 mo) or future (30 days) visit within the authorizing provider's specialty Patient has had an office visit with the authorizing provider or a provider within the authorizing providers department within the previous 12 mos or has a future within next 30 days. See Patient Info tab in inbasket, or Choose Columns in Meds & Orders section of the refill encounter. Passed - Medication is active on med list ENT DRIVING INSTRUCTOR documented in this encounter Plan of Treatment Not on file documented as of this encounter Visit Diagnoses Diagnosis Onychomycosis Dermatophytosis of nail Essential hypertension with goal blood pressure less than 140/90 Vitamin D deficiency disease Unspecified vitamin D deficiency Chronic pain syndrome documented in this encounter Additional Health Concerns Assessment Noted Time PHQ-9 Depression Total Score: 8 03/13/20 19 7:03 AM CDT documented as of this encounter Care Teams Gas Tester Relationship Specialty [place] [address] [place] [address] PCP - General Family Practice 08/04/13 [place] [address] [place] [address] Family Practice 07/24/15 [place] [address] [place] [address] Otolaryngology 07/24/15 07/14/19 Sancho Brown MD [address] [facility] 500 [place] [address] Urology 02/26/18 [place] [address] [place] [address] Assigned PCP 08/08/13 Alba Desai [facility] [place] [address] [place] [address] Nurse Practitioner Nurse Practitioner Psych/Mental Health 11/12/18 Itzel Pandey Personal Advocate & Liaison (PAL) 06/08/19 07/14/19 Lizbet Guzmán MD [facility] [address] [facility] [address] [place] [address] Referring Physician 06/23/19 [place] [address] [place] [address] Otolaryngology 06/23/19 Kayleigh Pearce, RN Personal Advocate & Liaison (PAL) Family Practice 04/10/20 10/11/20 Alba Desai [facility] [address] [place] [address] Assigned Behavioral Health Provider 05/05/20 09/09/20 Sancho Brown MD [address] [place] [address] Assigned Surgical Provider 05/05/20 09/16/20 Soledad Mccabe MD Assigned Surgical Provider 09/17/20 11/11/20 Maritza Cope Personal Advocate & Liaison (PAL) 11/14/20 03/06/22 Sancho Brown MD [address] [place] [address] Assigned Surgical Provider 11/12/20 05/10/22 [place] [address] [place] [address] Assigned Pain Medication Provider 07/22/22 Aida Hahn, DPM, Podiatry/Foot and Ankle Surgery [address] [facility] [address] [place], [place] [address] Assigned Musculoskeletal Provider 11/02/22 Rosario Tapia, [facility] Community Health Worker Primary Care - CC 08/19/2308/21/23 Hellen Limon Personal Advocate & Liaison (PAL) Family Medicine 08/20/23 10/12/23 June Quintana, RN Personal Advocate & Liaison (PAL) Family Medicine 10/13/23 11/09/23 Gisselle Doyle LICSW, [facility] [address] [place] [address] Assigned Behavioral Health Provider 11/04/23 Soumya Saavedra Personal Advocate & Liaison (PAL) Family Medicine 03/07/22 09/14/23 documented as of this encounter
--- OUTSIDE RECORDS SUMMARY | 2023-12-21 07:48 | XMS_ITS | Encounter Summary ---
Author Organization [place] Address [facility] [place] [address] Care Team Providers Care Shrinking Machine Operator Name Role Phone Mery Solorio RN Unavailable [phone] Oscar Westbrook MD Primary Care Provider [phone] Osacr Westbrook MD Unavailable [phone] Soledad Mccabe MD Unavailable Unav ailable Sancho Brown MD Unavailable [phone] Oscar Westbrook MD Unavailable [phone] Oscar Westbrook MD Unavailable [phone] [facility] SILK OPENER Unavailable [phone] Jailene Pettit RN Unavailable UnavailJessica Wen ANIMAL PHYSIOLOGIST Unavailable Itzel Pandey Unavailable Unavailable Lizbet Guzmán MD Unavailable [phone] Soledad Mccabe MD Unavailable Unav ailable Kayleigh Pearce RN Unavailable Unavailable [facility], Alba L SILK OPENER Unavailable [phone] Sancho Brown MD Unavailable [phone] Soledad Mccabe MD Unavailable Unav ailable Maritza Cope Unavailable Unavailable Sancho Brown MD Unavailable [phone] Oscar Westbrook MD Unavailable [phone] Aida Hahn DPM, Podiatry /Foot and Ankle Surgery Unavailable Rosario Tapia CHW Unavailable Hellen Limon Unavailable Unavailable LilianJune RN Unavailable Unavailable [facility]isselle [facility] Unavailable [phone] Encounter Details Date Type Department Care Team (Late st Contact Info) Description 11/15/2013 [facility] [address] [place] [address] [phone] Oscar Westbrook [place] [id number] [place] [address] [id number] Social History Tobacco Use Types Packs/Day Years Used Date Smoking Tobacco: Every Day Cigarettes 0.5 30 Smokeless Tobacco: Former Quit: 02/22/2013 Alcohol Use Standard Drinks/Week Comments No 0 (1 standard drink = 0.6 oz pur e alcohol) recovering alcoholic Sex and Gender Information Value Date Recorded Sex Assigned at Male 11/12/2020 5:06 PM CDT Gender Identity Male 11/12/2020 5:06 PM CDT Sexual Orientation Not on file documented as of this encounter Plan of Treatment Not on file documented as of this encounter Visit Diagnoses Not on filedocumented in this encounter Care Teams Shrinking Machine Operator Relationship Specialty [place] [address] [place] [address] PCP - General Family Practice 08/04/13 [place] [address] [place], [place] [id number] PCP - Assigned PCP 08/08/13 09/15/18 Mery Solorio RN Clinic Conservation Biology Professor Nurse 05/17/13 [place] [address] [place] [address] Family Practice 07/24/15 [place] [address] [place] [address] Otolaryngology 07/24/15 07/14/19 Sancho Brown MD [address] [facility] [address] [place] [address] Urology 02/26/18 [place] [address] [place] [address] Assigned PCP 08/08/13 Alba Desai NP [facility] [address] [place] [address] Nurse Practitioner Nurse Practitioner Psych/Mental Health 11/12/18 Jailene Pettit, WALT Personal Advocate & Liaison (PAL) Family Practice 02/03/19 05/02/19 Jessica Bowling, ANIMAL PHYSIOLOGIST Personal Advocate & Liaison (PAL) Primary Care - CC 04/30/19 06/07/19 Itzel Pandey Personal Advocate & Liaison (PAL) 06/08/19 07/14/19 Lizbet Guzmán MD [facility] [address] [place] [address] Referring Physician 06/23/19 [place] [address] [place] [address] Otolaryngology 06/23/19 Kayleigh Pearce RN Personal Advocate & Liaison (PAL) Family Practice 04/10/20 10/11/20 [place] [address] [place] [address] Assigned Behavioral Health Provider 05/05/20 09/09/20 Sancho Brown MD [address] [facility] [address] [place] [address] Assigned Surgical Provider 05/05/20 09/16/20 Soledad Mccabe MD Assigned Surgical Provider 09/17/20 11/11/20 Maritza Cope Personal Advocate & Liaison (PAL) 11/14/20 03/06/22 Sancho Brown MD [address] [facility] [address] [place] [address] Assigned Surgical Provider 11/12/20 05/10/22 [place] [address] [place] [address] Assigned Pain Medication Provider 07/22/22 Aida Hahn, DPM, Podiatry/Foot and Ankle Surgery [address] [facility] [address] [place] [address] Assigned Musculoskeletal Provider 11/02/22 Rosario Tapia, W Community Health Worker Primary Care - CC 08/19/2308/21/23 Hellen Limon Personal Advocate & Liaison (PAL) Family Medicine 08/20/23 10/12/23 June Quintana, RN Personal Advocate & Liaison (PAL) Family Medicine 10/13/23 11/09/23 Gisselle Doyle, [facility], [facility] [address] [place] [address] Assigned Behavioral Health Provider 11/04/23 Soumya MCKENZIE 4 Personal Advocate & Liaison (PAL) Family Medicine 03/07/22 09/14/23 documented as of this encounter
--- OUTSIDE RECORDS SUMMARY | 2023-12-21 07:48 | XMS_ITS | Encounter Summary ---
Author Organization [place] Address [facility] [place] [address] Care Team Providers Care Supervisor Safety Deposit Name Role Phone Mery Solorio RN Unavailable [phone] Oscar Westbrook MD Primary Care Provider [phone] Oscar Westbrook MD Unavailable [phone] Soledad Mccabe MD Unavailable Unav ailable Sancho Brown MD Unavailable [phone] Oscar Westbrook MD Unavailable [phone] Oscar Westbrook MD Unavailable [phone] [facility] BATTERY REPAIRER Unavailable [phone] Jailene Pettit RN Unavailable UnavailJessica Wen HEEL STAINER Unavailable Itzel Pandey Unavailable Unavailable Lizbet Guzmán MD Unavailable [phone] Soledad Mccabe MD Unavailable Unav ailable Kayleigh Pearce RN Unavailable Unavailable [facility], Alba L BATTERY REPAIRER Unavailable [phone] aSncho Brown MD Unavailable [phone] Soledad Mccabe MD Unavailable Unav ailable Maritza Cope Unavailable Unavailable Sancho Brown MD Unavailable [phone] Oscar Westbrook MD Unavailable [phone] Aida Hahn DPM, Podiatry /Foot and Ankle Surgery Unavailable Rosario Tapia CHW Unavailable [phone] Hellen Limon Unavailable Unavailable LilianJune RN Unavailable Unavailable [facility] Unavailable Encounter Details Date Type Department Care Team (Late st Contact Info) Description 12/26/2015 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 [place] [address] Urology 02/26/18 [place] [address] [place] [address] Assigned PCP 08/08/13 Alba Desai NP [facility] [address] [place] [address] Nurse Practitioner Nurse Practitioner Psych/Mental Health 11/12/18 Jailene Pettit, WALT Personal Advocate & Liaison (PAL) Family Practice 02/03/19 05/02/19 Jessica Bowling, HEEL STAINER Personal Advocate & Liaison (PAL) Primary Care - CC 04/30/19 06/07/19 Itzel Pandey Personal Advocate & Liaison (PAL) 06/08/19 07/14/19 Lizbet Guzmán MD [place] [address] [place] [address] Referring Physician 06/23/19 [place] [address] [facility] [place] [address] Otolaryngology 06/23/19 Kayleigh Pearce RN Personal Advocate & Liaison (PAL) Family Practice 04/10/20 10/11/20 [place] [address] [place] [address] Assigned Behavioral Health Provider 05/05/20 09/09/20 Sancho Brown MD [address] [facility] [address] [place] [address] Assigned Surgical Provider 05/05/20 09/16/20 Soledad Mccabe MD Assigned Surgical Provider 09/17/20 11/11/20 Maritza Cope Personal Advocate & Liaison (PAL) 11/14/20 03/06/22 Sancho Brown MD [address] [facility] [address] [place] [address] Assigned Surgical Provider 11/12/20 05/10/22 [place] [address] [place] [address] Assigned Pain Medication Provider 07/22/22 Aida Hahn, DPM, Podiatry/Foot and Ankle Surgery [address] [facility] [address] [place] [address] Assigned Musculoskeletal Provider 11/02/22 Rosario Tapia, W Community Health Worker Primary Care - CC 08/19/2308/21/23 Hellen Limon Personal Advocate & Liaison (PAL) Family Medicine 08/20/23 10/12/23 June Quintana, RN Personal Advocate & Liaison (PAL) Family Medicine 10/13/23 11/09/23 Gisselle Doyle, [facility], [facility] [address] [place] [address] Assigned Behavioral Health Provider 11/04/23 Soumya Saavedra Personal Advocate & Liaison (PAL) Family Medicine 03/07/22 09/14/23 documented as of this encounter
--- OUTSIDE RECORDS SUMMARY | 2023-12-21 07:48 | XMS_ITS | Encounter Summary ---
Author Organization [facility] Address [address] [place] [address] Care Team Providers Care Diversified Crops Farmer Name Role Phone Oscar Westbrook MD Primary Care Provider [phone] Oscar Westbrook MD Unavailable [phone] Soledad Mccabe MD Unavailable Unav ailable Sancho Brown MD Unavailable [phone] Oscar Westbrook MD Unavailable [phone] [facility] PROCESS CONTROL ENGINEER Unavailable [phone] Jailene Pettit RN Unavailable Unavailabl Jessica Gomez LAB AIDE Unavailable Itzel Pandey Unavailable Unavailable Lizbet Guzmán MD Unavailable [phone] Soledad Mccabe MD Unavailable Unav ailable Kayleigh Pearce RN Unavailable Unavailable [place], Alba Robert PROCESS CONTROL ENGINEER Unavailable [phone] Sancho Brown MD Unavailable [phone] Soledad Mccabe MD Unavailable Unav ailable Maritza Cope Unavailable Unavailable Sancho Brown MD Unavailable [phone] Oscar Wesbtrook MD Unavailable [phone] Aida Hahn DPM, Podiatry /Foot and Ankle Surgery Unavailable Rosario Tapia CHW Unavailable Hellen Limon Unavailable Unavailable LilianJune RN Unavailable Unavailable Vivek Gisselle REHABILITATION TEACHER, [facility] Unavailable [phone] Reason for Visit * Reason Comments Medication Refill lamoTRIgine (LAMICTA L) 100 MG tablet Encounter Details Date Type Department Care Team (Late st Contact Info) Description 10/14/2018 Refill [facility] [address] [place] [phone] Oscar Westbrook [place] [id number] [place] [address] Medication Refill (lamoTRIgine (LAMICTAL) 100 MG tablet) Social History Tobacco Use Types Packs/Day Years Used Date Smoking Tobacco: Light Smoker Cigarettes 0.5 30 Smokeless Tobacco: Former Quit: 02/22/2013 Comments:no smoking since mi d march 2018 Alcohol Use Standard Drinks/Week Comments No 0 (1 standard drink = 0.6 oz pur e alcohol) recovering alcoholic PHQ-2 Answer Date Recorded PHQ-2 Score 2 07/21/2018 Sex and Gender Information Value Date Recorded Sex Assigned at Male 11/12/2020 5:06 PM CDT Gender Identity Male 11/12/2020 5:06 PM CDT Sexual Orientation Not on file documented as of this encounter Miscellaneous Notes * Telephone Encounter - Sonali Prince RN - 10/14/2018 3:53 PM CDT Images from the original note were not included. Sent to provider due to documentation states he is on Lamictal 100 mg twice a day and med list onlystates same not dosing requested. WALT Garrido Nicole 2 hours ago (1:20 PM) Lamotrigine 200mg tablets were requested not the 100mg tablets; we did not get a new rx for 200mg on 09/15/18. Pt said they are on both strengths. ?? Please process request for 200mg lamotrigine. ?? Thanks! Irene Bearden, Straight [facility] Press [facility] [phone] Oh ?? 10/14/18 10:[address] Westbrook- see Livestationhart message below. Both below note and med list state Lamictal is to be 100 mg twice a day. Mychart message states he is taking 500 mg/d vs 200 mg/d. Please advise. Also refill request from pharmacy. See refill encounter also. I can not sign since documentation states he is on Lamictal 100 mg twice a day. Sonali Prince RN ?? Me to Nico Wilder ?? 09/15/18 2:19 PM Hi Nico, See Dr. Westbrook's message below. ??It does say they will call you to schedule but here is the number also [facility]: [facility] . Thanks, WALT Garrido Brian C, MD 14 minutes ago (2:03 PM) Referral made [facility] lamictal to 100 bid Supply crisis line [place] [phone] [facility] Crisis Line Oscar Westbrook ? Last read by Nico Wilder at 4:17 PM on 09/17/2018. ? 09/15/18 2:04 PM Oscar Westbrook MD routed this conversation to Oscar Gomez MD ? 09/15/18 2:03 PM Note Referral made [facility] Increase lamictal to 100 bid Supply crisis line [place] [phone] [facility] Crisis Line Oscar Westbrook ? 09/15/18 1:50 PM You routed this conversation to Oscar Westbrook MD Oh ? 09/15/18 1:[address] Westbrook- see mychart message below. ??Do you want to see him first as may take a bit to get in with psychiatry? ??Referral T'd up. ??Please complete and sign. ??Sonali Prince RN ?? ASSESSMENT / PLAN: (F33.1) Major depressive disorder, recurrent episode, moderate (H) ??(primary encounter diagnosis) Comment:??This is working well Plan: vortioxetine (TRINTELLIX) 20 MG tablet ?? PHQ-9 SCORE 09/09/2017 03/12/2018 07/24/2018 PHQ-9 Total Score - - - PHQ-9 Total Score MyChart 9 (Mild depression) 12 (Moderate depression) 9 (Mild depression) PHQ-9 Total Score 9 12 9 ? (G47.33) LISA (obstructive sleep apnea) Comment:??Refill Plan: methylphenidate (METADATE ER) 20 MG CR tablet, ?DISCONTINUED: methylphenidate (METADATE ER) 20 ?MG CR tablet, DISCONTINUED: methylphenidate ?(METADATE ER) 20 MG CR tablet ? (E11.42) Diabetic polyneuropathy associated with type 2 diabetes mellitus (H) Comment:??Refill Plan: HYDROcodone-acetaminophen (NORCO) 10-325 MG per ?tablet, DISCONTINUED: HYDROcodone-acetaminophen ?(NORCO) 10-325 MG per tablet, DISCONTINUED: ?HYDROcodone-acetaminophen (NORCO) 10-325 MG per ?tablet ? (I10) Essential hypertension with goal blood pressure less than 140/90 Comment:??Controlled Plan: metoprolol succinate ER (TOPROL-XL) 200 MG 24 ?hr tablet, amLODIPine-benazepril (LOTREL) 5-20 ?MG capsule ? (R25.1) Tremor Comment:??Absent Plan: metoprolol succinate ER (TOPROL-XL) 200 MG 24 ?hr tablet ? (F41.1) JOSE DE JESUS (generalized anxiety disorder) Comment:??Responsive Plan: doxepin (SINEQUAN) 10 MG capsule, lamoTRIgine ?(LAMICTAL) 100 MG tablet ? (B35.1) Onychomycosis Comment:??No response to oral antifungals Plan: ORTHO CHRONIC DISEASE MANAGER REFERRAL ? 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 (G62.9) Neuropathy Comment:??This we can eliminate Plan: ?? (G89.4) Chronic pain syndrome Comment:??controlled substance agreement filed ?? Plan: Drug ??Screen Comprehensive, Urine w/o Reported ?Meds (Pain Care Package), naloxone (NARCAN) 1 ?mg/mL for intranasal kit (2 syringes with 2 ?mucosal atomizer device) ? (Z85.46) History of prostate cancer Comment:??Discussed Plan: ?? (G47.00) Insomnia, unspecified type Comment:??No changes in his regimen Plan: ?? (J30.81) Allergic rhinitis due to animal hair and dander Comment:??Alternate agent to reduce alcohol content Plan: mometasone (NASONEX) 50 MCG/ACT nasal spray ? Oscar Westbrook MD ? Instructions ? Return in about 3 months (around 10/22/2018).? Nico Wilder to Oscar Westbrook MD ?? 10/14/18 10:38 AM The lamictal is in 2 different strengths. ??To simplify things can it be ordered in 100mg tabs (5/day). ??There is often a question about this. ??He usually takes 100mg in am and 2 tabs of 200mg in evening. ??But the refills always seem to get mixed up. * Telephone Encounter - Dominga King - 10/14/2018 2:27 PM CDT Requested Prescriptions Pending Prescriptions Disp Refills ??? lamoTRIgine (LAMICTAL) 200 MG tablet [Pharmacy Med Name: LAMOTRIGINE 200MG TABS] Last Written Prescription Date: 09/15/18 Last Fill Quantity: 180 tablets, # refills: 1 Last office visit: 09/29/2018 with prescribing provider: Pietro Future Office Visit: 180 tablet 1 Sig: TAKE ONE TABLET BY MOUTH TWICE A DAY (TOTAL DOSE OF 500MG DAILY) Anti-Seizure Meds Protocol Failed - 10/14/2018 1:22 PM Failed - Review Authorizing provider's last note. Refer to last progress notes: confirm request is for original authorizing provider (cannot be through other providers). Failed - Normal CBC on file in past 26 months Recent Labs Lab Test 05/10/18 0906 WBC 8.1 RBC 3.54* HGB 11.5* HCT 33.7* PLT 251 Passed - Recent (12 mo) or future (30 days) visit within the authorizing provider's specialty Patient had office visit in the last 12 months or has a visit in the next 30 days with authorizing provider or within the authorizing provider's specialty. See Patient Info tab in inbasket, or Choose Columns in Meds & Orders section of the refill encounter. Passed - Normal ALT or AST on file in past 26 months Recent Labs Lab Test 09/29/18 1044 ALT 36 Recent Labs Lab Test 09/29/18 1044 AST 20 Passed - Normal platelet count on file in past 26 months Recent Labs Lab Test 05/10/18 0906 PLT 251 Passed - Medication is active on med list documented in this encounter Plan of Treatment Not on file documented as of this encounter Visit Diagnoses Diagnosis JOSE DE JESUS (generalized anxiety disorder) Generalized anxiety disorder Diabetic polyneuropathy associated with type 2 diabetes mellitus (H) documented in this encounter Additional Health Concerns Assessment Noted Time PHQ-9 Depression Total Score: 9 07/25/19 19 7:02 AM RETAIL LEASING AGENT documented as of this encounter Care Teams Diversified Crops Farmer Relationship Specialty [place] [address] [place] [address] PCP - General Family Practice 08/04/13 [place] [address] [place] [address] MD Family Practice 07/24/15 [place] [address] [place] [address] Otolaryngology 07/24/15 07/14/19 Sancho Brown MD [address] [facility] [address] [place] [address] Urology 02/26/18 [place] [address] [place] [address] Assigned PCP 08/08/13 Alba Desai NP [facility] [address] [place] [address] Nurse Practitioner Nurse Practitioner Psych/Mental Health 11/12/18 Jailene Pettit, WALT Personal Advocate & Liaison (PAL) Family Practice 02/03/19 05/02/19 Jessica Bowling, LAB AIDE Personal Advocate & Liaison (PAL) Primary Care - CC 04/30/19 06/07/19 Itzel Pandey Personal Advocate & Liaison (PAL) 06/08/19 07/14/19 Lizbet Guzmán MD [facility] [address] [place] [address] Referring Physician 06/23/19 [place] [address] [place] [address] Otolaryngology 06/23/19 Kayleigh Pearce, RN Personal Advocate & Liaison (PAL) Family Practice 04/10/20 10/11/20 [place] [address] [place] [address] Assigned Behavioral Health Provider 05/05/20 09/09/20 Sancho Brown MD [address] [facility] [address] [place] [address] Assigned Surgical Provider 05/05/20 09/16/20 Soledad Mccabe MD Assigned Surgical Provider 09/17/20 11/11/20 Maritza Cope Personal Advocate & Liaison (PAL) 11/14/20 03/06/22 Sancho Brown MD [address] [facility] [address] [place] [address] Assigned Surgical Provider 11/12/20 05/10/22 [place] [address] [place] [address] Assigned Pain Medication Provider 07/22/22 Aida Hahn, DPM, Podiatry/Foot and Ankle Surgery [address] [facility] [address] [place] [address] Assigned Musculoskeletal Provider 11/02/22 Rosario Tapia, W Community Health Worker Primary Care - CC 08/19/2308/21/23 Hellen Limon Personal Advocate & Liaison (PAL) Family Medicine 08/20/23 10/12/23 June Quintana, RN Personal Advocate & Liaison (PAL) Family Medicine 10/13/23 11/09/23 Gisselle Doyle, [facility], [facility] [address] [place] [address] Assigned Behavioral Health Provider 11/04/23 Soumya Saavedra Personal Advocate & Liaison (PAL) Family Medicine 03/07/22 09/14/23 documented as of this encounter
--- OUTSIDE RECORDS SUMMARY | 2023-12-21 07:48 | XMS_ITS | Encounter Summary ---
Author Organization [place] Address [facility] [place] [address] Care Team Providers Care Nursing Program Chair Name Role Phone Luis E Figueredo MD Primary Care Provider [phone] Mery Solorio RN Unavailable [phone] Oscar Westbrook MD Primary Care Provider [phone] Oscar Westbrook MD Unavailable [phone] Soledad Mccabe MD Unavailable Unav ailable Sancho Brwon MD Unavailable [phone] Oscar Westbrook MD Unavailable [phone] Oscar Westbrook MD Unavailable [phone] [facility] Unavailable [phone] Jailene Pettit RN Unavailable UnavailJessica Wen QUALITY CONTROL LAB TECHNICIAN Unavailable Itzel Pandey Unavailable Unavailable Lizbet Guzmán MD Unavailable [phone] Soledad Mccabe MD Unavailable Unav ailable Kayleigh Pearce RN Unavailable Unavailable LloydAlba coto MANAGER APPOINTMENT Unavailable [phone] Sancho Brown MD Unavailable [phone] Soledad Mccabe MD Unavailable Unav ailable Maritza Cope Unavailable Unavailable Sancho Brown MD Unavailable Oscar Westbrook MD Unavailable [phone] Aida Hahn DPM, Podiatry /Foot and Ankle Surgery Unavailable Rosario Tapia CH Unavailable Hellen Limon Unavailable Unavailable June Quintana RN Unavailable Unavailable Gisselle DoyleSW, [facility] Unavailable Encounter Details Date Type Department Care Team (Late st Contact Info) Description 04/28/2013 [facility] [address] [phone] Soledad Grayson Social History Tobacco Use Types Packs/Day Years Used Date Smoking Tobacco: Former Cigarettes 0.5 30 0 10/21/1981 - 10/22/2011 Smokeless Tobacco: Former Quit: 02/22/2013 Comments:using nicorette gum Alcohol Use Standard Drinks/Week Comments No 0 [...] on filedocumented in this encounter Care Teams Nursing Program Chair Relationship Specialty [place] [address] [place] [address] PCP - General 06/08/00 08/03/13 [place] [address] [place] [address] PCP - General Family Practice 08/04/13 [place] [address] [place] [address] PCP - Assigned PCP 08/08/13 09/15/18 Mery Solorio RN [facility] Architect Nurse 05/17/13 [place] [address] [place], [place] [id number] Family Practice 07/24/15 [place] [address] [place] [address] Otolaryngology 07/24/15 07/14/19 Sancho Brown MD [address] [address] Urology 02/26/18 [place] [address] [place] [address] Assigned PCP 08/08/13 Alba Desai NP [address] [address] Nurse Practitioner Nurse Practitioner Psych/Mental Health 11/12/18 Jailene Pettit, WALT Personal Advocate & Liaison (PAL) Family Practice 02/03/19 05/02/19 Jessica Bowling, QUALITY CONTROL LAB TECHNICIAN Personal Advocate & Liaison (PAL) Primary Care - CC 04/30/19 06/07/19 Itzel Pandey Personal Advocate & Liaison (PAL) 06/08/19 07/14/19 Lizbet Guzmán MD [address] [place] [address] Referring Physician 06/23/19 [place] [address] [place] [address] Otolaryngology 06/23/19 Kayleigh Pearce, RN Personal Advocate & Liaison (PAL) Family Practice 04/10/20 10/11/20 Alba Desai, MANAGER APPOINTMENT [address] [place] [address] Assigned Behavioral Health Provider 05/05/20 09/09/20 Sancho Brown MD [address] [facility] [address] [place] [address] Assigned Surgical Provider 05/05/20 09/16/20 Soledad Mccabe MD Assigned Surgical Provider 09/17/20 11/11/20 Maritza Cope Personal Advocate & Liaison (PAL) 11/14/20 03/06/22 Sancho Brown MD [address] [facility] [address] [place] [address] Assigned Surgical Provider 11/12/20 05/10/22 [place] [address] [place] [address] Assigned Pain Medication Provider 07/22/22 Aida Hahn, DPM, Podiatry/Foot and Ankle Surgery [address] [facility] [address] [place] [address] Assigned Musculoskeletal Provider 11/02/22 Rosario Tapia W Community Health Worker Primary Care - CC 08/19/2308/21/23 Hellen Limon Personal Advocate & Liaison (PAL) Family Medicine 08/20/23 10/12/23 June Quintana, RN Personal Advocate & Liaison (PAL) Family Medicine 10/13/23 11/09/23 Gisselle Doyle, [facility], [facility] [address] [place] [address] Assigned Behavioral Health Provider 11/04/23 Soumya MCKENZIE 4 Personal Advocate & Liaison (PAL) Family Medicine 03/07/22 09/14/23 documented as of this encounter
--- OUTSIDE RECORDS SUMMARY | 2023-12-21 07:48 | XMS_ITS | Encounter Summary ---
Author Organization [place] Address [address] [place] [address] Care Team Providers Care Food And Beverage Controller Name Role Phone Oscar Westbrook MD Primary Care Provider [phone] Oscar Westbrook MD Unavailable [phone] Soledad Mccabe MD Unavailable Unav ailable Sancho Brown MD Unavailable [phone] Oscar Westbrook MD Unavailable [phone] [facility] LITIGATION COORDINATOR Unavailable [phone] Jailene Pettit RN Unavailable Unavailabl Jessica Gomez GLOVE WRAPPER Unavailable Itzel Pandey Unavailable Unavailable Lizbet Guzmán MD Unavailable [phone] Soledad Mccabe MD Unavailable Unav ailable Kayleigh Pearce RN Unavailable Unavailable Lloyd, Alba Robert LITIGATION COORDINATOR Unavailable [phone] Sancho Brown MD Unavailable [phone] Soledad Mccabe MD Unavailable Unav ailable Maritza Cope Unavailable Unavailable Sancho Brown MD Unavailable [phone] Oscar Westbrook MD Unavailable [phone] Aida Hahn DPM, Podiatry /Foot and Ankle Surgery Unavailable Rosario Tapia CHW Unavailable Hellen Limon Unavailable Unavailable LilianJune RN Unavailable Unavailable Vivek Gisselle PLAN MANAGER, [facility] Unavailable [phone] Reason for Visit * Reason Comments Medication Refill Encounter Details Date Type Department Care Team (Late st Contact Info) Description 02/18/2019 Refill [facility] [id number] [place] [phone] [place] [address] [place] [address] Medication Refill Social History Tobacco [...] encounter Miscellaneous Notes * Telephone Encounter - Dali Barnes RN - 02/18/2019 9:33 AM CDT Routed to provider for review.Dali Barnes RN on 02/18/2019 at 9:36 AM Requested Prescriptions Pending Prescriptions Disp Refills ??? metoprolol succinate ER (TOPROL-XL) 200 MG 24 hr tablet [Pharmacy Med Name: METOPROLOL SUCCINATE ER 200MG TB24] 90 tablet 1 Sig: TAKE ONE TABLET BY MOUTH ONCE DAILY Beta-Blockers Protocol Passed - 02/18/2019 8:30 AM Passed - Blood pressure under 140/90 in past 12 months BP Readings from Last 3 Encounters: 02/08/19 107/66 02/05/19 128/70 01/01/19 137/85 Passed - Patient is age 6 or older Passed - Recent (12 mo) [...] Medication is active on med list ??? HYDROcodone-acetaminophen (NORCO) 10-325 MG per tablet [Pharmacy Med Name: HYDROCODONE-ACETAMINOPH 10-325 TABS] 180 tablet 0 Sig: TAKE ONE TABLET BY MOUTH 6 TIMES DAILY There is no refill protocol information for this order documented in this encounter Plan of Treatment Not on file documented as of this encounter Visit Diagnoses Diagnosis Essential hypertension with goal blood pressure less than 140/90 Tremor Abnormal involuntary movements Diabetic polyneuropathy associated with type 2 diabetes mellitus (H) documented in this encounter Additional Health Concerns Assessment Noted Time PHQ-9 Depression Total Score: 16 02/06/ 019 7:02 AM CDT documented as of this encounter Care Teams Food And Beverage Controller Relationship Specialty [place] [address] [place] [address] PCP - General Family Practice 08/04/13 [place] [address] [place] [address] [place] 07/24/15 [place] [address] [place] [address] Otolaryngology 07/24/15 07/14/19 Sancho Brown MD [address] [address] Urology 02/26/18 [place] [address] [place] [address] Assigned PCP 08/08/13 Alba Desai NP [facility] [address] [place] [address] Nurse Practitioner Nurse Practitioner Psych/Mental Health 11/12/18 Jailene Pettit, WALT Personal Advocate & Liaison (PAL) Family Practice 02/03/19 05/02/19 Jessica Bowling, GLOVE WRAPPER Personal Advocate & Liaison (PAL) Primary Care - 04/30/19 06/07/19 Itzel Pandey Personal Advocate & Liaison (PAL) 06/08/19 07/14/19 Lizbet Guzmán MD [facility] [address] [facility] [address] [place] [address] Referring Physician 06/23/19 [place] [address] [place] [address] Otolaryngology 06/23/19 Kayleigh Pearce RN Personal Advocate & Liaison (PAL) Family Practice 04/10/20 10/11/20 Alba Desai LITIGATION COORDINATOR [address] [place] [address] Assigned Behavioral Health Provider 05/05/20 09/09/20 Sancho Brown MD [address] [facility] [address] [place] [address] Assigned Surgical Provider 05/05/20 09/16/20 Soledad Mccabe MD Assigned Surgical Provider 09/17/20 11/11/20 Maritza Cope Personal Advocate & Liaison (PAL) 11/14/20 03/06/22 Sancho Brown MD [address] [place] [address] Assigned Surgical Provider 11/12/20 05/10/22 [place] [address] [place] [address] Assigned Pain Medication Provider 07/22/22 Aida Hahn DPM, Podiatry/Foot and Ankle Surgery [address] [place], [place] [address] Assigned Musculoskeletal Provider 11/02/22 Rosario Tapia, [facility] Community Health Worker Primary Care - CC 08/19/2308/21/23 Hellen Limon Personal Advocate & Liaison (PAL) Family Medicine 08/20/23 10/12/23 June Quintana, RN Personal Advocate & Liaison (PAL) Family Medicine 10/13/23 11/09/23 Gisselle Doyle, [facility], [facility] [address] [place] [address] Assigned Behavioral Health Provider 11/04/23 Soumya Saavedra Personal Advocate & Liaison (PAL) Family Medicine 03/07/22 09/14/23 documented as of this encounter
--- OUTSIDE RECORDS SUMMARY | 2023-12-21 07:48 | XMS_ITS | Encounter Summary ---
Author Organization [place] Address [facility] [place] [address] Care Team Providers Care Recenterer Name Role Phone Mery Solorio RN Unavailable [phone] Oscar Westbrook MD Primary Care Provider [phone] Oscar Westbrook MD Unavailable [phone] Soledad Mccabe MD Unavailable Unav ailable Sancho Brown MD Unavailable [phone] Oscar Westbrook MD Unavailable [phone] Oscar Westbrook MD Unavailable [phone] [facility] SOCIAL STUDIES TEACHER Unavailable [phone] Jailene Pettit RN Unavailable UnavailJessica Wen PHARMACY DISTRICT MANAGER Unavailable Itzel Pandey Unavailable Unavailable Lizbet Guzmán MD Unavailable Soledad Mccabe MD Unavailable Unav ailable Kayleigh Pearce RN Unavailable Unavailable [facility], Alba L SOCIAL STUDIES TEACHER Unavailable [phone] Sancho Brown MD Unavailable [phone] Soledad Mccabe MD Unavailable Unav ailable Maritza Cope Unavailable Unavailable Sancho Brown MD Unavailable [phone] Oscar Westbrook MD Unavailable [phone] Aida Hahn DPM, Podiatry /Foot and Ankle Surgery Unavailable Rosario Tapia CHW Unavailable [phone] Hellen Limon Unavailable Unavailable LilianJune RN Unavailable Unavailable Gisselle Doyle [facility] Unavailable [phone] Reason for Visit * Reason Onset Date Comments Refill Request 04/15/2014 Metformin 1000 Encounter Details Date Type Department Care Team (Late st Contact Info) Description 04/15/2014 Refill [facility] [address] [place] [phone] [place] [address] [place] [address] Refill Request (Metformin 1000) Social History Tobacco Use Types Packs/Day Years [...] encounter Miscellaneous Notes * Telephone Encounter - Soledad Villegas RN - 04/15/2014 3:41 PM CDT RF request from pharmacy for metformin. Last OV 03/29/14, BP 122/80. Last A1C done 01/18/14 is 6.5. Lipids done 11/15/13, LDL is 124, gial is <100. Routed to for auth. * Telephone Encounter - Greta Pittman - 04/15/2014 10:22 AM CDT Last Fill Date: 02-03-14 Last Fill Quantity: 60 Last Office Visit: 03-29-14 MICROL * 08/05/2013 Value: <5 Urine Microalbumin lowest reportable value has been changed from 2 mg/L to 5 mg/L due to a methodology change on October. MICROALBUMIN Unable to calculate 08/05/2013 Creatinine Date Value Range Status 11/15/2013 0.90 0.66 - 1.25 mg/dL Final ] CHOL 141 12/23/2012 HDL 27 12/23/2012 LDL 101 01/18/2014 LDL 75 12/23/2012 TRIG 196 12/23/2012 CHOLHDLRATIO 5.1 12/23/2012 AST 23 11/15/2013 ALT 22 11/15/2013 BP Readings from Last 3 Encounters: 03/29/14 122/80 03/01/14 140/90 01/18/14 156/86 A1C 6.5 01/18/2014 A1C 6.0 08/05/2013 A1C 6.1 12/23/2012 A1C 6.0 06/24/2012 A1C 5.3 12/17/2011 Potassium Date Value Range Status 11/15/2013 4.9 3.4 - 5.3 mmol/L Final ] Gianfranco Plasencia [facility] documented in this encounter Plan of Treatment Not on file documented as of this encounter Visit Diagnoses Diagnosis Type II or unspecified type diabetes mellitus without mention of complication, not stated as uncontrolled documented in this encounter Care Teams Recenterer Relationship Specialty [place] [address] [place] [address] PCP - General Family Practice 08/04/13 [place] [address] [place] [address] PCP - Assigned PCP 08/08/13 09/15/18 Mery Solorio RN Clinic Mate Fourth Nurse 05/17/13 [place] [address] [place] [address] MD Family Practice 07/24/15 [place] [address] [place] [address] Otolaryngology 07/24/15 07/14/19 Sancho Brown MD [address] [facility] [address] [place] [address] Urology 02/26/18 [place] [address] [place] [address] Assigned PCP 08/08/13 Alba Desai NP [facility] [address] [place] [address] Nurse Practitioner Nurse Practitioner Psych/Mental Health 11/12/18 Jailene Ptetit, WALT Personal Advocate & Liaison (PAL) Family Practice 02/03/19 05/02/19 Jessica Bowling, PHARMACY DISTRICT MANAGER Personal Advocate & Liaison (PAL) Primary Care - CC 04/30/19 06/07/19 Itzel Pandey Personal Advocate & Liaison (PAL) 06/08/19 07/14/19 Lizbet Guzmán MD [facility] [address] [place] [address] Referring Physician 06/23/19 [place] [address] [place] [address] Otolaryngology 06/23/19 Kayleigh Pearce, RN Personal Advocate & Liaison (PAL) Family Practice 04/10/20 10/11/20 [place] [address] [place] [address] Assigned Behavioral Health Provider 05/05/20 09/09/20 Sancho Brown MD [address] [facility] [address] [place] [address] Assigned Surgical Provider 05/05/20 09/16/20 Soledad Mccabe MD Assigned Surgical Provider 09/17/20 11/11/20 Maritza Cope Personal Advocate & Liaison (PAL) 11/14/20 03/06/22 Sancho Brown MD [address] [facility] [address] [place] [address] Assigned Surgical Provider 11/12/20 05/10/22 [place] [address] [place] [address] Assigned Pain Medication Provider 07/22/22 Aida Hahn, DPM, Podiatry/Foot and Ankle Surgery [address] [facility] [address] [place] [address] Assigned Musculoskeletal Provider 11/02/22 Rosario Tapia, W Community Health Worker Primary Care - CC 08/19/2308/21/23 Hellen Limon Personal Advocate & Liaison (PAL) Family Medicine 08/20/23 10/12/23 June Quintana, RN Personal Advocate & Liaison (PAL) Family Medicine 10/13/23 11/09/23 Gisselle Doyle, [facility], [facility] [address] [place] [address] Assigned Behavioral Health Provider 11/04/23 Soumya Saavedra Personal Advocate & Liaison (PAL) Family Medicine 03/07/22 09/14/23 documented as of this encounter
--- OUTSIDE RECORDS SUMMARY | 2023-12-21 07:48 | XMS_ITS | Encounter Summary ---
Author Organization [place] Address [facility] [place] [address] Care Team Providers Care Plasma Processing Technician Name Role Phone Luis E Sykes MD Primary Care Provider [phone] Mery Solorio RN Unavailable [phone] Oscar Westbrook MD Primary Care Provider [phone] Oscar Westbrook MD Unavailable [phone] Soledad Mccabe MD Unavailable Unav ailable Sancho Brown MD Unavailable [phone] Oscar Westbrook MD Unavailable [phone] Oscar Westbrook MD Unavailable [phone] [facility] Unavailable Jailene Pettit RN Unavailable UnavailJessica Wen TENANT RELATIONS COORDINATOR Unavailable Itzel Pandey Unavailable Unavailable Lizbet Guzmán MD Unavailable [phone] Soledad Mccabe MD Unavailable Unav ailable Kayleigh Pearce RN Unavailable Unavailable LloydAlba coto FLATTENING PRESS OPERATOR Unavailable [phone] Sancho Brown MD Unavailable [phone] Soledad Mccabe MD Unavailable Unav Maritza Paul Unavailable Unavailable Sancho Brown MD Unavailable [phone] Oscar Westbrook MD Unavailable [phone] Aida Hahn DPM, Podiatry /Foot and Ankle Surgery Unavailable Ramiro Tapiaaelseven Chris CH Unavailable Hellen Limon Unavailable Unavailable June Quintana RN Unavailable Unavailable Gisselle DoyleSW, [facility] Unavailable [phone] Encounter Details Date Type Department Care Team (Late st Contact Info) Description 02/15/2013 Office Visit-[facility] [address] [facility] [address] [place] [address] Ramon Stark MD [address] [facility] [address] [place] [address] Social History Tobacco Use Types Packs/Day Years Used Date Smoking Tobacco: Every Day Cigarettes 0.5 30 Started: 10/21/1981; Last attempted to quit: 10/22/2011 Smokeless Tobacco: Never Comments:using nicorette gum Alcohol Use Standard Drinks/Week Comments No 0 (1 standard drink = 0.6 oz pur e alcohol) recovering alcoholic Sex and Gender Information Value Date Recorded Sex Assigned at Male 11/12/2020 5:06 PM CDT Gender Identity Male 11/12/2020 5:06 PM CDT Sexual Orientation Not on file documented as of this encounter Progress Notes * Ramon Stark MD - 02/17/2013 5:50 PM CDT Progress Note Created by: Ramon Stark MD DATE: 02/15/2013 MURALITAYLER NICO DATE OF : 1950 AGE: [age] years old Referring Physician: LUIS E SYKES Referring Clinic: [facility] CURRENT DIAGNOSES 1. - CAD, 414.00 2. Abdominal Aneurysm Without Rupture, 441.4 3. - Abnormal EKG, 794.31 4. Hyperlipidemia-mixed disorder, 272.4 5. Claudication-Intermittent, 443.9 ALLERGIES acetaminophen hydromorphone HCl oxycodone HCl MEDICATIONS (prior to changes made today) 1. amitriptyline 25 mg Tablet, 1 p.o. qHS 2. amlodipine-benazepril 5-20 mg Capsule, 1 p.o. daily 3. Aspirin 81 Mg Tablet, 1 p.o. daily 4. Ativan 0.5 mg tablet, 2 p.o. daily 5. Effexor XR 75 mg capsule,extended release 24hr, 3 p.o. daily 6. gabapentin 300 mg Capsule, 3 p.o. three times daily 7. hydrocodone-acetaminophen 5-325 mg Tablet, 1 p.o. PRN as Directed 8. ketoprofen (bulk) 100 % Powder, Take as Directed 9. metformin 1,000 mg tablet, 1 p.o. daily 10. metoprolol tartrate 50 mg Tablet, 1 p.o. twice daily 11. Nicorette 4 mg Gum, Take as Directed 12. nitroglycerin 0.4 mg Tablet, Sublingual, 1 p.o. PRN as Directed 13. Omeprazole 20 mg Tablet, Delayed Release (E.C.), 1 p.o. daily 14. Simvastatin 40 mg Tablet, 1 p.o. qHS 15. Trazodone 100 mg Tablet, 1 qHS 16. Triglide 160 mg Tablet, 1 p.o. daily 17. Vitamin D2 50,000 unit capsule, 1 tablet once a week 18. Wellbutrin SR 150 mg Tablet Sustained Release, 1 p.o. twice daily CHIEF COMPLAINTS ASPVDZ sp endovascular repair AAA followed by , CAD old history failed PCI RCA during IMI, urgent CAB x 1 to RCA, no significant disease in other ve, depression and osteoarthritis HISTORY OF PRESENT ILLNESS Nico Wilder, a 62-year-old man with coronary artery disease, atherosclerotic peripheral vasculardisease, diabetes, dyslipidemia, obesity, hypertension, and severe symptomatic osteoarthritis was seen today at your request for followup. Mr. Wilder sustained an acute inferior wall infarction in 1997. An attempt to perform urgent angioplasty was complicated by vessel dissection that required urgent single-vessel bypass surgery. A separate saphenous veinous bypass graft was placed to the posterior descending and posterolateral branch of the right coronary. At the time of his angiogram, there was no significant narrowing in the left main, LAD, or circumflex. A nuclear stress test was performed in 2010 that showed no ischemia, normal ejection fraction, and good exercise tolerance. Since I last saw the patient in January of 2012, he has been free of cardiac symptoms. Close questioning reveals no history of chest, arm, neck, jaw, or back discomfort with exertion. Mr. Wilder has a history of infrarenal aortic aneurysm treated successful with endovascular repair by Dr. Rodriguez. Dr. Rodriguez has followed the patient very carefully since then, and the patient's repair has remained intact, with no evidence of new problems. The patient significantly denies claudication or focal neurologic deficit in strength or sensation. Mr. Wilder is trying to stop smoking cigarettes. He currently smokes about three to four cigarettes a day, and Dr. Sykes has been working with him to try to stop entirely before his upcoming necksurgery. Mr. Wilder underwent bilateral knee replacements for osteoarthritis. He has previously undergone both lumbar and cervical surgery for osteoarthritis. The patient has chronic neck pain at this time and is scheduled for neck surgery with Dr. Ortiz on 03/09/2013. PAST MEDICAL HISTORY: 1. Hypertension. 2. Dyslipidemia. 3. Type 2 diabetes mellitus. 4. Atherosclerotic peripheral vascular disease. a. Status-post abdominal aortic aneurysm repair with endovascular procedure. Followed by Dr. Rodriguez. Recent study showing no evidence of problem at repair site. 5. Depression. 6. Osteoarthritis. a. Status-post bilateral knee replacements. b. History of cervical laminectomy in the past. Repeat cervical laminectomy planned on 03/09/2013. 7. History of lumbar laminectomy x2, chronic low back pain. 8. Coronary artery disease. a. Old history of inferior wall infarctions. b. Status-post urgent bypass surgery for failed attempted intervention in 1997. Vein bypass graft placed to the right coronary. No significant narrowing in the left main LAD or circumflex. Negative stress test in 2010. Exam today demonstrates a very pleasant, cooperative, soft-spoken 62-year-old man accompanied by his . His blood pressure was 116/78. His heart rate is 60. His lungs are clear to percussion and auscultation. Cardiovascular exam reveals a normal S1, with a normal S2. There is a soft S4, there isno S3. There is no murmur, rub, or click. I could not auscultate bruits over the carotids or the abdomen. There was no abdominal mass. His BMI is 31. LABORATORY STUDIES: The patient's creatinine is 0.96. His liver function studies are normal. His potassium is 5.3. His most recent LDL cholesterol was 75 on 12/23/2012. PAST HISTORY Past Medical Illnesses: depression, joint pain, HTN, hypercholesterolemia, COPD, Infrarenal AAA, Diabetes, back pain, osteoarthrosis, cervical radiculopathy, GERD, genital herpes Past Cardiac Illnesses: CAD, 3 [place]'s - 1984, 1990, 1997, PTCA-ruptured artery, emergency CABG in 1997 x 2 Surgeries/Procedures - General: Left knee replaced 1 year ago, CABG with saphenous vein grafts RCA PDA, 1997, svg to doris as well., Right knee replacement, bone graft right wrist., C 4-C6 lami, lumbar L4-L5 posterior fusion with decompression Cardiac and Vascular Surgeries: JIMBO negative, 09/20 Endovascular repair of infrarenal AAA Cardiac/Vasc Procedures-Invasive: coronary angiogram 1984 1990, 1997,, failed ptca to rca-emergent bypass Cardiology Procedures-NonInvasive: myocardial perfusion imaging (Nuclear) April 2006, Aug 2009, January 2011, echocardiogram May 2006, abdominal aortic ultrasound Aug 2009 Cardiac Cath Results: 1997 occluded RCA; left main,LAD 30%, sma digonal with 30-40%; circ mild luminal irregularities PMHx Echo Results: 05/19 mod LVH, akinesis-severe hypokinesis inf/basal posterior noriega, mild FELECIA, trace-mild MR, trace-mild TR Left Ventricular Ejection Fraction: EF<GT>50% by nuclear study -April 2006, 40% per echo , 08/23 EF 51-58 by nuc, EF<GT>55% by nuclear study -January 2011 Nuclear Results: 08/23 distal to mid- inferior/inferolateral defect consistent with infarction, 01/21 no scar or ischemia CT Results: ascending aortic aneurysm, 08/23, 04/22 CT abd--patent aortobiliac endograft without endo leak, 3/13CT angio abd - aortobiliac stent graft in good position, no endoleak, aneurysmal sac size continuesto shrink, tiny subcentimeter hepatic hypodensity unchanged LVEF of 45-50% documented via nuclear study on 01/25/2011 FAMILY HISTORY: Father - CABG, md and [place]; Mother - Age 35, cerebral aneurysm; Brother 1 - hyperlipemia, hypertension and parkinsons; Sister 1 - hyperlipemia and hypertension; CARDIAC RISK FACTORS Tobacco Abuse: currently smoking, 3 to 4 cigarettes/day, planning to address with primary care to use Varenicline; Family History of Heart Disease: positive male<GT>55 y/o, dad, both grandparents; Hyperlipidemia: positive, controlled; Hypertension: positive; Diabetes Mellitus: negative; PriorHistory of Heart Disease: previous MIs and CABG; Obesity:positive SOCIAL HISTORY Alcohol Use - history of alcohol abuse, currently not drinking and 2004; Smoking - smoking 1/4 ppd;Diet - 1 soda and 3-4 cups of coffee per day and low sodium (less than 2 grams); Lifestyle - , drives car, 3 kids from this marriage and 10 grand kids; Exercise - exercise is limited due to physical disability; Occupation - currently not working; Sexual Activity - sexually inactive; Residence - lives with ; Place of - [place]; Hours Worked - n/a; REVIEW OF SYSTEMS GENERAL negative for energy, appetite goes up and down INTEGUMENTARY denies any change in hair or nails, rashes, or skin lesions. EYES wears eye glasses/contact lenses, blurred vision EARS, NOSE, THROAT, MOUTH partial hearing loss RESPIRATORY sleep apnea, does not use cpap machine, denies dyspnea CARDIOVASCULAR edema in ankles at times, negative for chest discomfort, negative for palpitations ABDOMINAL history of GERD, constipation and takes meds GENITOURINARY-MALE frequency, nocturia, impotence MUSCULOSKELETAL chronic back pain, joint pain, joint stiffness, Right leg - Drop foot - toes feel on fire - Nerve damage from L5 NEUROLOGICAL memory deficit, numbness, in both arms and hands, inner ear problems, causing balance issues, headaches PSYCHIATRIC depression, history of drug abuse, history of alcohol abuse, med sl helps, positive for sleep disturbance ENDOCRINE polydipsia, polyuria, hyperlipidemia, increased fatigue HEMATOLOGICAL/IMMUNOLOGIC seasonal allergies PHYSICAL EXAMINATION VITAL SIGNS: Blood Pressure: 116/78Sitting, Left arm, large cuff Pulse- 60.00/min. Weight- 233.80 lbs. Height- 72 BMI Measurement: 31 CONSTITUTIONAL ambulating halls without difficulty, NAD SKIN non-diaphoretic HEAD atraumtic EYES EOMI, pupils round and equal ENT speech normal NECK supple CHEST clear without rales/rhonchi/wheezing, well healed mid-sternotomy scar CARDIAC Normal S1 and S2 soft S4 no murmur rub or click, PMI 5th intercostal space ABDOMEN moderate obesity, bowel sounds present all 4 quadarants, old abdominal scar left lower quadrant PERIPHERAL PULSES pulses full and equal in all extremities EXTREMITIES & BACK no edema, well healed scars over both knees PSYCHIATRIC appropriate in answers NEUROLOGICAL Right foot drop ambulates with cane MEDICATIONS UPDATED/STARTED TODAY: Ativan 0.5 mg tablet, 2 p.o. daily, #0 (Zero) Effexor XR 75 mg capsule,extended release 24hr, 3 p.o. daily, #0 (Zero) metformin 1,000 mg tablet, 1 p.o. daily, #0 Nicorette 4 mg Gum, Take as Directed, #0 (Zero) Vitamin D2 50,000 unit capsule, 1 tablet once a week, #0 (Zero) MEDICATIONS REFILLED/STOPPED TODAY: Abilify 5 mg Tablet 1 p.o. qHS #0 (Zero) Physician Order, Celexa 20 mg Tablet 2 p.o. daily #0 (Zero) Physician Order, cyanocobalamin (vitamin B-12) 1,000 mcg/mL Solution 1 injection monthly #0 (Zero)Physician Order, metformin 1 and 00 mg Tablet 1 p.o. twice daily #0 Dosage Decreased ASSESSMENT: Mr. Wilder is free of cardiac symptoms. His systolic blood pressure is optimal. His LDL cholesterol is optimal. He is attempting to stop smoking cigarettes. He would benefit from tobacco cessation, weight loss, and a regular exercise program. Given the patient's lack of symptoms and recent negative nuclear stress test, I do not feel any further cardiac testing or change in medical therapy would affect his risk for cardiovascular events atthe time of his upcoming extensive neck surgery. The patient understands that even in the absence of symptoms, patients who have known vascular disease will be at higher risk on average for a myocardial infarction and cardiac , but there is no other known intervention at this time that will change this risk. RECOMMENDATIONS: 1. No further cardiac testing or intervention planned prior to the patient's upcoming neck surgery.2. Would resume aspirin therapy as soon as acceptable to surgeon after the operation. 3. Continue ideal blood pressure control. 4. Weight loss. 5. Mediterranean diet. 6. Statin therapy to maintain LDL cholesterol less than 70. 7. Tobacco cessation. 8. Follow-up visit with me in about one year. We have appreciated the opportunity to care for your patient, Mr. Nico Wilder. TODAYS ORDERS 1. Return Visit 1 year Ramon Stark MD documented in this encounter Plan of Treatment Not on file documented as of this encounter Visit Diagnoses Not on filedocumented in this encounter Care Teams Plasma Processing Technician Relationship Specialty [place] [address] [place] [address] PCP - General 06/08/00 08/03/13 [place] [address] [place] [address] PCP - General Family Practice 08/04/13 [place] [address] [place] [address] PCP - Assigned PCP 08/08/13 09/15/18 Mery Solorio RN Clinic Bullet Lubricating Machine Operator Nurse 05/17/13 [place] [address] [place] [address] Family Practice 07/24/15 [place] [address] [place] [address] Otolaryngology 07/24/15 07/14/19 Sancho Brown MD [address] [address] Urology 02/26/18 [place] [address] [place] [address] Assigned PCP 08/08/13 Alba Desai NP [address] [address] Nurse Practitioner Nurse Practitioner Psych/Mental Health 11/12/18 Jailene Pettit, WALT Personal Advocate & Liaison (PAL) Family Practice 02/03/19 05/02/19 Jessica Bowling, TENANT RELATIONS COORDINATOR Personal Advocate & Liaison (PAL) Primary Care - 04/30/19 06/07/19 Itzel Pandey Personal Advocate & Liaison (PAL) 06/08/19 07/14/19 Lizbet Guzmán MD [facility] [address] [facility] [address] [place] [address] Referring Physician 06/23/19 [place] [address] [place] [address] Otolaryngology 06/23/19 Kayleigh Pearce RN Personal Advocate & Liaison (PAL) Family Practice 04/10/20 10/11/20 [place] [address] [place] [address] Assigned Behavioral Health Provider 05/05/20 09/09/20 Sancho Brown MD [address] [facility] [address] [place] [address] Assigned Surgical Provider 05/05/20 09/16/20 Soledad Mccabe MD Assigned Surgical Provider 09/17/20 11/11/20 Maritza Cope Personal Advocate & Liaison (PAL) 11/14/20 03/06/22 Sancho Brown MD [address] [facility] [address] [place] [address] Assigned Surgical Provider 11/12/20 05/10/22 [place] [address] [place] [address] Assigned Pain Medication Provider 07/22/22 Aida Hahn DPM, Podiatry/Foot and Ankle Surgery [address] [place] [address] Assigned Musculoskeletal Provider 11/02/22 Rosario Tapia, [facility] Community Health Worker Primary Care - CC 08/19/2308/21/23 Hellen Limon Personal Advocate & Liaison (PAL) Family Medicine 08/20/23 10/12/23 June Quintana RN Personal Advocate & Liaison (PAL) Family Medicine 10/13/23 11/09/23 Gisselle Doyle, [facility], [facility] [address] [place] [address] Assigned Behavioral Health Provider 11/04/23 Soumya Saavedra Personal Advocate & Liaison (PAL) Family Medicine 03/07/22 09/14/23 documented as of this encounter
--- OUTSIDE RECORDS SUMMARY | 2023-12-21 07:48 | XMS_ITS | Encounter Summary ---
Author Organization [place] Address [address] [place] [address] Care Team Providers Care Copier Field Service Technician Name Role Phone Oscar Westbrook MD Primary Care Provider [phone] Oscar Westbrook MD Unavailable [phone] Soledad Mccabe MD Unavailable Unav ailable Sancho Brown MD Unavailable [phone] Oscar Westbrook MD Unavailable [phone] [facility] BREAK OUT WORKER Unavailable [phone] Jailene Pettit RN Unavailable Unavailabl Jessica Gomez CLINICAL GENETICIST Unavailable Itzel Pandey Unavailable Unavailable Lizbet Guzmán MD Unavailable [phone] Soledad Mccabe MD Unavailable Unav ailable Kayleigh Pearce RN Unavailable Unavailable Lloyd, Alba Robert BREAK OUT WORKER Unavailable [phone] Sancho Brown MD Unavailable [phone] Soledad Mccabe MD Unavailable Unav ailable Maritza Cope Unavailable Unavailable Sancho Brown MD Unavailable [phone] Oscar Westbrook MD Unavailable [phone] Aida Hahn DPM, Podiatry /Foot and Ankle Surgery Unavailable Rosario Tapia CHW Unavailable [phone] Hellen Limon Unavailable Unavailable LilianJune RN Unavailable Unavailable Vivek Gisselle WARDROBE SPECIALIST, [facility] Unavailable Reason for Visit * Reason Onset Date Comments Prior Auth - Medication 11/26/2018 chantix- APPROVED Encounter Details Date Type Department Care Team (Late st Contact Info) Description 11/26/2018 Telephone [facility] [id number] [place] [phone] Oscar Westbrook MD [id number] [place] [id number] Prior Auth - Medication (chantix-APPROVED) Social History Tobacco Use Types Packs/Day Years [...] encounter Miscellaneous Notes * Telephone Encounter - Sujata Leon - 11/30/2018 2:39 PM CDT Images from the original note were not included. Prior Authorization Approval Authorization Effective Date: 09/01/2018 Authorization Expiration Date: 05/29/2019 Medication: chantix-APPROVED Approved Dose/Quantity: Reference #: Insurance Company: Medicare Blue - Expected CoPay: CoPay Card Available: Foundation Assistance Needed: Which Pharmacy is filling the prescription (Not needed for infusion/clinic administered): [facility] [place], [place] - [address] [facility] Pharmacy Notified: Yes Patient Notified: No Pharmacy will notify patient when medication is ready. * Telephone Encounter - Sujata Leon - 11/30/2018 2:10 PM CDT Images from the original note were not included. Central Prior Authorization Team PA Initiation Medication: chantix-Initiated Insurance Company: Medicare Blue - Pharmacy Filling the Rx: [facility] [id number] [facility] Filling Pharmacy Filling Pharmacy Fax: Start Date: 11/30/2018 * Telephone Encounter - Oscar Westbrook MD - 11/26/2018 11:45 AM CDT PA Tobacco cessation Oscar Westbrook * Telephone Encounter - Jocelin Ann - 11/26/2018 8:47 AM CDT Please do not close this encounter until this has been addressed. (prior auth approved/denied, prescriber refusal to complete prior auth or medication changed/discontinued) Prior Authorization needed on: chantix 1mg Drug [facility]: [id number] Insurance: Medica part D Bin: [id number] Pcn: [id number], Group: [id number] Insurance phone #: [phone] Pharmacy Pharmacy Phone #: [phone] Pharmacy Fax #: [phone] Please let us know if the PA gets approved or denied or if medication is changed Please change medication or provide reasoning/documentation and forward to PA Team at [id number]. Thanks, Jocelin Ann CPhT [facility] Pharmacy documented in this encounter Plan of Treatment Not on file documented as of this encounter Visit Diagnoses Not on filedocumented in this encounter Additional Health Concerns Assessment Noted Time PHQ-9 Depression Total Score: 15 019 7:05 AM CDT documented as of this encounter Care Teams Copier Field Service Technician Relationship Specialty [place] [address] [place] [address] PCP - General Family Practice 08/04/13 [place] [address] [place] [address] MD Family Practice 07/24/15 [place] [address] [place] [address] Otolaryngology 07/24/15 07/14/19 Sancho Brown MD [address] [address] Urology 02/26/18 [place] [address] [place] [address] Assigned PCP 08/08/13 Alba Desai NP [place] [address] [place] [address] Nurse Practitioner Nurse Practitioner Psych/Mental Health 11/12/18 Jailene Pettit, WALT Personal Advocate & Liaison (PAL) Family Practice 02/03/19 05/02/19 Jessica Bowling, CLINICAL GENETICIST Personal Advocate & Liaison (PAL) Primary Care - 04/30/19 06/07/19 Itzel Pandey Personal Advocate & Liaison (PAL) 06/08/19 07/14/19 Lizbet Guzmán MD [facility] [address] [facility] [address] [place] [address] Referring Physician 06/23/19 [place] [address] [place] [address] Otolaryngology 06/23/19 Kayleigh Pearce, WALT Personal Advocate & Liaison (PAL) Family Practice 04/10/20 10/11/20 [place] [address] [place] [address] Assigned Behavioral Health Provider 05/05/20 09/09/20 Sancho Brown MD [address] [facility] [address] [place] [address] Assigned Surgical Provider 05/05/20 09/16/20 Soledad Mccabe MD Assigned Surgical Provider 09/17/20 11/11/20 Maritza Cope Personal Advocate & Liaison (PAL) 11/14/20 03/06/22 Sancho Brown MD [address] [facility] [address] [place] [address] Assigned Surgical Provider 11/12/20 05/10/22 [place] [address] [place] [address] Assigned Pain Medication Provider 07/22/22 Aida Hahn DPM, Podiatry/Foot and Ankle Surgery [address] [place] [address] Assigned Musculoskeletal Provider 11/02/22 Rosario Tapia, W Community Health Worker Primary Care - CC 08/19/2308/21/23 Hellen Limon Personal Advocate & Liaison (PAL) Family Medicine 08/20/23 10/12/23 LilianJune nobles RN Personal Advocate & Liaison (PAL) Family Medicine 10/13/23 11/09/23 Gisselle Doyle, [facility], [facility] [address] [place] [address] Assigned Behavioral Health Provider 11/04/23 Soumya MCKENZIE 4 Personal Advocate & Liaison (PAL) Family Medicine 03/07/22 09/14/23 documented as of this encounter
--- OUTSIDE RECORDS SUMMARY | 2023-12-21 07:48 | XMS_ITS | Encounter Summary ---
Author Organization [place] Address [address] [place] [address] Care Team Providers Care Hosiery Looper Name Role Phone Oscar Westbrook MD Primary Care Provider [phone] Oscar Westbrook MD Unavailable Soledad Mccabe MD Unavailable Unav ailable Sancho Brown MD Unavailable [phone] Oscar Westbrook MD Unavailable [phone] [facility] COPPER FLOTATION OPERATOR Unavailable [phone] Jailene Pettit RN Unavailable Unavailabl Jessica Gomez SLP Unavailable Itzel Pandey Unavailable Unavailable Lizbet Guzmán MD Unavailable [phone] Soledad Mccabe MD Unavailable Unav ailable Kayleigh Pearce RN Unavailable Unavailable Lloyd, Alba Robert COPPER FLOTATION OPERATOR Unavailable [phone] Sancho Brown MD Unavailable [phone] Soledad Mccabe MD Unavailable Unav ailable Maritza Cope Unavailable Unavailable Sancho Brown MD Unavailable [phone] Oscar Westbrook MD Unavailable [phone] Aida Hahn DPM, Podiatry /Foot and Ankle Surgery Unavailable Rosario Tapia CHW Unavailable [phone] Hellen Limon Unavailable Unavailable LilianJune RN Unavailable Unavailable Vivek Gisselle [employer], [facility] Unavailable Reason for Visit * Reason Onset Date Comments Refill Request 12/31/2018 Encounter Details Date Type Department Care Team (Late st Contact Info) Description 12/31/2018 MyC Refill M [facility] [address] [place] [address] [phone] Oscar [place]brook [place] [id number] [place] [address] Refill Request Social History Tobacco Use [...] encounter Miscellaneous Notes * Telephone Encounter - Ina Hendrickson RN - 12/31/2018 10:19 AM CDT Requested Prescriptions Pending Prescriptions Disp Refills ??? amLODIPine-benazepril (LOTREL) 10-20 MG capsule Sig: Take 1 capsule by mouth daily Calcium Channel Blockers Protocol Failed - 12/31/2018 9:58 AM Failed - Blood pressure under 140/90 in past 12 months BP Readings from Last 3 Encounters: 12/24/18 (!) 151/92 12/04/18 118/62 11/27/18 128/70 Passed - Recent (12 mo) or future [...] - Patient is age 18 or older Passed - Normal serum creatinine on file in past 12 months Recent Labs Lab Test 11/27/18 1041 09/29/12 1008 CR 0.78 < > -- CREAT -- -- 1.0 < > = values in this interval not displayed. Routing refill request to provider for review/approval because: Labs out of range: BP not at goal Lisa Jean-Baptiste RN documented in this encounter Plan of Treatment Not on file documented as of this encounter Visit Diagnoses Diagnosis Essential hypertension with goal blood pressure less than 140/90 documented in this encounter Additional Health Concerns Assessment Noted Time PHQ-9 Depression Total Score: 13 019 7:03 AM CDT documented as of this encounter Care Teams Hosiery Looper Relationship Specialty [place] [address] [place] [address] PCP - General Family Practice 08/04/13 [place] [address] [place] [address] Family Practice 07/24/15 [place] [address] [place] [address] Otolaryngology 07/24/15 07/14/19 Sancho Brown MD [address] [place] [address] [place] [address] Urology 02/26/18 [place] [address] [place] [address] Assigned PCP 08/08/13 Alba Desai NP [facility] [address] [place] [address] Nurse Practitioner Nurse Practitioner Psych/Mental Health 11/12/18 Jailene Pettit, WALT Personal Advocate & Liaison (PAL) Family Practice 02/03/19 05/02/19 Jessica Bowling, SLP Personal Advocate & Liaison (PAL) Primary Care - CC 04/30/19 06/07/19 Itzel Pandey Personal Advocate & Liaison (PAL) 06/08/19 07/14/19 Lizbet Guzm[facility] MD [facility] [address] [facility] S [facility] [place] [address] [place] [address] Referring Physician 06/23/19 [place] [address] [place] [address] Otolaryngology 06/23/19 Kayleigh Pearce RN Personal Advocate & Liaison (PAL) Family Practice 04/10/20 10/11/20 [place] [address] [place] [address] Assigned Behavioral Health Provider 05/05/20 09/09/20 Sancho Brown MD [address] [facility] [address] [place] [address] Assigned Surgical Provider 05/05/20 09/16/20 Soledad Mccabe MD Assigned Surgical Provider 09/17/20 11/11/20 Maritza Cope Personal Advocate & Liaison (PAL) 11/14/20 03/06/22 Sancho Brown MD [address] [facility] [address] [place] [address] Assigned Surgical Provider 11/12/20 05/10/22 [place] [address] [place] [address] Assigned Pain Medication Provider 07/22/22 Aida Hahn DPM, Podiatry/Foot and Ankle Surgery [address] [place] [address] Assigned Musculoskeletal Provider 11/02/22 Rosario Tapia, [facility] Community Health Worker Primary Care - CC 08/19/2308/21/23 Hellen Limon Personal Advocate & Liaison (PAL) Family Medicine 08/20/23 10/12/23 June Quintana, RN Personal Advocate & Liaison (PAL) Family Medicine 10/13/23 11/09/23 Gisselle Doyle, [facility], [facility] [address] [place] [address] Assigned Behavioral Health Provider 11/04/23 Soumya Saavedra Personal Advocate & Liaison (PAL) Family Medicine 03/07/22 09/14/23 documented as of this encounter
--- OUTSIDE RECORDS SUMMARY | 2023-12-21 07:48 | XMS_ITS | Encounter Summary ---
Author Organization [facility] Address [facility] [place] [address] Care Team Providers Care Political Science Professor Name Role Phone Mery Solorio RN Unavailable [phone] Oscar Westbrook MD Primary Care Provider [phone] Oscar Westbrook MD Unavailable [phone] Soledad Mccabe MD Unavailable Unav ailable Sancho Brown MD Unavailable [phone] Oscar Westbrook MD Unavailable [phone] Oscar Westbrook MD Unavailable [phone] [facility] HIG[facility]AY ENGINEER Unavailable [phone] Jailene Pettit RN Unavailable UnavailJessica Wen SUPERVISOR PUBLIC HEALTH NURSING Unavailable Itzel Pandey Unavailable Unavailable Lizbet Guzmán MD Unavailable Soledad Mccabe MD Unavailable Unav ailable Kayleigh Pearce RN Unavailable Unavailable [facility], Alba L HIGHWAY ENGINEER Unavailable [phone] Sancho Brown MD Unavailable [phone] Soledad Mccabe MD Unavailable Unav ailable Maritza Cope Unavailable Unavailable Sancho Brown MD Unavailable [phone] Oscar Westbrook MD Unavailable Aida Hahn DPM, Podiatry /Foot and Ankle Surgery Unavailable Rosario Tapia CHW Unavailable [phone] Hellen Limon Unavailable Unavailable LilianJune RN Unavailable Unavailable Gisselle Doyle [facility] Unavailable [phone] Reason for Visit * Reason Onset Date Comments Other 03/29/2014 Encounter Details Date Type Department Care Team (Late st Contact Info) Description 03/29/2014 [facility] Medical Advice [facility] [address] [place] [address] [phone] Oscar [place]brook [place] [id number] [place] [address] [phone] Other Social History Tobacco Use Types Packs/Day Years [...] on filedocumented in this encounter Care Teams Political Science Professor Relationship Specialty [place] [address] [place] [address] PCP - General Family Practice 08/04/13 [place] [address] [place], [place] [id number] PCP - Assigned PCP 08/08/13 09/15/18 Mery Solorio RN Clinic Railways Assistant Nurse 05/17/13 [place] [address] [place], [place] [address] Family Practice 07/24/15 [place] [address] [place] [address] Otolaryngology 07/24/15 07/14/19 Sancho Brown MD [address] [facility] 500 [place] [address] Urology 02/26/18 [place] [address] [place] [address] Assigned PCP 08/08/13 Alba Desai NP [place] [address] [place] [address] Nurse Practitioner Nurse Practitioner Psych/Mental Health 11/12/18 Jailene Pettit RN Personal Advocate & Liaison (PAL) Family Practice 02/03/19 05/02/19 Jessica Bowling, SUPERVISOR PUBLIC HEALTH NURSING Personal Advocate & Liaison (PAL) Primary Care - CC 04/30/19 06/07/19 Itzel Pandey Personal Advocate & Liaison (PAL) 06/08/19 07/14/19 Lizbet Guzmán MD [facility] [address] [place] [address] Referring Physician 06/23/19 [place] [address] [place] [address] Otolaryngology 06/23/19 Kayleigh Pearce, RN Personal Advocate & Liaison (PAL) Family Practice 04/10/20 10/11/20 [place] [address] [place] [address] Assigned Behavioral Health Provider 05/05/20 09/09/20 Sancho Brown MD [address] [facility] S [facility] 500 [place] [address] Assigned Surgical Provider 05/05/20 09/16/20 Soledad Mccabe MD Assigned Surgical Provider 09/17/20 11/11/20 Maritza Cope Personal Advocate & Liaison (PAL) 11/14/20 03/06/22 Sancho Brown MD [address] [facility] [address] [place] [address] Assigned Surgical Provider 11/12/20 05/10/22 [place] [address] [place] [address] Assigned Pain Medication Provider 07/22/22 Aida Hahn DPM, Podiatry/Foot and Ankle Surgery [address] [place] [address] Assigned Musculoskeletal Provider 11/02/22 Rosario Tapia, W Community Health Worker Primary Care - CC 08/19/2308/21/23 Hellen Limon Personal Advocate & Liaison (PAL) Family Medicine 08/20/23 10/12/23 Lilian, June Shin RN Personal Advocate & Liaison (PAL) Family Medicine 10/13/23 11/09/23 Gisselle Doyle, [facility], [facility] [address] [place] [address] Assigned Behavioral Health Provider 11/04/23 Soumya Saavedra Personal Advocate & Liaison (PAL) Family Medicine 03/07/22 09/14/23 documented as of this encounter
--- OUTSIDE RECORDS SUMMARY | 2023-12-21 07:48 | XMS_ITS | Encounter Summary ---
Author Organization [facility] Address [facility] [place] [address] Care Team Providers Care Office Automation Clerk Name Role Phone Mery Solorio RN Unavailable [phone] Oscar Westbrook MD Primary Care Provider [phone] Oscar Westbrook MD Unavailable [phone] Soledad Mccabe MD Unavailable Unav ailable Sancho Brown MD Unavailable [phone] Oscar Westbrook MD Unavailable [phone] Oscar Westbrook MD Unavailable [phone] [facility] WOOD POLISHER Unavailable [phone] Jailene Pettit RN Unavailable UnavailJessica Wen HOSPITALITY AIDE Unavailable Itzel Pandey Unavailable Unavailable Lizbet Guzmán MD Unavailable [phone] Soledad Mccabe MD Unavailable Unav ailable Kayleigh Pearce RN Unavailable Unavailable [facility], Alba L WOOD POLISHER Unavailable [phone] Sancho Brown MD Unavailable [phone] Soledad Mccabe MD Unavailable Unav ailable Maritza Cope Unavailable Unavailable Sancho Brown MD Unavailable [phone] Oscar Westbrook MD Unavailable [phone] Aida Hahn DPM, Podiatry /Foot and Ankle Surgery Unavailable Rosario Tapia CHW Unavailable [phone] Hellen Limon Unavailable Unavailable LilianJune RN Unavailable [facility]available [facility] Reason for Visit * Reason Onset Date Comments Refill Request 04/27/2015 terbinafine Encounter Details Date Type Department Care Team (Late st Contact Info) Description 04/27/2015 Refill [facility] [address] [place] [phone] [place] [address] Refill Request (terbinafine) Social History Tobacco Use Types Packs/Day Years [...] encounter Miscellaneous Notes * Telephone Encounter - Norma Ferreira - 04/27/2015 1:22 PM CDT Terbinafine Last Written Prescription Date: 01/25/2015 Last Fill Quantity: 90, # refills: 0 Last Office Visit with [facility] primary care provider: 03/23/2015 Norma Ferreira CPhT [facility] Float Wrapper [place] documented in this encounter Plan of Treatment Not on file documented as of this encounter Visit Diagnoses Diagnosis Onychomycosis- Primary Dermatophytosis of nail documented in this encounter Care Teams Office Automation Clerk Relationship Specialty [place] [address] [place], [place] [phone] PCP - General Family Practice 08/04/13 [place] [address] [place], [place] [address] PCP - Assigned PCP 08/08/13 09/15/18 Mery Solorio RN Clinic Sales And Marketing Administrator Nurse 05/17/13 [place] [address] [place] [address] Family Practice 07/24/15 [place] [address] [place] [address] Otolaryngology 07/24/15 07/14/19 Sancho Brown MD [address] [address] Urology 02/26/18 [place] [address] [place] [address] Assigned PCP 08/08/13 Alba Desai NP [address] [address] Nurse Practitioner Nurse Practitioner Psych/Mental Health 11/12/18 Jailene Pettit, WALT Personal Advocate & Liaison (PAL) Family Practice 02/03/19 05/02/19 Jessica Bowling, HOSPITALITY AIDE Personal Advocate & Liaison (PAL) Primary Care - 04/30/19 06/07/19 Itzel Pandey Personal Advocate & Liaison (PAL) 06/08/19 07/14/19 Lizbet Guzmán MD [facility] [address] [place] [address] Referring Physician 06/23/19 [place] [address] [place] [address] Otolaryngology 06/23/19 Kayleigh Pearce RN Personal Advocate & Liaison (PAL) Family Practice 04/10/20 10/11/20 [place] [address] [place] [address] Assigned Behavioral Health Provider 05/05/20 09/09/20 Sancho rBown MD [address] [facility] [address] [facility] [address] [place] [address] Assigned Surgical Provider 05/05/20 09/16/20 Soledad Mccabe MD Assigned Surgical Provider 09/17/20 11/11/20 Maritza Cope Personal Advocate & Liaison (PAL) 11/14/20 03/06/22 Sancho Brown MD [address] [facility] [address] [facility] [place] [address] Assigned Surgical Provider 11/12/20 05/10/22 [place] [address] [place] [address] Assigned Pain Medication Provider 07/22/22 Aida Hahn DPM, Podiatry/Foot and Ankle Surgery [address] [place] [address] Assigned Musculoskeletal Provider 11/02/22 Rosario Tapia, [facility] Community Health Worker Primary Care - CC 08/19/2308/21/23 Hellen Limon Personal Advocate & Liaison (PAL) Family Medicine 08/20/23 10/12/23 LilianJune nobles RN Personal Advocate & Liaison (PAL) Family Medicine 10/13/23 11/09/23 Gisselle Doyle, [facility], [facility] [address] [place] [address] Assigned Behavioral Health Provider 11/04/23 Soumya Saavedra Personal Advocate & Liaison (PAL) Family Medicine 03/07/22 09/14/23 documented as of this encounter
--- OUTSIDE RECORDS SUMMARY | 2023-12-21 07:48 | XMS_ITS | Encounter Summary ---
Author Organization [place] Address [address] [place] [address] Care Team Providers Care Planning Technician Name Role Phone Oscar Westbrook MD Primary Care Provider [phone] Oscar Westbrook MD Unavailable [phone] Soledad Mccabe MD Unavailable Unav ailable Sancho Brown MD Unavailable [phone] Oscar Westbrook MD Unavailable [phone] [facility] BOOT MAKER Unavailable [phone] Jailene Petitt RN Unavailable Unavailabl Jessica Gomez SURVEY RESEARCH ANALYST Unavailable Itzel Pandey Unavailable Unavailable Lizbet Guzmán MD Unavailable [phone] Soledad Mccabe MD Unavailable Unav ailable Kayleigh Pearce RN Unavailable Unavailable Lloyd, Alba Robert BOOT MAKER Unavailable [phone] Sancho Brown MD Unavailable [phone] Soledad Mccabe MD Unavailable Unav ailable Maritza Cope Unavailable Unavailable Sancho Brown MD Unavailable [phone] Oscar Westbrook MD Unavailable [phone] Aida Hahn DPM, Podiatry /Foot and Ankle Surgery Unavailable Rosario Tapia CHW Unavailable Hellen Limon Unavailable Unavailable LilianJune RN Unavailable Unavailable Vivek Gisselle RELAY SHOP TESTER, [facility] Unavailable [phone] Encounter Details Date Type Department Care Team (Late st Contact Info) Description 12/15/2018 MyC Medical Advice [facility] [address] [place] [address] [place] [address] [place] [address] Social History Tobacco Use Types [...] encounter Miscellaneous Notes * Telephone Encounter - Angelia Sutton MA - 12/15/2018 11:37 AM CDT LM For Patient to call back. Let him know we walked his Rx's over to our Pharmacy. Angelia Sutton RMA documented in this encounter Plan of Treatment Not on file documented as of this encounter Visit Diagnoses Not on filedocumented in this encounter Additional Health Concerns Assessment Noted Time PHQ-9 Depression Total Score: 13 019 7:03 AM CDT documented as of this encounter Care Teams Planning Technician Relationship Specialty [place] [address] [place] [address] PCP - General Family Practice 08/04/13 [place] [address] [place], [place] [id number] MD Family Practice 07/24/15 [place] [address] [place] [address] Otolaryngology 07/24/15 07/14/19 Sancho Brown MD [address] [facility] [place] [address] Urology 02/26/18 [place] [address] [place] [address] Assigned PCP 08/08/13 Alba Desai NP [facility] [address] [place] [address] Nurse Practitioner Nurse Practitioner Psych/Mental Health 11/12/18 Jailene Pettit, WALT Personal Advocate & Liaison (PAL) Family Practice 02/03/19 05/02/19 Jessica Bowling, SURVEY RESEARCH ANALYST Personal Advocate & Liaison (PAL) Primary Care - CC 04/30/19 06/07/19 Itzel Pandey Personal Advocate & Liaison (PAL) 06/08/19 07/14/19 Lizbet Guzmán MD [facility] [address] [place] [address] Referring Physician 06/23/19 [place] [address] [place] [address] Otolaryngology 06/23/19 Kayleigh Pearce, RN Personal Advocate & Liaison (PAL) Family Practice 04/10/20 10/11/20 Alba Desai BOOT MAKER [address] [place] [address] Assigned Behavioral Health Provider 05/05/20 09/09/20 Sancho Brown MD [address] [facility] [address] [facility] [address] [place] [address] Assigned Surgical Provider 05/05/20 09/16/20 Soledad Mccabe MD Assigned Surgical Provider 09/17/20 11/11/20 Maritza Cope Personal Advocate & Liaison (PAL) 11/14/20 03/06/22 Sancho Brown MD [address] [facility] [address] [place] [address] Assigned Surgical Provider 11/12/20 05/10/22 [place] [address] [place] [address] Assigned Pain Medication Provider 07/22/22 Aida Hahn, DPM, Podiatry/Foot and Ankle Surgery [address] [place] [facility] [address] [place] [address] Assigned Musculoskeletal Provider 11/02/22 Rosario Tapia, W Community Health Worker Primary Care - CC 08/19/2308/21/23 Hellen Limon Personal Advocate & Liaison (PAL) Family Medicine 08/20/23 10/12/23 Lilian, June Shin RN Personal Advocate & Liaison (PAL) Family Medicine 10/13/23 11/09/23 Gisselle Doyle, [facility], [facility] [address] [place] [address] Assigned Behavioral Health Provider 11/04/23 Soumya Saavedra Personal Advocate & Liaison (PAL) Family Medicine 03/07/22 09/14/23 documented as of this encounter
--- OUTSIDE RECORDS SUMMARY | 2023-12-21 07:48 | XMS_ITS | Encounter Summary ---
Author Organization [place] Address [address] [place] [address] Care Team Providers Care Pen Or Pencil Assembly Machine Operator Name Role Phone Oscar Westbrook MD Primary Care Provider [phone] Oscar Westbrook MD Unavailable [phone] Soledad Mccabe MD Unavailable Unav ailable Sancho Brown MD Unavailable [phone] Oscar Westbrook MD Unavailable [phone] [facility] EMERGENCY MEDICINE SPECIALIST Unavailable [phone] Jailene Pettit RN Unavailable Unavailabl Jessica Gomez MASS COMMUNICATIONS INSTRUCTOR Unavailable Itzel Pandey Unavailable Unavailable Lizbet Guzmán MD Unavailable [phone] Soledad Mccabe MD Unavailable Unav ailable Kayleigh Pearce RN Unavailable Unavailable Lloyd, Alba Robert EMERGENCY MEDICINE SPECIALIST Unavailable [phone] Sancho Brown MD Unavailable [phone] Soledad Mccabe MD Unavailable Unav ailable Maritza Cope Unavailable Unavailable Sancho Brown MD Unavailable [phone] Oscar Westbrook MD Unavailable [phone] Aida Hahn DPM, Podiatry /Foot and Ankle Surgery Unavailable Rosario Tapia CHW Unavailable Hellen Limon Unavailable Unavailable LilianJune RN Unavailable Unavailable Vivek Gisselle CLIENT ACCOUNT SPECIALIST, [facility] Unavailable [phone] Reason for Visit * Reason Onset Date Comments Refill Request 01/18/2019 [place] Encounter Details Date Type Department Care Team (Late st Contact Info) Description 01/18/2019 MyC Refill M [facility] [address] [place] [phone] Oscar [place]brook [place] [id number] [place] [address] Refill Request ([place]) Social History Tobacco Use Types Packs/Day Years [...] Telephone Encounter - Sonali Prince RN - 01/18/2019 6:25 PM CDT MOBILE LAB TECHNICIAN updated. No concerns noted. Refill due 01/21/19. T'd up for that date. Sonali Prince RN documented in this encounter Plan of Treatment Not on file documented as of this encounter Visit Diagnoses Diagnosis Diabetic polyneuropathy associated with type 2 diabetes mellitus (H) Chronic pain syndrome documented in this encounter Additional Health Concerns Assessment Noted Time PHQ-9 Depression Total Score: 14 01/02/2 019 7:02 AM CDT documented as of this encounter Care Teams Pen Or Pencil Assembly Machine Operator Relationship Specialty [place] [address] [place] [address] PCP - General Family Practice 08/04/13 [place] [address] [place] [address] MD Family Practice 07/24/15 [place] [address] [place] [address] Otolaryngology 07/24/15 07/14/19 Sancho Brown MD [address] [facility] [address] [place] [address] Urology 02/26/18 [place] [address] [place] [address] Assigned PCP 08/08/13 Alba Desai NP [address] [address] Nurse Practitioner Nurse Practitioner Psych/Mental Health 11/12/18 Jailene Pettit, WALT Personal Advocate & Liaison (PAL) Family Practice 02/03/19 05/02/19 Jessica Bowling, MASS COMMUNICATIONS INSTRUCTOR Personal Advocate & Liaison (PAL) Primary Care - CC 04/30/19 06/07/19 Itzel Pandey Personal Advocate & Liaison (PAL) 06/08/19 07/14/19 Lizbet Guzm[facility] MD [facility] [address] [place], [place] [address] Referring Physician 06/23/19 [place] [address] [place] [address] Otolaryngology 06/23/19 Kayleigh Pearce, RN Personal Advocate & Liaison (PAL) Family Practice 04/10/20 10/11/20 Alba Desai, EMERGENCY MEDICINE SPECIALIST [address] [place] [address] Assigned Behavioral Health Provider 05/05/20 09/09/20 Sancho Brown MD [address] [facility] [address] [place] [address] Assigned Surgical Provider 05/05/20 09/16/20 Soledad Mccabe MD Assigned Surgical Provider 09/17/20 11/11/20 Maritza Cope Personal Advocate & Liaison (PAL) 11/14/20 03/06/22 Sancho Brown MD [address] [facility] [address] [place] [address] Assigned Surgical Provider 11/12/20 05/10/22 [place] [address] [place] [address] Assigned Pain Medication Provider 07/22/22 Aida Hahn DPM, Podiatry/Foot and Ankle Surgery [address] [place] [address] Assigned Musculoskeletal Provider 11/02/22 Rosario Tapia, [facility] Community Health Worker Primary Care - CC 08/19/2308/21/23 Hellen Limon Personal Advocate & Liaison (PAL) Family Medicine 08/20/23 10/12/23 June Quintana RN Personal Advocate & Liaison (PAL) Family Medicine 10/13/23 11/09/23 Gisselle Doyle, [facility], [facility] [address] [place] [address] Assigned Behavioral Health Provider 11/04/23 Soumya Saavedra Personal Advocate & Liaison (PAL) Family Medicine 03/07/22 09/14/23 documented as of this encounter
--- OUTSIDE RECORDS SUMMARY | 2023-12-21 07:48 | XMS_ITS | Encounter Summary ---
Author Organization [place] Address [address] [place] [address] Care Team Providers Care Electroplating Sales Representative Name Role Phone Oscar Westbrook MD Primary Care Provider [phone] Oscar Westbrook MD Unavailable [phone] Soledad Mccabe MD Unavailable Unav ailable Sancho Brown MD Unavailable [phone] Oscar Westbrook MD Unavailable [phone] [facility] JUNIOR ORACLE DBA Unavailable [phone] aJilene Pettit RN Unavailable Unavailabl Jessica Gomez BAG LINER Unavailable Itzel Pandey Unavailable Unavailable Lizbet Guzmán MD Unavailable [phone] Soledad Mccabe MD Unavailable Unav ailable Kayleigh Pearce RN Unavailable Unavailable Lloyd, Alba Robert JUNIOR ORACLE DBA Unavailable [phone] Sancho Brown MD Unavailable [phone] Soledad Mccabe MD Unavailable Unav ailable Maritza Cope Unavailable Unavailable Sancho Brown MD Unavailable [phone] Oscar Westbrook MD Unavailable [phone] Aida Hahn DPM, Podiatry /Foot and Ankle Surgery Unavailable Rosario Tapia CHW Unavailable Hellen Limon Unavailable Unavailable LilianJune RN Unavailable Unavailable Vivek Gisselle NEWSROOM INTERN, [facility] Unavailable [phone] Reason for Visit * Reason Onset Date Comments Refill Request 01/13/2019 methylphenidate (METADATE ER) 10 MG CR tablet Encounter Details Date Type Department Care Team (Late st Contact Info) Description 01/13/2019 MyC Refill M [facility] [address] [place] [phone] [place] [id number] [place] [address] Refill Request (methylphenidate (METADATE ... Social History Tobacco Use Types Packs/Day [...] encounter Miscellaneous Notes * Telephone Encounter - Batool Leiva RN - 01/13/2019 7:44 PM CDT Last Written Prescription Date: 12.15.18 Last Fill Quantity: 30, # refills: 0 Last office visit: 11/27/2018 with prescribing provider: Pietro Future Office Visit: Next 5 appointments (look out 90 days) Feb 05, 2019 9:15 AM CDT Return Visit with Alba Desai NP [facility] [address] [place] [address] 200 [facility] [address] Feb 08, 2019 4:50 PM CDT Office Visit with Oscar Westbrook MD, Cr Rn Pal 3a, CR EXAM ROOM 08 [facility] ([facility]) [id number] [place] [phone] Requested Prescriptions Pending Prescriptions Disp Refills ??? methylphenidate (METADATE ER) 10 MG CR tablet 30 tablet 0 Sig: Take 1 tablet (10 mg) by mouth every morning There is no refill protocol information for this order Routing refill request to provider for review/approval because: Drug not on the [facility] refill protocol Batool Leiva RN, BS Clinical Nurse Triage. documented in this encounter Plan of Treatment Not on file documented as of this encounter Visit Diagnoses Diagnosis LISA (obstructive sleep apnea) Obstructive sleep apnea (adult) (pediatric) documented in this encounter Additional Health Concerns Assessment Noted Time PHQ-9 Depression Total Score: 14 019 7:02 AM CDT documented as of this encounter Care Teams Electroplating Sales Representative Relationship Specialty [place] [address] [place] [address] PCP - General Family Practice 08/04/13 [place] [address] [place] [address] Family Practice 07/24/15 [place] [address] [place] [address] Otolaryngology 07/24/15 07/14/19 Sancho Brown MD [address] [place] [address] [place] [address] Urology 02/26/18 [place] [address] [place] [address] Assigned PCP 08/08/13 Alba Desai NP [facility] [address] [place] [address] Nurse Practitioner Nurse Practitioner Psych/Mental Health 11/12/18 Jailene Pettit, RN Personal Advocate & Liaison (PAL) Family Practice 02/03/19 05/02/19 Jessica Bowling, BAG LINER Personal Advocate & Liaison (PAL) Primary Care - CC 04/30/19 06/07/19 Itzel Pandey Personal Advocate & Liaison (PAL) 06/08/19 07/14/19 Lizbet Guzmán MD [facility] [address] [place] [address] Referring Physician 06/23/19 [place] [address] [place] [address] Otolaryngology 06/23/19 Kayleigh Pearce RN Personal Advocate & Liaison (PAL) Family Practice 04/10/20 10/11/20 Alba Desai, JUNIOR ORACLE DBA [address] [place] [address] Assigned Behavioral Health Provider 05/05/20 09/09/20 Sancho Brown MD [address] [facility] [address] [place] [address] Assigned Surgical Provider 05/05/20 09/16/20 Soledad Mccabe MD Assigned Surgical Provider 09/17/20 11/11/20 Maritza Cope Personal Advocate & Liaison (PAL) 11/14/20 03/06/22 Sancho Brown MD [address] [place] [address] Assigned Surgical Provider 11/12/20 05/10/22 [place] [address] [place] [address] Assigned Pain Medication Provider 07/22/22 Aida Hahn, DPM, Podiatry/Foot and Ankle Surgery [address] [place] [address] [place], [place] [address] Assigned Musculoskeletal Provider 11/02/22 Rosario Tapia, [facility] Community Health Worker Primary Care - CC 08/19/2308/21/23 Hellen Limon Personal Advocate & Liaison (PAL) Family Medicine 08/20/23 10/12/23 June Quintana, RN Personal Advocate & Liaison (PAL) Family Medicine 10/13/23 11/09/23 Gisselle Doyle, [facility], [facility] [address] [place] [address] Assigned Behavioral Health Provider 11/04/23 Soumya Saavedra Personal Advocate & Liaison (PAL) Family Medicine 03/07/22 09/14/23 documented as of this encounter
--- OUTSIDE RECORDS SUMMARY | 2023-12-21 07:48 | XMS_ITS | Encounter Summary ---
Author Organization [facility] Address [address] [place] [address] Care Team Providers Care Quality Control Associate Name Role Phone Oscar Westbrook MD Primary Care Provider [phone] Oscar Westbrook MD Unavailable [phone] Soledad Mccabe MD Unavailable Unav ailable Sancho Brown MD Unavailable [phone] Oscar Westbrook MD Unavailable [phone] [facility] VACUUM DRIER OPERATOR Unavailable [phone] Jailene Pettit RN Unavailable Unavailabl Jessica Gomez GRANITE POLISHER Unavailable Itzel Pandey Unavailable Unavailable Lizbet Guzmán MD Unavailable [phone] Soledad Mccabe MD Unavailable Unav ailable Kayleigh Pearce RN Unavailable Unavailable Lloyd, Alba Robert VACUUM DRIER OPERATOR Unavailable [phone] Sancho Brown MD Unavailable [phone] Soledad Mccabe MD Unavailable Unav ailable Maritza Cope Unavailable Unavailable Sancho Brown MD Unavailable [phone] Oscar Westbrook MD Unavailable [phone] Aida Hahn DPM, Podiatry /Foot and Ankle Surgery Unavailable Rosario Tapia CHW Unavailable [phone] Hellen Limon Unavailable Unavailable LilianJune RN Unavailable Unavailable Vivek Gisselle WARP KNITTER HELPER, [facility] Unavailable [phone] Reason for Visit * Reason Onset Date Comments Refill Request 02/26/2019 Encounter Details Date Type Department Care Team (Late st Contact Info) Description 02/26/2019 MyC Refill M [facility] [address] [place] [address] Sancho Brown MD [address] [facility] [address] [place], [place] [address] Refill Request Social History Tobacco Use Types [...] documented as of this encounter Care Teams Quality Control Associate Relationship Specialty [place] [address] [place] [address] PCP - General Family Practice 08/04/13 [place] [address] [place] [address] Family Practice 07/24/15 [place] [address] [place] [address] Otolaryngology 07/24/15 07/14/19 Sancho Brown MD [address] [facility] [address] [place] [address] Urology 02/26/18 [place] [address] [place], [place] [address] Assigned PCP 08/08/13 Alba Desai NP [place] [address] [place], [place] [address] Nurse Practitioner Nurse Practitioner Psych/Mental Health 11/12/18 Jailene Pettit, WALT Personal Advocate & Liaison (PAL) Family Practice 02/03/19 05/02/19 Jessica Bowling, GRANITE POLISHER Personal Advocate & Liaison (PAL) Primary Care - 04/30/19 06/07/19 Itzel Pandey Personal Advocate & Liaison (PAL) 06/08/19 07/14/19 Lizbet Guzmán MD [place] [address] [facility] [address] [place] [address] Referring Physician 06/23/19 [place] [address] [place] [address] Otolaryngology 06/23/19 Kayleigh Pearce RN Personal Advocate & Liaison (PAL) Family Practice 04/10/20 10/11/20 Alba Desai VACUUM DRIER OPERATOR [address] [place] [address] Assigned Behavioral Health Provider 05/05/20 09/09/20 Sancho Brown MD [address] [facility] [address] [facility] [address] [place] [address] Assigned Surgical Provider 05/05/20 09/16/20 Soledad Mccabe MD Assigned Surgical Provider 09/17/20 11/11/20 Maritza Cope Personal Advocate & Liaison (PAL) 11/14/20 03/06/22 Sancho Brown MD [address] [facility] [address] [place] [address] Assigned Surgical Provider 11/12/20 05/10/22 [place] [address] [place] [address] Assigned Pain Medication Provider 07/22/22 Aida Hahn, DPM, Podiatry/Foot and Ankle Surgery [address] [facility] [address] [place] [address] Assigned Musculoskeletal Provider 11/02/22 Rosario Tapia, [facility] Community Health Worker Primary Care - CC 08/19/2308/21/23 Hellen Limon Personal Advocate & Liaison (PAL) Family Medicine 08/20/23 10/12/23 June Quintana, RN Personal Advocate & Liaison (PAL) Family Medicine 10/13/23 11/09/23 Gisselle Doyle, WARP KNITTER HELPER, [facility] [address] [place] [address] Assigned Behavioral Health Provider 11/04/23 Soumya MCKENZIE 4 Personal Advocate & Liaison (PAL) Family Medicine 03/07/22 09/14/23 documented as of this encounter
--- OUTSIDE RECORDS SUMMARY | 2023-12-21 07:48 | XMS_ITS | Encounter Summary ---
Author Organization [facility] Address [facility] [place] [address] Care Team Providers Care Armored Transport Service Manager Name Role Phone Mery Solorio RN Unavailable [phone] Oscar Westbrook MD Primary Care Provider [phone] Oscar Westbrook MD Unavailable [phone] Soledad Mccabe MD Unavailable Unav ailable Sancho Brown MD Unavailable [phone] Oscar Westbrook MD Unavailable [phone] Oscar Westbrook MD Unavailable [phone] [facility] RATE MARKER Unavailable [phone] Jailene Pettit RN Unavailable UnavailJessica Wen MANAGER PLUMBING Unavailable Itzel Pandey Unavailable Unavailable Lizbet Guzmán MD Unavailable Soledad Mccabe MD Unavailable Unav ailable Kayleigh Pearce RN Unavailable Unavailable [facility], Alba L RATE MARKER Unavailable [phone] Sancho Brown MD Unavailable [phone] Soledad Mccabe MD Unavailable Unav ailable Maritza Cope Unavailable Unavailable Sancho Brown MD Unavailable [phone] Oscar Westbrook MD Unavailable [phone] Aida Hahn DPM, Podiatry /Foot and Ankle Surgery Unavailable Rosario Tapia CHW Unavailable Hellen Limon Unavailable Unavailable LilianJune RN Unavailable Unavailable [facility] Reason for Visit * Reason Onset Date Comments Refill Request 08/03/2015 Nabumetone 750mg Encounter Details Date Type Department Care Team (Late st Contact Info) Description 08/03/2015 Refill [facility] [address] [place] [phone] [place] [address] [place] [address] Refill Request (Nabumetone 750mg) Social History Tobacco Use Types Packs/Day Years [...] encounter Miscellaneous Notes * Telephone Encounter - Yuni Horne RPH - 08/04/2015 12:42 PM CST Routing refill request to provider for review/approval because: Labs out of range: Elevated blood pressure, AST Thank you, Yuni Horne, PharmD, [facility] Float Pharmacist [facility] ENISHMENT ASSOCIATE * Telephone Encounter - Charu Barroso - 08/03/2015 2:27 PM CST Relafen 750mg Last Written Prescription Date: 04/27/15 Last Quantity: 90, # refills: 1 Last Office Visit with [facility] primary care provider: 07/21/15 CREATININE Date Value Ref Range Status 04/28/2015 0.90 0.66 - 1.25 mg/dL Final AST 31 05/24/2014 ALT 59 02/09/2015 BP Readings from Last 3 Encounters: 07/21/15 128/86 06/23/15 140/98 04/28/15 138/76 ENISHMENT ASSOCIATE documented in this encounter Plan of Treatment Not on file documented as of this encounter Visit Diagnoses Diagnosis Cervicalgia- Primary documented in this encounter Additional Health Concerns Assessment Noted Time PHQ-9 Depression Total Score: 13 015 7:48 AM REPLENISHMENT ASSOCIATE documented as of this encounter Care Teams Armored Transport Service Manager Relationship Specialty [place] [address] [place] [address] PCP - General Family Practice 08/04/13 [place] [address] [place] [address] PCP - Assigned PCP 08/08/13 09/15/18 Mery Solorio RN Clinic Property Claims Manager Nurse 05/17/13 [place] [address] [place] [address] Family Practice 07/24/15 [place] [address] [place] [address] Otolaryngology 07/24/15 07/14/19 Sancho Brown MD [address] [place] [address] [place] [address] Urology 02/26/18 [place] [address] [place] [address] Assigned PCP 08/08/13 Alba Desai, RATE MARKER [facility] [address] [place], [place] [address] Nurse Practitioner Nurse Practitioner Psych/Mental Health 11/12/18 Jailene Pettit, WLAT Personal Advocate & Liaison (PAL) Family Practice 02/03/19 05/02/19 Jessica Bowling, MANAGER PLUMBING Personal Advocate & Liaison (PAL) Primary Care - CC 04/30/19 06/07/19 Itzel Pandey Personal Advocate & Liaison (PAL) 06/08/19 07/14/19 Lizbet Guzmán MD [place] [address] [place] [address] Referring Physician 06/23/19 [place] [address] [place] [address] Otolaryngology 06/23/19 Kayleigh Pearce RN Personal Advocate & Liaison (PAL) Family Practice 04/10/20 10/11/20 Alba Desai, RATE MARKER [address] [place] [address] Assigned Behavioral Health Provider 05/05/20 09/09/20 Sancho Brown MD [address] [facility] [address] [place] [address] Assigned Surgical Provider 05/05/20 09/16/20 Soledad Mccabe MD Assigned Surgical Provider 09/17/20 11/11/20 Maritza Cope Personal Advocate & Liaison (PAL) 11/14/20 03/06/22 Sancho Brown MD [address] [facility] [address] [place] [address] Assigned Surgical Provider 11/12/20 05/10/22 [place] [address] [place] [address] Assigned Pain Medication Provider 07/22/22 Aida Hahn, DPM, Podiatry/Foot and Ankle Surgery [address] [facility] [address] [place], [place] [address] Assigned Musculoskeletal Provider 11/02/22 Rosario Tapia, [facility] Community Health Worker Primary Care - CC 08/19/2308/21/23 Hellen Limon Personal Advocate & Liaison (PAL) Family Medicine 08/20/23 10/12/23 June Quintana, RN Personal Advocate & Liaison (PAL) Family Medicine 10/13/23 11/09/23 Gisselle Doyle, [facility], [facility] [address] [place] [address] Assigned Behavioral Health Provider 11/04/23 Soumya Saavedra Personal Advocate & Liaison (PAL) Family Medicine 03/07/22 09/14/23 documented as of this encounter
--- OUTSIDE RECORDS SUMMARY | 2023-12-21 07:48 | XMS_ITS | Encounter Summary ---
Author Organization [facility] Address [facility] [place] [address] Care Team Providers Care Manager Production Name Role Phone Oscar Westbrook MD Primary Care Provider [phone] Oscar Westbrook MD Unavailable [phone] Soledad Mccabe MD Unavailable Unav ailable Sancho Brown MD Unavailable [phone] Oscar Westbrook MD Unavailable [phone] Oscar Westbrook MD Unavailable [phone] [facility] PUMPER GAUGER Unavailable [phone] Jailene Pettit RN Unavailable Unavailabl Jessica Gomez BONDING EQUIPMENT OPERATOR Unavailable tIzel Pandey Unavailable Unavailable Lizbet Guzmán MD Unavailable [phone] Soledad Mccabe MD Unavailable Unav ailable Kayleigh Pearce RN Unavailable Unavailable [facility], Alba L PUMPER GAUGER Unavailable [phone] Sancho Brown MD Unavailable [phone] Soledad Mccabe MD Unavailable Unav ailable Maritza Cope Unavailable Unavailable Sancho Brown MD Unavailable [phone] Oscar Westbrook MD Unavailable [phone] Aida Hahn DPM, Podiatry /Foot and Ankle Surgery Unavailable Rosario Tapia CHW Unavailable Hellen Limon Unavailable Unavailable LilianJune RN Unavailable Unavailable Gisselle DoyleSW, [facility] Unavailable [phone] Reason for Visit * Reason Onset Date Comments Refill Request 10/02/2017 Encounter Details Date Type Department Care Team (Late st Contact Info) Description 10/02/2017 Refill [facility] [address] [place] [phone] [place] [address] [place], [place] [id number] Refill Request Social History Tobacco Use Types [...] Noted Time PHQ-9 Depression Total Score: 9 09/10/19 18 8:11 AM BIOTECH PRODUCTION SPECIALIST documented as of this encounter Care Teams Manager Production Relationship Specialty [place] [address] [place], [place] [id number] PCP - General Family Practice 08/04/13 [place] [address] [place], [place] [id number] PCP - Assigned PCP 08/08/13 09/15/18 [place] [address] [place] [address] MD Family Practice 07/24/15 [place] [address] [facility] [place] [address] Otolaryngology 07/24/15 07/14/19 Sancho Brown MD [address] [facility] [address] [place] [address] Urology 02/26/18 [place] [address] [address] [facility] [place] [address] Assigned PCP 08/08/13 Alba Desai NP [facility] [address] [place] [address] Nurse Practitioner Nurse Practitioner Psych/Mental Health 11/12/18 Jailene Pettit, WALT Personal Advocate & Liaison (PAL) Family Practice 02/03/19 05/02/19 Jessica Bowling, BONDING EQUIPMENT OPERATOR Personal Advocate & Liaison (PAL) Primary Care - CC 04/30/19 06/07/19 Itzel Pandey Personal Advocate & Liaison (PAL) 06/08/19 07/14/19 Lizbet Guzmán MD [place] [address] [place] [address] Referring Physician 06/23/19 [place] [address] [place] [place] [address] Otolaryngology 06/23/19 Kayleigh Pearce RN Personal Advocate & Liaison (PAL) Family Practice 04/10/20 10/11/20 [place] [address] [place] [address] Assigned Behavioral Health Provider 05/05/20 09/09/20 Sancho Brown MD [address] [facility] 500 [place] [address] Assigned Surgical Provider 05/05/20 09/16/20 Soeldad Mccabe MD Assigned Surgical Provider 09/17/20 11/11/20 Maritza Cope Personal Advocate & Liaison (PAL) 11/14/20 03/06/22 Sancho Brown MD [address] [facility] [address] [place] [address] Assigned Surgical Provider 11/12/20 05/10/22 [place] [address] [place] [address] Assigned Pain Medication Provider 07/22/22 Aida Hahn DPM, Podiatry/Foot and Ankle Surgery [address] [facility] [address] [place] [address] Assigned Musculoskeletal Provider 11/02/22 Rosario Tapia, W Community Health Worker Primary Care - CC 08/19/2308/21/23 Hellen Limon Personal Advocate & Liaison (PAL) Family Medicine 08/20/23 10/12/23 June Quintana RN Personal Advocate & Liaison (PAL) Family Medicine 10/13/23 11/09/23 Gisselle Doyle, [facility], [facility] [address] [place] [address] Assigned Behavioral Health Provider 11/04/23 Soumya Saavedra Personal Advocate & Liaison (PAL) Family Medicine 03/07/22 09/14/23 documented as of this encounter
--- OUTSIDE RECORDS SUMMARY | 2023-12-21 07:48 | XMS_ITS | Encounter Summary ---
Author Organization [place] Address [address] [place] [address] Care Team Providers Care First Coat Operator Name Role Phone Oscar Westbroko MD Primary Care Provider [phone] Oscar Westbrook MD Unavailable [phone] Soledad Mccabe MD Unavailable Unav ailable Sancho Brown MD Unavailable [phone] Oscar Westbrook MD Unavailable [phone] [facility] GRAB JACK WORKER Unavailable [phone] Jailene Pettit RN Unavailable Unavailabl Jessica Gomez SPRAYING MACHINE OPERATOR Unavailable Itzel Pandey Unavailable Unavailable Lizbet Guzmán MD Unavailable [phone] Soledad Mccabe MD Unavailable Unav ailable Kayleigh Pearce RN Unavailable Unavailable Lloyd, Alba Robert GRAB JACK WORKER Unavailable [phone] Sancho Brown MD Unavailable [phone] Soledad Mccabe MD Unavailable Unav ailable Maritza Cope Unavailable Unavailable Sancho Brown MD Unavailable [phone] Oscar Westbrook MD Unavailable [phone] Aida Hahn DPM, Podiatry /Foot and Ankle Surgery Unavailable Rosario Tapia CHW Unavailable [phone] Hellen Limon Unavailable Unavailable LilianJune RN Unavailable Unavailable Vivek Gisselle RN [facility], [facility] [place] Unavailable [phone] Reason for Visit * Reason Onset Date Comments Refill Request 02/18/2019 toprol xl 25mg t o take along with the 200mg (reported in chart) Encounter Details Date Type Department Care Team (Late st Contact Info) Description 02/18/2019 Refill [facility] [address] [place] [phone] [place] [id number] [place] [address] Refill Request (toprol xl 25mg to take along with the 200mg (reported in chart)) Social History Tobacco Use Types Packs/Day Years [...] Miscellaneous Notes * Telephone Encounter - Jocelin Ann - 02/18/2019 8:31 AM CDT This dose of 225mg per day is reported in chart, but we only have a prescription for the 200mg of the Toprol XL. Please send a new prescription for the Toprol XL 25mg tabs if approved. Thanks! Jocelin Ann CPhT [facility] documented in this encounter Plan of Treatment Not on file documented as of this encounter Visit Diagnoses Diagnosis Essential hypertension with goal blood pressure less than 140/90- Primary Coronary artery disease involving enterprise coronary artery of enterprise heart without angina pectoris documented in this encounter Additional Health Concerns Assessment Noted Time PHQ-9 Depression Total Score: 16 019 7:02 AM CDT documented as of this encounter Care Teams First Coat Operator Relationship Specialty [place] [address] [place] [address] PCP - General Family Practice 08/04/13 [place] [address] [place] [address] MD Family Practice 07/24/15 [place] [address] [place] [address] Otolaryngology 07/24/15 07/14/19 Sancho Brown MD [address] [address] Urology 02/26/18 [place] [address] [place] [address] Assigned PCP 08/08/13 Alba Desai NP [place] [address] [place] [address] Nurse Practitioner Nurse Practitioner Psych/Mental Health 11/12/18 Jailene Pettit, WALT Personal Advocate & Liaison (PAL) Family Practice 02/03/19 05/02/19 Jessica Bowling, SPRAYING MACHINE OPERATOR Personal Advocate & Liaison (PAL) Primary Care - 04/30/19 06/07/19 Itzel Pandey Personal Advocate & Liaison (PAL) 06/08/19 07/14/19 Lizbet Guzmán MD [facility] [address] [facility] [address] [place] [address] Referring Physician 06/23/19 [place] [address] [place] [address] Otolaryngology 06/23/19 Kayleigh Pearce, WALT Personal Advocate & Liaison (PAL) Family Practice 04/10/20 10/11/20 [place] [address] [place] [address] Assigned Behavioral Health Provider 05/05/20 09/09/20 Sancho Brown MD [address] [facility] [address] [place] [address] Assigned Surgical Provider 05/05/20 09/16/20 Soledad Mccabe MD Assigned Surgical Provider 09/17/20 11/11/20 Maritza Cope Personal Advocate & Liaison (PAL) 11/14/20 03/06/22 Sancho Brown MD [address] [facility] [address] [place] [address] Assigned Surgical Provider 11/12/20 05/10/22 [place] [address] [place] [address] Assigned Pain Medication Provider 07/22/22 Aida Hahn DPM, Podiatry/Foot and Ankle Surgery [address] [place] [address] Assigned Musculoskeletal Provider 11/02/22 Rosario Tapia, W Community Health Worker Primary Care - CC 08/19/2308/21/23 Hellen Limon Personal Advocate & Liaison (PAL) Family Medicine 08/20/23 10/12/23 LilianJune nobles RN Personal Advocate & Liaison (PAL) Family Medicine 10/13/23 11/09/23 Gisselle Doyle, [facility], [facility] [place] [address] [place] [address] Assigned Behavioral Health Provider 11/04/23 Soumya MCKENZIE 4 Personal Advocate & Liaison (PAL) Family Medicine 03/07/22 09/14/23 documented as of this encounter
--- OUTSIDE RECORDS SUMMARY | 2023-12-21 07:49 | XMS_ITS | Encounter Summary ---
Author Organization [place] Address [facility] [place] [address] Care Team Providers Care Licensing Engineer Name Role Phone Luis E Figueredo MD Primary Care Provider [phone] Mery Solorio RN Unavailable [phone] Oscar Westbrook MD Primary Care Provider [phone] Oscar Westbrook MD Unavailable [phone] Soledad Mccabe MD Unavailable Unav ailable Sancho Brown MD Unavailable [phone] Oscar Westbrook MD Unavailable [phone] Oscar Westbrook MD Unavailable [phone] [facility] Unavailable [phone] Jailene Pettit RN Unavailable UnavailJessica Wen NUMERICAL CONTROL MACHINE OPERATOR Unavailable Itzel Pandey Unavailable Unavailable Lizbet Guzmán MD Unavailable [phone] Soledad Mccabe MD Unavailable Unav ailable Kayleigh Pearce RN Unavailable Unavailable LloydAlba coto IRONWORKER WIRE FENCE ERECTOR Unavailable [phone] Sancho Brown MD Unavailable [phone] Soledad Mccabe MD Unavailable Unav Maritza Paul Unavailable Unavailable Sancho Brown MD Unavailable [phone] Oscar Westbrook MD Unavailable [phone] Aida Hahn DPM, Podiatry /Foot and Ankle Surgery Unavailable Rosario Tapia CH Unavailable Hellen Limon Unavailable Unavailable June Quintana RN Unavailable Unavailable Gisselle Doyle [facility], [facility] Unavailable [phone] Reason for Visit * Reason Onset Date Comments Refill Request 05/26/2012 Vicodin Encounter Details Date Type Department Care Team (Late st Contact Info) Description 05/26/2012 MyC Refill [address] [phone] [place] [id number] [place] [address] Refill Request (Vicodin) Social History Tobacco Use Types Packs/Day Years Used Date Smoking Tobacco: Former Cigarettes 0 10/21/1981 - 10/22/2011 Smokeless Tobacco: Never Comments:5-6 cigs/day Alcohol Use Standard Drinks/Week Comments No 0 (1 standard drink = 0.6 oz pur e alcohol) recovering alcoholic Sex and Gender Information Value Date Recorded Sex Assigned at Male 11/12/2020 5:06 PM CDT Gender Identity Male 11/12/2020 5:06 PM CDT Sexual Orientation Not on file documented as of this encounter Miscellaneous Notes * Telephone Encounter - Dee Gagnon - 05/26/2012 1:33 PM CST Refill request for Vicodin Last OV: 02/03/12 Reason: Lumbago Provider: Dr. Figueredo RTC advice: RTC 3 months Labs: na Last filled: 04/29/12 for #180, using 1-2 tablets TID Has an appointment scheduled with you for 06/24/12 Would like this to be walked over to [place] pharmacy Thank you, Dee Gagnon RN LATORY AFFAIRS CONSULTANT * Telephone Encounter - Kalin, Dee - 05/26/2012 1:28 PM CSTMessage from [facility]: Original authorizing provider: MD Nico Griffin would like a refill of the following medications: HYDROcodone-acetaminophen 5-325 MG per tablet [Luis E Figueredo MD] Preferred pharmacy: [facility] Comment: Requesting refill. Please drop off at your pharmacy. Appt to see Dr Olivera on Jun 24. Should have insurance by then. Either way, he will be there. LATORY AFFAIRS CONSULTANT documented in this encounter Plan of Treatment Not on file documented as of this encounter Visit Diagnoses Diagnosis Lumbago documented in this encounter Care Teams Licensing Engineer Relationship Specialty Start [place] [address] [place] [address] PCP - General 06/08/00 08/03/13 [place] [address] [place] [address] PCP - General Family Practice 08/04/13 [place] [address] [place] [address] PCP - Assigned PCP 08/08/13 09/15/18 Mery Solorio, RN Clinic Communication Signals Intelligence Nurse 05/17/13 [place] [address] [place] [address] Family Practice 07/24/15 [place] [address] [place] [address] Otolaryngology 07/24/15 07/14/19 Sancho Brown MD [address] [facility] [address] [place] [address] Urology 02/26/18 [place] [address] [place] [address] Assigned PCP 08/08/13 Alba Desai NP [place] [address] [place] [address] Nurse Practitioner Nurse Practitioner Psych/Mental Health 11/12/18 Jailene Pettit RN Personal Advocate & Liaison (PAL) Family Practice 02/03/19 05/02/19 Jessica Bowling, NUMERICAL CONTROL MACHINE OPERATOR Personal Advocate & Liaison (PAL) Primary Care - CC 04/30/19 06/07/19 Itzel Pandey Personal Advocate & Liaison (PAL) 06/08/19 07/14/19 Lizbet Guzmán MD [facility] [address] [facility] [address] [place] [address] Referring Physician 06/23/19 [place] [address] [place] [address] Otolaryngology 06/23/19 Kayleigh Pearce RN Personal Advocate & Liaison (PAL) Family Practice 04/10/20 10/11/20 Alba Desai, IRONWORKER WIRE FENCE ERECTOR [address] [place] [address] Assigned Behavioral Health Provider 05/05/20 09/09/20 Sancho Brown MD [address] [facility] [address] [place] [address] Assigned Surgical Provider 05/05/20 09/16/20 Soledad Mccabe MD Assigned Surgical Provider 09/17/20 11/11/20 Maritza Cope Personal Advocate & Liaison (PAL) 11/14/20 03/06/22 Sancho Brown MD [address] [facility] [address] [place] [address] Assigned Surgical Provider 11/12/20 05/10/22 [place] [address] [place] [address] Assigned Pain Medication Provider 07/22/22 Aida Hahn DPM, Podiatry/Foot and Ankle Surgery [address] [place] [address] [place] [address] Assigned Musculoskeletal Provider 11/02/22 Rosario Tapia, [facility] Community Health Worker Primary Care - CC 08/19/2308/21/23 Hellen Limon Personal Advocate & Liaison (PAL) Family Medicine 08/20/23 10/12/23 June Quintana, RN Personal Advocate & Liaison (PAL) Family Medicine 10/13/23 11/09/23 Gisselle Doyle, [employer]ING SE[employer], [facility] [address] [place] [address] Assigned Behavioral Health Provider 11/04/23 Soumya Saavedra Personal Advocate & Liaison (PAL) Family Medicine 03/07/22 09/14/23 documented as of this encounter
--- OUTSIDE RECORDS SUMMARY | 2023-12-21 07:49 | XMS_ITS | Encounter Summary ---
Author Organization [place] Address [facility] [place] [address] Care Team Providers Care Certified Ethical Hacker Name Role Phone Luis E Sykes MD Primary Care Provider [phone] Mery Solorio RN Unavailable [phone] Oscar Westbrook MD Primary Care Provider [phone] Oscar Westbrook MD Unavailable [phone] Soledad Mccabe MD Unavailable Unav ailable Sancho Brown MD Unavailable [phone] Oscar Westbrook MD Unavailable [phone] Oscar Westbrook MD Unavailable [phone] [facility] NP Unavailable [phone] Jailene Pettit RN Unavailable UnavailJessica Wen CHIEF HOSPITAL ADMINISTRATOR Unavailable Itzel Pandey Unavailable Unavailable Lizbet Guzmán MD Unavailable [phone] Soledad Mccabe MD Unavailable Unav ailable Kayleigh Pearce RN Unavailable Unavailable LloydAlba coto WIPER BLENDER Unavailable [phone] Sancho Brown MD Unavailable [phone] Soledad Mccabe MD Unavailable Unav Maritza Paul Unavailable Unavailable Sancho Brown MD Unavailable [phone] Oscar Westbrook MD Unavailable [phone] Aida Hahn DPM, Podiatry /Foot and Ankle Surgery Unavailable Willie Rosario C CH Unavailable [phone] Hellen Limon Unavailable Unavailable June Quintana RN Unavailable Unavailable Gisselle DoyleSW, [facility] Unavailable [phone] Encounter Details Date Type Department Care Team (Late st Contact Info) Description 07/25/2011 Office [facility] [address] [facility] [address] [place] [address] Ramon Stark MD [address] [facility] [address] [place] [address] Social History Tobacco Use Types Packs/Day Years Used Date Smoking Tobacco: Some Days Cigarettes Smokeless Tobacco: Never Comments:3-4 cpd Alcohol Use Standard Drinks/Week Comments No 0 (1 standard drink = 0.6 oz pur e alcohol) recovering alcoholic Sex and Gender Information Value Date Recorded Sex Assigned at Male 11/12/2020 5:06 PM CDT Gender Identity Male 11/12/2020 5:06 PM CDT Sexual Orientation Not on file documented as of this encounter Progress Notes * Ramon Stark MD - 08/02/2011 4:59 PM CST Progress Note Created by: Ramon Stark MD DATE: 07/25/2011 NICO VAZQUEZ DATE OF : 1950 AGE: [age] years old Referring Physician: LUIS E SYKES Referring Clinic: [facility] CURRENT DIAGNOSES 1. - CAD, 414.00 2. Abdominal Aneurysm Without Rupture, 441.4 3. - Abnormal EKG, 794.31 4. Hyperlipidemia-mixed disorder, 272.4 5. Claudication-Intermittent, 443.9 ALLERGIES NKA MEDICATIONS (prior to changes made today) 1. Aspirin 81 Mg Tablet, 1 p.o. daily 2. Avodart 0.5 mg Capsule, 1 p.o. daily 3. Bupropion HCl 150 mg Tablet Sustained Release 24 hr, 1 p.o. twice daily 4. Citalopram 40 Mg Tablet, 1 1/2 p.o. daily 5. Flomax 0.4 mg Capsule, Sust. Release 24 hr, 1 p.o. daily 6. Hydrocodone-acetaminophen 5-500 Mg Capsule, 1 p.o. PRN as Directed 7. lorazepam 0.5 mg Tablet, 1 p.o. twice daily 8. Lotrel 10-40 mg Capsule, 1 p.o. twice daily 9. metformin 1,000 mg Tablet, 1 p.o. twice daily 10. metoprolol succinate 100 mg Tablet Sustained Release 24 hr, 1 p.o. twice daily 11. omeprazole 20 mg Capsule, Delayed Release(E.C.), 1 p.o. daily 12. Omeprazole 20 mg Tablet, Delayed Release (E.C.), 1 p.o. daily 13. Simvastatin 40 mg Tablet, 1 p.o. qHS 14. Trazodone 100 mg Tablet, 1 qHS 15. Wellbutrin SR 150 mg Tablet Sustained Release, 1 p.o. twice daily 16. Zetia 10 mg Tablet, 1 p.o. daily 17. Zocor 40 mg Tablet, 1 p.o. daily CHIEF COMPLAINTS ASPVZ: sp endovascular repair AAA, CAD old MIx 3. sp urgent cabg to RCA svg for failed PCI. Negative nuclear scan , Diabetes, dyslipidemia, HTN and Osteoarthritis sp fusion procedures HISTORY OF PRESENT ILLNESS Nico Vazquez, a 60-year-old man with a known history of coronary artery disease status post previous percutaneous coronary intervention and subsequent urgent bypass surgery, atherosclerotic peripheral vascular disease status post endovascular repair of aorta, hypertension, dyslipidemia, depression and osteoarthritis status post multiple back surgeries, was seen today at your request for follow-up of his vascular disease in anticipation of upcoming back surgery. Mr. Vazquez sustained a myocardial infarctions in 1984 and 1980, for which he underwent percutaneous coronary intervention. In 1997 the patient presented with an acute inferior wall infarction. An attempt was made to perform angioplasty, which was complicated by vessel dissection requiring urgent bypass surgery. A saphenous venous bypass graft was placed to the posterior descending artery and posterolateral branch of the right coronary artery. His left main, left anterior descending and circumflex had no significant narrowing at the time of his infarction in 1997. Subsequent to his bypass surgery, the patient underwent endovascular repair of an infrarenal aorticaneurysm. Mr. Vazquez has a longstanding history of osteoarthritis involving his back. He had previous cervical laminectomies and lumbar laminectomies. Unfortunately, he has had continued neck pain since his cervical surgery. He had back surgery earlier this fall and has not noticed significant relief of pain. The patient has a right footdrop, for which he is using a cane at this time. His immediate postoperative course was complicated by confusion and lethargy. A magnetic resonance imaging scan of the brain showed no evidence of stroke. It was his clinician's opinion that this confusion was on the basis of medical therapy for pain treatment. Mr. Vazquez is now seeing a new surgeon, who plans repeat operation in August of 2011. Mr. Vazquez remains entirely free of chest pain. He had a nuclear stress test in January 2011 that showed a normal ejection fraction with old inferior wall infarction, but no evidence of new ischemia. The patient has a history of tobacco use. An LDL cholesterol was drawn prior to his visit here today. His LDL came back at 95. PAST MEDICAL HISTORY: 1. Hypertension. 2. Dyslipidemia. 3. Atherosclerotic peripheral vascular disease - status post abdominal aortic aneurysm repair with endovascular procedure. 4. Depression. 5. Osteoarthritis. 6. Status post bilateral knee replacements. 7. Status post cervical and lumbar surgery. 8. Coronary disease: a. Previous myocardial infarction x 3. b. Status post urgent bypass surgery to the right coronary artery for failed percutaneous intervention. No significant narrowing in the left main, left anterior descending or circumflex. c. Negative nuclear stress test in August of 2009 and January of 2011. EXAMINATION: A very pleasant, cooperative, soft spoken 60-year-old man with a flat affect. He is accompanied by a very supportive spouse. His blood pressure is 108/68, his heart rate is 60, his height is 72 inches, his weight is 209. His lungs are clear to auscultation and percussion. Cardiovascular examination shows a normal S1 with a normal S2, no S3, no murmur, rub or click. He ambulates with a cane and complains that he has a right footdrop. PAST HISTORY Past Medical Illnesses: depression, joint pain, HTN, hypercholesterolemia, COPD, Infrarenal AAA, Diabetes, back pain, osteoarthrosis, cervical radiculopathy, GERD, genital herpes Past Cardiac Illnesses: CAD, 3 HI's - 1984, 1990, 1997, PTCA-ruptured artery, emergency [...] 2009 Cardiac Cath Results: 1997 occluded RCA; 205 left main,LAD 30%, sma digonal with 30-40%; [...] 04/22 CT abd--patent aortobiliac endograft without endo leak EF<GT>50% by nuclear study -April 2006, 40% per echo , 08/23 EF 51-58 by nuc and EF<GT>55% by nuclear study -January 2011 FAMILY HISTORY: Father - CABG, md and HI; Mother - Age 35, cerebral aneurysm; Brother [...] not drinking and 2004; Smoking - smoking 1/2ppd; Diet - low fat Diet, high fiber diet and 1 soda and 3-4 cups of coffee per day; Lifestyle - ,drives car, 3 kids from this marriage and 10 grand kids; Exercise - exercise is limited due to physical disability; Occupation - currently not working; Sexual Activity - sexually inactive; Residence - lives with ; Place of - [place]; Hours Worked - n/a; REVIEW OF SYSTEMS GENERAL had back surgery, but needs to go back again, August 22 INTEGUMENTARY skin tags EYES denies diplopia, history of glaucoma or visual field defects. EARS, NOSE, THROAT, MOUTH partial hearing loss RESPIRATORY sleep apnea, does not use cpap machine, denies dyspnea CARDIOVASCULAR negative for palpitations, chest pain, orthopnea, PND, peripheral edema, syncope or claudication. ABDOMINAL history of GERD GENITOURINARY-MALE frequency, nocturia, impotence MUSCULOSKELETAL joint pain, joint stiffness, needs to have another back surgery, going in August 22 NEUROLOGICAL memory deficit, numbness, in both arms and hands, inner ear problems, causing balance issues PSYCHIATRIC depression, history of drug abuse, history of alcohol abuse, med sl helps ENDOCRINE polydipsia, polyuria, hyperlipidemia, increased fatigue HEMATOLOGICAL/IMMUNOLOGIC seasonal allergies PHYSICAL EXAMINATION VITAL SIGNS: Blood Pressure: 108/68Sitting, Left arm, large cuff Pulse- 60.00/min. Weight- 209.00 lbs. Height- 72.0 CONSTITUTIONAL ambulating halls without difficulty, NAD SKIN non-diaphoretic HEAD atraumtic EYES EOMI, pupils round and equal ENT speech normal NECK supple CHEST clear without rales/rhonchi/wheezing, well healed mid-sternotomy scar CARDIAC RRR without lift/thrill/murmur ABDOMEN non-tender PERIPHERAL PULSES ankles 2's bilateral EXTREMITIES & BACK no edema PSYCHIATRIC appropriate in answers NEUROLOGICAL Right foot drop ambulates with cane MEDICATIONS UPDATED/STARTED TODAY: IMPRESSIONS/PLAN Mr. Vazquez is free of cardiac symptoms. He had a negative nuclear scan in January of 2011 and has been free of cardiac symptoms since that time. I do not believe further pre-procedural cardiac testingor change in medical therapy would alter his risk for vascular complications at the time of surgery. Although he has known vascular disease and this makes him at higher risk for complications at the time of surgery, his overall risk should be low. He underwent a similar recent orthopedic surgery without cardiac complications. He is on excellent and appropriate medical therapy. His most recent LDL cholesterol is still above a preferred level of 70 mg/Dl. He might benefit froma change in his statin therapy. I discussed the option of changing him from simvastatin to rosuvastatin. He would prefer to have Dr. Sykes address his statin therapy after his upcoming back surgery. RECOMMENDATIONS: 1. I do not recommend any further diagnostic pre-procedural cardiac testing or change in medical therapy barring any change in symptoms between now and the time of his back surgery. 2. Continue present excellent medical therapy. 3. After surgery, you may wish to consider switching him from simvastatin to rosuvastatin at 20 mg a day. If you make this change in statin therpay, a lipid profile and ALT should be drawn about three months later to make certain his LDL is less than 70. He should continue on a Mediterranean style low fat, low cholesterol diet. 4. Follow-up visit will be scheduled with me in about six months. We greatly appreciate to help care for your patient, Mr. Nico Vazquez. TODAYS ORDERS 1. Return Visit 6 months Ramon Stark MD documented in this encounter Plan of Treatment Not on file documented as of this encounter Visit Diagnoses Not on filedocumented in this encounter Care Teams Certified Ethical Hacker Relationship Specialty [place] [address] [place] [address] PCP - General 06/08/00 08/03/13 [place] [address] [place] [address] PCP - General Family Practice 08/04/13 [place] [address] [place] [address] PCP - Assigned PCP 08/08/13 09/15/18 Mery Solorio, [facility] Azure Developer Nurse 05/17/13 [place] [address] [place] [address] Family Practice 07/24/15 [place] [address] [place] [address] Otolaryngology 07/24/15 07/14/19 Sancho Brown MD [address] [facility] [address] [place] [address] Urology 02/26/18 [place] [address] [place] [address] Assigned PCP 08/08/13 Alba Desai NP [place] [address] [place] [address] Nurse Practitioner Nurse Practitioner Psych/Mental Health 11/12/18 Jailene Pettit, [facility] Personal Advocate & Liaison (PAL) Family Practice 02/03/19 05/02/19 Jesisca Bowling, CHIEF HOSPITAL ADMINISTRATOR Personal Advocate & Liaison (PAL) Primary Care - CC 04/30/19 06/07/19 Itzel Pandey Personal Advocate & Liaison (PAL) 06/08/19 07/14/19 Lizbet Guzmán MD [facility] [address] [facility] [address] [place] [address] Referring Physician 06/23/19 [place] [address] [place] [address] Otolaryngology 06/23/19 Kayleigh Pearce, RN Personal Advocate & Liaison (PAL) Family Practice 04/10/20 10/11/20 [place] [address] [place] [address] Assigned Behavioral Health Provider 05/05/20 09/09/20 Sancho Brown MD [address] [facility] [address] [place] [address] Assigned Surgical Provider 05/05/20 09/16/20 Soledad Mccabe MD Assigned Surgical Provider 09/17/20 11/11/20 Maritza Cope Personal Advocate & Liaison (PAL) 11/14/20 03/06/22 Sancho Brown MD [address] [facility] [address] [place] [address] Assigned Surgical Provider 11/12/20 05/10/22 [place] [address] [place] [address] Assigned Pain Medication Provider 07/22/22 Aida Hahn, DPM, Podiatry/Foot and Ankle Surgery [address] [address] Assigned Musculoskeletal Provider 11/02/22 Rosario Tapia, [facility] Community Health Worker Primary Care - CC 08/19/2308/21/23 Hellen Limon Personal Advocate & Liaison (PAL) Family Medicine 08/20/23 10/12/23 June Quintana, RN Personal Advocate & Liaison (PAL) Family Medicine 10/13/23 11/09/23 Gisselle Doyle, PRESS SERVICE READER, [facility] [address] [place] [address] Assigned Behavioral Health Provider 11/04/23 Katerin PAL 4 Personal Advocate & Liaison (PAL) Family Medicine 03/07/22 09/14/23 documented as of this encounter
--- OUTSIDE RECORDS SUMMARY | 2023-12-21 07:49 | XMS_ITS | Encounter Summary ---
Author Organization [place] Address [facility] [place] [address] Care Team Providers Care Shoe Repair Cobbler Name Role Phone Luis E Figueredo MD Primary Care Provider [phone] Mery Solorio RN Unavailable [phone] Oscar Westbrook MD Primary Care Provider [phone] Oscar Westbrook MD Unavailable [phone] Soledad Mccabe MD Unavailable Unav ailable Sancho Brown MD Unavailable [phone] Oscar Westbrook MD Unavailable [phone] Oscar Westbrook MD Unavailable [phone] [facility] NP Unavailable [phone] Jailene Pettit RN Unavailable UnavailJessica Wen TELEGRAPH MECHANIC Unavailable Itzel Pandey Unavailable Unavailable Lizbet Guzmán MD Unavailable [phone] Soledad Mccabe MD Unavailable Unav ailable Kayleigh Pearce RN Unavailable Unavailable LloydAlba coto SETTLEMENT TECHNICIAN Unavailable [phone] Sancho Brown MD Unavailable [phone] Soledad Mccabe MD Unavailable Unav Maritza Paul Unavailable Unavailable Sancho Brown MD Unavailable [phone] Oscar Westbrook MD Unavailable [phone] Aida Hahn DPM, Podiatry /Foot and Ankle Surgery Unavailable Rosario Tapia CH Unavailable [phone] Hellen Limon Unavailable Unavailable June Quintana RN Unavailable Unavailable Gisselle DoyleSW, [facility] Unavailable [phone] Reason for Visit * Reason Onset Date Comments Refill Request 03/02/2012 HYDROcodone-acet aminophen Encounter Details Date Type Department Care Team (Late st Contact Info) Description 03/02/2012 MyC Refill [address] [address] [place] [id number] [place] [address] Refill Request (HYDROcodone-acetamino phen) Social History Tobacco Use Types Packs/Day Years [...] encounter Miscellaneous Notes * Telephone Encounter - Zeinab Mensah - 03/02/2012 10:52 AM CDT Date of last office visit : 02/03/12 Reason for visit : lumbago Date last filled : 02/03/12 #180 Not a pso med. Zeinab Mensah R.N. * Telephone Encounter - Zeinab Mensah - 03/02/2012 10:52 AM [facility] Original authorizing provider: MD Nico Griffin would like a refill of the following medications: HYDROcodone-acetaminophen 5-325 MG per tablet [Luis E Figueredo MD] Preferred pharmacy: [facility] Comment: Am in need of a refill. Can the rx be walked to your pharmacy? Thank you. documented in this encounter Plan of Treatment Not on file documented as of this encounter Visit Diagnoses Diagnosis Lumbago documented in this encounter Care Teams Shoe Repair Cobbler Relationship Specialty Start [place] [address] [place] [address] PCP - General 06/08/00 08/03/13 [place] [address] [place] [address] PCP - General Family Practice 08/04/13 [place] [address] [place] [address] PCP - Assigned PCP 08/08/13 09/15/18 Mery Solorio RN Clinic Business Asst Nurse 05/17/13 [place] [address] [place] [address] Family Practice 07/24/15 [place] [address] [place] [address] Otolaryngology 07/24/15 07/14/19 Sancho Brown MD [address] [facility] [address] [place] [address] Urology 02/26/18 [place] [address] [place] [address] Assigned PCP 08/08/13 Alba Desai, SETTLEMENT TECHNICIAN [facility] [address] [place] [address] Nurse Practitioner Nurse Practitioner Psych/Mental Health 11/12/18 Jailene Pettit, [facility] Personal Advocate & Liaison (PAL) Family Practice 02/03/19 05/02/19 Jessica Bowling, TELEGRAPH MECHANIC Personal Advocate & Liaison (PAL) Primary Care - CC 04/30/19 06/07/19 Itzel Pandey Personal Advocate & Liaison (PAL) 06/08/19 07/14/19 Lizbet Guzmán MD [facility] [address] [facility] [place] [address] Referring Physician 06/23/19 [place] [address] [place] [address] Otolaryngology 06/23/19 Kayleigh Pearce RN Personal Advocate & Liaison (PAL) Family Practice 04/10/20 10/11/20 Alba Desai, SETTLEMENT TECHNICIAN [address] [place] [address] Assigned Behavioral Health Provider 05/05/20 09/09/20 Sancho Brown MD [address] [facility] [address] [place] [address] Assigned Surgical Provider 05/05/20 09/16/20 Soledad Mccabe MD Assigned Surgical Provider 09/17/20 11/11/20 Maritza Cope Personal Advocate & Liaison (PAL) 11/14/20 03/06/22 Sancho Brown MD [address] [facility] [address] [place] [address] Assigned Surgical Provider 11/12/20 05/10/22 [place] [address] [place] [address] Assigned Pain Medication Provider 07/22/22 Aida Hahn DPAleida, Podiatry/Foot and Ankle Surgery [address] [facility] [address] [place] [address] Assigned Musculoskeletal Provider 11/02/22 Rosario Tapia, [facility] Community Health Worker Primary Care - CC 08/19/2308/21/23 Hellen Limon Personal Advocate & Liaison (PAL) Family Medicine 08/20/23 10/12/23 June Quintana RN Personal Advocate & Liaison (PAL) Family Medicine 10/13/23 11/09/23 Gisselle Doyle, [facility], [facility] [address] [place] [address] Assigned Behavioral Health Provider 11/04/23 Soumya Saavedra Personal Advocate & Liaison (PAL) Family Medicine 03/07/22 09/14/23 documented as of this encounter
--- OUTSIDE RECORDS SUMMARY | 2023-12-21 07:49 | XMS_ITS | Encounter Summary ---
Author Organization [place] Address [facility] [place] [address] Care Team Providers Care Director Field Services Name Role Phone Luis E Figueredo MD Primary Care Provider [phone] Mery Solorio RN Unavailable [phone] Oscar Westbrook MD Primary Care Provider [phone] Oscar Westbrook MD Unavailable [phone] Soledad Mccabe MD Unavailable Unav ailable Sancho Brown MD Unavailable [phone] Oscar Westbrook MD Unavailable [phone] Oscar Westbrook MD Unavailable [phone] [facility] Unavailable Jailene Pettit RN Unavailable UnavailJessica Wen ACROBATIC RIGGER Unavailable Itzel Pandey Unavailable Unavailable Lizbet Guzmán MD Unavailable Soledad Mccabe MD Unavailable Unav ailable Kayleigh Pearce RN Unavailable Unavailable LloydAlba coto TEST EQUIPMENT MECHANIC Unavailable [phone] Sancho Brown MD Unavailable [phone] Soledad Mccabe MD Unavailable Unav Maritza Paul Unavailable Unavailable Sancho Brown MD Unavailable [phone] Oscar Westbrook MD Unavailable [phone] Aida Hahn DPM, Podiatry /Foot and Ankle Surgery Unavailable Willie Rosario C CH Unavailable [phone] Hellen Limon Unavailable Unavailable June Quintana RN Unavailable Unavailable Gisselle DoyleSW, [facility] Unavailable [phone] Encounter Details Date Type Department Care Team (Late st Contact Info) Description 09/07/2009 Office Visit-[facility] [address] [place] [address] Ramon Stark MD [address] [facility] [address] [place] [address] Social History Tobacco Use Types Packs/Day Years Used Date Smoking Tobacco: Every Day Cigarettes 0.5 30 Alcohol Use Standard Drinks/Week Comments No 0 (1 standard drink = 0.6 oz pur e alcohol) recovering alcoholic Sex and Gender Information Value Date Recorded Sex Assigned at Male 11/12/2020 5:06 PM CDT Gender Identity Male 11/12/2020 5:06 PM CDT Sexual Orientation Not on file documented as of this encounter Progress Notes * Ramon Stark MD - 09/11/2009 10:21 AM CST Progress Note Created by: Ramon Stark MD DATE: 09/07/2009 NICO VAZQUEZ DATE OF : 1950 AGE: [age] years old Referring Physician: SACHIN LOOMIS Referring Clinic: [facility] CURRENT DIAGNOSES 1. Abdominal Aneurysm Without Rupture, 441.4 2. Hyperlipidemia-mixed disorder, 272.4 3. - CAD, 414.00 4. - Abnormal EKG, 794.31 5. Claudication-Intermittent, 443.9 ALLERGIES NKA MEDICATIONS (prior to changes made today) 1. Simvastatin 40 mg Tablet, 1 p.o. qHS 2. Atenolol 100 mg Tablet, 1 p.o. twice daily 3. Bupropion HCl 150 mg Tablet Sustained Release 24 hr, 1 p.o. twice daily 4. Omeprazole 20 mg Tablet, Delayed Release (E.C.), 1 p.o. daily 5. Aspirin 81 Mg Tablet, 1 p.o. daily 6. Trazodone 100 mg Tablet, 1 qHS 7. Hydrocodone-Acetaminophen 5-500 mg Capsule, 1 p.o. twice daily 8. Lisinopril 10 mg Tablet, 1 p.o. daily CHIEF COMPLAINTS Cardiac Assessment, AAA awaiting endovascular repair, CAD no chest pain, old CABG, dyslipidemia andHTN HISTORY OF PRESENT ILLNESS Nico Vazquez, a 58-year-old man with a known history of coronary disease, status post previous bypass surgery, hypertension, dyslipidemia, and recently diagnosed aortic aneurysm, was seen today at your request prior to a planned endovascular procedure. Mr. Vazquez has a known history of coronary disease. The patient previously sustained myocardial infarctions in 1984 and 1980, for which he underwent percutaneous coronary intervention. In 1997 the patient presented with an acute inferior wall myocardial infarction. The left main had 20% ostial narrowing. The LAD had luminal irregularities with no narrowing exceeding 30%. The first diagonal branch had a 30-40% narrowing. The circumflex had atherosclerotic change, with no significant narrowing.There were collaterals to the distal right coronary. An attempt was made to open the occluded rightcoronary which was complicated by dissection of the vessel. The patient underwent urgent bypass surgery at which time a saphenous venous bypass graft was placed to the posterior descending and posterolateral branches of the right coronary artery. Subsequent to his surgical procedure, the patient has been free of angina. He has been last seen inour office in 2005. He underwent a nuclear stress test in 2006 which was negative for ischemia. Recently because of some low back pain the patient underwent an MRI scan. He was found to have an incidental 5.7 fusiform infrarenal aneurysm. He has been seen by Dr. Rodriguez and has been scheduled for endovascular repair in September. A preprocedural cardiac evaluation was requested. Prior to my seeing him in the clinic, the patient underwent an adenosine nuclear scan. This scan was performed on 08/18/09 and shows an ejection fraction of 51% with a fixed inferolateral defect comparable with an old inferior wall infarction. There were no other areas of ischemia seen. Mr. Vazquez remains free of angina. He is fairly sedentary but does not describe any chest discomfort during his usual activities. He continues to smoke cigarettes, about three to four cigarettes per day. He plans to speak to Dr. Figueredo for the use of varenicline at the time of his next visit. PAST MEDICAL HISTORY: 1. Hypertension. 2. Dyslipidemia - recent LDL cholesterol of 63. 3. Peripheral vascular disease - manifested with abdominal aortic aneurysm. Endovascular repair is planned. 4. History of depression. 5. Osteoarthritis. 6. Status post bilateral knee replacements. 7. Coronary disease. A. Previous myocardial infarction x 3. B. Previous single-vessel urgent bypass surgery for failed PCI with single vessel graft to right coronary. No significant narrowing in the left main, LAD, or circumflex at that time. C. Recent negative nuclear scan. Cardiovascular examination demonstrates a very pleasant and cooperative 58-year-old man. He is overweight. His blood pressure was 159/98, heart rate was 55. His lungs are clear to percussion and auscultation. Cardiovascular exam: Normal S1 with a normal S2. There is a soft systolic ejection murmur.Abdominal exam demonstrates obesity. I cannot palpate any masses or tenderness. His pulses are fulland symmetrical. The patient told me he has a followup visit planned with Dr. Figueredo sometime in the near future. Usually, his blood pressures have been better controlled. ASSESSMENT: Mr. Vazquez is free of angina. A recent nuclear stress test showed a well preserved ejection fraction with no inducible ischemia. At present, I do not feel any further cardiac testing will be neededprior to his upcoming aneurysm repair. His blood pressure appears to be somewhat suboptimally controlled. I believe he may need an increase in his lisinopril or the addition of a diuretic medication.The patient does plan follow up with his primary care doctor in the future. I reviewed the importance of cessation of all tobacco use for the prevention of vascular disease. [place] urged the patient to stop smoking cigarettes. I told the patient if his blood pressure remains greater than 140 I would likely recommend his primary care doctor double his lisinopril to 20 b.i.d. and if his blood pressure was not controlled after this I would add low dose hydrochlorothiazide. The patient is on a beta-otoniel with good control of his heart rate. His LDL cholesterol is under excellent control. His HDL cholesterol is low, which likely reflects his current sedentary lifestyle. He would likely benefit from exercise once his aneurysm has been treated. PAST HISTORY Past Medical Illnesses: depression, joint pain, HTN, hypercholesterolemia, COPD Past Cardiac Illnesses: CAD, 3 [place]'s - 1984, 1990, 1997, PTCA-ruptured artery, emergency CABG in 1997 x 2 Surgeries/Procedures - General: Left knee replaced 1 year ago, CABG with saphenous vein grafts RCA PDA, 1997, svg to doris as well., Right knee replacement, bone graft right wrist. Cardiac and Vascular Procedures: JIMBO negative Cardiology Procedures-Invasive: coronary angiogram 1984 1990, 1997,, failed ptca to rca-emergent bypass Cardiology Procedures-Noninvasive: myocardial perfusion imaging (Nuclear) April 2006, Aug 2009, echocardiogram May 2006, abdominal aortic ultrasound Aug 2009 Cardiac Cath Results: 1997 occluded RCA; left main,LAD 30%, sma digonal with 30-40%; circ mild luminal irregularities Left Ventricular Ejection Fraction: EF<GT>50% by nuclear study -April 2006, 40% per echo , 08/23 EF 51-58 by nuc Nuclear Results: 08/23 distal to mid- inferior/inferolateral defect consistent with infarction CT Results: ascending aortic aneurysm, 08/23 FAMILY HISTORY: Father - CABG, [place] and [place]; Mother - Age 35, cerebral aneurysm; Brother [...] currently not drinking and 2004; Smoking - 3-4 cigs per day; Diet - low fat Diet, high fiber diet and 1 soda and 3-4 cups of coffee per day; Lifestyle - , drives car, 3 kids from this marriage and 10 grand kids; Exercise - no regular exercise; 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 EARS, NOSE, THROAT, MOUTH partial hearing loss RESPIRATORY dyspnea, sleep apnea CARDIOVASCULAR negative for palpitations, chest pain, orthopnea, PND, peripheral edema, syncope or claudication. ABDOMINAL history of GERD GENITOURINARY-MALE frequency, nocturia, impotence MUSCULOSKELETAL joint pain, joint stiffness, arthritis NEUROLOGICAL memory deficit, numbness, in both arms and hands PSYCHIATRIC depression, history of drug abuse, history of alcohol abuse, med sl helps ENDOCRINE polydipsia, polyuria, hyperlipidemia HEMATOLOGICAL/IMMUNOLOGIC seasonal allergies PHYSICAL EXAMINATION VITAL SIGNS: Blood Pressure: 169/98Sitting, Right arm, large cuff Pulse- 55.00/min. Weight- 249.30 lbs. Height- 72.00 Temperature- .00 CONSTITUTIONAL obese, well nourished SKIN warm and dry to touch, no apparent skin lesions, or masses noted. HEAD normocephalic, atraumatic EYES Pupils equal and round, conjunctivae and lids unremarkable, sclera white, no xanthalasma ENT no pallor or cyanosis, dentition good NECK carotid pulses are full and equal bilaterally, JVP normal, no carotid bruit, no thyromegaly CHEST clear to auscultation, normal symmetry, no tenderness to palpation CARDIAC S1 normal, S2 normal, apical impulse not displaced, no murmurs, S4 present, PMI 5th intercostal space ABDOMEN abdomen soft, bowel sounds normoactive, no hepatosplenomegaly PERIPHERAL PULSES pulses full and equal in all extremities, no bruits auscultated., no abdominal mass or tenderness EXTREMITIES & BACK no clubbing, cyanosis or edema NEUROLOGICAL no gross motor deficits noted, affect appropriate, oriented to time, person and place. MEDICATIONS UPDATED/STARTED TODAY: IMPRESSIONS/PLAN RECOMMENDATIONS: 1. No further cardiac testing is needed prior the patient's aneurysm repair. 2. I have advised the patient to arrange a follow-up visit with his primary care doctor for treatment of his blood pressure and tobacco use. In particular, I would advise doubling the patient's lisinopril to 20 b.i.d. and adding hydrochlorothiazide should his systolic blood pressure remain greater than 140. 3. I would support the use of varenicline for tobacco cessation. 4. I instructed the patient in a Mediterranean-style low fat, left cholesterol diet and referred him to the AHA website. 5. Once the aneurysm is repaired, we would advise aerobic exercise of 30-45 minutes a day. 6. We have arranged a follow-up visit here in about one year if this is acceptable withDr. Figueredo. Please contact us if there are future questions regarding this patient's cardiovascular care. TODAYS ORDERS 1. F/U with Ramon Stark MD 1 year Ramon Stark MD CC:Luis E Figueredo M.D. documented in this encounter Plan of Treatment Not on file documented as of this encounter Visit Diagnoses Not on filedocumented in this encounter Care Teams Director Field Services Relationship Specialty Start [place] [address] [place] [address] PCP - General 06/08/00 08/03/13 [place] [address] [facility] [place] [address] PCP - General [facility] Practice 08/04/13 [place] [address] [place] [address] PCP - Assigned PCP 08/08/13 09/15/18 Mery Solorio RN [facility] [employer] Nurse 05/17/13 [place] [address] [place] [address] PR Family Practice 07/24/15 [place] [address] [place] [address] Otolaryngology 07/24/15 07/14/19 Sancho Brown MD [address] [address] [place] [place] [address] Urology 02/26/18 [place] [address] [place] [address] Assigned PCP 08/08/13 Alba Desai, TEST EQUIPMENT MECHANIC [facility] [address] [place] [address] Nurse Practitioner Nurse Practitioner Psych/Mental Health 11/12/18 Jailene Pettit, RN Personal Advocate & Liaison (PAL) Family Practice 02/03/19 05/02/19 Jessica Bowling, ACROBATIC RIGGER Personal Advocate & Liaison (PAL) Primary Care - CC 04/30/19 06/07/19 Itzel Pandey Personal Advocate & Liaison (PAL) 06/08/19 07/14/19 Lizbet Guzmán MD [facility] [address] [facility] [address] [place] [address] Referring Physician 06/23/19 [place] [address] [place] [address] Otolaryngology 06/23/19 Kayleigh Pearce RN Personal Advocate & Liaison (PAL) Family Practice 04/10/20 10/11/20 Alba Desai, TEST EQUIPMENT MECHANIC [address] [place] [address] Assigned Behavioral Health Provider 05/05/20 09/09/20 Sancho Brown MD [address] [facility] [address] [place] [address] Assigned Surgical Provider 05/05/20 09/16/20 Soledad Mccabe MD Assigned Surgical Provider 09/17/20 11/11/20 Maritza Cope Personal Advocate & Liaison (PAL) 11/14/20 03/06/22 Sancho Brown MD [address] [place] [address] Assigned Surgical Provider 11/12/20 05/10/22 [place] [address] [place] [address] Assigned Pain Medication Provider 07/22/22 Aida Hahn, DPM, Podiatry/Foot and Ankle Surgery [address] [place], [place] [address] Assigned Musculoskeletal Provider 11/02/22 Rosario Tapia, [facility] Community Health Worker Primary Care - CC 08/19/2308/21/23 Hellen Limon Personal Advocate & Liaison (PAL) Family Medicine 08/20/23 10/12/23 June Quintana, RN Personal Advocate & Liaison (PAL) Family Medicine 10/13/23 11/09/23 Gisselle Doyle, [facility], [facility] [address] [place] [address] Assigned Behavioral Health Provider 11/04/23 Soumya Saavedra Personal Advocate & Liaison (PAL) Family Medicine 03/07/22 09/14/23 documented as of this encounter
--- OUTSIDE RECORDS SUMMARY | 2023-12-21 07:49 | XMS_ITS | Encounter Summary ---
Author Organization [place] Address [facility] [place] [address] Care Team Providers Care Rapier Insertion Loom Fixer Name Role Phone Luis E Sykes MD Primary Care Provider [phone] Mery Solorio RN Unavailable [phone] Oscar Westbrook MD Primary Care Provider [phone] Oscar Westbrook MD Unavailable [phone] Soledad Mccabe MD Unavailable Unav ailable Sancho Brown MD Unavailable [phone] Oscar Westbrook MD Unavailable [phone] Oscar Westbrook MD Unavailable [phone] [facility] Unavailable [phone] Jailene Pettit RN Unavailable UnavailJessica Wen KNOT BUMPER Unavailable Itzel Pandey Unavailable Unavailable Lizbet Guzmán MD Unavailable Soledad Mccabe MD Unavailable Unav ailable Kayleigh Pearce RN Unavailable Unavailable LloydAlba coto HEAVY EQUIPMENT SALES MANAGER Unavailable [phone] Sancho Brown MD Unavailable [phone] Soledad Mccabe MD Unavailable Unav Maritza Paul Unavailable Unavailable Sancho Brown MD Unavailable [phone] Oscar Westbrook MD Unavailable [phone] Aida Hahn DPM, Podiatry /Foot and Ankle Surgery Unavailable Rosario Tapia CH Unavailable Hellen Limon Unavailable Unavailable June Quintana RN Unavailable Unavailable Gisselle DoyleSW, [facility] Unavailable [phone] Encounter Details Date Type Department Care Team (Late st Contact Info) Description 08/29/2010 Office Visit-[facility] [address] [facility] [address] [place] [address] Ramon Stark MD [address] [facility] [address] [place] [address] Social History Tobacco Use Types Packs/Day Years Used Date Smoking Tobacco: Former Cigarettes 0.5 30 0 09/14/1979 - 09/13/2009 Alcohol Use Standard Drinks/Week Comments No 0 (1 standard drink = 0.6 oz pur e alcohol) recovering alcoholic Sex and Gender Information Value Date Recorded Sex Assigned at Male 11/12/2020 5:06 PM CDT Gender Identity Male 11/12/2020 5:06 PM CDT Sexual Orientation Not on file documented as of this encounter Progress Notes * Ramon Stark MD - 08/30/2010 2:05 PM CST Progress Note Created by: Ramon Stark MD DATE: 08/29/2010 NICO VAZQUEZ DATE OF : 1950 AGE: [age] years old Referring Physician: LUIS E SYKES Referring Clinic: [facility] CURRENT DIAGNOSES 1. Abdominal Aneurysm Without Rupture, 441.4 2. Hyperlipidemia-mixed disorder, 272.4 3. - CAD, 414.00 4. - Abnormal EKG, 794.31 5. Claudication-Intermittent, 443.9 ALLERGIES NKA MEDICATIONS (prior to changes made today) 1. Simvastatin 40 mg Tablet, 1 p.o. qHS 2. Bupropion HCl 150 mg Tablet Sustained Release 24 hr, 1 p.o. twice daily 3. Omeprazole 20 mg Tablet, Delayed Release (E.C.), 1 p.o. daily 4. Aspirin 81 Mg Tablet, 1 p.o. daily 5. Trazodone 100 mg Tablet, 1 qHS 6. Hydrocodone-Acetaminophen 5-500 mg Capsule, 1 p.o. twice daily 7. metoprolol succinate 100 mg Tablet Sustained Release 24 hr, 1 p.o. twice daily 8. Lotrel 10-40 mg Capsule, 1 p.o. twice daily 9. citalopram 40 mg Tablet, 1 p.o. daily 10. Neurontin 300 mg Capsule, 2 p.o. three times daily 11. indomethacin 75 mg Capsule, Sustained Release, 1 p.o. daily 12. lorazepam 0.5 mg Tablet, 1 p.o. twice daily 13. metformin 1,000 mg Tablet, 1 p.o. twice daily 14. Wellbutrin SR 150 mg Tablet Sustained Release, 1 p.o. twice daily 15. Avodart 0.5 mg Capsule, 1 p.o. daily 16. omeprazole 20 mg Capsule, Delayed Release(E.C.), 1 p.o. daily 17. Zocor 40 mg Tablet, 1 p.o. daily 18. Flomax 0.4 mg Capsule, Sust. Release 24 hr, 1 p.o. daily 19. [place]-3 Fish Oil 1,000 (120-180) mg Capsule, 4 p.o. daily CHIEF COMPLAINTS Cardiac Assessment, ASPVDZ hx AAA, CAD old IMI, sp urgent SVG to RCA for PCI failure, no critical dz LCA, normal nuc scan, cervical and lumbar osteoarthritis, cervical radiculopathy, Dyslipidemia andHTN HISTORY OF PRESENT ILLNESS Nico Vazquez, a 59-year-old man with a known history of coronary artery disease, status post previous percutaneous coronary intervention and subsequent urgent bypass surgery, atherosclerotic peripheral vascular disease, status post endovascular repair of aorta, hypertension, dyslipidemia, and osteoarthritis, awaiting cervical disc surgery for a cervical radiculopathy, was seen today at your request for followup and for any recommendations prior to his upcoming neck surgery. Mr. Vazquez sustained myocardial infarctions in 1984 and 1980 for which he underwent percutaneous coronary intervention. In 1997 the patient presented with an acute inferior wall myocardial infarction. A coronary angiogram at the time of his inferior wall NC showed no significant narrowing in the left coronary system with atheromatous changes seen in the LAD, circumflex, and in the left main. The right artery was occluded, and an attempt was made to perform angioplasty, complicated by dissection of the vessel and need for urgent bypass surgery, at which time a vein bypass graft was placed tothe posterior descending and posterolateral branches of the right coronary. Since the patient's bypass surgery in 1997 he has remained entirely free of symptoms. A nuclear stress test was performed in August,, prior to endovascular repair of the patient's infrarenal aortic aneurysm. That study showed a normal ejection fraction with an area of fixed inferior wall old NC. There were no otherareas of scar or ischemia seen. Mr. Vazquez remains free of anginal symptoms at this time. He is trying to stop smoking cigarettesand has cut down to only one or two per day. During our last visit we noted the patient's blood pressure was not well controlled. Since then has switched the patient to Lotrel (a combination of benazepril and amlodipine) with excellent results and with good blood pressure control. The patient's last LDL cholesterol was 90. Mr. Vazquez recently developed symptoms of cervical radiculopathy with neck pain and arm numbness.He has been seen at the [facility] and noted to have disease both in his cervical and lumbar spine. He is felt to require cervical discectomy. PAST MEDICAL HISTORY: 1. Hypertension. 2. Dyslipidemia. 3. Atherosclerotic peripheral vascular disease. History of abdominal aortic aneurysm, status post endovascular repair. 4. Depression. 5. Osteoarthritis. A. Status post bilateral knee replacements. B. Awaiting cervical and lumbar surgery. 6. Coronary disease. A. Previous NC x 3. B. Previous urgent single-vessel bypass surgery to the right coronary for a failed PCI of right coronary. No significant narrowing of the left main, LAD, or circumflex. C. Negative nuclear scan in August,. PHYSICAL EXAMINATION: Exam today demonstrates a very pleasant and cooperative 58-year-old man. His blood pressure was 118/70, with a heart rate of 56. His height is 72 inches, weight is 220. His lungs are clear to percussion and auscultation. Cardiovascular exam: There is a normal S1, with a normalS2. There is a soft S4. There is no S3. LABORATORY STUDIES: His ECG today shows a sinus bradycardia, rate 53, with Q waves present in leadsII, III, and aVF consistent with old inferior wall infarction and a minor intraventricular conduction defect. As compared to the patient's last cardiogram in August,, there has been no change. PAST HISTORY Past Medical Illnesses: depression, joint pain, HTN, hypercholesterolemia, COPD, Infrarenal AAA, Diabetes, back pain, osteoarthrosis Past Cardiac Illnesses: CAD, 3 NC's - 1984, 1990, 1997, PTCA-ruptured artery, emergency CABG in 1997 x 2 Surgeries/Procedures - General: Left knee replaced 1 year ago, CABG with saphenous vein grafts RCA PDA, 1997, svg to doris as well., Right knee replacement, bone graft right wrist. Cardiac and Vascular Surgeries: JIMBO negative, 09/20 [...] with infarction CT Results: ascending aortic aneurysm, 08/23, 04/22 CT abd--patent aortobiliac endograft without endo leak FAMILY HISTORY: Father - CABG, md and NC; Mother - Age 35, cerebral aneurysm; Brother [...] of alcohol abuse, currently not drinking and 2003; Smoking - 3-4 cigs per day; Diet [...] hours a week; REVIEW OF SYSTEMS GENERAL cardiac assessment for neck surg 09-14-09/annual INTEGUMENTARY skin tags EYES denies diplopia, history of glaucoma or visual field defects. EARS, NOSE, THROAT, MOUTH partial hearing loss RESPIRATORY dyspnea, sleep apnea, better CARDIOVASCULAR negative for palpitations, chest pain, orthopnea, PND, peripheral edema, syncope or claudication. ABDOMINAL history of GERD GENITOURINARY-MALE frequency, nocturia, impotence MUSCULOSKELETAL joint pain, joint stiffness, arthritis NEUROLOGICAL memory deficit, numbness, in both arms and hands PSYCHIATRIC depression, history of drug abuse, history of alcohol abuse, med sl helps ENDOCRINE polydipsia, polyuria, hyperlipidemia HEMATOLOGICAL/IMMUNOLOGIC seasonal allergies PHYSICAL EXAMINATION VITAL SIGNS: Blood Pressure: 108/64Sitting, Left arm, large cuff 118/70Sitting, Left arm, large cuff Pulse- 56.00/min. Weight- 220.00 lbs. Height- 72.00 Temperature- .00 CONSTITUTIONAL obese, [...] time, person and place. MEDICATIONS UPDATED/STARTED TODAY: Avodart 0.5 mg Capsule, 1 p.o. daily, #0 citalopram 40 mg Tablet, 1 p.o. daily, #0 Flomax 0.4 mg Capsule, Sust. Release 24 hr, 1 p.o. daily, #0 indomethacin 75 mg Capsule, Sustained Release, 1 p.o. daily, #0 lorazepam 0.5 mg Tablet, 1 p.o. twice daily, #0 Lotrel 10-40 mg Capsule, 1 p.o. twice daily, #0 metformin 1,000 mg Tablet, 1 p.o. twice daily, #0 metoprolol succinate 100 mg Tablet Sustained Release 24 hr, 1 p.o. twice daily, #0 Neurontin 300 mgCapsule, 2 p.o. three times daily, #0 [place]-3 Fish Oil 1,000 (120-180) mg Capsule, 4 p.o. daily, #0 omeprazole 20 mg Capsule, Delayed Release(E.C.), 1 p.o. daily, #0 Wellbutrin SR 150 mg Tablet Sustained Release, 1 p.o. twice daily, #0 Zocor 40 mg Tablet, 1 p.o. daily, #0 MEDICATIONS REFILLED/STOPPED TODAY: Atenolol 100 mg Tablet 1 p.o. twice daily #0 Physician Order and Lisinopril 10 mg Tablet 1 p.o. daily Physician Order IMPRESSIONS/PLAN This 59-year-old man with a known history of coronary disease, status post previous inferior wall infarction and subsequent bypass surgery, peripheral vascular disease, status post endovascular repair of aortic aneurysm, hypertension, dyslipidemia, is scheduled for cervical discectomy for management of cervical radiculopathy. He is free of anginal symptoms. He had a negative nuclear scan with a well preserved ejection fraction in August,. I do not feel that further preprocedural cardiac testing is indicated or helpful in his management. Dr. Sykes has done an excellent job with the patient's medical therapy. I urged the patient to stop smoking cigarettes. RECOMMENDATIONS: 1. Continue present excellent medical therapy. 2. Discontinuation of tobacco use. 3. Routine exercise program once cleared by surgeon. 4. With your permission, we will plan a follow-up visit in about one year. Please contact me if there are questions regarding the patient's cardiac evaluation here today. We appreciate the opportunity to be involved in the care of your patient, Mr. Nico Vazquez. TODAYS ORDERS 1. Return Visit 1 year Ramon Stark MD documented in this encounter Plan of Treatment Not on file documented as of this encounter Visit Diagnoses Not on filedocumented in this encounter Care Teams Rapier Insertion Loom Fixer Relationship Specialty [place] [address] [place] [address] PCP - General 06/08/00 08/03/13 [place] [address] [place] [address] PCP - General [facility] Practice 08/04/13 [place] [address] [place], [place] [id number] PCP - Assigned PCP 08/08/13 09/15/18 Mery Solorio RN Clinic [place] Nurse 05/17/13 [place] [address] [place] [address] Family Practice 07/24/15 [place] [address] [place] [address] Otolaryngology 07/24/15 07/14/19 Sancho Brown MD [address] [address] Urology 02/26/18 [place] [address] [place] [address] Assigned PCP 08/08/13 Alba Desai NP [address] [address] Nurse Practitioner Nurse Practitioner Psych/Mental Health 11/12/18 Jailene Pettit, WALT Personal Advocate & Liaison (PAL) Family Practice 7/24/19 10/20/19 Jessica Bowling, KNOT BUMPER Personal Advocate & Liaison (PAL) Primary Care - CC 04/30/19 06/07/19 Itzel Pandey Personal Advocate & Liaison (PAL) 06/08/19 07/14/19 Lizbet Guzmán MD [facility] [address] [place] [address] Referring Physician 06/23/19 [place] [address] [place] [address] Otolaryngology 06/23/19 Kayleigh Pearce, RN Personal Advocate & Liaison (PAL) Family Practice 04/10/20 10/11/20 [place] [address] [place] [address] Assigned Behavioral Health Provider 05/05/20 09/09/20 Sancho Brown MD [address] [facility] [address] [place] [address] Assigned Surgical Provider 05/05/20 09/16/20 Soledad Mccabe MD Assigned Surgical Provider 09/17/20 11/11/20 Maritza Cope Personal Advocate & Liaison (PAL) 11/14/20 03/06/22 Sancho Brown MD [address] [facility] [place] [address] Assigned Surgical Provider 11/12/20 05/10/22 [place] [address] [place] [address] Assigned Pain Medication Provider 07/22/22 Aida Hahn DPM, Podiatry/Foot and Ankle Surgery [address] [place] [address] Assigned Musculoskeletal Provider 11/02/22 Rosario Tapia, [facility] Community Health Worker Primary Care - CC 08/19/2308/21/23 Hellen Limon Personal Advocate & Liaison (PAL) Family Medicine 08/20/23 10/12/23 LilianJune, RN Personal Advocate & Liaison (PAL) Family Medicine 10/13/23 11/09/23 Gisselle Doyle, [facility], [facility] [address] [place] [address] Assigned Behavioral Health Provider 11/04/23 Soumya Saavedra Personal Advocate & Liaison (PAL) Family Medicine 03/07/22 09/14/23 documented as of this encounter
--- OUTSIDE RECORDS SUMMARY | 2023-12-21 07:49 | XMS_ITS | Encounter Summary ---
Author Organization [place] Address [facility] [place] [address] Care Team Providers Care Lien Searcher Name Role Phone Luis E Figueredo MD Primary Care Provider [phone] Mery Solorio RN Unavailable [phone] Oscar Westbroko MD Primary Care Provider [phone] Oscar Westbrook MD Unavailable [phone] Soledad Mccabe MD Unavailable Unav ailable Sancho Brown MD Unavailable [phone] Oscar Westbrook MD Unavailable [phone] Oscar Westbrook MD Unavailable [phone] [facility] Unavailable [phone] Jailene Pettit RN Unavailable UnavailJessica Wen LEADERSHIP INTERN Unavailable Itzel Pandey Unavailable Unavailable Lizbet Guzmán MD Unavailable [phone] Soledad Mccabe MD Unavailable Unav ailable Kayleigh Pearce RN Unavailable Unavailable LloydAlba coto SKILL TRAINING PROGRAM COORDINATOR Unavailable Sancho Brown MD Unavailable [phone] Soledad Mccabe MD Unavailable Unav Maritza Paul Unavailable Unavailable Sancho Brown MD Unavailable Oscar Westbrook MD Unavailable [phone] Aida Hahn DPM, Podiatry /Foot and Ankle Surgery Unavailable Rosario Tapia CH Unavailable [phone] Hellen Limon Unavailable Unavailable June Quintana RN Unavailable Unavailable Gisselle DoyleSW, [facility] Unavailable Encounter Details Date Type Department Care Team (Late st Contact Info) Description 01/17/2013 [facility] [id number] [place] [address] [place] [address] [place], [place] [id number] Social History Tobacco Use Types Packs/Day Years Used Date Smoking Tobacco: Every Day Cigarettes 0.5 30 Started: 10/21/1981; Last attempted to quit: 10/22/2011 Smokeless Tobacco: Never Alcohol Use Standard Drinks/Week Comments No 0 [...] on filedocumented in this encounter Care Teams Lien Searcher Relationship Specialty Start [place] [address] [place], [place] [id number] PCP - General 06/08/00 08/03/13 [place] [address] [place], [place] [id number] PCP - General Family Practice 08/04/13 [place] [address] [place], [place] [id number] PCP - Assigned PCP 08/08/13 09/15/18 Mery Solorio, WALT Clinic Drugless Physician Nurse 05/17/13 [place] [address] [place] [address] MD Family Practice 07/24/15 [place] [address] [place] [address] Otolaryngology 07/24/15 07/14/19 Sancho Brown MD [address] [address] Urology 02/26/18 [place] [address] [place] [address] Assigned PCP 08/08/13 Alba Desai NP [address] [address] Nurse Practitioner Nurse Practitioner Psych/Mental Health 11/12/18 Jailene Pettit, WALT Personal Advocate & Liaison (PAL) Family Practice 02/03/19 05/02/19 Jessica Bowling, LEADERSHIP INTERN Personal Advocate & Liaison (PAL) Primary Care - CC 04/30/19 06/07/19 Itzel Pandey Personal Advocate & Liaison (PAL) 06/08/19 07/14/19 Lizbet Guzmán MD [facility] [address] [facility] [address] [place] [address] Referring Physician 06/23/19 [place] [address] [place] [address] Otolaryngology 06/23/19 Kalyeigh Pearce, RN Personal Advocate & Liaison (PAL) Family Practice 04/10/20 10/11/20 [place] [address] [place] [address] Assigned Behavioral Health Provider 05/05/20 09/09/20 Sancho Brown MD [address] [facility] [address] [place] [address] Assigned Surgical Provider 05/05/20 09/16/20 Soledad Mccabe MD Assigned Surgical Provider 09/17/20 11/11/20 Maritza Cope Personal Advocate & Liaison (PAL) 11/14/20 03/06/22 Sancho Brown MD [address] [facility] [address] [place] [address] Assigned Surgical Provider 11/12/20 05/10/22 [place] [address] [place] [address] Assigned Pain Medication Provider 07/22/22 Aida Hahn, DPM, Podiatry/Foot and Ankle Surgery [address] [facility] [address] [place] [address] Assigned Musculoskeletal Provider 11/02/22 Rosario Tapia, W Community Health Worker Primary Care - CC 08/19/2308/21/23 Hellen Limon Personal Advocate & Liaison (PAL) Family Medicine 08/20/23 10/12/23 LilianJune nobles RN Personal Advocate & Liaison (PAL) Family Medicine 10/13/23 11/09/23 Gisselle Doyle, [facility], [facility] [address] [place] [address] Assigned Behavioral Health Provider 11/04/23 Soumya Saavedra Personal Advocate & Liaison (PAL) Family Medicine 03/07/22 09/14/23 documented as of this encounter
--- OUTSIDE RECORDS SUMMARY | 2023-12-21 07:49 | XMS_ITS | Encounter Summary ---
Author Organization [place] Address [facility] [place] [address] Care Team Providers Care Assistant Casino Shift Manager Name Role Phone Luis E Figueredo MD Primary Care Provider [phone] Mery Solorio RN Unavailable [phone] Oscar Westbrook MD Primary Care Provider [phone] Oscar Westbrook MD Unavailable [phone] Soledad Mccabe MD Unavailable Unav ailable Sancho Brown MD Unavailable [phone] Oscar Westbrook MD Unavailable [phone] Oscar Westbrook MD Unavailable [phone] [facility] NP Unavailable [phone] Jailene Pettit RN Unavailable UnavailJessica Wen ATTENDANT COIN OPERATED LAUNDRY Unavailable Itzel Pandey Unavailable Unavailable Lizbet Guzmán MD Unavailable [phone] Soledad Mccabe MD Unavailable Unav ailable Kayleigh Pearce RN Unavailable Unavailable LloydAlba coto [place] Unavailable [phone] Sancho Brown MD Unavailable [phone] Soledad Mccabe MD Unavailable Unav Maritza Paul Unavailable Unavailable Sancho Brown MD Unavailable [phone] Oscar Westbrook MD Unavailable [phone] Aida Hahn DPM, Podiatry /Foot and Ankle Surgery Unavailable Willie Rosario C CH Unavailable Hellen Limon Unavailable Unavailable June Quintana RN Unavailable Unavailable Gisselle Doyle [facility], [facility] Unavailable [phone] Reason for Visit * Reason Onset Date Comments Refill Request 01/29/2012 Vicodin Encounter Details Date Type Department Care Team (Late st Contact Info) Description 01/29/2012 MyC Refill [address] [address] Luis E Figueredo MD [address] [place] [address] Refill Request (Vicodin) Social History Tobacco [...] encounter Miscellaneous Notes * Telephone Encounter - Laurie Rodriguez - 01/30/2012 9:28 AM CDT Med: Vicodin Last OV: 12/25/2011 Reason: Insomnia Provider: Dr. Figueredo Last filled: Not given Laurie Rodriguez RN * Telephone Encounter - Laurie Rodriguez - 01/30/2012 9:28 AM CDTMessage from MyChart: Original authorizing provider: MD Nico Griffin would like a refill of the following medications: HYDROcodone-acetaminophen 5-325 MG per tablet [Luis E Figueredo MD] Preferred pharmacy: [facility] Comment: In need of refill. Thank you. documented in this encounter Plan of Treatment Not on file documented as of this encounter Visit Diagnoses Diagnosis Insomnia Insomnia, unspecified documented in this encounter Care Teams Assistant Casino Shift Manager Relationship Specialty Start [place] [address] [place] [address] PCP - General 06/08/00 08/03/13 [place] [address] [place] [address] PCP - General Family Practice 08/04/13 [place] [address] [place] [address] PCP - Assigned PCP 08/08/13 09/15/18 Mery Solorio RN Clinic Mixing Pan Tender Nurse 05/17/13 [place] [address] [place] [address] Family Practice 07/24/15 [place] [address] [place] [address] Otolaryngology 07/24/15 07/14/19 Sancho Brown MD [address] [place] [address] [place] [address] Urology 02/26/18 [place] [address] [place] [address] Assigned PCP 08/08/13 Alba Desai, [place] [facility] [address] [place] [address] Nurse Practitioner Nurse Practitioner Psych/Mental Health 11/12/18 Jailene Pettit, WALT Personal Advocate & Liaison (PAL) Family Practice 02/03/19 05/02/19 Jessica Bowling, ATTENDANT COIN OPERATED LAUNDRY Personal Advocate & Liaison (PAL) Primary Care - CC 04/30/19 06/07/19 Itzel Pandey Personal Advocate & Liaison (PAL) 06/08/19 07/14/19 Lizbet Guzmán MD [facility] [address] [place] [address] Referring Physician 06/23/19 [place] [address] [place] [address] Otolaryngology 06/23/19 Kayleigh Pearce RN Personal Advocate & Liaison (PAL) Family Practice 04/10/20 10/11/20 Alba Desai, [place] [address] [place] [address] Assigned Behavioral Health Provider 05/05/20 09/09/20 Sancho Brown MD [address] [facility] [address] [place] [address] Assigned Surgical Provider 05/05/20 09/16/20 Soledad Mccabe MD Assigned Surgical Provider 09/17/20 11/11/20 Maritza Cope Personal Advocate & Liaison (PAL) 11/14/20 03/06/22 Sancho Brown MD [address] [place] [address] Assigned Surgical Provider 11/12/20 05/10/22 [place] [address] [place] [address] Assigned Pain Medication Provider 07/22/22 Aida Hahn DPM, Podiatry/Foot and Ankle Surgery [address] [place], [place] [address] Assigned Musculoskeletal Provider 11/02/22 Rosario Tapia, [facility] Community Health Worker Primary Care - CC 08/19/2308/21/23 Hellen Limon Personal Advocate & Liaison (PAL) Family Medicine 08/20/23 10/12/23 June Quintana, RN Personal Advocate & Liaison (PAL) Family Medicine 10/13/23 11/09/23 Gisselle Doyle, [facility], [facility] [address] [place] [address] Assigned Behavioral Health Provider 11/04/23 Soumya Saavedra Personal Advocate & Liaison (PAL) Family Medicine 03/07/22 09/14/23 documented as of this encounter
--- OUTSIDE RECORDS SUMMARY | 2023-12-21 07:49 | XMS_ITS | Encounter Summary ---
Author Organization [place] Address [facility]0 [place] [address] Care Team Providers Care Rag Grader Name Role Phone Luis E Figueredo MD Primary Care Provider [phone] Mery Solorio RN Unavailable [phone] Oscar Westbrook MD Primary Care Provider [phone] Oscar Westbrook MD Unavailable [phone] Soledad Mccabe MD Unavailable Unav ailable Sancho Brown MD Unavailable [phone] Oscar Westbrook MD Unavailable [phone] Oscar Westbrook MD Unavailable Community HealthAlba NP Unavailable [phone] Jailene Pettit RN Unavailable UnavailJessica Wen CREATIVE MANAGER Unavailable Itzel Pandey Unavailable Unavailable Lizbet Guzmán MD Unavailable [phone] Soledad Mccaeb MD Unavailable Unav ailable Kayleigh Pearce RN Unavailable Unavailable LloydAlba coto LANDING GEAR MECHANIC Unavailable [phone] Sancho Brown MD Unavailable [phone] Soledad Mccabe MD Unavailable Unav Maritza Paul Unavailable Unavailable Sancho Brown MD Unavailable [phone] Oscar Westbrook MD Unavailable [phone] Aida Hahn DPM, Podiatry /Foot and Ankle Surgery Unavailable Rosario Tapia CH Unavailable [phone] Hellen Limon Unavailable Unavailable June Quintana RN Unavailable Unavailable Gisselle DoyleSW, [facility] Unavailable Encounter Details Date Type Department Care Team (Late st Contact Info) Description 01/31/2011 [facility] [address] [address] Celeste Sanders RN Social History Tobacco Use Types Packs/Day [...] on filedocumented in this encounter Care Teams Rag Grader Relationship Specialty Start [place] [address] [place], [place] [id number] PCP - General 06/08/00 08/03/13 [place] [address] [place], [place] [phone] PCP - General Family Practice 08/04/13 [place] [address] [place], [place] [phone] PCP - Assigned PCP 08/08/13 09/15/18 Mery Solorio, [facility] Market Gardener Nurse 05/17/13 [place] [address] [place], [place] [id number] Family Practice 07/24/15 [place] [address] [place] [address] Otolaryngology 07/24/15 07/14/19 Sancho Brown MD [address] [facility] [address] [place] [address] Urology 02/26/18 [place] [address] [place] [address] Assigned PCP 08/08/13 Alba Desai NP [place] [address] [place] [address] Nurse Practitioner Nurse Practitioner Psych/Mental Health 11/12/18 Jailene Pettit, [facility] Personal Advocate & Liaison (PAL) Family Practice 02/03/19 05/02/19 Jessica Bowling, CREATIVE MANAGER Personal Advocate & Liaison (PAL) Primary Care - CC 04/30/19 06/07/19 Itzel Pandey Personal Advocate & Liaison (PAL) 06/08/19 07/14/19 Lizbet Guzmán MD [facility] [address] [place], [place] [id number] Referring Physician 06/23/19 [place] [address] [place] [address] Otolaryngology 06/23/19 Kayleigh Pearce, RN Personal Advocate & Liaison (PAL) Family Practice 04/10/20 10/11/20 Alba Desai LANDING GEAR MECHANIC [address] [place] [address] Assigned Behavioral Health Provider 05/05/20 09/09/20 Sancho Brown MD [address] [facility] [address] [place] [address] Assigned Surgical Provider 05/05/20 09/16/20 Soledad Mccabe MD Assigned Surgical Provider 09/17/20 11/11/20 Maritza Cope Personal Advocate & Liaison (PAL) 11/14/20 03/06/22 Sancho Brown MD [address] [facility] [address] [place] [address] Assigned Surgical Provider 11/12/20 05/10/22 [place] [address] [place] [address] Assigned Pain Medication Provider 07/22/22 Aida Hahn, DPM, Podiatry/Foot and Ankle Surgery [address] [place] [address] [place] [address] Assigned Musculoskeletal Provider 11/02/22 Rosario Tapia, [facility] Community Health Worker Primary Care - CC 08/19/2308/21/23 Hellen Limon Personal Advocate & Liaison (PAL) Family Medicine 08/20/23 10/12/23 June Quintana RN Personal Advocate & Liaison (PAL) Family Medicine 10/13/23 11/09/23 Gisselle Doyle, [facility], [facility] [address] [place] [address] Assigned Behavioral Health Provider 11/04/23 Soumya Saavedra Personal Advocate & Liaison (PAL) Family Medicine 03/07/22 09/14/23 documented as of this encounter
--- OUTSIDE RECORDS SUMMARY | 2023-12-21 07:49 | XMS_ITS | Encounter Summary ---
Author Organization [place] Address [facility] [place] [address] Care Team Providers Care Entry Level Programmer Name Role Phone Luis E Sykes MD Primary Care Provider [phone] Mery Solorio RN Unavailable [phone] Oscar Westbrook MD Primary Care Provider [phone] Oscar Westbrook MD Unavailable [phone] Soledad Mccabe MD Unavailable Unav ailable Sancho Brown MD Unavailable [phone] Oscar Westbrook MD Unavailable [phone] Oscar Westbrook MD Unavailable [phone] [facility] Unavailable [phone] Jailene Pettit RN Unavailable UnavailJessica Wen POST DOCTORAL RESEARCHER Unavailable Itzel Pandey Unavailable Unavailable Lizbet Guzmán MD Unavailable [phone] Soledad Mccabe MD Unavailable Unav ailable Kayleigh Pearce RN Unavailable Unavailable LloydAlba coto AUTOMATIC PROFILE SHAPER OPERATOR Unavailable [phone] Sancho Brwon MD Unavailable [phone] Soledad Mccabe MD Unavailable Unav Maritza Paul Unavailable Unavailable Sancho Brown MD Unavailable [phone] Oscar Westbrook MD Unavailable [phone] Aida Hahn DPM, Podiatry /Foot and Ankle Surgery Unavailable Rosario Tapia CHW Unavailable Hellen Limon Unavailable Unavailable June Quintana RN Unavailable Unavailable Gisselle DoyleSW, [facility] Unavailable [phone] Encounter Details Date Type Department Care Team (Late st Contact Info) Description 01/29/2012 Office Visit-[facility] [address] [facility] [address] [place] [address] Ramon Stark MD [address] [facility] [address] [place] [address] Social History Tobacco Use Types [...] Progress Notes * Ramon Stark MD - 02/04/2012 4:55 PM CDT Progress Note Created by: Ramon Stark MD DATE: 01/29/2012 NICO VAZQUEZ DATE OF : 1950 AGE: [age] years old Referring Physician: LUIS E SYKES Referring Clinic: [facility] CURRENT DIAGNOSES 1. - CAD, 414.00 2. Abdominal Aneurysm Without Rupture, 441.4 3. - Abnormal EKG, 794.31 4. Hyperlipidemia-mixed disorder, 272.4 5. Claudication-Intermittent, 443.9 ALLERGIES acetaminophen hydromorphone HCl oxycodone HCl MEDICATIONS (prior to changes made today) 1. Abilify 5 mg Tablet, 1 p.o. qHS 2. amitriptyline 25 mg Tablet, 1 p.o. qHS 3. amlodipine-benazepril 5-20 mg Capsule, 1 p.o. daily 4. Aspirin 81 Mg Tablet, 1 p.o. daily 5. Celexa 20 mg Tablet, 2 p.o. daily 6. cyanocobalamin (vitamin B-12) 1,000 mcg/mL Solution, 1 injection monthly 7. gabapentin 300 mg Capsule, 3 p.o. three times daily 8. hydrocodone-acetaminophen 5-325 mg Tablet, 1 p.o. PRN as Directed 9. ketoprofen (bulk) 100 % Powder, Take as Directed 10. metformin 1,000 mg Tablet, 1 p.o. twice daily 11. metoprolol tartrate 50 mg Tablet, 1 p.o. twice daily 12. nitroglycerin 0.4 mg Tablet, Sublingual, 1 p.o. PRN as Directed 13. Omeprazole 20 mg Tablet, Delayed Release (E.C.), 1 p.o. daily 14. Simvastatin 40 mg Tablet, 1 p.o. qHS 15. Trazodone 100 mg Tablet, 1 qHS 16. Triglide 160 mg Tablet, 1 p.o. daily 17. Wellbutrin SR 150 mg Tablet Sustained Release, 1 p.o. twice daily CHIEF COMPLAINTS ASPVDZ sp AAA endovascular repair followed by surgeon, SUSANNA old IMI. History of urgent CAB x 1 SVG to RCA for failed PCI. Negative nulcear scan 01/2011, dyslipidemia and Osteoarthritis: sp lumbar and cervical surgery. HISTORY OF PRESENT ILLNESS Nico Vazquez, a 61-year-old man with coronary artery disease, atherosclerotic peripheral vasculardisease, diabetes, dyslipidemia, hypertension and osteoarthritis was seen today at your request forfollow-up. Mr. Vazquez sustained an acute inferior wall myocardial infarction in 1997. An attempt to perform emergent angioplasty was complicated by vessel dissection that required urgent bypass surgery. A saphenous venous bypass graft was placed to the posterior descending and posterolateral branch of the right coronary. At the time of his angiogram, there was no significant narrowing in the left main, LAD or circumflex. The patient underwent a nuclear stress test in 2010 that showed no ischemia. Mr. Vazquez has a history of infrarenal aortic aneurysm treated with endovascular repair and has been followed carefully by his surgeon Dr. Rodriguez since the intervention. He has not required subsequent peripheral vascular intervention. Mr. Vazquez's most pressing problem has been osteoarthritis. He has had bilateral knee replacements. He has suffered both lumbar and cervical osteoarthritis that have required surgery. His most recent back surgery was in October 2011. The patient told me that back surgery did not successfully relieve his chronic back pain. He also has a chronic right foot drop. The patient remains free of chest, arm, neck, jaw or back discomfort with exertion. His most recentLDL cholesterol in December 2011 was 73. He remains compliant with medical therapy. Past medical history: 1. Hypertension. 2. Dyslipidemia. 3. Type 2 diabetes mellitus. 4. Atherosclerotic peripheral vascular disease. A. Status post abdominal aortic aneurysm repair with endovascular procedure. 5. Depression. 6. Osteoarthritis. A. Status post bilateral knee replacements. B. History of cervical laminectomy x 1. C. History of lumbar laminectomy x 2. Chronic low back pain. 7. Coronary artery disease. A. Old history of inferior wall infarction. B. Status post urgent bypass surgery for failed percutaneous intervention in 1997. Vein bypass graft placed to the right coronary. No significant narrowing in the left main, LAD or circumflex. Negative nuclear stress test January 2011. Exam today demonstrates a very pleasant and cooperative 61-year-old man who appears comfortable at rest. His blood pressure is 120/74. His heart rate was 60 and regular. His lungs are clear to percussion and auscultation. Cardiovascular exam - there is a normal S1 with a normal S2, there is no S3, there is no murmur, rub or click. The patient has multiple well-healed scars over his knees, his back and his left lower abdomen. Laboratory studies: LDL cholesterol was 73, HDL 31. The patient is trying to stop smoking cigarettes. He is going to do this by using varenicline. PAST HISTORY Past Medical Illnesses: depression, joint pain, HTN, hypercholesterolemia, COPD, Infrarenal AAA, Diabetes, back pain, osteoarthrosis, cervical radiculopathy, GERD, genital herpes Past Cardiac Illnesses: CAD, 3 DE's - 1984, 1990, 1997, PTCA-ruptured artery, emergency [...] FAMILY HISTORY: Father - CABG, md and DE; Mother - Age 35, cerebral aneurysm; Brother [...] 2004; Smoking - smoking 1/2ppd; Diet - 1 soda and 3-4 cups of coffee per day and regular foods; Lifestyle - , drives car, 3 kids from this marriage and 10 grand kids; Exercise - exercise is limited due to physical disability;Occupation - currently not working; Sexual Activity - sexually inactive; Residence - lives with ; Place of - [place]; Hours Worked - n/a; REVIEW OF SYSTEMS GENERAL no change in weight, no change in appetite, negative for energy, in a lot of back pain, positive for fatigue INTEGUMENTARY denies any change in hair or nails, rashes, or skin lesions. EYES wears eye glasses/contact lenses, blurred vision EARS, NOSE, THROAT, MOUTH partial hearing loss RESPIRATORY sleep apnea, does not use cpap machine, denies dyspnea CARDIOVASCULAR light headedness, from meds and standing up fast , edema in ankles at times, negative for [...] allergies PHYSICAL EXAMINATION VITAL SIGNS: Blood Pressure: 120/74Sitting, Right arm, large cuff Pulse- 60.00/min. Weight- 209.00 lbs. Height- 72.00 BMI Measurement: 28 CONSTITUTIONAL ambulating halls without difficulty, NAD SKIN [...] drop ambulates with cane MEDICATIONS UPDATED/STARTED TODAY: Abilify 5 mg Tablet, 1 p.o. qHS, #0 (Zero) amitriptyline 25 mg Tablet, 1 p.o. qHS, #0 (Zero) amlodipine-benazepril 5-20 mg Capsule, 1 p.o. daily, #0 (Zero) Celexa 20 mg Tablet, 2 p.o. daily, #0 (Zero) cyanocobalamin (vitamin B-12) 1,000 mcg/mL Solution, 1 injection monthly, #0 (Zero) gabapentin 300 mg Capsule, 3 p.o. three times daily, #0 (Zero) hydrocodone-acetaminophen 5-325 mg Tablet, 1 p.o. PRN as Directed, #0 ketoprofen (bulk) 100 % Powder, Take as Directed, #0 (Zero) metoprolol tartrate 50 mg Tablet, 1 p.o. twice daily, #0 nitroglycerin 0.4 mg Tablet, Sublingual, 1 p.o. PRN as Directed, #0 (Zero) Triglide 160 mg Tablet, 1 p.o. daily, #0 (Zero) MEDICATIONS REFILLED/STOPPED TODAY: Avodart 0.5 mg Capsule 1 p.o. daily #0 Substitution, Bupropion HCl 150 mg Tablet Sustained Release 24 hr 1 p.o. twice daily #0 Substitution, Citalopram 40 Mg Tablet 1 1/2 p.o. daily #0 Substitution, Flomax 0.4 mg Capsule, Sust. Release 24 hr 1 p.o. daily #0 Substitution, Hydrocodone-acetaminophen 5-500 Mg Capsule 1 p.o. PRN as Directed #0 Dosage Decreased, lorazepam 0.5 mg Tablet 1 p.o. twice daily #0 Substitution, Lotrel 10-40 mg Capsule 1 p.o. twice daily #0 Substitution, metoprolol gsxetcltn553 mg Tablet Sustained Release 24 hr 1 p.o. twice daily #0 Dosage Decreased, omeprazole 20 mg Capsule, Delayed Release(E.C.) 1 p.o. daily #0 Substitution, Zetia 10 mg Tablet 1 p.o. daily #0 Substitution and Zocor 40 mg Tablet 1 p.o. daily #0 Substitution ASSESSMENT: Mr. Vazquez is free of vascular symptoms. He underwent extensive back surgery without cardiovascular complication. His LDL cholesterol is optimalon the current dose of simvastatin. His HDL is lower than desired, but I would not recommend any specific pharmacologic intervention. Lifestyle intervention including aerobic exercise and Mediterranean style diet are advised. I would encourage the patient to continue to avoid smoking cigarettes. His systolic blood pressure is optimal. He is on excellent medical therapy including a statin agent, aspirin, beta-otoniel, and an HOSSEIN inhibitor. RECOMMENDATIONS: 1.Continue current medical therapy. 2.Continue to encourage abstention from tobacco . 3.Mediterranean style diet. 4.May wish to consider water aerobics or some other low impact form of exercise to improve HDL. 5.Follow-up with Dr. Rodriguez at appropriate intervals for peripheral vascular disease. 3.Follow-up with me in about one year. We have appreciated the opportunity to care for your patient Nico Vazquez. TODAYS ORDERS 1. Return Visit 1 year Ramon Stark MD documented in this encounter Plan of Treatment Not on file documented as of this encounter Visit Diagnoses Not on filedocumented in this encounter Care Teams Entry Level Programmer Relationship Specialty [place] [address] [facility] [place] [address] PCP - General 06/08/00 08/03/13 [place] [address] [place] [address] PCP - General [facility] Practice 08/04/13 [place] [address] [place] [address] PCP - Assigned PCP 08/08/13 09/15/18 Mery Solorio RN Clinic Production Engineer Track Nurse 05/17/13 [place] [address] [place] [address] Family Practice 07/24/15 [place] [address] [place] [address] Otolaryngology 07/24/15 07/14/19 Sancho Brown MD [address] [address] [place] [place] [address] Urology 02/26/18 [place] [address] [place] [address] Assigned PCP 08/08/13 Alba Desai, AUTOMATIC PROFILE SHAPER OPERATOR [facility] [address] [place] [address] Nurse Practitioner Nurse Practitioner Psych/Mental Health 11/12/18 Jailene Pettit, RN Personal Advocate & Liaison (PAL) Family Practice 02/03/19 05/02/19 Jessica Bowling, POST DOCTORAL RESEARCHER Personal Advocate & Liaison (PAL) Primary Care - CC 04/30/19 06/07/19 Itzel Pandey Personal Advocate & Liaison (PAL) 06/08/19 07/14/19 Lizbet Guzmán MD [facility] [address] [place] [address] Referring Physician 06/23/19 [place] [address] [place] [address] Otolaryngology 06/23/19 Kayleigh Pearce RN Personal Advocate & Liaison (PAL) Family Practice 04/10/20 10/11/20 Alba Desai, AUTOMATIC PROFILE SHAPER OPERATOR [address] [place] [address] Assigned Behavioral Health Provider 05/05/20 09/09/20 Sancho Brown MD [address] [facility] [address] [address] [place] [address] Assigned Surgical Provider 05/05/20 09/16/20 Soledad Mccabe MD Assigned Surgical Provider 09/17/20 11/11/20 Maritza Cope Personal Advocate & Liaison (PAL) 11/14/20 03/06/22 Sancho Brown MD [address] [place] [address] Assigned Surgical Provider 11/12/20 05/10/22 [place] [address] [place] [address] Assigned Pain Medication Provider 07/22/22 Aida Hahn DPM, Podiatry/Foot and Ankle Surgery [address] [place] [address] [place], [place] [address] Assigned Musculoskeletal Provider 11/02/22 Rosario Tapia, [facility] Community Health Worker Primary Care - CC 08/19/2308/21/23 Hellen Limon Personal Advocate & Liaison (PAL) Family Medicine 08/20/23 10/12/23 June Quintana, RN Personal Advocate & Liaison (PAL) Family Medicine 10/13/23 11/09/23 Gisselle Doyle, [facility], [facility] [address] [place] [address] Assigned Behavioral Health Provider 11/04/23 Soumya Saavedra Personal Advocate & Liaison (PAL) Family Medicine 03/07/22 09/14/23 documented as of this encounter
--- OUTSIDE RECORDS SUMMARY | 2023-12-21 07:49 | XMS_ITS | Encounter Summary ---
Author Organization [place] Address [facility] [place] [address] Care Team Providers Care Motorcycle Assembler Name Role Phone Luis E Figueredo MD Primary Care Provider [phone] Mery Solorio RN Unavailable [phone] Oscar Westbrook MD Primary Care Provider [phone] Oscar Westbrook MD Unavailable [phone] Soledad Mccabe MD Unavailable Unav ailable Sancho Brown MD Unavailable [phone] Oscar Westbrook MD Unavailable [phone] Oscar Westbrook MD Unavailable [phone] [facility] Unavailable [phone] Jailene Pettit RN Unavailable UnavailJessica Wen CLIENT SERVICE REPRESENTATIVE Unavailable Itzel Pandey Unavailable Unavailable Lizbet Guzmán MD Unavailable [phone] Soledad Mccabe MD Unavailable Unav ailable Kayleigh Pearce RN Unavailable Unavailable LloydAlba coto TOP LIFT CUTTER Unavailable [phone] Sancho Brown MD Unavailable [phone] Soledad Mccabe MD Unavailable Unav Maritza Paul Unavailable Unavailable Sancho Brown MD Unavailable [phone] Oscar Westbrook MD Unavailable [phone] Aida Hahn DPM, Podiatry /Foot and Ankle Surgery Unavailable Rosario Tapia CH Unavailable Hellen Limon Unavailable Unavailable June Quintana RN Unavailable Unavailable Gisselle DoyleSW, [facility] Unavailable [phone] Encounter Details Date Type Department Care Team (Late st Contact Info) Description 01/31/[address] [phone] [place] Social History Tobacco Use Types Packs/Day Years [...] on filedocumented in this encounter Care Teams Motorcycle Assembler Relationship Specialty Start Date End Date [place] [id number] [place] [address] PCP - General 06/08/00 08/03/13 [place] [address] [place] [address] PCP - General Family Practice 08/04/13 [place] [address] [place], [place] [id number] PCP - Assigned PCP 08/08/13 09/15/18 Mery Solorio, [facility] Sales And Training Specialist Nurse 05/17/13 [place] [address] [place], [place] [id number] MD Family Practice 07/24/15 [place] [address] [place] [address] Otolaryngology 07/24/15 07/14/19 Sancho Brown MD [address] [facility] [address] [place], [place] [address] Urology 02/26/18 [place] [address] [place] [address] Assigned PCP 08/08/13 Alba Desai NP [address] [address] Nurse Practitioner Nurse Practitioner Psych/Mental Health 11/12/18 Jailene Pettit, [facility] Personal Advocate & Liaison (PAL) Family Practice 02/03/19 05/02/19 Jessica Bowling, CLIENT SERVICE REPRESENTATIVE Personal Advocate & Liaison (PAL) Primary Care - CC 04/30/19 06/07/19 Itzel Pandey Personal Advocate & Liaison (PAL) 06/08/19 07/14/19 Lizbet Guzmán MD [facility] [address] [place] [address] Referring Physician 06/23/19 [place] [address] [place] [address] Otolaryngology 06/23/19 Kayleigh Pearce, RN Personal Advocate & Liaison (PAL) Family Practice 04/10/20 10/11/20 Alba Desai, TOP LIFT CUTTER [address] [place] [address] Assigned Behavioral Health Provider 05/05/20 09/09/20 Sancho Brown MD [address] [facility] [address] [place] [address] Assigned Surgical Provider 05/05/20 09/16/20 Soledad Mccabe MD Assigned Surgical Provider 09/17/20 11/11/20 Maritza Cope Personal Advocate & Liaison (PAL) 11/14/20 03/06/22 Sancho Brown MD [address] [facility] [address] [place] [address] Assigned Surgical Provider 11/12/20 05/10/22 [place] [address] [place] [address] Assigned Pain Medication Provider 07/22/22 Aida Hahn DPM, Podiatry/Foot and Ankle Surgery [address] [place] [facility] [address] [place] [address] Assigned Musculoskeletal Provider 11/02/22 Rosario Tapia, W Community Health Worker Primary Care - CC 08/19/2308/21/23 Hellen Limon Personal Advocate & Liaison (PAL) Family Medicine 08/20/23 10/12/23 LilianJune RN Personal Advocate & Liaison (PAL) Family Medicine 10/13/23 11/09/23 Gisselle Doyle, [facility], [facility] [address] [place] [address] Assigned Behavioral Health Provider 11/04/23 Soumya Saavedra Personal Advocate & Liaison (PAL) Family Medicine 03/07/22 09/14/23 documented as of this encounter
--- OUTSIDE RECORDS SUMMARY | 2023-12-21 07:49 | XMS_ITS | Encounter Summary ---
Author Organization [facility] Address [facility] [place] [address] Care Team Providers Care Homeworker Name Role Phone Luis E Sykes MD Primary Care Provider [phone] Mery Solorio RN Unavailable [phone] Oscar Westbrook MD Primary Care Provider [phone] Oscar Westbrook MD Unavailable [phone] Soledad Mccabe MD Unavailable Unav ailable Sancho Brown MD Unavailable [phone] Oscar Westbrook MD Unavailable [phone] Oscar Westbrook MD Unavailable [phone] [facility] Unavailable [phone] Jailene Pettit RN Unavailable UnavailJessica Wen COOK BARBECUE Unavailable Itzel Pandey Unavailable Unavailable Lizbet Guzmán MD Unavailable [phone] Soledad Mccabe MD Unavailable Unav ailable Kayleigh Pearce RN Unavailable Unavailable LloydAlba coto COMPOUND COATING MACHINE OFFBEARER Unavailable [phone] Sancho Brown MD Unavailable [phone] Soledad Mccabe MD Unavailable Unav aMritza Paul Unavailable Unavailable Sancho Brown MD Unavailable [phone] Oscar Westbrook MD Unavailable [phone] Aida Hahn DPM, Podiatry /Foot and Ankle Surgery Unavailable Rosario Tapia CH Unavailable [phone] Hellen Limon Unavailable Unavailable June Quintana RN Unavailable Unavailable Gisselle DoyleSW, [facility]NOTE 3] Unavailable [phone] Encounter Details Date Type Department Care Team (Late st Contact Info) Description 05/23/2006 Office Visit-[facility] Heart [address] [place] [address] Joanna Garnica APRN LEATHER DRESSER NO INFO AVAILABLE 05/02/2022 Social History Tobacco Use Types Packs/Day Years [...] as of this encounter Progress Notes * Joanna Garnica - 06/01/2006 3:52 PM CST Progress Note Created by: Joanna Garnica NMikiP. DATE: 05/23/2006 NICO VAZQUEZ DATE OF : 1950 AGE: [age] years old Referring Physician: LUIS E SYKES Referring Clinic: [facility] CURRENT DIAGNOSES 1. Hyperlipidemia-mixed disorder, 272.4 2. - CAD, 414.00 3. - Abnormal EKG, 794.31 4. Claudication-Intermittent, 443.9 ALLERGIES NKA MEDICATIONS (including any changes made today) 1. Atenolol 50 mg, 1 p.o. q.d. 2. Aspirin 81 mg, 1 p.o. q.d. 3. Trazodone Hydrochloride 50 mg, 1 p.o. qHS may repeat twice 4. Flonase 0.05 mg/inh, 2 Sprays each nostril q.d. 5. Brittaney 180 mg, 1 p.o. q.d. 6. Medrol Dosepak 4 mg, Take as Directed 7. Darvon hydrochloride 65 mg, Take as Directed 1P.O.q 4-6 Hrs PRN Pain 8. Wellbutrin SR 150 mg, 1 p.o. b.i.d. 9. Lipitor 40 mg, 1 p.o. q.d. 10. Lisinopril 10 Mg, 1/2 tab po QD CHIEF COMPLAINTS Followup of - CAD and Review echo/labs HISTORY OF PRESENT ILLNESS Nico Vazquez is a 55-year-old gentleman who returns today to follow up on his medication changes and coronary artery disease. He saw Dr. Rodríguez Hwang for consultation in late April 2006. He has a history of coronary artery disease dating back to 1984 where he suffered his first myocardial infarction. In 1990, he had subsequent angioplasty and stenting of a mid RCA lesion. He reportedly had another angiogram at [facility] in 1994, which demonstrated occlusion of a diagonal branch and posterolateral branch. This patient developed chest discomfort again in 1997 and presented to [facility] where he was transferred with ST segment elevation to the catheterization lab. His left main had an ostial lesion of 20%. The LAD had multiple luminal irregularities in the range of 30%. The first diagonal was a small caliber vessel with a 30-40% stenosis. The circumflex had multiple luminal irregularities with collateral from the distal circumflex to the distal right coronary. There were also collaterals via the septal perforators to the posterior descending artery. The RCA was diffuselydiseased in the distal vessel and tapered to a complete occlusion. The distal right filled by [id number] collaterals. This was a dominant vessel giving rise to posterior descending and two posterolateral arteries. An attempt at angioplasty was unsuccessful in that the wire could not be advanced to the lesion to the true lumen. He developed a false channel with dissection extending into the distal RCA to the SARAH, which compromised flow from the PDA to the SARAH and visa versa. He had an intraaortic balloon pump inserted. He continued to have significant chest pain with EKG changes and he was taken emergently to the Surgical Suite for bypass grafting where a saphenous vein graft was placed to the posterior descending left ventricular branches of the right coronary artery. He had not followed with Cardiology for quite some time after this procedure. A recent routine stress test, ordered by his primary care physician, revealed a moderate-sized mid and basal inferolateral defect consistent with myocardial infarction. Ejection fraction is 54%. There was also a small basal anterior defect that was mild on both rest and stress images consistent with soft tissue attenuation. This patient has had no recurrence of his chest heaviness, which he says would be easy for him recognize, as it was always exertional. Echocardiography performed in our office a couple days ago revealed an LV dimension of 4.7 cm, normal LV function with moderate concentric left ventricle hypertrophy. He has an akinetic area to severely hypokinetic area in the basilar septum, entire inferior wall and the basal posterior noriega. The RV is normal in size and function. He has minimal valvular disease with normal pulmonary pressures. This patient also complains of multiple joint and leg discomfort. An JIMBO has ruled out peripheral vascular disease. He had been taking 1000 mg of ibuprofen at least once to twice a day, prior to meeting with Dr. Hwang, for ongoing joint and muscle discomfort. Since he saw us, he has decreased the ibuprofen to no use. He is now taking 1000 mg of Tylenol in the morning and his primary care doctor ordered Darvon for his multiple joint pain. He also was placed on a Medrol Dosepak. I am not certain if this is for allergies or if it was for his multiple joint discomfort; it is unclear to me from thepatient. He has tried multiple other pain medications as well for his ongoing complaints of his legs being weak and tired and his joints hurting, mostly knees and shoulders. His lipid profile has been suboptimal in the past with a high triglyceride of 330 and an HDL in the20s. He tells me he has tried Lipitor with Zetia therapy. He has also trialed Crestor. Most recently, he was placed on Vytorin therapy at 10/40 mg with a triglyceride of 120, total cholesterol 136, LDL 70 and HDL 42. Unfortunately, his ALT level with this change is now 144. I have obtained his mostrecent ALT and AST levels from his primary care doctor in June 2005 and his ALT was 89 and AST 31. Baseline potassium at that point was 4.6, sodium 139, creatinine 0.9. Nico was started on HOSSEIN inhibitors by Dr. Hwang, namely lisinopril at 10 mg daily. His repeat potassium, in our office, was 5.4; however, his creatinine remains normal. In speaking with him today, heeats a fairly potassium-laden diet, including tomatoes, potatoes, nuts, molasses with cooking and several other high potassium foods. We have reviewed a list of potassium foods today and I have askedhim to limit those. He received a message from us yesterday to stop his lisinopril therapy so he has taken this up until this morning. His potassium today is 4.8 with his first dose of HOSSEIN being heldthis morning. His creatinine remains normal at 0.9. His glucose is 90. On exam today, his blood pressure is much improved after increasing atenolol therapy last visit as well. It is 128/80. Pulse rate is down to 64 from 80. His weight has now dropped 5 pounds and I applauded him. He is nearly completing his smoking cessation. He is gradually weaning himself off cigarettes and he plans to stop anytime in the next 1-2 weeks. He has a sleep apnea screen study set up for a week from today for years of sleep disorders, feeling poorly rested during the day and to screenfor sleep apnea. He has a prior history of drug abuse and alcohol abuse but has been dry now for several years. Apparently, he carries a diagnosis of osteoarthritis. The remainder of the past medical history, review of systems and exam are outlined below. PAST HISTORY Past Medical Illnesses: depression, joint pain, HTN Past Cardiac Illnesses: CAD, 3 W[place]'s - 1984, 1990, 1997, PTCA-ruptured artery, emergency CABG in 1997 x 2 Surgical Procedures: Left knee replaced 1 year ago, CABG with saphenous vein grafts RCA PDA, 1997 Cardiology Procedures-Invasive: coronary angiogram Cardiology Procedures-Noninvasive: myocardial perfusion imaging (Nuclear) April 2006, echocardiogram May 2006 Left Ventricular Ejection Fraction: EF50% by nuclear study -April 2006, 40% per echo Peripheral Vascular Procedures: JIMBO negative SOCIAL HISTORY Alcohol Use - history of alcohol abuse, currently not drinking and 2004; Smoking - smokes 5 cigs /day, previous 30 pack yr history; Diet - caffeine use-5 or more per day, low fat Diet and high fiber diet; Lifestyle - and drives car; Exercise - no regular exercise; 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 EARS, NOSE, THROAT, MOUTH partial hearing loss RESPIRATORY dyspnea, sleep apnea, wheezing, same, sleep consult next wk CARDIOVASCULAR edema, better, negative for chest pain ABDOMINAL history of GERD GENITOURINARY-MALE frequency, nocturia, impotence MUSCULOSKELETAL swelling, of ankles and legs, chronic back pain, history of osteoarthritis, calves hurt when walking uphill, restless legs NEUROLOGICAL memory deficit, numbness, in both arms and hands PSYCHIATRIC depression, history of drug abuse, history of alcohol abuse, med sl helps ENDOCRINE polydipsia, polyuria, hyperlipidemia HEMATOLOGICAL/IMMUNOLOGIC seasonal allergies PHYSICAL EXAMINATION VITAL SIGNS: Blood Pressure: 128/80 Sitting, Right arm, large cuff Pulse- 64.00/min. Weight- 237.00 lbs. Height- 72.00 Temperature- .00 CONSTITUTIONAL obese, [...] apical impulse not displaced, no murmurs, S4 present ABDOMEN abdomen soft, bowel sounds normoactive, no hepatosplenomegaly PERIPHERAL PULSES pulses full and equal in all extremities, no bruits auscultated. EXTREMITIES & BACK no clubbing, cyanosis or edema NEUROLOGICAL no gross motor deficits noted, affect appropriate, oriented to time, person and place. MEDICATIONS UPDATED TODAY: Aspirin 81 mg, 1 p.o. q.d., 0 Trazodone Hydrochloride 50 mg, 1 p.o. qHS may repeat twice, 0 Flonase 0.05 mg/inh, 2 Sprays each nostril q.d., 0 Brittaney 180 mg, 1 p.o. q.d., 0 Medrol Dosepak 4 mg, Take as Directed, 0 Ultram 50 mg, 1-2 tabs q 4-6hrs Prn Pain, 0 Darvon hydrochloride 65 mg, Take as Directed 1P.O.q 4-6 Hrs PRN Pain, 0 Wellbutrin SR 150 mg, 1 p.o. b.i.d., 0 Lipitor 40 mg, 1 p.o. q.d., #30 Lisinopril 10 Mg, 1/2 tab po QD, #30 MEDICATION STOPPED TODAY: Lisinopril 10 mg, Aspirin 325 mg, Ibuprofen 200 mg, Trazodone Hydrochloride 100 mg, Vytorin 10mg/ 40mg, Bupropion Hydrochloride 100 mg and Flonase 0.05 mg/inh IMPRESSION/PLAN: 1.Coronary artery disease as outlined above. He has had a double bypass to the branches of his RCA.He had previous stents as noted above. I have sent his coronary angiogram report to be scanned intohis chart from 1997. He now shows a scar in the RCA distribution without any ongoing ischemia. In the absence of any ischemia or angina, which would be recognizable per his report, we will continue medical therapy with atenolol and aspirin. 2.Mild cardiomyopathy with hypertension and evidence of hypertensive heart disease with concentric left ventricle hypertrophy. His blood pressure is improved,although could be more optimized. Given his decreased LV function by echocardiogram, he would certainly benefit from HOSSEIN inhibitors. Given the fact his potassium has normalized now with only holding one dose of HOSSEIN inhibitor, I will restart lisinopril at 5 mg daily to prevent left ventricular remodeling. I have given him an order to go to [facility] lab in one week (he lives in [place], [place]) to have a repeat basic metabolic panel drawn. If this remains stable, I will try to gradually increase his lisinopril. I have counseled him in great detail today on dietary sources of potassium and to avoid these if possible. I have also encouraged him to remain off ibuprofen, as not to cause any renal insult, as we are adjusting cardiomyopathy medications. I also began to talk to him about limiting the sodium in his diet. He sees a secondary social studies teacher on Friday for some dietary instructions.I will also repeat a basic metabolic panel three weeks later, or sooner if necessary, depending on the upcoming results as I will be seeing him back in a month. 3.Dyslipidemia. He also has an ongoinghistory of what sounds like potential myalgias and joint pain, although he carries a history of osteoarthritis. I have requested a CPK be run off his recent profile here and I will call him with those results. I will suspend his Vytorin therapy, as his ALT is elevated. It does not appear as if he is taking any significant amounts of Tylenol. He drinks no alcohol. His Darvon is Darvon plain and not Darvocet. I have switched him back to Lipitor at 40 mg daily. Depending on his upcoming liver profile, which I will recheck in one week and again in three weeks following that, I will determine if he is at or near goal and we may need to add Tricor or consider perhaps Crestor, Zetia and Tricor or some combination. He has chronically had high triglycerides and low HDL, so exercise and limiting carbohydrates would also help. He will talk to the dietitian about this. 4.Ongoing tobacco abuse. He is making a diligent effort at stopping and is no Wellbutrin. He is making good progress with this. Iwill continue to support him in his efforts. 5.Sleep apnea. He has symptoms of sleep apnea, including snoring, daytime tiredness and sleeping poorly for many years. He is scheduled next week for a screening test. 6.A question of intermittent claudication. Pulses are intact and his JIMBO is negative. 7.I will plan on seeing Mr. Vazquez back in approximately one month. I will be in touch with him byphone in the meantime regarding his upcoming labs. For future visits, one would need to keep in mind that drug costs are an issue for him, as we determine which lipid medications to use. Greater than 50% of this 40-minute visit today was spent in counseling. TODAYS ORDERS 1. Hepatic Profile 1 month 2. Basic Metabolic Panel 1 month 3. Lipid Profile 1 month 4. F/U with Joanna Garnica, MSN, ANP follow up 5. CK Level run off of labs from 05-21-06 Joanna Garnica, N.P. documented in this encounter Plan of Treatment Not on file documented as of this encounter Visit Diagnoses Not on filedocumented in this encounter Care Teams Homeworker Relationship Specialty [place] [address] [place] [address] PCP - General 06/08/00 08/03/13 [place] [address] [place] [address] PCP - General Family Practice 08/04/13 [place] [address] [place] [address] PCP - Assigned PCP 08/08/13 09/15/18 Mery Solorio RN Clinic Husbandry Person Nurse 05/17/13 [place] [address] [place], [place] [id number] Family Practice 07/24/15 [place] [address] [place] [address] Otolaryngology 07/24/15 07/14/19 Sancho Brown MD [address] [facility] [address] [place] [address] Urology 02/26/18 [place] [address] [place] [address] Assigned PCP 08/08/13 Alba Desai NP [address] [address] Nurse Practitioner Nurse Practitioner Psych/Mental Health 11/12/18 Jailene Pettit, WALT Personal Advocate & Liaison (PAL) Family Practice 02/03/19 05/02/19 Jessica Bowling, COOK BARBECUE Personal Advocate & Liaison (PAL) Primary Care - CC 04/30/19 06/07/19 Itzel Pandey Personal Advocate & Liaison (PAL) 06/08/19 07/14/19 Lizbet Guzmán MD [facility] [address] [place] [address] Referring Physician 06/23/19 [place] [address] [place] [address] Otolaryngology 06/23/19 Kayleigh Pearce, RN Personal Advocate & Liaison (PAL) Family Practice 04/10/20 10/11/20 Alba Desai COMPOUND COATING MACHINE OFFBEARER [address] [place] [address] Assigned Behavioral Health Provider 05/05/20 09/09/20 Sancho Brown MD [address] [facility] [address] [place] [address] Assigned Surgical Provider 05/05/20 09/16/20 Soledad Mccabe MD Assigned Surgical Provider 09/17/20 11/11/20 Maritza Cope Personal Advocate & Liaison (PAL) 11/14/20 03/06/22 Sancho Brown MD [address] [facility] [address] [place] [address] Assigned Surgical Provider 11/12/20 05/10/22 [place] [address] [place] [address] Assigned Pain Medication Provider 07/22/22 Aida Hahn DPM, Podiatry/Foot and Ankle Surgery [address] [place] [address] [place] [address] Assigned Musculoskeletal Provider 11/02/22 Rosario Tapia, W Community Health Worker Primary Care - CC 08/19/2308/21/23 Hellen Limon Personal Advocate & Liaison (PAL) Family Medicine 08/20/23 10/12/23 LilianJune RN Personal Advocate & Liaison (PAL) Family Medicine 10/13/23 11/09/23 Gisselle Doyle, [facility], [facility]NOTE 3] [address] [place] [address] Assigned Behavioral Health Provider 11/04/23 Soumya MCKENZIE 4 Personal Advocate & Liaison (PAL) Family Medicine 03/07/22 09/14/23 documented as of this encounter
--- OUTSIDE RECORDS SUMMARY | 2023-12-21 07:49 | XMS_ITS | Encounter Summary ---
Author Organization [place] Address [facility] [place] [address] Care Team Providers Care Er Tech Name Role Phone Luis E Sykes MD Primary Care Provider [phone] Mery Solorio RN Unavailable [phone] Oscar Westbrook MD Primary Care Provider [phone] Oscar Westbrook MD Unavailable [phone] Soledad Mccabe MD Unavailable Unav ailable Sancho Brown MD Unavailable [phone] Oscar Westbrook MD Unavailable [phone] Oscar Westbrook MD Unavailable [phone] [facility] Unavailable [phone] Jailene Pettit RN Unavailable UnavailJessica Wen SPIRITUAL COUNSELOR Unavailable Itzel Pandey Unavailable Unavailable Lizbet Guzmán MD Unavailable [phone] Soledad Mccabe MD Unavailable Unav ailable Kayleigh Pearce RN Unavailable Unavailable LloydAlba coto [employer] Unavailable [phone] Sancho Brown MD Unavailable [phone] Soledad Mccabe MD Unavailable Unav Maritza Paul Unavailable Unavailable Sancho Brown MD Unavailable [phone] Oscar Westbrook MD Unavailable [phone] Aida Hahn DPM, Podiatry /Foot and Ankle Surgery Unavailable Rosario Tapia CH Unavailable Hellen Limon Unavailable Unavailable June Quintana RN Unavailable Unavailable Gisselle DoyleSW, [facility] Unavailable [phone] Encounter Details Date Type Department Care Team (Late st Contact Info) Description 05/09/2006 Office Visit-[facility] [address] [facility] [address] [place] [address] Rodríguez Hwang MD [address] [facility] [address] [place] [address] Social History Tobacco Use Types Packs/Day [...] as of this encounter Progress Notes * Rodríguez Hwang MD - 05/21/2006 11:29 AM CST Progress Note Created by: Rodríguez Hwang M.D. DATE: 05/09/2006 NICO VAZQUEZ DATE OF : 1950 AGE: [age] years old Referring Physician: LUIS E SYKES Referring Clinic: [facility] CURRENT DIAGNOSES 1. - Abnormal EKG, 794.31 2. - CAD, 414.00 3. Hyperlipidemia-mixed disorder, 272.4 ALLERGIES NKA MEDICATIONS (including any changes made today) 1. Atenolol 50 mg, 1 p.o. q.d. 2. Lisinopril 10 mg, 1 tab po QD 3. Aspirin 325 mg, 1 p.o. q.d. 4. Ibuprofen 200 mg, 1000 mg p.o. q.d. 5. Trazodone Hydrochloride 100 mg, 1 p.o. qHS 6. Vytorin 10mg/ 40mg, 1 p.o. q.d. 7. Bupropion Hydrochloride 100 mg, 1-1/2 p.o. q.d. 8. Flonase 0.05 mg/inh, 1 [place] each nostril q.d. CHIEF COMPLAINTS Abnormal stress Cardiolite HISTORY OF PRESENT ILLNESS I had the pleasure of seeing Mr. Vazquez in consultation. He is a pleasant 55-year-old male with apast medical history of coronary artery disease. He has had three myocardial infarctions in , and 1997. After his third one, he was apparently having an angioplasty and had a tear in the vessel. He underwent emergency bypass surgery in 1997. Apparently it was two vessel and probably performed by Dr. Turner. He has not followed up with cardiology a long time. He had a recent stress test as part of routine cardiology follow-up. This was ordered by Dr. Sykes. He is here for a consultation after the stress test showed an inferior scar. The nuclear stress test was done early April and was with adenosine. It revealed a mainly fixed inferior moderate size defect extending into the mid and basal inferolateral portion. It was a fixed defect with absence of counts in the distal inferior and inferolateral region. This was consistent with scar without any significant dahlia-infarct ischemia. The ejection fraction was preserved in the mid-50s. The lack of counts in the distal inferior and inferolateral portions suggest that this area may not be viable. Abnormal septal motion was noted consistent with previous bypass surgery. His EKG was also reviewed by me. This was from June and shows Q avenues in the inferior leads and V5 & V6 without any ST-T changes. This is consistent with the nuclear stress test results. I do not have the details of his bypass surgery or previous cardiac admission records. We will try to obtain them. At this time he is not having any chest pains suggestive of angina. He has exertional shortness of breath Class II. He attributes this to deconditioning and being overweight. I agree with him but I also added that he was still smoking and has symptoms suggestive of sleep apnea which could contribute to his shortness of breath. He has dyslipidemia and is on Vytorin 10/40mg daily. A lipid profile from July of this year revealed an LDL of 91, HDL 26, triglycerides 330 and a cholesterol/HDL ratio of 7.1. This was on Lipitor. More recently, he switched to Vytorin 10/40 and with that his follow-up lipid profile has not beendone. He continues on atenolol 25mg daily for hypertension. The patient also has restless legs at night. He also has occasional leg cramps. He gets calf pain bilaterally with walking particularly at the end of the day. His legs get hard. While walking up hill, the calf pain gets worse and he has to stop. This could represent claudication. The patient continues to smoke 5 cigarettes a day. He cut that down a year ago. He is now about a 30 pack year history of smoking. It is hard for him to stop smoking because his still smokes. 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 His last BMP from June of 2005 at his PMD's also revealed normal BUN and creatinine and K+ of 4.1. Physical examination reveals a pleasant male with a blood pressure of 140/92, pulse 80 per minute and regular. Weight 242 pounds. Cardiac examination reveals a soft S4 , JVP was not raised. Chest wasclear to auscultation. Distal peripheral pulses were 3+ and equal. No peripheral edema. PAST HISTORY Past Medical Illnesses: depression, joint pain, HTN Past Cardiac Illnesses: CAD, 3 PR's - 1984, 1990, 1997, PTCA-ruptured artery, emergency CABG in 1997 x 2 Surgical Procedures: Left knee replaced 1 year ago Cardiology Procedures-Noninvasive: myocardial perfusion imaging (Nuclear) April 2006 Left Ventricular Ejection Fraction: EF50% by nuclear study -April 2006 SOCIAL HISTORY Alcohol Use - history of [...] hours a week; REVIEW OF SYSTEMS GENERAL decreased exercise tolerance INTEGUMENTARY skin tags EYES denies diplopia, history of glaucoma or visual field defects. EARS, NOSE, THROAT, MOUTH partial hearing loss RESPIRATORY dyspnea, sleep apnea, wheezing CARDIOVASCULAR edema, no chest pain ABDOMINAL history of GERD GENITOURINARY-MALE frequency, nocturia, impotence MUSCULOSKELETAL swelling, of ankles and legs, chronic back pain, history of osteoarthritis, calves hurt when walking uphill, restless legs NEUROLOGICAL memory deficit, numbness, in both arms and hands PSYCHIATRIC depression, history of drug abuse, history of alcohol abuse ENDOCRINE polydipsia, polyuria, hyperlipidemia HEMATOLOGICAL/IMMUNOLOGIC seasonal allergies PHYSICAL EXAMINATION VITAL SIGNS: Blood Pressure: 140/92 Sitting, Left arm, large cuff Pulse- 80.00/min. Weight- 242.40 lbs. Height- 72.00 Temperature- .00 CONSTITUTIONAL obese, [...] time, person and place. MEDICATIONS UPDATED TODAY: Atenolol 50 mg, 1 p.o. q.d., #30 Lisinopril 10 mg, 1 tab po QD, #30 Aspirin 325 mg, 1 p.o. q.d., 0 Ibuprofen 200 mg, 1000 mg p.o. q.d., 0 Trazodone Hydrochloride 100 mg, 1 p.o. qHS, 0 Vytorin 10mg/ 40mg, 1 p.o. q.d., 0 Bupropion Hydrochloride 100 mg, 1-1/2 p.o. q.d., 0 Atenolol 25 mg, 1 p.o. q.d., 0 Flonase 0.05 mg/inh, 1 Wadsworth each nostril q.d., 0 MEDICATION STOPPED TODAY: Atenolol 25 mg IMPRESSIONS/PLAN 1. Coronary artery disease. The patient has no recurrent angina or overt congestive heart failure. His nuclear stress test revealed mainly a moderate size inferior, inferolateral scar without any dahlia-infarct ischemia. This is consistent with a previous scar history of myocardial infarction. In absence of angina or ischemia, I would continue to treat him medically. His medical therapy is somewhatsuboptimal especially in terms of risk factor modification. We spent a long time reviewing all of his risk factors and changes he needs to make. The following changes were made: A. Hypertension. His blood pressure is still suboptimal. I have asked him to increase the atenolol to 50 a day. His resting heart rate was 80 and with walking up to the examination table increased up to 90-100 beats per minute. I told him to take that in the evening as I would addACE inhibitor in the morning. Although his EF is preserved, he does have scar and he runs the risk of cardiac remodeling and decreased ejection fraction in the future. Therefore, HOSSEIN inhibitors will be useful and we will start him on lisinopril 10mg daily. We will monitor a BMP in the coming weeks.Side effects of this medication were discussed with him in detail. B. Dyslipidemia. I will try and get a follow-up lipid profile on Vytorin although I believe this will not help his triglycerides or HDL to a large extent. He may need an additional medication. I have counseled him regarding the importance of avoiding simple refined carbohydrates and trying to exercise more which will help him lose weight. This will help him lower the triglycerides and increase the HDL. I suspect he may need an additional agent like Niaspan or TriCor. I would favor Niaspan if he can tolerate it as it may also lower the LDL to goal. If he decides to change his life style, be aggressive in terms of weight loss and changing his diet, I would give that chance before adding Niaspan. C. Smoking cessation. We talked at length about the importance of smoking cessation and he agrees. He is already on bupropion fordepression which helps with decreasing the nicotine craving. He plans to go cold turkey in the nextfew days. If he needs help we can also give him some Nicotine patches. 2. Sleep apnea. He certainly has symptoms of sleep apnea with snoring and with apneic spells. He will be referred for a sleep study. 3. Possible intermittent claudication. He has some symptoms suggestive of intermittent claudication although I am not completely sure. His exam did not show any diminished pulses at rest. I will refer him for an JIMBO study at rest and with exercise. We will also suggest an echocardiogram to assess his valves and confirm the ejection fraction. I will have him see my nurse practitioner in a couple of weeks to review all these results and makenecessary changes. I spent a long time reviewing all his risk factors and the necessary modifications that we need to make. He is also taking about 1,000mg of ibuprofen a day for his arthritis. I suggested he substitute half of it with Extra-Strength Tylenol and the aim should be to take him off NSAIDS. I gave him some other options that he is planning to discuss with you like Darvon or Ultram. He may eventually need some agents like Hydrocodone or Lortab. He usually takes all his ibuprofen in the morning. It may be useful to take some Extra-Strength Tylenol at bedtime as it may prevent significant stiffness early in the morning. He plans to do these changes. He was also having some allergylike symptoms when he visited us and Flonase was not helping. So, I have suggested that he can [id number] Claritin and if it does not get better to discuss it with you. Thank you for allowing us to participate in the care of this nice patient. TODAYS ORDERS 1. Sleep Study Schedule At [facility] 2. JIMBO/Segmental Pressure/Exercise 1 week 3. 2D, color flow, doppler 1 week 4. Basic Metabolic Panel 1 week-- also lipid profile/alt 5. F/U with Joanna Garnica, MSN, ANP 2 weeks 6. Return Visit 6 months Rodríguez Hwang M.D. documented in this encounter Plan of Treatment Not on file documented as of this encounter Visit Diagnoses Not on filedocumented in this encounter Care Teams Er Tech Relationship Specialty [place] [address] [place] [address] PCP - General 06/08/00 08/03/13 [place] [address] [place] [address] PCP - General Family Practice 08/04/13 [place] [address] [place] [address] PCP - Assigned PCP 08/08/13 09/15/18 Mery Solorio RN Clinic Tabulating Clerk Nurse 05/17/13 [place] [address] [place] [address] Family Practice 07/24/15 [place] [address] [facility] [place] [address] Otolaryngology 07/24/15 07/14/19 Sancho Brown MD [address] [place] [address] Urology 02/26/18 [place] [address] [facility] [address] Assigned PCP 08/08/13 Alba Desai NP [place] [address] [place] [address] Nurse Practitioner Nurse Practitioner Psych/Mental Health 11/12/18 Jailene Pettit, WALT Personal Advocate & Liaison (PAL) Family Practice 02/03/19 05/02/19 Jessica Bowling, SPIRITUAL COUNSELOR Personal Advocate & Liaison (PAL) Primary Care - 04/30/19 06/07/19 Itzel Pandey Personal Advocate & Liaison (PAL) 06/08/19 07/14/19 Lizbet Guzmán MD [place] [address] [place] [address] Referring Physician 06/23/19 [place] [address] [place] [address] Otolaryngology 06/23/19 Kayleigh Pearce RN Personal Advocate & Liaison (PAL) Family Practice 04/10/20 10/11/20 [place] [address] [place] [address] Assigned Behavioral Health Provider 05/05/20 09/09/20 Sancoh Brown MD [address] [facility] [address] [place] [address] Assigned Surgical Provider 05/05/20 09/16/20 Soledad Mccabe MD Assigned Surgical Provider 09/17/20 11/11/20 Maritza Cope Personal Advocate & Liaison (PAL) 11/14/20 03/06/22 Sancho Brown MD [address] [facility] [address] [place] [address] Assigned Surgical Provider 11/12/20 05/10/22 [place] [address] [place] [address] Assigned Pain Medication Provider 07/22/22 Aida Hahn DPM, Podiatry/Foot and Ankle Surgery [address] [facility] [address] [place] [address] Assigned Musculoskeletal Provider 11/02/22 Rosario Tapia, W Community Health Worker Primary Care - CC 08/19/2308/21/23 Hellen Limon Personal Advocate & Liaison (PAL) Family Medicine 08/20/23 10/12/23 June Quintana RN Personal Advocate & Liaison (PAL) Family Medicine 10/13/23 11/09/23 Gisselle Doyle, [facility], [facility] [address] [place] [address] Assigned Behavioral Health Provider 11/04/23 Soumya Saavedra Personal Advocate & Liaison (JONAH) Family Medicine 03/07/22 09/14/23 documented as of this encounter
--- OUTSIDE RECORDS SUMMARY | 2023-12-21 07:49 | XMS_ITS | Encounter Summary ---
Author Organization [place] Address [facility] [place] [address] Care Team Providers Care Cement Fittings Maker Name Role Phone Luis E Sykes MD Primary Care Provider [phone] Mery Solorio RN Unavailable [phone] Oscar Westbrook MD Primary Care Provider [phone] Oscar Westbrook MD Unavailable [phone] Soledad Mccabe MD Unavailable Unav ailable Sancho Brown MD Unavailable [phone] Oscar Westbrook MD Unavailable [phone] Oscar Westbrook MD Unavailable [phone] [facility] NP Unavailable Jailene Pettit RN Unavailable UnavailJessica Wen TECHNICAL SOURCING RECRUITER Unavailable Itzel Pandey Unavailable Unavailable Lizbet Guzmán MD Unavailable [phone] Soledad Mccabe MD Unavailable Unav ailable Kayleigh Pearce RN Unavailable Unavailable LloydAlba coto FABRIC AWNING REPAIRER Unavailable [phone] Sancho Brown MD Unavailable [phone] Soledad Mccabe MD Unavailable Unav Maritza Paul Unavailable Unavailable Sancho Brown MD Unavailable [phone] Oscar Westbrook MD Unavailable [phone] Aida Hahn DPM, Podiatry /Foot and Ankle Surgery Unavailable Rosario Tapia CHW Unavailable [phone] Hellen Limon Unavailable Unavailable June Quintana RN Unavailable Unavailable Gisselle DoyleSW, [facility] Unavailable [phone] Encounter Details Date Type Department Care Team (Late st Contact Info) Description 03/14/2011 Office Visit-[facility] [address] [facility] [address] [place] [address] Oscar Maza MD XXX XXX [address] [facility] [address] [place] [address] Social History Tobacco Use Types Packs/Day [...] as of this encounter Progress Notes * Oscar Maza MD - 04/04/2011 7:02 PM CDT Progress Note Created by: Oscar Maza M.D. DATE: 03/14/2011 NICO VAZQUEZ DATE OF : 1950 AGE: [age] years old Referring Physician: LUIS E SYKES Referring Clinic: [facility] CURRENT DIAGNOSES 1. - CAD, 414.00 2. Hyperlipidemia-mixed disorder, 272.4 3. Abdominal Aneurysm Without Rupture, 441.4 4. Claudication-Intermittent, 443.9 5. - Abnormal EKG, 794.31 ALLERGIES NKA MEDICATIONS (prior to changes made today) 1. Simvastatin 40 mg Tablet, 1 p.o. qHS 2. Bupropion HCl 150 mg Tablet Sustained Release 24 hr, 1 p.o. twice daily 3. Omeprazole 20 mg Tablet, Delayed Release (E.C.), 1 p.o. daily 4. Aspirin 81 Mg Tablet, 1 p.o. daily 5. Trazodone 100 mg Tablet, 1 qHS 6. metoprolol succinate 100 mg Tablet Sustained Release 24 hr, 1 p.o. twice daily 7. Lotrel 10-40 mg Capsule, 1 p.o. twice daily 8. lorazepam 0.5 mg Tablet, 1 p.o. twice daily 9. metformin 1,000 mg Tablet, 1 p.o. twice daily 10. Wellbutrin SR 150 mg Tablet Sustained Release, 1 p.o. twice daily 11. Avodart 0.5 mg Capsule, 1 p.o. daily 12. omeprazole 20 mg Capsule, Delayed Release(E.C.), 1 p.o. daily 13. Zocor 40 mg Tablet, 1 p.o. daily 14. Flomax 0.4 mg Capsule, Sust. Release 24 hr, 1 p.o. daily 15. Citalopram 40 Mg Tablet, 1 1/2 p.o. daily 16. Zetia 10 mg Tablet, 1 p.o. daily 17. Hydrocodone-acetaminophen 5-500 Mg Capsule, 1 p.o. PRN as Directed CHIEF COMPLAINTS pre-operative clearance HISTORY OF PRESENT ILLNESS Your patient, Nico Vazquez, was seen in our office today at the request of his back surgeon for cardiac clearance even though the patient had a recent normal stress nuclear test within the last month or so without symptoms. The patient is a 60-year-old gentleman who is apparently scheduled for fusion of the L4-L5 spine from a posterior approach at [facility] sometime in the near future. He has an extensivehistory of cardiovascular disease as outlined in his past medical history listed below. In particular, the patient has had bypass surgery in 1997. He has had an infrarenal abdominal aortic aneurysm apparently treated with endovascular grafts. From a cardiac standpoint the patient denies any chest pain, chest pressure, or chest heaviness. There has been no PND or orthopnea. He has been able to carry on his normal activities. He denies any palpitations. There has been no ankle edema. He feels totally asymptomatic as he did during his last visit with us in August of this year with his primary increment manager. As mentioned above, the patient did have a pharmacological stress test done on January 27, 2011. Therewas evidence of an inferior, inferolateral perfusion and motion defect consistent with a prior myocardial infarction. There was no residual ischemia. The scan was felt to be unchanged from the previous scan. The patient's physical exam is as listed below. PAST HISTORY Past Medical Illnesses: depression, joint pain, HTN, hypercholesterolemia, COPD, Infrarenal AAA, Diabetes, back pain, osteoarthrosis, cervical radiculopathy Past Cardiac Illnesses: CAD, 3 CA's - 1984, 1990, 1997, PTCA-ruptured artery, emergency [...] FAMILY HISTORY: Father - CABG, md and CA; Mother - Age 35, cerebral aneurysm; Brother 1 - hyperlipemia, hypertension and parkinsons; Sister 1 - hyperlipemia and hypertension; SOCIAL HISTORY Alcohol Use - history of alcohol abuse, currently not drinking and 2004; Smoking - 3-4 cigs per dayand quit smoking for surgery; Diet - low fat Diet, high fiber [...] Worked - n/a; REVIEW OF SYSTEMS GENERAL cardiac clearance for back surgery, scheduled for tomorrow INTEGUMENTARY skin tags EYES denies diplopia, history of glaucoma or visual field defects. EARS, NOSE, THROAT, MOUTH partial hearing loss RESPIRATORY sleep apnea, does not use cpap machine, denies dyspnea CARDIOVASCULAR negative for palpitations, chest pain, orthopnea, PND, peripheral edema, syncope or claudication. ABDOMINAL history of GERD GENITOURINARY-MALE frequency, nocturia, impotence MUSCULOSKELETAL joint pain, joint stiffness, arthritis, back pains NEUROLOGICAL memory deficit, numbness, in both arms and hands, inner ear problems, causing balance issues PSYCHIATRIC depression, history of drug abuse, history of alcohol abuse, med sl helps ENDOCRINE polydipsia, polyuria, hyperlipidemia, increased fatigue HEMATOLOGICAL/IMMUNOLOGIC seasonal allergies PHYSICAL EXAMINATION VITAL SIGNS: Blood Pressure: 110/60Sitting, Left arm, regular cuff Pulse- 58.00/min. Weight- 209.00 lbs. Height- 72.00 Temperature- .00 CONSTITUTIONAL ambulating halls without difficulty, NAD SKIN non-diaphoretic HEAD atraumtic EYES EOMI, pupils round and equal ENT speech normal NECK supple CHEST clear without rales/rhonchi/wheezing, well healed mid-sternotomy scar CARDIAC RRR without lift/thrill/murmur ABDOMEN non-tender PERIPHERAL PULSES ankles 2's bilateral EXTREMITIES & BACK no edema PSYCHIATRIC appropriate in answers NEUROLOGICAL motor grossly intact MEDICATIONS UPDATED/STARTED TODAY: Citalopram 40 Mg Tablet, 1 1/2 p.o. daily, #0 Hydrocodone-acetaminophen 5-500 Mg Capsule, 1 p.o. PRN as Directed, #0 Zetia 10 mg Tablet, 1 p.o. daily, #0 MEDICATIONS REFILLED/STOPPED TODAY: Hydrocodone-Acetaminophen 5-500 mg Capsule 1 p.o. twice daily #0 Directions Changed-No Abbrvs, citalopram 40 mg Tablet 1 p.o. daily #0 Directions Changed-No Abbrvs, Neurontin 300 mg Capsule 2 p.o. three times daily #0 Physician Order, indomethacin 75 mg Capsule, Sustained Release 1 p.o. daily #0 Physician Order, Aulander-3 Fish Oil 1 and 00 (120-180) mg Capsule 4 p.o. daily #0 Physician Order Q ASSESSMENT/RECOMMENDATIONS: 1. I had a long discussion with the patient. The patient is scheduled for back surgery which would not be considered a high risk type of surgery like abdominal aortic aneurysm repair or carotid surgery. The patient is not giving symptoms to suggest unstable angina or uncompensated congestive heart failure. He does not have any evidence of uncontrolled arrhythmias. His recent nuclear stress test sh ows no evidence for current ischemia. The patient is able carry on at least 4 METs of activities according to him. 2. By ACC and AHA guidelines, the patient's risk of surgery is low enough to proceed. Certainly, I cannot ever tell the patient that his risk of surgery is absolutely zero, but it would seem to be low enough to proceed. I have discussed this with the patient and he is agreeable to proceed with the surgery at this time. 3. The patient is scheduled to be seen by his primary increment manager in August,. The patient is to keep that appointment. Thank you very much for allowing us to participate in the care of your patient. Should you have anyquestions about this patient or any other patient, please feel free to contact us at any time. TODAYS ORDERS 1. F/U with Ramon Stark MD 4 months Oscar Maza M.D. documented in this encounter Plan of Treatment Not on file documented as of this encounter Visit Diagnoses Not on filedocumented in this encounter Care Teams Cement Fittings Maker Relationship Specialty [place] [address] [place] [address] PCP - General 06/08/00 08/03/13 [place] [address] [place] [address] PCP - General Family Practice 08/04/13 [place] [address] [place] [address] PCP - Assigned PCP 08/08/13 09/15/18 Mery Solorio, [facility] Renewable Energy Engineer Nurse 05/17/13 [place] [address] [place] [address] Family Practice 07/24/15 [place] [address] [place] [address] Otolaryngology 07/24/15 07/14/19 Sancho Brown MD [address] [facility] [address] [place] [address] Urology 02/26/18 [place] [address] [place], [place] [address] Assigned PCP 08/08/13 Alba Desai NP [place] [address] [place] [address] Nurse Practitioner Nurse Practitioner Psych/Mental Health 11/12/18 Jailene Pettit, [facility] Personal Advocate & Liaison (PAL) Family Practice 02/03/19 05/02/19 Jessica Bowling, TECHNICAL SOURCING RECRUITER Personal Advocate & Liaison (PAL) Primary Care - CC 04/30/19 06/07/19 Itzel Pandey Personal Advocate & Liaison (PAL) 06/08/19 07/14/19 Lizbet Guzmán MD [facility] [address] [place] [address] Referring Physician 06/23/19 [place] [address] [place] [address] Otolaryngology 06/23/19 Kayleigh Pearce RN Personal Advocate & Liaison (PAL) Family Practice 04/10/20 10/11/20 Alba Desai FABRIC AWNING REPAIRER [address] [place] [address] Assigned Behavioral Health Provider 05/05/20 09/09/20 Sancho Brown MD [address] [facility] [address] [place] [address] Assigned Surgical Provider 05/05/20 09/16/20 Soledad Mccabe MD Assigned Surgical Provider 09/17/20 11/11/20 Maritza Cope Personal Advocate & Liaison (PAL) 11/14/20 03/06/22 Sancho Brown MD [address] [facility] [address] [place] [address] Assigned Surgical Provider 11/12/20 05/10/22 [place] [address] [place] [address] Assigned Pain Medication Provider 07/22/22 Aida Hahn DPM, Podiatry/Foot and Ankle Surgery [address] [place] [address] [address] Assigned Musculoskeletal Provider 11/02/22 Rosario Tapia, [facility] Community Health Worker Primary Care - CC 08/19/2308/21/23 Hellen Limon Personal Advocate & Liaison (PAL) Family Medicine 08/20/23 10/12/23 June Quintana, RN Personal Advocate & Liaison (PAL) Family Medicine 10/13/23 11/09/23 Gisselle Doyle, PRENATAL GENETIC COUNSELOR, [facility] [address] [place] [address] Assigned Behavioral Health Provider 11/04/23 Soumya MCKENZIE 4 Personal Advocate & Liaison (JONAH) Family Medicine 03/07/22 09/14/23 documented as of this encounter
--- OUTSIDE RECORDS SUMMARY | 2023-12-21 07:49 | XMS_ITS | Encounter Summary ---
Author Organization [place] Address [facility] [place] [address] Care Team Providers Care Electric Motor Tester Assembler Name Role Phone Luis E Figueredo MD Primary Care Provider [phone] Mery Solorio RN Unavailable [phone] Oscar Westbrook MD Primary Care Provider [phone] Oscar Westbrook MD Unavailable [phone] Soledad Mccabe MD Unavailable Unav ailable Sancho Brown MD Unavailable [phone] Oscar Westbrook MD Unavailable [phone] Oscar Westbrook MD Unavailable [phone] [facility] Unavailable [phone] Jailene Pettit RN Unavailable UnavailJessica Wen CASE BRIEFER Unavailable Itzel Pandey Unavailable Unavailable Lizbet Guzmán MD Unavailable [phone] Soledad Mccabe MD Unavailable Unav ailable Kayleigh Pearce RN Unavailable Unavailable LloydAlba coto TRAFFIC CONTROL FLAGGER Unavailable [phone] Sancho Brown MD Unavailable [phone] Soledad Mccabe MD Unavailable Unav Maritza Paul Unavailable Unavailable Sancho Brown MD Unavailable Oscar Westbrook MD Unavailable [phone] Aida Hahn DPM, Podiatry /Foot and Ankle Surgery Unavailable Rosario Tapia CH Unavailable [phone] Hellen Limon Unavailable Unavailable June Quintana RN Unavailable Unavailable Gisselle DoyleSW, [facility] Unavailable Encounter Details Date Type Department Care Team (Late st Contact Info) Description 11/12/2010 [facility] [address] [address] Celeste Sanders RN Social History [...] on filedocumented in this encounter Care Teams Electric Motor Tester Assembler Relationship Specialty Start [place] [address] [place], [place] [id number] PCP - General 06/08/00 08/03/13 [place] [address] [place], [place] [id number] PCP - General Family Practice 08/04/13 [place] [address] [place], [place] [id number] PCP - Assigned PCP 08/08/13 09/15/18 Mery Solorio, [facility] Operations Superintendent Nurse 05/17/13 [place] [address] [place], [place] [id number] Family Practice 07/24/15 [place] [address] [place] [address] Otolaryngology 07/24/15 07/14/19 Sancho Brown MD [address] [facility] [address] [place] [address] Urology 02/26/18 [place] [address] [place] [address] Assigned PCP 08/08/13 Alba Desai NP [place] [address] [place] [address] Nurse Practitioner Nurse Practitioner Psych/Mental Health 11/12/18 Jailene Pettit, [facility] Personal Advocate & Liaison (PAL) Family Practice 02/03/19 05/02/19 Jessica Bowling, CASE BRIEFER Personal Advocate & Liaison (PAL) Primary Care - CC 04/30/19 06/07/19 Itzel Pandey Personal Advocate & Liaison (PAL) 06/08/19 07/14/19 Lizbet Guzmán MD [facility] [address] [place], [place] [address] Referring Physician 06/23/19 [place] [address] [place] [address] Otolaryngology 06/23/19 Kayleigh Pearce, RN Personal Advocate & Liaison (PAL) Family Practice 04/10/20 10/11/20 Alba Desai TRAFFIC CONTROL FLAGGER [address] [place] [address] Assigned Behavioral Health Provider 05/05/20 09/09/20 Sancho Brown MD [address] [facility] [address] [place] [address] Assigned Surgical Provider 05/05/20 09/16/20 Soledad Mccabe MD Assigned Surgical Provider 09/17/20 11/11/20 Maritza Cope Personal Advocate & Liaison (PAL) 11/14/20 03/06/22 Sancho Brown MD [address] [facility] [address] [place] [address] Assigned Surgical Provider 11/12/20 05/10/22 [place] [address] [place] [address] Assigned Pain Medication Provider 07/22/22 Aida Hahn, DPM, Podiatry/Foot and Ankle Surgery [address] [place] [address] [place] [address] Assigned Musculoskeletal Provider 11/02/22 Rosario Tapia, [facility] Community Health Worker Primary Care - CC 08/19/2308/21/23 Hellen Limon Personal Advocate & Liaison (PAL) Family Medicine 08/20/23 10/12/23 June Quintana RN Personal Advocate & Liaison (PAL) Family Medicine 10/13/23 11/09/23 Gisselle Doyle, [facility], [facility] [address] [place] [address] Assigned Behavioral Health Provider 11/04/23 Soumya Saavedra Personal Advocate & Liaison (PAL) Family Medicine 03/07/22 09/14/23 documented as of this encounter
--- OUTSIDE RECORDS SUMMARY | 2023-12-21 07:49 | XMS_ITS | Encounter Summary ---
Author Organization [place] Address [facility] [place] [address] Care Team Providers Care Family Day Care Provider Name Role Phone Luis E Figueredo MD Primary Care Provider [phone] Mery Solorio RN Unavailable [phone] Oscar Westbrook MD Primary Care Provider [phone] Oscar Westbrook MD Unavailable [phone] Soledad Mccabe MD Unavailable Unav ailable Sancho Brown MD Unavailable [phone] Oscar Westbrook MD Unavailable [phone] Oscar Westbrook MD Unavailable [phone] [facility] Unavailable [phone] Jailene Pettit RN Unavailable UnavailJessica Wen ELECTRICIANS TOP HELPER Unavailable Itzel Pandey Unavailable Unavailable Lizbet Guzmán MD Unavailable [phone] Soledad Mccabe MD Unavailable Unav ailable Kayleigh Pearce RN Unavailable Unavailable LloydAlba coto EKG MANAGER Unavailable Sancho Brown MD Unavailable [phone] Soledad Mccabe MD Unavailable Unav Maritza Paul Unavailable Unavailable Sancho Brown MD Unavailable Oscar Westbrook MD Unavailable [phone] Aida Hahn DPM, Podiatry /Foot and Ankle Surgery Unavailable Willie Rosario C CHW Unavailable Hellen Limon Unavailable Unavailable June Quintana RN Unavailable Unavailable Gisselle DoyleSW, [facility] Unavailable Reason for Visit * Reason Onset Date Comments Refill Request 08/22/2011 gabapentin Encounter Details Date Type Department Care Team (Late st Contact Info) Description 08/22/[address] [address] Luis E Figueredo MD [address] [place] [address] Refill Request (gabapentin) Social History Tobacco Use Types Packs/Day Years [...] encounter Miscellaneous Notes * Telephone Encounter - Kristal Bergman - 08/22/2011 9:45 AM CST See dose correction in isiah t'd up with new/corrected sig for review. ITY TENDER CARDING * Telephone Encounter - Kristal Bergman - 08/22/2011 9:42 AM CSTMessage from Angelica: Original authorizing provider: MD Nico Griffin would like a refill of the following medications: gabapentin (NEURONTIN) 300 MG capsule [Luis E Figueredo MD] Preferred pharmacy: [facility] Comment: Gabapentin is listed at incorrect dose. It should read 3 capsules tid (900 mg tid) That is why Nico keeps running short.Thank you ITY TENDER CARDING documented in this encounter Plan of Treatment Not on file documented as of this encounter Visit Diagnoses Diagnosis Chronic pain- Primary Other chronic pain documented in this encounter Care Teams Family Day Care Provider Relationship Specialty [place] [address] [place] [address] PCP - General 06/08/00 08/03/13 [place] [address] [place] [address] PCP - General Family Practice 08/04/13 [place] [address] [address] [address] PCP - Assigned PCP 08/08/13 09/15/18 Mery Solorio RN Clinic Pet Food Deboner Nurse 05/17/13 [place] [address] [place] [address] Family Practice 07/24/15 [place] [address] [address] [address] Otolaryngology 07/24/15 07/14/19 aSncho Brown MD [address] [place] [address] [place] [address] Urology 02/26/18 [place] [address] [place] [address] Assigned PCP 08/08/13 Alba Desai, EKG MANAGER [facility] [address] [place] [address] Nurse Practitioner Nurse Practitioner Psych/Mental Health 11/12/18 Jailene Pettit, [facility] Personal Advocate & Liaison (PAL) Family Practice 02/03/19 05/02/19 Jessica Bowling, ELECTRICIANS TOP HELPER Personal Advocate & Liaison (PAL) Primary Care - CC 04/30/19 06/07/19 Itzel Pandey Personal Advocate & Liaison (PAL) 06/08/19 07/14/19 Lizbet Guzmán MD [facility] [address] [place] [address] Referring Physician 06/23/19 [place] [address] [place] [address] Otolaryngology 06/23/19 Kayleigh Pearce RN Personal Advocate & Liaison (PAL) Family Practice 04/10/20 10/11/20 LloydAlba coto, EKG MANAGER [address] [place] [address] Assigned Behavioral Health Provider 05/05/20 09/09/20 Sancho Brown MD [address] [facility] [address] [place] [address] Assigned Surgical Provider 05/05/20 09/16/20 Soledad Mccabe MD Assigned Surgical Provider 09/17/20 11/11/20 Maritza Cope Personal Advocate & Liaison (PAL) 11/14/20 03/06/22 Sancho Brown MD [address] [place] [address] Assigned Surgical Provider 11/12/20 05/10/22 [place] [address] [place] [address] Assigned Pain Medication Provider 07/22/22 Aida aHhn DPM, Podiatry/Foot and Ankle Surgery [address] [place] [address] [place], [place] [address] Assigned Musculoskeletal Provider 11/02/22 Rosario Tapia, [facility] Community Health Worker Primary Care - CC 08/19/2308/21/23 Hellen Limon Personal Advocate & Liaison (PAL) Family Medicine 08/20/23 10/12/23 June Quintana, RN Personal Advocate & Liaison (PAL) Family Medicine 10/13/23 11/09/23 Gisselle Doyle, [facility], [facility] [address] [place] [address] Assigned Behavioral Health Provider 11/04/23 Soumya Saavedra Personal Advocate & Liaison (PAL) Family Medicine 03/07/22 09/14/23 documented as of this encounter
--- OUTSIDE RECORDS SUMMARY | 2023-12-21 07:49 | XMS_ITS | Encounter Summary ---
Author Organization [place] Address [facility] [place] [address] Care Team Providers Care Afloat Cryptologic Manager Name Role Phone Luis E Figueredo MD Primary Care Provider [phone] Mery Solorio RN Unavailable [phone] Oscar Westbrook MD Primary Care Provider [phone] Oscar Westbrook MD Unavailable [phone] Soledad Mccabe MD Unavailable Unav ailable Sancho Brown MD Unavailable [phone] Oscar Westbrook MD Unavailable [phone] Oscar Westbrook MD Unavailable [phone] [facility] Unavailable [phone] Jailene Pettit RN Unavailable UnavailJessica Wen BED AND BREAKFAST INNKEEPER Unavailable Itzel Pandey Unavailable Unavailable Lizbet Guzmán MD Unavailable [phone] Soledad Mccabe MD Unavailable Unav ailable Kayleigh Pearce RN Unavailable Unavailable LloydAlba coto DENTAL LAB TECHNICIAN Unavailable [phone] Sancho Brown MD Unavailable [phone] Soledad Mccabe MD Unavailable Unav ailable Maritza Cope Unavailable Unavailable Sancho Brown MD Unavailable [phone] Oscar Westbrook MD Unavailable [phone] Aida Hahn DPM, Podiatry /Foot and Ankle Surgery Unavailable Bonniekain Rosario Aries CHW Unavailable Hellen Limon Unavailable Unavailable June Quintana RN Unavailable Unavailable Vivek Gisselle [facility] Unavailable [phone] Encounter Details Date Type Department Care Team (Late st Contact Info) Description 09/20/2004 [facility] [id number] [place] [id number] [place] [id number] [place] [id number] ADMISSION NOTE (Primary Dx) Social History Tobacco Use Types Packs/Day Years Used Date Smoking Tobacco: Light Smoker Cigarettes 0.5 30 Smokeless Tobacco: Former Quit: 02/22/2013 Comments:3 cigeretts a day Alcohol Use Standard Drinks/Week Comments No 0 (1 standard drink = 0.6 oz pure alcohol) 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 Education Answer Date Recorded What is the highest level of school you have completed or the highest degree you have received? 12th grade 07/13/2019 Sex and Gender Information Value Date Recorded Sex Assigned at Male 11/12/2020 5:06 PM CDT Gender Identity Male 11/12/2020 5:06 PM CDT Sexual Orientation Not on file documented as of this encounter Progress Notes * Gisselle Lopez - 09/26/2004 2:49 PM CST 00:00 Admission Note DAVID GONZALEZ) [Signed: 23:39] [Entered: interfaces, interfaces (FV Interface) 23:39] IDENTIFICATION: Psychiatrist/therapist: None. Primary-care physician: Luis E Figueredo MD CHIEF COMPLAINT: I feel like I have no where to go. HISTORY OF PRESENT ILLNESS: This is the first psychiatric hospitalization for this 54-year-old male with history of depression and alcohol dependence, who was brought to the [facility] Emergency Department tonight by his , with suicidal ideation, with a plan to hang himself. The patient recalls feeling depressed since his mother at the age of 40, when he was 16 years old. 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 He has been living with his brother and has no source of income. He feels like he has no where to go. Although he has felt depressed for many years, his depression worsened significantly in the past 2 weeks. He has had trouble falling asleep, and staying asleep, even though he is on trazodone. He feels guilty about many things, including the way he has taken his anger out on his over the years, his drinking, not being able to get a job. He endorsed decreased energy, decreased concentration, hopelessness, helplessness, and low self-esteem. He also has a very poor appetite and lost 27 pounds in 2 months. PSYCHIATRIC REVIEW OF SYSTEMS: Please see history of present illness for symptoms of depression. The patient endorsed a period in his life, which was described and could be interpreted as a manic episode. During that time, he was impulsive, had racing thoughts, increased activity, and sleeplessness. The patient endorsed worrying constantly, to the point that he throws up and this last happened last week. He views himself as being quite anxious. PAST PSYCHIATRIC HISTORY: Prior diagnosis include depression. 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 Prior use of psychotropic medications include Paxil, trazodone, Wellbutrin, Lexapro, Zoloft, and Prozac. There may have been others, but the patient does not recall which ones. The patient was committed 4x for chemical dependency treatment, most recently in 1996. He has never attempted suicidal ideation. CHEMICAL DEPENDENCY HISTORY: His drug of choice is alcohol. He normally drinks 1 liter of 100 proof vodka per night. He thinks that he subconsciously wanted to kill himself, drinking that much. He has been sober now for 4 months. His longest period of sobriety was 7 years in the . He has been in 12 treatment programs, both in patient and outpatient. His most recent treatment was outpatient in 1996 at [facility]. He has gone to meetings on and off for 25 years. PAST MEDICAL HISTORY: 1. Emergency bypass surgery, 1996. 2. Three myocardial infarctions. 3. Hypercholesterolemia. 4. Hypertension. 5. Arthritis. 6. No seizures or head injuries. CURRENT MEDICATIONS: 1. Lipitor 40 mg each day. 2. Paxil 20 mg q.a.m. 3. Trazodone 50 mg q.h.s. 4. Bextra 10 mg each day. 5. Atenolol 25 mg each day. ALLERGIES: No known drug allergies. FAMILY HISTORY: Maternal grandfather was alcoholic, there is depression in all his siblings. Maternal grandfather siblings committed suicide.. SOCIAL HISTORY: The patient is currently in his 3rd marriage and lives with his brother. He has 3 children from his first 2 marriages and 3 stepchildren. He sold his house in 06/16, last his business last year, and is currently from his . 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 He completed high school. Legal history is significant for 3 DWI charges. There is no history of abuse. REVIEW OF SYSTEMS: Significant for arthritis in knees and recent headaches. PHYSICAL EXAMINATION: Per Emergency Department physician. MENTAL STATUS EXAMINATION: The patient is an appropriately groomed male appearing his age of 53 years. He is cooperative and pleasant throughout the interview, and maintained good eye contact. There were no movement abnormalities. Speech was regular in rate, rhythm and volume. His mood was described as depressed. Affect was extremely dysphoric and tearful. His thought processes was linear and logical. Thought content was significant for suicidal ideation with plan to hang himself. Memory, cognition, attention and concentration were adequate. Insight and judgment were fair. ASSESSMENT: This patient is a 54-year-old male with history of depression and alcohol dependence, who presents with suicidal ideation with plan to hang himself, in the context of multiple psychosocial stressors. DIAGNOSES: AXIS I Major depressive disorder. Alcohol dependence. AXIS II. Deferred. AXIS III. History of 3 myocardial infarctions. Status post bypass in 1996. Hypertension. Hypercholesterolemia. AXIS IV. Psychosocial stressors: Severe related to separation from life, recent loss of business. AXIS V. Global Assessment of Functioning (GAF): 20 PLAN: 1. The patient will be admitted to station 20 under the care of Dr. Jaimes. 2. Admission is voluntary. 3. The patient will be placed on 15 minute checks, suicide precautions, code 1. 4. CBC, urine tox screen comprehensive metabolic panel and TSH were ordered. 5. An internal medicine consultation was requested. 6. The patient will be continued on the following: A. Paxil 20 mg q.a.m. B. Bextra 10 mg each day. C. Atenolol 25 mg each day. D. Trazodone 50 mg p.o. q.h.s. 7. The primary treatment team will make recommendations for further treatment. HENRI JAIMES MD Dictated by: DAVID GONZALEZ MD MT: bn Document: [id number] CC: MD HENRI SPICER MD ALBERT R SALAZAR, MD LCN: [id number] DSC: [place], [place] Name: MR#: : Admit Date: NICO VAZQUEZ -[id number] 09/20/2004 ADMISSION NOTE Page 4 of 4 Electronically filed by Gisselle Lopez 09/26/2004 2:49 PM ICAL SUPPLY ASSISTANT documented in this encounter Plan of Treatment Not on file documented as of this encounter Visit Diagnoses Diagnosis ADMISSION NOTE- Primary documented in this encounter Care Teams Afloat Cryptologic Manager Relationship Specialty Start [place] [address] [place] [address] PCP - General 06/08/00 08/03/13 [place] [address] [place] [address] PCP - General Family Practice 08/04/13 [place] [address] [place] [address] PCP - Assigned PCP 08/08/13 09/15/18 Mery Solorio RN Clinic Diving Judge Nurse 05/17/13 [place] [address] [place] [address] Family Practice 07/24/15 [place] [address] [place] [address] Otolaryngology 07/24/15 07/14/19 Sancho Brown MD [address] [address] Urology 02/26/18 [place] [address] [place] [address] Assigned PCP 08/08/13 Alba Desai NP [address] [address] Nurse Practitioner Nurse Practitioner Psych/Mental Health 11/12/18 Jailene Pettit, WALT Personal Advocate & Liaison (PAL) Family Practice 02/03/19 05/02/19 Jessica Bowling, BED AND BREAKFAST INNKEEPER Personal Advocate & Liaison (PAL) Primary Care - CC 04/30/19 06/07/19 Itzel Pandey Personal Advocate & Liaison (PAL) 06/08/19 07/14/19 Lizbet Guzmán MD [facility] [address] [place] [address] Referring Physician 06/23/19 [place] [address] [place] [address] Otolaryngology 06/23/19 Kayleigh eParce, WALT Personal Advocate & Liaison (PAL) Family Practice 04/10/20 10/11/20 Alba Desai, DENTAL LAB TECHNICIAN [address] [place] [address] Assigned Behavioral Health Provider 05/05/20 09/09/20 Sancho Brown MD [address] [facility] [address] [place] [address] Assigned Surgical Provider 05/05/20 09/16/20 Soledad Mccabe MD Assigned Surgical Provider 09/17/20 11/11/20 Maritza Cope Personal Advocate & Liaison (PAL) 11/14/20 03/06/22 Sancho Brown MD [address] [facility] [address] [place] [address] Assigned Surgical Provider 11/12/20 05/10/22 [place] [address] [place] [address] Assigned Pain Medication Provider 07/22/22 Aida Hahn DPM, Podiatry/Foot and Ankle Surgery [address] [place] [address] [place] [address] Assigned Musculoskeletal Provider 11/02/22 Rosario Tapia, W Community Health Worker Primary Care - CC 08/19/2308/21/23 Hellen Limon Personal Advocate & Liaison (PAL) Family Medicine 08/20/23 10/12/23 June Quintana RN Personal Advocate & Liaison (PAL) Family Medicine 10/13/23 11/09/23 Gisselle Doyle, [facility] [address] [place] [address] Assigned Behavioral Health Provider 11/04/23 Soumya Saavedra Personal Advocate & Liaison (PAL) Family Medicine 03/07/22 09/14/23 documented as of this encounter
--- OUTSIDE RECORDS SUMMARY | 2023-12-21 07:49 | XMS_ITS | Encounter Summary ---
Author Organization [place] Address [facility] [place] [address] Care Team Providers Care Staff Veterinarian Name Role Phone Luis E Figueredo MD Primary Care Provider [phone] Mery Solorio RN Unavailable [phone] Oscar Westbrook MD Primary Care Provider [phone] Oscar Westbrook MD Unavailable [phone] Soledad Mccabe MD Unavailable Unav ailable Sancho Brown MD Unavailable [phone] Oscar Westbrook MD Unavailable [phone] Oscar Westbrook MD Unavailable [phone] [facility] NP Unavailable [phone] Jailene Pettit RN Unavailable UnavailJessica Wen LEGAL RESEARCHER Unavailable Itzel Pandey Unavailable Unavailable Lizbet Guzmán MD Unavailable [phone] Soledad Mccabe MD Unavailable Unav ailable Kayleigh Pearce RN Unavailable Unavailable LloydAlba coto PEWTER FINISHER Unavailable [phone] Sancho Brown MD Unavailable [phone] Soledad Mccabe MD Unavailable Unav ailable Maritza Cope Unavailable Unavailable Sancho Brown MD Unavailable Oscar Westbrook MD Unavailable [phone] Aida Hahn DPM, Podiatry /Foot and Ankle Surgery Unavailable Rosario Tapia CH Unavailable [phone] Hellen Limon Unavailable Unavailable June Quintana RN Unavailable Unavailable [facility] Encounter Details Date Type Department Care Team (Late st Contact Info) Description 01/13/[address], [facility] [address] [place] [address] [facility] Social History Tobacco Use Types Packs/Day Years [...] on filedocumented in this encounter Care Teams Staff Veterinarian Relationship Specialty Start [place] [address] [place] [address] PCP - General 06/08/00 08/03/13 [place] [address] [place] [address] PCP - General Family Practice 08/04/13 [place] [address] [place], [place] [id number] PCP - Assigned PCP 08/08/13 09/15/18 Mery Solorio RN Clinic Ware Server Nurse 05/17/13 [place] [address] [place], [place] [id number] Family Practice 07/24/15 [place] [address] [place] [address] Otolaryngology 07/24/15 07/14/19 Sancho Brown MD [address] [facility] [address] [place] [address] Urology 02/26/18 [place] [address] [place] [address] Assigned PCP 08/08/13 Alba Desai NP [place] [address] [place] [address] Nurse Practitioner Nurse Practitioner Psych/Mental Health 11/12/18 Jailene Pettit, WALT Personal Advocate & Liaison (PAL) Family Practice 02/03/19 05/02/19 Jessica Bowling, LEGAL RESEARCHER Personal Advocate & Liaison (PAL) Primary Care - CC 04/30/19 06/07/19 Itzel Pandey Personal Advocate & Liaison (PAL) 06/08/19 07/14/19 Lizbet Guzmán MD [facility] [address] [facility] [address] [place] [address] Referring Physician 06/23/19 [place] [address] [place] [address] Otolaryngology 06/23/19 Kayleigh Pearce, RN Personal Advocate & Liaison (PAL) Family Practice 04/10/20 10/11/20 Alba Desai, PEWTER FINISHER [address] [place] [address] Assigned Behavioral Health Provider 05/05/20 09/09/20 Sancho Brown MD [address] [facility] [address] [place] [address] Assigned Surgical Provider 05/05/20 09/16/20 Soledad Mccabe MD Assigned Surgical Provider 09/17/20 11/11/20 Maritza Cope Personal Advocate & Liaison (PAL) 11/14/20 03/06/22 Sancho Brown MD [address] [facility] [address] [place] [address] Assigned Surgical Provider 11/12/20 05/10/22 [place] [address] [place] [address] Assigned Pain Medication Provider 07/22/22 Aida Hahn DPM, Podiatry/Foot and Ankle Surgery [address] [place] [facility] [address] [place] [address] Assigned Musculoskeletal Provider 11/02/22 Rosario Tapia, CHW Community Health Worker Primary Care - CC 08/19/2308/21/23 Hellen Limon Personal Advocate & Liaison (PAL) Family Medicine 08/20/23 10/12/23 June Quintana RN Personal Advocate & Liaison (PAL) Family Medicine 10/13/23 11/09/23 Gisselle Doyle, [facility] [address] [place] [address] Assigned Behavioral Health Provider 11/04/23 Soumya MCKENZIE 4 Personal Advocate & Liaison (PAL) Family Medicine 03/07/22 09/14/23 documented as of this encounter
== END 2023-12-21 07:55 | disposition home or self-care (01) ==
LOC: ED 07:40
PROVIDERS: Emergency Provider Family Medicine
DX: G47.00 Insomnia, unspecified (principal)
CPT/HCPCS: 99283